=== PATIENT | female | born 1940 | race Caucasian/White ===

== ENCOUNTER 2016-07-20 11:00 | Outpatient (CLI) | payer OTHER | END 2016-07-20 11:01 | disposition home or self-care (01) | DX: N39.0 Urinary tract infection, site not specified (principal) ==

== ENCOUNTER 2016-08-01 14:53 | Outpatient (CLI) | payer OTHER | END 2016-08-01 14:54 | disposition home or self-care (01) | DX: R22.42 Localized swelling, mass and lump, left lower limb (principal) ==

== ENCOUNTER 2016-12-03 09:35 | Outpatient (CLI) | payer OTHER ==
[2016-12-03 10:07] LABS: BASOPHILS % (AUTO) 0.4 %; EOSINOPHILS # (AUTO) 0.2 10^3/uL (0.0-0.7); EOSINOPHILS % (AUTO) 1.8 %; HCT - HEMATOCRIT 40.8 % (37.0-47.0); HGB - HEMOGLOBIN 14.1 g/dL (12.0-16.0); LYMPHOCYTES % (AUTO) 12.6 %; MEAN CORPUSCULAR HEMOGLOBIN 32.2 pg (27.0-31.0); MEAN CORPUSCULAR HGB CONC 34.6 g/dL (32.0-36.0); MEAN CORPUSCULAR VOLUME 92.9 fL (81.0-99.0); MEAN PLATELET VOLUME 8.1 fL (7.9-10.8); MONOCYTES # (AUTO) 0.6 10^3/uL (0.0-1.0); MONOCYTES % (AUTO) 7.6 %; NEUTROPHILS # (AUTO) 6.4 10^3/uL (1.5-6.6); NEUTROPHILS % (AUTO) 77.6 %; RED BLOOD COUNT 4.39 10^6/uL (4.20-5.40); RED CELL DISTRIBUTION WIDTH 13.1 % (12.0-15.0); UNCORRECTED WHITE BLOOD COUNT 8.3 x10^3/uL; WHITE BLOOD COUNT 8.3 x10^3/uL (4.8-10.8)
[2016-12-03 10:29] LABS: BILIRUBIN,TOTAL 0.8 mg/dL (0.2-1.0); BUN - BLOOD UREA NITROGEN 22 mg/dL (6-20); CALCIUM 9.2 mg/dL (8.5-10.3); CARBON DIOXIDE - CO2 30 mmol/L (21-32); CHLORIDE 101 mmol/L (101-111); CHOL/HDL RATIO 4.4 (<4.4); CHOLESTEROL 185 mg/dL; CREATININE 0.6 mg/dL (0.4-1.0); GFR - MDRD 98 (>89); GLUCOSE 105 mg/dL (70-100); HDL CHOLESTEROL 42 mg/dL; POTASSIUM 3.9 mmol/L (3.5-5.0); SODIUM 138 mmol/L (135-145); TOTAL PROTEIN 7.5 g/dL (6.7-8.2); TRIGLYCERIDES 92 mg/dL; URIC ACID 6.3 mg/dL (2.6-7.2); VLDL CHOLESTEROL 18 mg/dL
--- NOTE | 2016-12-04 01:07 | XRAY Report ---
EXAM: RIGHT FOOT RADIOGRAPHY EXAM DATE: 12/03/2016 10:08 AM. CLINICAL HISTORY: Right middle toe is painful. COMPARISON: None. TECHNIQUE: 3 views. FINDINGS: No evidence for acute fracture. No lytic lesions or periosteal reaction. 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 No subluxation. Dorsal interta rsal and tarsometatarsal osteoarthritis. Calcaneal bone spurs. Soft tissue: Unremarkable. IMPRESSION: 1. No acute bone findings are seen. Osteoarthritis as above. [facility] Referring Provider Line: [phone] SITE ID: [id number]
== END 2016-12-03 09:36 | disposition home or self-care (01) ==
LOC: LAB 09:35
PROVIDERS: ATTEND Family Medicine
DX: M19.071 Primary osteoarthritis, right ankle and foot (principal)
CPT/HCPCS: 36415; 80053; 80061; 84443; 84550; 85025; 85651; 86140

== ENCOUNTER 2017-01-12 08:52 | Outpatient (CLI) | payer OTHER ==
--- NOTE | 2017-01-13 15:54 | Mammography Report ---
DIGITAL BILATERAL SCREENING MAMMOGRAM: 01/12/2017 COMPARISON: Mammogram of 01/05/2016. INDICATION: Screening mammography. TECHNIQUE: Routine CC and MLO projections were obtained of the breasts. FINDINGS: Parenchymal tissue within the breasts is predominantly fatty replaced. There are no domina nt masses, suspicious microcalcifications, or secondary signs of malignancy. In comparison to the pre vious studies, there are no significant changes. IMPRESSION: NO MAMMOGRAPHIC EVIDENCE OF MALIGNANCY. NO SIGNIFICANT INTERVAL CHANGES. RECOMMENDATION: Screening mammography is recommended annually. BIRADS category 1 - negative. STANDARD QUALIFYING STATEMENTS 1. This examination was reviewed with the aid of Computed-Aided Detection (CAD). 2. A negative or benign imaging report should not delay biopsy if clinically suspicious findings are present. Consider surgical consultation if warranted. More than 5% of cancers are not identified by i maging. 3. Dense breasts may obscure an underlying neoplasm. JOB #: [id number] EXT JOB #:[id number]
== END 2017-01-12 08:53 | disposition home or self-care (01) ==
LOC: DI.N 08:52
PROVIDERS: ATTEND Family Medicine
DX: Z12.31 Encounter for screening mammogram for malignant neoplasm of breast (principal)
CPT/HCPCS: 77067

== ENCOUNTER 2017-07-13 08:00 | Outpatient (CLI) | payer OTHER ==
[2017-07-13 12:55] LABS: BASOPHILS % (AUTO) 0.5 %; EOSINOPHILS # (AUTO) 0.1 10^3/uL (0.0-0.7); EOSINOPHILS % (AUTO) 1.8 %; HGB - HEMOGLOBIN 13.4 g/dL (12.0-16.0); LYMPHOCYTES # (AUTO) 1.5 10^3/uL (1.5-3.5); LYMPHOCYTES % (AUTO) 20.9 %; MEAN CORPUSCULAR HEMOGLOBIN 31.6 pg (27.0-31.0); MEAN CORPUSCULAR HGB CONC 33.7 g/dL (32.0-36.0); MEAN CORPUSCULAR VOLUME 93.8 fL (81.0-99.0); MEAN PLATELET VOLUME 8.2 fL (7.9-10.8); MONOCYTES # (AUTO) 0.5 10^3/uL (0.0-1.0); MONOCYTES % (AUTO) 7.4 %; NEUTROPHILS # (AUTO) 5.1 10^3/uL (1.5-6.6); NEUTROPHILS % (AUTO) 69.4 %; PLT - PLATELET COUNT 284 10^3/uL (130-450); RED BLOOD COUNT 4.23 10^6/uL (4.20-5.40); RED CELL DISTRIBUTION WIDTH 12.8 % (12.0-15.0); WHITE BLOOD COUNT 7.3 x10^3/uL (4.8-10.8)
[2017-07-13 13:14] LABS: ALBUMIN 3.6 g/dL (3.2-5.5); ALBUMIN/GLOBULIN RATIO 0.9 (1.0-2.2); BILIRUBIN,TOTAL 0.4 mg/dL (0.2-1.0); CALCIUM 9.2 mg/dL (8.5-10.3); CREATININE 0.6 mg/dL (0.4-1.0); TOTAL PROTEIN 7.7 g/dL (6.7-8.2)
== END 2017-07-13 08:01 | disposition home or self-care (01) ==
LOC: LAB.WCP 08:00
PROVIDERS: ATTEND Family Medicine
DX: R05 Cough (principal)
CPT/HCPCS: 36415; 80053; 81599; 85025; 86635

== ENCOUNTER 2020-05-06 12:41 | Outpatient (CLI) | payer OTHER ==
[2020-05-06] MEDS ORDERED: BUFFERED LIDOCAINE 10 ML SYRINGE ONE (12:52)
[2020-05-06] MEDS ORDERED: BUPIVACAINE 0.5% PF 10 ML VIAL ONE ×2 (12:53→13:12)
[2020-05-06] MEDS ORDERED: BUPIVACAINE 0.5% PF 10 ML VIAL IM ONE (15:59)
[2020-05-06] MEDS ORDERED: BUFFERED LIDOCAINE 10 ML SYRINGE IU ONE (15:59)
--- NOTE | 2020-05-11 09:53 | Ultrasound Report ---
ULTRASOUND GUIDED BIOPSY LEFT BREAST USING VACUUM DEVICE WITH MARKING DEVICE INSERTED AND POST MAMMOG RAPHIC IMAGIN05/06/2020 CLINICAL: Left breast mass. PATIENT CONSENT: Risks (minor bleeding, infection, vasovagal reaction and repeat procedure), benefits and alternatives were explained to the patient and written informed consent was obtained. Correlation is made to exams dated: 04/28/2020 ultrasound, 04/28/2020 mammogram - [facility] , 01/12/2017 mammogram, 01/05/2016 mammogram, and 12/08/2014 mammogram - [facility]. An ultrasound guided biopsy using real-time ultrasound was performed for the concerning palpable 3.5 cm x 2.1 cm x 2.5 cm microlobulated irregular shaped solid mass located in the left breast at 11 o'cl ock middle depth. This was described on the previous mammography and ultrasound reports. The skin w as prepped in the usual manner. Local anesthetic was administered to the access site. A skin sanchez w as made in the breast. The abnormality was approached from the lateral aspect. A 13 gauge biopsy ne edle was placed adjacent to the abnormality under ultrasound guidance. Once the needle was documente d to be in the correct location, four specimens were obtained using the Mammotome biopsy system. The patient received additional local anesthetic during the procedure. A mammo clip was inserted into t he biopsy cavity. A skin closure strip and a sterile dressing were applied to the access site. Post procedure mammographic imaging demonstrates the location device at the targeted area and partial rem oval of the abnormality. The specimens were sent to the laboratory for pathological analysis. A possible left axillary node biopsy was potentially also to be performed today, but the lymph nodes seen deep in the axilla appeared normal morphologically and in size, and were relatively poorly seen due to their depth and posterior positioning. It was chosen to not proceed with node biopsy also be cause node position was near deep vasculature and image detail was limited. IMPRESSION: ULTRASOUND GUIDED BIOPSY MALIGNANT Ultrasound guided biopsy of the 3.5 cm x 2.1 cm x 2.5 cm solid mass in the left breast at 11 o'clock middle depth was successful. Pathology indicates malignant invasive ductal carcinoma (ID). Patholog y results are concordant with imaging findings. A surgical/oncologic consultation is recommended. A possible node biopsy at the left axilla was not performed due to the factors discussed above. This exam was interpreted at Station ID: [id number]. Edi Álvarez M.D. [facility],aty/:05/08/2020 19:21:07 copy to: TJ Allan LEAH, ph: [phone] BI-RADS CATEGORY: () - Unspecified - other recall n/a LATERALITY: (B)
--- NOTE | 2020-05-11 09:53 | Mammography Report ---
UNILATERAL LEFT DIGITAL DIAGNOSTIC MAMMOGRAM POST-PROCEDURE IMAGING FOR MARKER PLACEMENT: 05/06/2020 CLINICAL: Post left breast ultrasound biopsy, clip placement imaging. No prior exams were available for comparison. The tissue of left breast is predominantly fatty. The mass in the left breast that was biopsied earlier today under US guidance now contains the post biop sy marker as expected. IMPRESSION: POST PROCEDURE MAMMOGRAM FOR MARKER PLACEMENT Biopsy marker from US procedure earlier today is within the left breast mass. This exam was interpreted at Station ID: [id number]. NOTE: For mammograms, a report in lay terms will be sent to the patient. Approximately 15% of breast malignancies will not be visualized mammographically. In the management of a palpable breast mass, a negative mammogram must not discourage biopsy of a clinically suspicious lesion. Electronically Signed By: Edi Herzog M.D. sdh/:05/10/2020 17:06:53 copy to: TJ Allan LEAH, ph: [phone] ACR BI-RADS Category Post-procedure mammogram for marker placement PARENCHYMAL PATTERN: (F) - The breast(s) demonstrate(s) diffuse fatty replacement. BI-RADS CATEGORY: () - Unspecified - other recall n/a LATERALITY: (B)
== END 2020-05-06 12:42 | disposition home or self-care (01) ==
LOC: DI 12:41
PROVIDERS: ATTEND Family Medicine
DX: C50.212 Malignant neoplasm of upper-inner quadrant of left female breast (principal); Z17.1 Estrogen receptor negative status [ER-]
CPT/HCPCS: 19083

== ENCOUNTER 2020-05-29 07:25 | Outpatient (CLI) | payer OTHER ==
[2020-05-29] MEDS ORDERED: IOPAMIDOL-300 50 ML VIAL ONE (07:46)
[2020-05-29] MEDS ORDERED: IOVERSOL 320 100 ML VIAL IVP ONE ×2 (07:46→09:14)
[2020-05-29] MEDS ORDERED: IOPAMIDOL-300 50 ML VIAL PO ONE (09:15)
--- NOTE | 2020-05-29 13:26 | CT Report ---
PROCEDURE: CHEST W INDICATIONS: BREAST CA CONTRAST: IV CONTRAST: Optiray 320 ml: 100 PO CONTRAST: Isovue 300 ml50 TECHNIQUE: After the administration of intravenous contrast, 5 mm thick sections acquired from the pulmonary api shailesh to the posterior costophrenic angles. 7 mm thick coronal MIP reformats were acquired. For radia tion dose reduction, the following was used: automated exposure control, adjustment of mA and/or kV according to patient size. COMPARISON: None. FINDINGS: Image quality: Excellent. Lungs and pleura: No acute air space opacities. No pleural effusions or pneumothorax. Central and peripheral airways are patent and normal in caliber. Mediastinum: Heart size is normal. No pericardial effusion. No mediastinal or hilar adenopathy by size criteria. Thoracic aorta and central pulmonary arteries are normal in size. Esophagus is colin l in caliber. No hiatal hernia. Bones and chest wall: No suspicious bony lesions. No vertebral body compression fractures. No axil lesly or supraclavicular adenopathy by size criteria. Thyroid gland appears normal where well visuali zed. Note is made of a 3.6 cm diameter malignant appearing upper inner quadrant breast mass on the l eft, with a high density focus within consistent with ultrasound-guided biopsy localization clip. Abdomen: Visualized upper abdominal solid organs appear normal. Upper abdominal bowel loops are nor mal in caliber. IMPRESSION: No evidence of metastatic disease related to the 3.6 cm diameter rounded mass at the left breast, upp er inner quadrant. This mass contains a small metallic focus, consistent with the reported prior dank st biopsy performed under ultrasound guidance 05/06/2020. Several small lymph nodes are noted at the left axilla, none of which appear hyperenhancing or enlarg ed in overall size. Reviewed by: Edi Herzog MD on 05/29/2020 12:25 PM [place] Approved by: Edi Herzog MD on 05/29/2020 12:25 PM [place] Station ID: [id number]
--- NOTE | 2020-05-29 18:33 | CT Report ---
PROCEDURE: Abdomen/Pelvis W INDICATIONS: BREAST CA CONTRAST: IV CONTRAST: Optiray 320 ml: 100 PO CONTRAST: Isovue 300 ml50 TECHNIQUE: After the administration of Intravenous and oral contrast, 5 mm thick sections acquired from the diap hragms to the symphysis. 5 mm thick coronal and sagittal reformats were acquired. For radiation dos e reduction, the following was used: automated exposure control, adjustment of mA and/or kV accordin g to patient size. COMPARISON: CT chest with contrast, 05/29/2020. FINDINGS: Image quality: Excellent. ABDOMEN: Lung bases: Lung bases are clear. Heart size is normal. Moderate coronary artery calcification. Sm all hiatal hernia. Solid organs: Liver and spleen are normal in size and enhancement. Gallbladder is normal. Biliary system is non dilated. Pancreas enhances normally. No adrenal nodules. Kidneys demonstrate normal size and enhancement, without hydronephrosis. Peritoneum and bowel: Bowel loops demonstrate normal wall thickness and caliber. No free fluid or a ir. Nodes and vessels: No retroperitoneal or mesenteric adenopathy by size criteria. Aorta and inferior vena cava are normal in size. Moderate to severe aortic calcification. Miscellaneous: There is a small fat-containing umbilical hernia. PELVIS: Genitourinary: Bladder wall thickness is normal. Uterus and ovaries are normal. No pathological marylou e fluid. Miscellaneous: There is enlarged left inguinal nodes are noted measuring up to 1 cm. Bones: No suspicious bony lesions. No vertebral body compression fractures. Degenerative disc and facet disease in lumbar spine. Right hip arthroplasty. IMPRESSION: 1. No findings to suggest metastatic disease in abdomen or pelvis. 2. Mildly enlarged left inguinal lymph nodes are present, nonspecific. Rectum and clinical follow-up. Reviewed by: Torin Mays MD on 05/29/2020 6:32 PM PST Approved by: Torin Mays MD on 05/29/2020 6:32 PM PST Station ID: [id number]
== END 2020-05-29 07:26 | disposition home or self-care (01) ==
LOC: DI 07:25
PROVIDERS: ATTEND Internal Medicine Hematology & Oncology
DX: Z01.812 Encounter for preprocedural laboratory examination (principal); N63.22 Unspecified lump in the left breast, upper inner quadrant; R59.0 Localized enlarged lymph nodes; C50.912 Malignant neoplasm of unspecified site of left female breast; Z20.822 Contact with and (suspected) exposure to COVID-19
CPT/HCPCS: 71260; 74177; 87635; Q9967

== ENCOUNTER 2020-05-29 09:06 | Outpatient (CLI) | payer OTHER | END 2020-05-29 09:07 | disposition home or self-care (01) | LOC: LAB 09:06 | PROVIDERS: ATTEND Surgery | DX: Z01.812 Encounter for preprocedural laboratory examination (principal); C50.912 Malignant neoplasm of unspecified site of left female breast; Z20.822 Contact with and (suspected) exposure to COVID-19 ==

== ENCOUNTER 2020-06-01 08:19 | Day surgery (SDC) | payer OTHER ==
[~2020-06-01 08:19] MED LIST: BUPIVACAINE 0.5% PF 30 ML VIAL INFIL ONE; BUPIVACAINE 0.5% PF 30 ML VIAL ONE; LIDOCAINE 2%-EPI 1:100000 20 ML MDV ONE; LIDOCAINE 2%-EPI 1:100000 20 ML MDV SUBQ ONE; ceFAZolin 2 GM/50 ML 2 GM/50 ML BAG IV ONE
[2020-06-01] MEDS ORDERED: LACTATED RINGERS 1,000 ML IV ONE ×2 (08:29→09:00)
[2020-06-01] MEDS ORDERED: PROPOFOL 500 MG/50 ML 500 MG/50 ML VIAL ONE (08:37)
[2020-06-01] MEDS ORDERED: MIDAZOLAM 2 MG/2 ML VIAL ONE (08:41)
[2020-06-01] MEDS ORDERED: fentaNYL 100 MCG/2 ML VIAL ONE (08:41)
--- NOTE | 2020-06-01 09:06 | ANESTHESIA ---
Pre-Anesthesia VS, & Labs - Diagnosis cancer - Procedure port placement Vital Signs: Temp Pulse Resp BP Pulse Ox 36.6 C 72 16 147/59 H 97 06/01/20 08:29 06/01/20 08:29 06/01/20 08:29 06/01/20 08:29 06/01/20 08:29 Height: 5 ft 5 in Weight (kg): 103.1 kg Body Mass Index: 37.8 BMI Classification: Obese - NPO >8 hours - Is Patient ?: No Home Medications and Allergies Home Medications: Ambulatory Orders B-Complex with Vitamin C [Super B Complex-Vitamin C] 1 each PO DAILY 05/27/20 Calcium Phos/Vit D3/Mag Oxide [Posture-D Caplet] 1 each PO DAILY 05/27/20 Cholecalciferol [Vitamin D3] 50 mcg PO DAILY 05/27/20 Cyanocobalamin (Vitamin B-12) [Vitamin B-12] 1,000 mcg PO DAILY 05/27/20 Furosemide [Lasix] 40 mg PO DAILY PRN 05/27/20 Glucosamine HCl 1,500 mg PO DAILY 05/27/[address] [place]-3S/Dha/Epa/Fish Oil [Fish Oil 1,200 mg Softgel] 1 each PO BID 05/27/20 Aspirin [Aspir 81] 81 mg ORAL DAILY 02/09/15 Losartan [Cozaar] 25 mg ORAL QPM 02/09/15 Propranolol [Inderal] 20 mg ORAL BID 02/09/15 Triamterene/Hydrochlorothiazid [Triamterene-Hctz 75-50 mg Tab] 35.5 mg ORAL DAILY 02/09/15 clonazePAM [Clonazepam] 0.5 mg ORAL BID 02/09/15 B-Complex with Vitamin C [Super B Complex-Vitamin C] 1 each PO DAILY 05/27/20 Calcium Phos/Vit D3/Mag Oxide [Posture-D Caplet] 1 each PO DAILY 05/27/20 Cholecalciferol [Vitamin D3] 50 mcg PO DAILY 05/27/20 Cyanocobalamin (Vitamin B-12) [Vitamin B-12] 1,000 mcg PO DAILY 05/27/20 Furosemide [Lasix] 40 mg PO DAILY PRN 05/27/20 Glucosamine HCl 1,500 mg PO DAILY 05/27/[address] [place] [address]-3S/Dha/Epa/Fish Oil [Fish Oil 1,200 mg Softgel] 1 each PO BID 05/27/20 Allergies/Adverse Reactions: Allergies Allergy/AdvReac Type Severity Reaction Status Date / Time No Known Drug Allergies Allergy Verified 05/29/20 13:40 Anes History & Medical History - Anesthetic History Anesthesia Complications: reports: No previous complications Family history of Anesthesia Complications: Denies Family history of Malignant Hyperthermia: Denies - Medical History Cardiovascular: reports: Hypertension, High cholesterol Pulmonary: reports: None Gastrointestinal: reports: Colon polyps Urinary: reports: None Musculoskeletal: reports: None Endocrine/Autoimmune: reports: None Skin: reports: Other Smoking Status: Never smoker - Surgical History General: reports: Colonoscopy, Other Orthopedic: reports: Hip replacement Dermatologic: reports: Skin cancer surgery Exam General: Alert Dental: WNL Mouth Openin Fingerbreadth Neck Mobility: Normal Mallampati classification: III Thyromental Distance: 4-6 cm Respiratory: Lungs clear Cardiovascular: Regular rate Abdomen: Normal bowel sounds Extremities: No clubbing Neurological: Normal gait Mental/Cognitive Status: Alert/Oriented X3 Cognitive Status: Within normal limits Plan Anesthesia Type: General, MAC (Discussed and consented pt for MAC with GA as back up plan.) Consent for Procedure(s) Verified and Reviewed: Yes Code Status: Attempt Resuscitation ASA classification: 2-Mild systemic disease Is this case an emergency?: No
[2020-06-01] MEDS ORDERED: LIDOCAINE 2%-EPI 1:100000 20 ML MDV SUBQ ONE (09:38)
[2020-06-01] MEDS ORDERED: BUPIVACAINE 0.5% PF 30 ML VIAL INFIL ONE (09:38)
--- NOTE | 2020-06-01 09:48 | OPERATIVE REPORT ---
Operative Report - General Procedure Date: 06/01/20 Planned Procedure: Right subclavian PowerPort placement Pre-Op Diagnosis: Left breast cancer Procedure Performed: Right subclavian PowerPort placement Post Op Diagnosis: Left breast cancer - Procedure Note Primary Surgeon: Gris Anesthesia Provider: ZAIDA Gonzalez Anesthesia Technique: MAC Estimated Blood Loss (mL): 5 Indications: Locally advanced left breast cancer Findings: Right PowerPort in good position in the superior vena cava Complications: None apparent - Other Other Information/Narrative: After obtaining informed consent, the patient is brought to the operating room and placed in supine position on the operating table. Following successful induction of sedation with monitored anesthesia care and appropriate padding of all bony prominences, the left chest and neck were prepped and draped in the standard surgical fashion. A timeout was held per scope protocol. All elements of the surgical safety checklist were followed before, during, and after the procedure. Following infiltration with local anesthetic to create a field block, the right subclavian vein was accessed in the deltopectoral groove. The J-wire was gently placed into the vein. Fluoroscopy was used to confirm the position of the wire and in the subclavian vein. We anesthetized the existing healed scar in the area around it for placement of the port itself. An incision was created here and carried down through the skin and subcutaneous tissue. A pocket was created with blunt dissection. The port tubing was attached to the tunneling device and passed from the access site of the vein into the pocket. It was trimmed to an appropriate length and the port attached. The port was sewn into place in the pocket. The dilator and introducer were then passed over the J-wire that was in the subclavian vein. The J-wire and dilator were removed leaving only the introducer. The tubing was then passed through the introducer and the intro ducer cracked and removed per commercial loan officer's directions. The port was then checked for function and flushed and sadaf easily. Additional local anesthetic was applied to the chest wall. The port pocket was closed with interrupted Vicryl sutures and Monocryl stitches were placed in both skin incision sites. All sponge, needle, and instrument counts were correct at the conclusion of the case. Chest x-ray in the postanesthesia care unit revealed the port in good position in the superior vena cava without evidence of pneumothorax.
--- NOTE | 2020-06-01 10:17 | XRAY Report ---
PROCEDURE: OR Port-A-Cath INDICATIONS: PORT PLACEMENT TECHNIQUE: Intraoperative fluoroscopy provided for line placement. COMPARISON: Chest CT 05/29/2020, chest x-ray 06/01/2020. FINDINGS: Single internal fluoroscopic image demonstrates a catheter projecting over the right subclavian exten ding into the region of the superior vena cava. The tip is demonstrated in the expected region of the right atrium. IMPRESSION: 1. Intraoperative fluoroscopy provided for line placement. 2. Single fluoroscopic image demonstrates the catheter extending into the expected region of the righ t atrium. Reviewed by: Nasim Sun MD on 06/01/2020 10:16 AM PDT Approved by: Nasim Sun MD on 06/01/2020 10:16 AM PDT Station ID: [id number]
--- NOTE | 2020-06-01 10:22 | XRAY Report ---
PROCEDURE: Chest for Line Placement INDICATIONS: Right power port TECHNIQUE: One view of the chest was acquired. COMPARISON: CT of chest dated 05/29/2020 FINDINGS: Surgical changes and devices: Right chest wall Port-A-Cath tip is projecting in the expected location of SVC. Lungs and pleura: No pleural effusions or pneumothorax. Lungs are clear. Mediastinum: Mediastinal contours appear normal. Heart size is normal. Bones and chest wall: No suspicious bony lesions. Overlying soft tissues appear unremarkable. IMPRESSION: Right chest wall Port-A-Cath tip is projecting in the expected location of SVC. No acute cardiopulmon lucie pathology. No acute cardiopulmonary pathology. Reviewed by: Josias Boothe MD on 06/01/2020 10:21 AM PDT Approved by: Josias Boothe MD on 06/01/2020 10:21 AM PDT Station ID: [id number]
[2020-06-01 10:49] VITALS: BP 140/62
--- NOTE | 2020-06-01 11:41 | ANESTHESIA POST OP EVALUATION ---
Anesthesia Post Eval - Post Anesthesia Eval Vitals: Last Vital Signs Temp 36.0 C L 06/01/20 10:30 Pulse 61 06/01/20 10:48 Resp 16 06/01/20 10:48 BP 140/62 H 06/01/20 10:48 Pulse Ox 98 06/01/20 10:48 CV Function Including HR & BP: positive: Stable Pain Control: positive: Satisfactory Nausea & Vomiting: positive: Negative Mental Status: positive: Baseline Respiratory Status: Airway Patent Hydration Status: Satisfactory Anesthesia Complications: positive: None
== END 2020-06-01 08:20 | disposition home or self-care (01) ==
LOC: SDS 08:19
PROVIDERS: ATTEND Surgery
DX: C50.212 Malignant neoplasm of upper-inner quadrant of left female breast (principal); I10 Essential (primary) hypertension; E66.9 Obesity, unspecified; Z68.37 Body mass index [BMI] 37.0-37.9, adult; Z87.891 Personal history of nicotine dependence
CPT/HCPCS: 36561; 71045; C1788; J0690; J7120

== ENCOUNTER 2020-06-05 08:36 | Outpatient (CLI) | payer OTHER ==
--- NOTE | 2020-06-05 18:57 | Nuclear Medicine Report ---
PROCEDURE: Bone Whole Body INDICATIONS: BREAST CA RADIOPHARMACEUTICAL: 26.9 mCi Tc-99m MDP IV. TECHNIQUE: Delayed whole-body scintigrams were obtained approximately 3-4 hours after intravenous injection of r adiotracer. Anterior and posterior views were acquired from vertex to feet. Additional left and rig ht oblique views of the skull and cervical spine were obtained. COMPARISON: None available. FINDINGS: Foci of mildly uptake in the thoracic spine and lumbar spine are noted, most likely degene rative in nature. There are foci of increased periarticular uptake in right shoulder, right wrist, le ft hip, knees bilaterally and right foot, consistent with degenerative/arthritic changes. There is ot herwise normal distribution of activity. IMPRESSION: 1. No findings to suggest osseous metastasis. Reviewed by: Torin Mays MD on 06/05/2020 6:55 PM PDT Approved by: Torin Mays MD on 06/05/2020 6:55 PM PDT Station ID: [id number]
== END 2020-06-05 08:37 | disposition home or self-care (01) ==
LOC: DI 08:36
PROVIDERS: ATTEND Internal Medicine Hematology & Oncology
DX: C50.919 Malignant neoplasm of unspecified site of unspecified female breast (principal)
CPT/HCPCS: 78306

== ENCOUNTER 2020-06-08 13:52 | Outpatient (CLI) | payer OTHER | END 2020-06-08 13:53 | disposition home or self-care (01) | LOC: DI 13:52 | PROVIDERS: ATTEND Internal Medicine Hematology & Oncology | DX: C50.919 Malignant neoplasm of unspecified site of unspecified female breast (principal); I08.2 Rheumatic disorders of both aortic and tricuspid valves | CPT/HCPCS: 93306 ==

== ENCOUNTER 2020-08-01 15:16 | Outpatient (CLI) | payer MEDICARE, OTHER | END 2020-08-01 15:17 | disposition EMS.NT | LOC: EMS 15:16 | DX: Z03.89 Encounter for observation for other suspected diseases and conditions ruled out (principal) ==

== ENCOUNTER 2020-08-01 16:29 | Outpatient (CLI) | payer MEDICARE, OTHER | END 2020-08-01 16:30 | disposition critical access hospital (66) | LOC: EMS 16:29 | DX: R42 Dizziness and giddiness (principal); R53.1 Weakness | CPT/HCPCS: A0425; A0429 ==

== ENCOUNTER 2020-08-01 17:19 | Inpatient (IN) | payer MEDICARE, OTHER ==
[2020-08-01] MEDS ORDERED: SODIUM CHLORIDE 0.9% 1,000 ML IV STA (17:28)
--- NOTE | 2020-08-01 17:40 | ED Physician Documentation ---
History of Present Illness - Stated complaint Stated Complaint: DIZZY - Chief complaint Chief Complaint: General - History obtained from History obtained from: Patient, EMS - History of Present Illness Timing: Today Pain level max: 0 Pain level now: 0 Improved by: rest Worsened by: standing - Additonal information Additional information: 80-year-old female presents to the emergency department complaining of lightheadedness and dizziness for the past several days. Worse with standing up, better when lying down. Decreased oral intake. Currently undergoing chemotherapy for breast cancer. She fell today, but no injuries. Was picked back up by EMS. The patient continues to feel lightheaded so 911 was called again and brought her in for evaluation. No numbness or tingling. No focal neurological deficits. No head injury. No neck or back pain. Has had some nausea but no vomiting. No diarrhea. No constipation. She states she was recently seen by her oncologist in the [facility] clinic, and told that she was dehydrated with a low sodium. Review of Systems Constitutional: denies: Fever, Chills GI: denies: Vomiting Skin: denies: Rash Musculoskeletal: denies: Neck pain, Back pain Neurologic: denies: Headache PD PAST MEDICAL HISTORY - Past Medical History Past Medical History: Yes Cardiovascular: Hypertension, High cholesterol Respiratory: None Endocrine/Autoimmune: None GI: Colon polyps : None HEENT: Chronic vision loss, Other Psych: Claustrophobia Musculoskeletal: None Derm: Other - Past Surgical History General: Colonoscopy, Other Ortho: Hip replacement Derm: Skin cancer surgery - Present Medications Home Medications: Ambulatory Orders Medication Instructions Recorded Confirmed Aspirin [Aspir 81] 81 mg ORAL DAILY 02/09/15 07/27/20 Losartan [Cozaar] 25 mg ORAL QPM 02/09/15 07/27/20 Propranolol [Inderal] 20 mg ORAL BID 02/09/15 07/27/20 Triamterene/Hydrochlorothiazid 35.5 mg ORAL DAILY 02/09/15 07/27/20 [Triamterene-Hctz 75-50 mg Tab] clonazePAM [Clonazepam] 0.5 mg ORAL BID 02/09/15 07/27/20 Lidocaine/Prilocain 2.5% Cream 5 applic TOP UD #1 gm 05/26/20 05/29/20 [Emla 2.5% Cream] Olanzapine [Zyprexa] 5 mg PO UD #12 tablet 05/26/20 05/29/20 Ondansetron HCl 8 mg PO BID PRN #30 tablet 05/26/20 05/29/20 Prochlorperazine Maleate 10 mg PO Q6HR PRN #30 tab 05/26/20 05/29/20 [Compazine] dexAMETHasone [Decadron] 8 mg PO UD #24 tablet 05/26/20 05/29/20 B-Complex with Vitamin C [Super B 1 each PO DAILY 05/27/20 07/27/20 Complex-Vitamin C] Calcium Phos/Vit D3/Mag Oxide 1 each PO DAILY 05/27/20 07/27/20 [Posture-D Caplet] Cholecalciferol [Vitamin D3] 50 mcg PO DAILY 05/27/20 07/27/20 Cyanocobalamin (Vitamin B-12) 1,000 mcg PO DAILY 05/27/20 07/27/20 [Vitamin B-12] Furosemide [Lasix] 40 mg PO DAILY PRN 05/27/20 07/27/20 Glucosamine HCl 1,500 mg PO DAILY 05/27/20 07/27/20 Emily-3S/Dha/Epa/Fish Oil [Fish 1 each PO BID 05/27/20 07/27/20 Oil 1,200 mg Softgel] Ondansetron Odt [Zofran Odt] 4 mg TL Q6H PRN #10 tablet 06/01/20 07/27/20 oxyCODONE [Roxicodone] 5 mg PO Q6H PRN #20 tablet 06/01/20 07/27/20 - Allergies Allergies/Adverse Reactions: Allergies Allergy/AdvReac Type Severity Reaction Status Date / Time No Known Drug Allergies Allergy Verified 08/01/20 17:29 - Social History Smoking Status: Never smoker PD ED PE NORMAL - Vitals Vital signs reviewed: Yes - General General: Alert and oriented X 3, No acute distress - HEENT HEENT: PERRL, Other (dry lips and tongue) - Neck Neck: Supple, no meningeal sign - Cardiac Cardiac: RRR, Strong equal pulses - Respiratory Respiratory: No respiratory distress, Clear bilaterally - Abdomen Abdomen: Soft, Non tender, Non distended - Rectal Rectal: Other (+ melena on rectal) - Derm Derm: Warm and dry, No rash - Extremities Extremities: No tenderness to palpate, Normal ROM s pain, No edema, No calf tenderness / cord - Neuro Neuro: Alert and oriented X 3, leadership intern 2-12 intact, No motor deficit, No sensory deficit, Normal speech Eye Opening: Spontaneous Motor: Obeys Commands Verbal: Oriented GCS Score: 15 - Psych Psych: Normal mood, Normal affect Results - Vitals Vitals: Vital Signs - 24 hr 08/01/20 08/01/20 08/01/20 17:24 17:29 18:30 Temperature 36.9 C Heart Rate 76 110 H 106 H Respiratory 18 20 20 Rate Blood Pressure 168/102 H 116/68 116/59 L O2 Saturation 98 97 96 08/01/20 08/01/20 08/01/20 20:00 20:05 20:15 Temperature 36.8 C 36.8 C 37.1 C Heart Rate 80 81 83 Respiratory 18 17 18 Rate Blood Pressure 155/92 H 120/40 L 155/92 H O2 Saturation 97 08/01/20 20:20 Temperature 36.8 C Heart Rate 84 Respiratory 20 Rate Blood Pressure 125/90 H O2 Saturation Oxygen O2 Source Room air - Labs Labs: Microbiology 08/01/20 18:20 Occult Blood - Final Stool Laboratory Tests 08/01/20 08/01/20 08/01/20 17:55 17:55 18:38 WBC 15.8 H RBC 1.62 L Hgb 5.4 L* Hct 16.4 L* MCV 101.2 H MCH 33.3 H MCHC 32.9 RDW 15.6 H Plt Count 132 MPV 9.9 Neut # (Auto) Not Reportable Lymph # (Auto) Not Reportable Harris # (Auto) Not Reportable Eos # (Auto) Not Reportable Baso # (Auto) Not Reportable Absolute Nucleated RBC Not Reportable Total Counted 100 Band Neuts % (Manual) 18 H Abnorm Lymph % (Manual) 0 Nucleated RBC % Not Reportable Neutrophils # (Manual) 14.9 H Lymphocytes # (Manual) 0.6 L Monocytes # (Manual) 0.3 Eosinophils # (Manual) 0.0 Basophils # (Manual) 0.0 Differential Comment MANUAL DIFFERENTIAL Manual Slide Review Indicated Platelet Estimate NORMAL (130-450,000) Platelet Morphology NORMAL APPEARANCE RBC Morph Micro Appear 2+ HYPOCHROMASIA PT 13.3 H INR 1.2 APTT 21.9 L Sodium 134 L Potassium 3.6 Chloride 100 L Carbon Dioxide 25 Anion Gap 9.0 BUN 44 H Creatinine 1.0 Estimated GFR (MDRD) 54 L Glucose 145 H Calcium 8.2 L Total Bilirubin 0.8 AST 42 ALT 40 Alkaline Phosphatase 76 Total Protein 5.1 L Albumin 2.5 L Globulin 2.6 Albumin/Globulin Ratio 1.0 Lipase 41 Urine Color Urine Clarity Urine pH Ur Specific [place] Urine Protein Urine Glucose (UA) Urine Ketones Urine Occult Blood Urine Nitrite Urine Bilirubin Urine Urobilinogen Ur Leukocyte Esterase Urine RBC Urine WBC Urine WBC Clumps Ur Squamous Epith Cells Urine Bacteria Ur Microscopic Review Urine Culture Comments Nasal Adenovirus (PCR) Nasal B. parapertussis DNA (PCR) Nasal Coronavir 229E PCR Nasal Coronavir HKU1 PCR Nasal Coronavir NL63 PCR Nasal Coronavir OC43 PCR Nasal Enterovir/Rhinovir PCR Nasal Influenza B PCR Nasal Influenza A PCR Nasal Parainfluen 1 PCR Nasal Parainfluen 2 PCR Nasal Parainfluen 3 PCR Nasal Parainfluen 4 PCR Nasal RSV (PCR) Nasal B.pertussis DNA PCR Nasal C.pneumoniae (PCR) Joseluis Human Metapneumo PCR Nasal M.pneumoniae (PCR) Nasal SARS-CoV-2 (PCR) Blood Type Antibody Screen Crossmatch IS Only 08/01/20 08/01/20 08/01/20 18:38 18:45 20:56 WBC RBC Hgb Hct MCV MCH MCHC RDW Plt Count MPV Neut # (Auto) Lymph # (Auto) Harris # (Auto) Eos # (Auto) Baso # (Auto) Absolute Nucleated RBC Total Counted Band Neuts % (Manual) Abnorm Lymph % (Manual) Nucleated RBC % Neutrophils # (Manual) Lymphocytes # (Manual) Monocytes # (Manual) Eosinophils # (Manual) Basophils # (Manual) Differential Comment Manual Slide Review Platelet Estimate Platelet Morphology RBC Morph Micro Appear PT INR APTT Sodium Potassium Chloride Carbon Dioxide Anion Gap BUN Creatinine Estimated GFR (MDRD) Glucose Calcium Total Bilirubin AST ALT Alkaline Phosphatase Total Protein Albumin Globulin Albumin/Globulin Ratio Lipase Urine Color YELLOW Urine Clarity HAZY Urine pH 6.0 Ur Specific [place] 1.015 Urine Protein NEGATIVE Urine Glucose (UA) NEGATIVE Urine Ketones NEGATIVE Urine Occult Blood TRACE-INTA Urine Nitrite POSITIVE H Urine Bilirubin NEGATIVE Urine Urobilinogen 0.2 (NORMAL) Ur Leukocyte Esterase MODERATE H Urine RBC 6-10 H Urine WBC >25 H Urine WBC Clumps PRESENT Ur Squamous Epith Cells RARE Squamous Urine Bacteria Many H Ur Microscopic Review INDICATED Urine Culture Comments INDICATED Nasal Adenovirus (PCR) NOT DETECTED Nasal B. parapertussis DNA (PCR) NOT DETECTED Nasal Coronavir 229E PCR NOT DETECTED Nasal Coronavir HKU1 PCR NOT DETECTED Nasal Coronavir NL63 PCR NOT DETECTED Nasal Coronavir OC43 PCR NOT DETECTED Nasal Enterovir/Rhinovir PCR NOT DETECTED Nasal Influenza B PCR NOT DETECTED Nasal Influenza A PCR NOT DETECTED Nasal Parainfluen 1 PCR NOT DETECTED Nasal Parainfluen 2 PCR NOT DETECTED Nasal Parainfluen 3 PCR NOT DETECTED Nasal Parainfluen 4 PCR NOT DETECTED Nasal RSV (PCR) NOT DETECTED Nasal B.pertussis DNA PCR NOT DETECTED Nasal C.pneumoniae (PCR) NOT DETECTED Joseluis Human Metapneumo PCR NOT DETECTED Nasal M.pneumoniae (PCR) NOT DETECTED Nasal SARS-CoV-2 (PCR) NOT DETECTED Blood Type O NEGATIVE Antibody Screen NEGATIVE Crossmatch IS Only See Detail - Rads (name of study) cxr Radiology: EMP read contemporaneously, See rad report (Contrast extravasation) CT abd/pelvis Radiology: Prelim report reviewed, EMP read contemporaneously, See rad report PD MEDICAL DECISION MAKING - ED course Complexity details: reviewed old records, reviewed results, re-evaluated patient, considered differential, d/w patient, d/w family, d/w client relationship consultant ED course: 80-year-old female with a GI bleed. Significantly anemic. Blood transfusion started. Discussed the case with Dr. Solis, general surgery on-call who will plan on doing an endoscopy and colonoscopy tomorrow. Discussed the case with Dr. Guerin, hospitalist who requested a angiogram of the abdomen and pelvis be performed. This was ordered, however the contrast extravasated from her port site. A new IV was started, but as blood was being transfused, the angiogram could not be performed. Therefore this will be performed after admission. Discussed the case with Dr. Calabrese, hospitalist who accepts This document was made in part using voice recognition software. While efforts are made to proofread this document, sound alike and grammatical errors may occur. Urinalysis returned after admission. The hospitalist will treat. Departure - Departure Disposition: 66 [facility] DC/Xfer Clinical Impression: Melena Anemia Qualifiers: Anemia type: unspecified type Qualified Code(s): D64.9 - Anemia, unspecified UTI (urinary tract infection) Qualifiers: Urinary tract infection type: acute cystitis Hematuria presence: without hem aturia Qualified Code(s): N30.00 - Acute cystitis without hematuria Condition: Stable
[2020-08-01 18:02] LABS: BASOPHILS % (AUTO) 0.1 %; EOSINOPHILS % (AUTO) 0.1 %; LYMPHOCYTES % (AUTO) 3.1 %; MEAN CORPUSCULAR HEMOGLOBIN 33.3 pg (27.0-31.0); MEAN CORPUSCULAR HGB CONC 32.9 g/dL (32.0-36.0); MEAN CORPUSCULAR VOLUME 101.2 fL (81.0-99.0); MEAN PLATELET VOLUME 9.9 fL (7.9-10.8); NEUTROPHILS % (AUTO) 67.2 %; PLT - PLATELET COUNT 132 10^3/uL (130-450); RED BLOOD COUNT 1.62 10^6/uL (4.20-5.40); RED CELL DISTRIBUTION WIDTH 15.6 % (12.0-15.0); WHITE BLOOD COUNT 15.8 x10^3/uL (4.8-10.8)
[2020-08-01 18:08] LABS: HCT - HEMATOCRIT 16.4 % (37.0-47.0); HGB - HEMOGLOBIN 5.4 g/dL (12.0-16.0); SLIDE REVIEW? Indicated
[2020-08-01 18:09] LABS: ABNORMAL LYMPHS % (MANUAL) 0 %
[2020-08-01 18:14] LABS: ALBUMIN 2.5 g/dL (3.2-5.5); BILIRUBIN,TOTAL 0.8 mg/dL (0.2-1.0); CALCIUM 8.2 mg/dL (8.5-10.3); POTASSIUM 3.6 mmol/L (3.5-5.0); TOTAL PROTEIN 5.1 g/dL (6.7-8.2)
[2020-08-01 18:29] LABS: BAND NEUTROPHILS % (MANUAL) 18 %; LYMPHOCYTES # (MANUAL) 0.6 10^3/uL (1.5-3.5); LYMPHOCYTES % (MANUAL) 4 %; MONOCYTES # (MANUAL) 0.3 10^3/uL (0.0-1.0); NEUTROPHILS # (MANUAL) 14.9 10^3/uL (1.5-6.6)
[2020-08-01 18:31] LABS: DIFFERENTIAL COMMENT MANUAL DIFFERENTIAL; PLATELET ESTIMATE, MANUAL NORMAL (130-450,000) (NORMAL); PLATELET MORPHOLOGY NORMAL APPEARANCE (NORMAL)
[2020-08-01] MEDS ORDERED: PANTOPRAZOLE 40 MG VIAL IVP STA (18:35)
[2020-08-01] MEDS ORDERED: IOPAMIDOL-300 100 ML VIAL ONE ×2 (18:46)
[2020-08-01 19:00] LABS: INR 1.2 (0.8-1.2); PT - PROTHROMBIN TIME 13.3 secs (9.9-12.6)
[2020-08-01 19:07] LABS: PARTIAL THROMBOPLASTIN TIME 21.9 secs (24.9-33.3)
[2020-08-01] MEDS ORDERED: IOPAMIDOL-300 100 ML VIAL IVP ONE (19:09)
--- NOTE | 2020-08-01 19:37 | XRAY Report ---
PROCEDURE: Chest 1 View X-Ray INDICATIONS: contrast extravasation TECHNIQUE: One view of the chest was acquired. COMPARISON: None FINDINGS: Surgical changes and devices: There is a right chest wall port.. Lungs and pleura: No pleural effusions or pneumothorax. The left lung is clear. The right lung appea rs clear, however there is superimposed contrast extravasation in the right chest wall. Mediastinum: Mediastinal contours appear normal. Heart size is normal. Bones and chest wall: No suspicious bony lesions. Overlying soft tissues appear unremarkable. IMPRESSION: 1. Contrast extravasation is noted in the right chest wall. 2. The lungs are clear. No pneumothorax or pleural effusion. Reviewed by: Brendon Barth on 08/01/2020 7:36 PM PDT Approved by: Brendon Barth on 08/01/2020 7:36 PM PDT Station ID: [id number]
[2020-08-01 19:49] LABS: B. PARAPERTUSSIS- RESP PCR PAN NOT DETECTED; B. PERTUSSIS- RESP PCR PANEL NOT DETECTED; C. PNEUMONIAE- RESP PCR PANEL NOT DETECTED; CORONAVIRUS 229E-RESP PCR NOT DETECTED; CORONAVIRUS HKU1-RESP PCR NOT DETECTED; CORONAVIRUS NL63-RESP PCR NOT DETECTED; CORONAVIRUS OC43-RESP PCR NOT DETECTED; HUMAN METAPNEUMOVIRUS NOT DETECTED; INFLUENZA A- RESP PCR PANEL NOT DETECTED; INFLUENZA B - RESP PCR PANEL NOT DETECTED; M. PNEUMONIAE- RESP PCR PANEL NOT DETECTED; PARAINFLUENZA VIRUS 1 NOT DETECTED; PARAINFLUENZA VIRUS 2 NOT DETECTED; PARAINFLUENZA VIRUS 3 NOT DETECTED; PARAINFLUENZA VIRUS 4 NOT DETECTED; RHINOVIRUS/ENTEROVIRUS NOT DETECTED; RSV- RESP PCR PANEL NOT DETECTED; SARS-CoV-2 -RESP PCR PANEL NOT DETECTED
[2020-08-01] MEDS ORDERED: ONDANSETRON 4 MG/2 ML VIAL IVP PRN (20:59)
[2020-08-01] MEDS ORDERED: oxyCODONE 5 MG TABLET PO PRN (20:59)
[2020-08-01] MEDS ORDERED: ONDANSETRON ODT 4 MG TABLET TL PRN (20:59)
[2020-08-01 21:08] LABS: BILIRUBIN,URINE NEGATIVE (NEGATIVE); GLUCOSE, URINE (UA) NEGATIVE (NEGATIVE); KETONES,URINE (UA) NEGATIVE (NEGATIVE); LEUKOCYTE ESTERASE, URINE MODERATE (NEGATIVE); NITRITE,URINE POSITIVE (NEGATIVE); OCCULT BLOOD,URINE TRACE-INTA (NEGATIVE); PROTEIN,URINE NEGATIVE (NEGATIVE); UROBILINOGEN,URINE 0.2 (NORMAL) E.U./dL (NORMAL)
--- NOTE | 2020-08-01 21:14 | HISTORY & PHYSICAL EXAMINATION ---
Chief Complaint - Chief Complaint Chief Complaint: dizziness w fall today History of Present Illness - Admitted From Admitted From:: Home via EMS - History Obtained From Records Reviewed: [facility] History obtained from: Dr. Guerin, Dr. Camilo, patient Exam Limitations: none - History of Present Illness HPI Comment/Other: This is a 80-year-old who has a history of dysphagia, esophagitis with esophageal erosions, Schatzki ring, gastritis and duodenitis with hiatal hernia and a duodenal polyp in January 2015, October 2017, currently being treated for breast cancer, and now presents with weakness, lightheadedness, fatigue. Its been going on for a little less than a week, and gets much worse when she tries to stand up or walk across the room. She feels better when she sitting down or laying down. She is currently undergoing chemotherapy for breast cancer. The lightheadedness resulted in a fall today. EMS was called and picked her up. Put her back in her chair. She continued to feel lightheaded so they called EMS again. She was evaluated by Dr. Jackson and her vital signs showed a temperature is 36.9, heart rate 76, respiration 18, blood pressure 168/102, and 98% on room air. Lab work showed her hemoglobin to be 5.4, hematocrit 16.4. She then shared she was having melanotic stool. She is on a daily aspirin and as needed Decadron for her chemotherapy. She is not on a proton pump inhibitor at home. With her diagnosis of breast cancer her hemoglobin was 13.9. After this last cycle of chemotherapy she began her cycle with a hemoglobin of 12.9. July 27 her hemoglobin was 9.7. INR was mildly elevated May 2020 at 1.1. Today it is 1.2. Discussion was had with daytime hospitalist and on-call general surgery, Dr. Solis. The patient is to have a CT angiogram in the emergency room and from t here to be admitted. She will be admitted by the hospitalist service, consulted on by general surgery. Unfortunately she extravasated her dye due to inadequate vascular access. She is currently getting her blood transfusion and we will need to delay her CT angiogram until after her first unit. History - Past Medical History Cardiovascular: reports: Hypertension, High cholesterol, Murmur (Echocardiogram August 2013 normal, EF 65%), Arrhythmia (sinus pause EKG w lightheaded 2012. Echo nml EF 65%, holter neg. ) Respiratory: reports: Asthma Neuro: reports: Peripheral neuropathy (left elbow and wrist nerve entrapment hx), Tremors (Familial, on propranolol) Endocrine/Autoimmune: reports: Other (Hyponatremia and hypokalemia due to chemotherapy) GI: reports: GERD, Ulcers (esophaeal erosions, esophagitis, gastritis 01/2015. Stomach mass removed. ), Hiatal hernia, Colon polyps, Chronic diarrhea (Skin rash from chemotherapy), Other (Left inguinal lymphadenopathy with ongoing surveillance since May 2020) BUTCHER SCULLION: reports: Breast cancer (Self found 04/21 1. Biopsy positive. High-grade invasive ductal CA. ER negative, IN negative, HER-2/maxien 3+. Stage II. Taxotere, carboplatinum, Herceptin, and Perjeta every 3 weeks, total 6 cycles, plan for mastectomy. Just completed cycle #3.), Other (, menarche 16, Menopause 52. ) : reports: None HEENT: reports: Chronic vision loss, Other Psych: reports: Anxiety (uses prn clonazepam), Claustrophobia Musculoskeletal: reports: Osteoarthritis (Hip, and ankle) Derm: reports: Other (SCCA lower extremity w removal) MRSA Hx?: No - Past Surgical History General: reports: Colonoscopy, EGD (w duodenal polyp removal 11/2015 and 10/2017) Ortho: reports: Hip replacement Cardiovascular: reports: Other (port placement 05/2020) Neuro: reports: Other (left carpal T release, and rvised ulanr nerve at elbow 11/2017) Derm: reports: Skin cancer surgery - Family & Social History Family History Comment/Other: Mother of stroke s/p endarterectomy age 83, had melanoma. Father of heart failure age 90, had prostate cancer. Sister of lung cancer age in her 70s, Two other sisters healthy, one brother healthy. Three children are healthy Living arrangement: At home (She has her own home but moved in with her daughter when she got chemotherapy started) Living Situation: With family Social History Notes: She is . Her of lung cancer in 2019 Right before her diagnosis of breast cancer.. 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 Lives close to her daughter in [place]. She does not smoke. But she did in the past. She did mainly in high school. It was only a few puffs here and there and never smoked beyond high school. Drinks occasionally but no history of alcohol abuse.Recreational substance abuse. - Substance History Use: Uses substance without health or social issues: Alcohol (1 glass of wine daily at most) Abuse: Recurrent use of substance despite neg consequences: NONE Dependence: Experiences withdrawal or developed tolerances: NONE - POLST Patient has POLST: No POLST Status: DNR (Daughter is in the room when the patient stage she wishes to be DO NOT RESUSCITATE in the event of a cardiopulmonary arrest. No intubation, no CPR.) Meds/Allgy - Home Medications Home Medications: Ambulatory Orders Medication Instructions Recorded Confirmed Aspirin [Aspir 81] 81 mg ORAL DAILY 02/09/15 07/27/20 Losartan [Cozaar] 25 mg ORAL QPM 02/09/15 07/27/20 Propranolol [Inderal] 20 mg ORAL BID 02/09/15 07/27/20 Triamterene/Hydrochlorothiazid 35.5 mg ORAL DAILY 02/09/15 07/27/20 [Triamterene-Hctz 75-50 mg Tab] clonazePAM [Clonazepam] 0.5 mg ORAL BID 02/09/15 07/27/20 Lidocaine/Prilocain 2.5% Cream 5 applic TOP UD #1 gm 05/26/20 05/29/20 [Emla 2.5% Cream] Olanzapine [Zyprexa] 5 mg PO UD #12 tablet 05/26/20 05/29/20 Ondansetron HCl 8 mg PO BID PRN #30 tablet 05/26/20 05/29/20 Prochlorperazine Maleate 10 mg PO Q6HR PRN #30 tab 05/26/20 05/29/20 [Compazine] dexAMETHasone [Decadron] 8 mg PO UD #24 tablet 05/26/20 05/29/20 B-Complex with Vitamin C [Super B 1 each PO DAILY 05/27/20 07/27/20 Complex-Vitamin C] Calcium Phos/Vit D3/Mag Oxide 1 each PO DAILY 05/27/20 07/27/20 [Posture-D Caplet] Cholecalciferol [Vitamin D3] 50 mcg PO DAILY 05/27/20 07/27/20 Cyanocobalamin (Vitamin B-12) 1,000 mcg PO DAILY 05/27/20 07/27/20 [Vitamin B-12] Furosemide [Lasix] 40 mg PO DAILY PRN 05/27/20 07/27/20 Glucosamine HCl 1,500 mg PO DAILY 05/27/20 07/27/20 [place]-3S/Dha/Epa/Fish Oil [Fish 1 each PO BID 05/27/20 07/27/20 Oil 1,200 mg Softgel] Ondansetron Odt [Zofran Odt] 4 mg TL Q6H PRN #10 tablet 06/01/20 07/27/20 oxyCODONE [Roxicodone] 5 mg PO Q6H PRN #20 tablet 06/01/20 07/27/20 - Allergies Allergies/Adverse Reactions: Allergies Allergy/AdvReac Type Severity Reaction Status Date / Time No Known Drug Allergies Allergy Verified 08/01/20 17:29 Review of Systems - Constitutional Constitutional: reports: Fatigue, Malaise, Weakness, Poor appetite, Diaphoresis, Other (All of this started with her chemotherapy in May. It really "knocked her down".) - Eyes Eyes: reports: Vision loss (Chronic). denies: Pain, Amaurosis - Ears, Nose & Throat Ears, Nose & Throat: reports: Hearing loss (Associated with aging and chronic), Mouth lesions (With chemotherapy), Other (Alopecia with chemotherapy). denies: Hearing aids, Nasal pain, Nasal discharge, Sore throat, Hoarseness - Cardiovascular Cariovascular: reports: Irregular heart rate (In the past. Associated with lightheadedness. Work-up was negative with Holter and echo.), Lightheadedness (Off and on all her life and gotten worse with the chemotherapy. Definitely worse over the last week.), Exertional dyspnea, Decr. exercise tolerance (Uses a walker now. Has done so since the onset of chemotherapy.) - Respiratory Respiratory: reports: Cough (Mild, intermittent. Nonproductive. No real change in has been present for years), Wheezing (Early with her history of asthma. Does not use an inhaler on a regular basis. Cannot remember the last time she used 1.), SOB with exertion. denies: Hemoptysis, SOB at rest - Gastrointestinal Gastrointestinal: reports: Constipation (She has a cystocele and a rectocele. The rectocele causes stool to become impacted in the lower rectum. Difficulty voiding.), Diarrhea (In the days after chemo.), Black stools (She does not remember when they started but she thinks it was this week), Nausea (With chemo), Vomiting (With chemo), Reflux/heartburn (With chemo), Poor appetite (With chemo). denies: Bloody stools - Genitourinary Genitourinary: reports: Frequency, Urgency, Incontinence. denies: Dysuria, Hematuria, Flank pain - Integumentary Integumentary: reports: Rash, Other (With chemo.Sore buttock/diaper rash.) - Neurological Neurological: reports: General weakness, Dizziness, Pre-existing deficit (Familial tremor that worsens with fatigue, anxiety), Incoordination (She does not test her balance anymore so she has been walking with a walker since May of this year) - Psychiatric Psychiatric: reports: Anxiety (Claustrophobia. Clonazepam is about once a day.). denies: Suicidal, Delusions, Hallucinations - Endocrine Endocrine: reports: Intolerance to cold. denies: Polyuria, Polydypsia, Polyphagia - Hematologic/Lymphatic Hematologic/Lymphatic: reports: Anemia, Bruising, Lymphadenopathy Prior Level of Functionality: of her it was a psychological blow. He in 2019 right before all of her breast cancer/chemotherapy adventure began. She is moved in with one of her daughters because she has become so weak, fragile, with poor appetite. Needs a lot of help to get from one place to another. She is still able to dress herself, feed herself but can no longer cook, clean house. She uses a walker for balance to keep her self steady. Exam - Vital Signs Reviewed Vital Signs: Yes Vital Signs: Vital Signs x48h Temp Pulse Resp BP Pulse Ox 08/01/20 20:20 36.8 C 84 20 125/90 H 08/01/20 20:15 37.1 C 83 18 155/92 H 08/01/20 20:05 36.8 C 81 17 120/40 L 08/01/20 20:00 36.8 C 80 18 155/92 H 97 08/01/20 18:30 106 H 20 116/59 L 96 08/01/20 17:29 110 H 20 116/68 97 08/01/20 17:24 36.9 C 76 18 168/102 H 98 - Physical Exam General Appearance: positive: Alert, Mild distress, Other (Daughter at the bedside. States that mom is already starting to improve with IV fluids and 1 unit of blood down. She is pale, shivering and tremulous with alopecia and wearing a hat. Looks very fatigued.) Eyes Bilateral: positive: PERRL, EOMI ENT: positive: Dry mucous membranes Neck: positive: No JVD, Trachea midline, Lymphadenopathy (R), Lymphadenopathy (L). negative: Stiff neck Respiratory: positive: No respiratory distress. negative: Wheezes, Rales, Rhonchi Cardiovascular: positive: Regular rate & rhythm, Systolic murmur. negative: Gallop/S4, Friction rub Peripheral Pulses: positive: 1+ Abdomen: positive: Non-tender, No organomegaly, Nml bowel sounds, No distention Skin: positive: Dry, Pallor, Other (Stage I pressure area at base of coccyx between buttock folds.Extravasation at the site of port is boggy, subcutaneous edema. No skin breakdown yet.) Extremities: positive: Full ROM, No pedal edema, Other (Scars from her previous skin cancer surgery that are healed are present on the right lower leg). negative: Joint swelling, Deon's sign/cords Neurologic/Psychiatric: positive: Oriented x3, CN's nml (2-12). negative: Motor nml (Tremulous and with a baseline diffuse body tremor at rest, head shaan, vocal cord tremor) Conclusion/Plan - Problem List (1) Acute blood loss anemia Conclusion/Plan: In this teressa woman she probably has a combination of chemo therapy induced bone marrow suppression and on top of that has recurrence of probable upper GI pathology in the face of someone who takes a daily aspirin. Plan: Inpatient status Type and cross 2 units Transfused 2 units GI surgery consult for EGD in the morning Clear liquid diet until midnight (2) Melena Conclusion/Plan: Which is what leads me to suspect an upper GI pathology as opposed to a lower GI pathology. Plan: As above (3) History of esophagitis Conclusion/Plan: Documented on previous EGD with Dr. Charly Garza. He also seems to taken out a duodenal polyp twice. Both of those were benign pathologies. Plan: I have explained to the patient and her daughter that the patient cannot take any nonsteroidal therapy. Do not take her daily aspirin. No ibuprofen, Motrin, Aleve, Naprosyn, etc. Make sure she does not get an anti-inflammatory from a PCP. The most she can take [id number] would be Tylenol. Start proton pump inhibitor IV tonight (4) S/P chemotherapy, time since less than 4 weeks Conclusion/Plan: Treatment is for breast cancer. She is just completed cycle 3. She is due 3 more cycles before she can have a mastectomy. Disease remission has been good. Unfortunately chemotherapy has resulted in alopecia, mouth sores, occasional diarrhea, anorexia, generalized weakness. She is currently living with her daughter as she gets through this. Plan: To follow-up with oncology. Copy of history and physical will be sent to Dr. Gross. (5) Hypertension Conclusion/Plan: I have explained to the patient that her blood pressure is on the low side. She usually takes losartan at home. At this time I will hold off on the losartan as well as the Dyazide. She can get her propranolol to help her with her tremor. Will resume once her blood pressure is elevated. Qualifiers: Hypertension type: essential hypertension Qualified Code(s): I10 - Mitzy connors (primary) hypertension (6) Anxiety Conclusion/Plan: She says that is not too bad right now. She usually takes clonazepam once a day as needed. She would like that resumed during her stay and I will do so. (7) Familial tremor Conclusion/Plan: Made worse by anxiety, fatigue. Resume propranolol and clonazepam. (8) Chronic hyponatremia Conclusion/Plan: Due to chemotherapy. On today's labs she is 134. She has been as low as 130 a week ago. It has not been a severe problem. Plan: Most likely due to fluid losses. She will get blood transfusion and normal saline limited amount while here. - Lab Results Lab results reviewed: Yes Fish Bones: 08/01/20 17:55 08/01/20 17:55 Core Measures - Anticipated LOS I expect patient to be DC'd or transferred within 96 hours.: Yes - DVT/VTE - Prophylaxis VTE/DVT Device ordered at admit?: Yes
[2020-08-01 21:18] LABS: CLARITY,URINE HAZY (CLEAR); WBC,URINE >25 /HPF (0-5)
[2020-08-01 21:19] LABS: BACTERIA,URINE Many /HPF (None Seen); SQUAMOUS EPITHELIAL CELL,UR RARE Squamous (<= Few); WBC CLUMPS,URINE PRESENT
[2020-08-01] MEDS ORDERED: OLANZapine ODT 5 MG TABLET TL SCH (22:00)
[2020-08-01] MEDS ORDERED: clonazePAM 0.5 MG TABLET PO PRN (22:29)
[2020-08-02] MEDS: SODIUM CHLORIDE FLUSH 0.9% 10 ML SYRINGE IVP SCH ×3 (00:30→20:42)
[2020-08-02] MEDS: ZINC OXIDE 20% OINT 30 GM TUBE TOP PRN ×7 (03:03→22:14)
[2020-08-02 05:40] LABS: HCT - HEMATOCRIT 22.5 % (37.0-47.0); HGB - HEMOGLOBIN 7.6 g/dL (12.0-16.0); MEAN CORPUSCULAR HEMOGLOBIN 30.5 pg (27.0-31.0); MEAN CORPUSCULAR HGB CONC 33.8 g/dL (32.0-36.0); MEAN CORPUSCULAR VOLUME 90.4 fL (81.0-99.0); MEAN PLATELET VOLUME 10.7 fL (7.9-10.8); RED BLOOD COUNT 2.49 10^6/uL (4.20-5.40); RED CELL DISTRIBUTION WIDTH 17.9 % (12.0-15.0); WHITE BLOOD COUNT 7.8 x10^3/uL (4.8-10.8)
--- NOTE | 2020-08-02 07:34 | PROVIDER PROGRESS NOTE ---
Subjective - Prog Note Date Prog Note Date: 08/02/20 - Subjective Subjective: She reports feeling improved compared to yesterday. She has been having diarrhea today with about 4-5 bowel movements. She believes her stool is quite dark. Denies any abdominal pain. Feels little nauseous at times but no vomiting. She denies any dysuria but does report urgency. She states she has had urinary tract infections in the past but never had symptoms. Current Medications - Current Medications Current Medications: Active Medications Acetaminophen (Acetaminophen 325 Mg Tablet) 650 mg PO Q4HR PRN PRN Reason: Pain 1 to 4 Clonazepam (Clonazepam 0.5 Mg Tablet) 0.5 mg PO BID PRN PRN Reason: Anxiety Multi-Ingredient Ointment (Zinc Oxide 20% Oint 30 Gm Tube) 1 applic TOP PRN PRN PRN Reason: Skin Care Last Admin: 08/02/20 04:00 Dose: 1 applic Documented by: Ondansetron HCl (Ondansetron Odt 4 Mg Tablet) 4 mg TL Q6HR PRN PRN Reason: Nausea / Vomiting Ondansetron HCl (Ondansetron 4 Mg/2 Ml Vial) 4 mg IVP Q6HR PRN PRN Reason: Nausea / Vomiting Oxycodone HCl (Oxycodone 5 Mg Tablet) 5 mg PO Q4HR PRN PRN Reason: Pain 5 to 7 Pantoprazole Sodium (Pantoprazole 40 Mg Vial) 40 mg IVP BID GARETH Propranolol HCl (Propranolol 10 Mg Tablet) 10 mg PO BID GARETH Sodium Chloride (Sodium Chloride Flush 0.9% 10 Ml Syringe) 10 ml IVP PRN PRN PRN Reason: NEEDED PER PROVIDER ORDERS Sodium Chloride (Sodium Chloride Flush 0.9% 10 Ml Syringe) 10 ml IVP 0100,0900,1700 [facility] Last Admin: 08/02/20 00:30 Dose: 10 ml Documented by: Aspirin [Aspir 81] 81 mg ORAL DAILY 02/09/15 Losartan [Cozaar] 25 mg ORAL QPM 02/09/15 Propranolol [Inderal] 20 mg ORAL BID 02/09/15 Triamterene/Hydrochlorothiazid [Triamterene-Hctz 75-50 mg Tab] 35.5 mg ORAL DAILY 02/09/15 clonazePAM [Clonazepam] 0.5 mg ORAL BID 02/09/15 B-Complex with Vitamin C [Super B Complex-Vitamin C] 1 each PO DAILY 05/27/20 Calcium Phos/Vit D3/Mag Oxide [Posture-D Caplet] 1 each PO DAILY 05/27/20 Cholecalciferol [Vitamin D3] 50 mcg PO DAILY 05/27/20 Cyanocobalamin (Vitamin B-12) [Vitamin B-12] 1,000 mcg PO DAILY 05/27/20 Furosemide [Lasix] 40 mg PO DAILY PRN 05/27/20 Glucosamine HCl 1,500 mg PO DAILY 05/27/20 [place]-3S/Dha/Epa/Fish Oil [Fish Oil 1,200 mg Softgel] 1 each PO BID 05/27/20 Objective - Vital Signs/Intake & Output Reviewed Vital Signs: Yes Vital Signs: Vital Signs x48h Temp Pulse Pulse Resp BP BP Pulse Ox 08/02/20 03:58 37.0 C 84 16 119/48 L 08/02/20 03:17 37.1 C 84 16 112/62 99 08/02/20 00:51 36.8 C 81 16 104/41 L 08/02/20 00:37 37.9 C 83 16 129/67 08/01/20 23:43 36.9 C 88 20 125/108 H 99 Intake & Output: Intake & Output 07/30/20 07/31/20 08/01/20 08/02/20 23:59 23:59 23:59 23:59 Intake Total 1850 300 Output Total 800 Balance 1850 -500 - Objective General Appearance: positive: No acute distress, Alert Eyes Bilateral: positive: Normal inspection ENT: positive: ENT inspection nml Neck: positive: Nml inspection Respiratory: positive: No respiratory distress, Wheezes (Faint expiratory wheezes.). negative: Rales Cardiovascular: positive: Regular rate & rhythm, Systolic murmur. negative: No murmur, Tachycardia, Bradycardia Abdomen: positive: Non-tender, Nml bowel sounds, No distention. negative: Tenderness, Guarding, Rebound Skin: positive: Warm, Dry Extremities: positive: No pedal edema Neurologic/Psychiatric: negative: Disoriented to person, Disoriented to place - Lab Results Fish Bones: 08/02/20 05:25 08/02/20 05:25 Other Labs: Lab Results x24hrs 08/02/20 08/01/20 08/01/20 Range/Units 05:25 20:56 18:45 WBC 7.8 (4.8-10.8) x10^3/uL RBC 2.49 L (4.20-5.40) 10^6/uL Hgb 7.6 L (12.0-16.0) g/dL Hct 22.5 L (37.0-47.0) % MCV 90.4 (81.0-99.0) fL MCH 30.5 (27.0-31.0) pg MCHC 33.8 (32.0-36.0) g/dL RDW 17.9 H (12.0-15.0) % Plt Count 120 L (130-450) 10^3/uL MPV 10.7 (7.9-10.8) fL Neut # (Auto) Lymph # (Auto) [place] # (Auto) Eos # (Auto) Baso # (Auto) Absolute Nucleated RBC Total Counted Band Neuts % (Manual) (0 - 10) % Abnorm Lymph % (Manual) % Nucleated RBC % Neutrophils # (Manual) (1.5-6.6) 10^3/uL Lymphocytes # (Manual) (1.5-3.5) 10^3/uL Monocytes # (Manual) (0.0-1.0) 10^3/uL Eosinophils # (Manual) (0-0.7) 10^3/uL Basophils # (Manual) (0-0.1) 10^3/uL Differential Comment Manual Slide Review Platelet Estimate (NORMAL) Platelet Morphology (NORMAL) RBC Morph Micro Appear (NORMAL) PT (9.9-12.6) secs INR (0.8-1.2) APTT (24.9-33.3) secs Sodium (135-145) mmol/L Potassium (3.5-5.0) mmol/L Chloride (101-111) mmol/L Carbon Dioxide (21-32) mmol/L Anion Gap (6-13) BUN (6-20) mg/dL Creatinine (0.4-1.0) mg/dL Estimated GFR (MDRD) (>89) Glucose (70-100) mg/dL Calcium (8.5-10.3) mg/dL Total Bilirubin (0.2-1.0) mg/dL AST (10-42) IU/L ALT (10-60) IU/L Alkaline Phosphatase (42-121) IU/L Total Protein (6.7-8.2) g/dL Albumin (3.2-5.5) g/dL Globulin (2.1-4.2) g/dL Albumin/Globulin Ratio (1.0-2.2) Lipase (22-51) U/L Urine Color YELLOW Urine Clarity HAZY (CLEAR) Urine pH 6.0 (5.0-7.5) PH Ur Specific [place] 1.015 (1.002-1.030) Urine Protein NEGATIVE (NEGATIVE) mg/dL Urine Glucose (UA) NEGATIVE (NEGATIVE) mg/dL Urine Ketones NEGATIVE (NEGATIVE) mg/dL Urine Occult Blood TRACE-INTA (NEGATIVE) Urine Nitrite POSITIVE H (NEGATIVE) Urine Bilirubin NEGATIVE (NEGATIVE) Urine Urobilinogen 0.2 (NORMAL) (NORMAL) E.U./dL Ur Leukocyte Esterase MODERATE H (NEGATIVE) Urine RBC 6-10 H (0-5) /HPF Urine WBC >25 H (0-5) /HPF Urine WBC Clumps PRESENT Ur Squamous Epith Cells RARE Squamous (<= Few) Urine Bacteria Many H (None Seen) /HPF Ur Microscopic Review INDICATED Urine Culture Comments INDICATED Nasal Adenovirus (PCR) NOT DETECTED Nasal B. parapertussis DNA (PCR) NOT DETECTED Nasal Coronavir 229E PCR NOT DETECTED Nasal Coronavir HKU1 PCR NOT DETECTED Nasal Coronavir NL63 PCR NOT DETECTED Nasal Coronavir OC43 PCR NOT DETECTED Nasal Enterovir/Rhinovir PCR NOT DETECTED Nasal Influenza B PCR NOT DETECTED Nasal Influenza A PCR NOT DETECTED Nasal Parainfluen 1 PCR NOT DETECTED Nasal Parainfluen 2 PCR NOT DETECTED Nasal Parainfluen 3 PCR NOT DETECTED Nasal Parainfluen 4 PCR NOT DETECTED Nasal RSV (PCR) NOT DETECTED Nasal B.pertussis DNA PCR NOT DETECTED Nasal C.pneumoniae (PCR) NOT DETECTED Joseluis Human Metapneumo PCR NOT DETECTED Nasal M.pneumoniae (PCR) NOT DETECTED Nasal SARS-CoV-2 (PCR) NOT DETECTED Blood Type Antibody Screen Crossmatch IS Only 08/01/20 08/01/20 08/01/20 Range/Units 18:38 18:38 17:55 WBC (4.8-10.8) x10^3/uL RBC (4.20-5.40) 10^6/uL Hgb (12.0-16.0) g/dL Hct (37.0-47.0) % MCV (81.0-99.0) fL MCH (27.0-31.0) pg MCHC (32.0-36.0) g/dL RDW (12.0-15.0) % Plt Count (130-450) 10^3/uL MPV (7.9-10.8) fL Neut # (Auto) Lymph # (Auto) [place] # (Auto) Eos # (Auto) Baso # (Auto) Absolute Nucleated RBC Total Counted Band Neuts % (Manual) (0 - 10) % Abnorm Lymph % (Manual) % Nucleated RBC % Neutrophils # (Manual) (1.5-6.6) 10^3/uL Lymphocytes # (Manual) (1.5-3.5) 10^3/uL Monocytes # (Manual) (0.0-1.0) 10^3/uL Eosinophils # (Manual) (0-0.7) 10^3/uL Basophils # (Manual) (0-0.1) 10^3/uL Differential Comment Manual Slide Review Platelet Estimate (NORMAL) Platelet Morphology (NORMAL) RBC Morph Micro Appear (NORMAL) PT 13.3 H (9.9-12.6) secs INR 1.2 (0.8-1.2) APTT 21.9 L (24.9-33.3) secs Sodium 134 L (135-145) mmol/L Potassium 3.6 (3.5-5.0) mmol/L Chloride 100 L (101-111) mmol/L Carbon Dioxide 25 (21-32) mmol/L Anion Gap 9.0 (6-13) BUN 44 H (6-20) mg/dL Creatinine 1.0 (0.4-1.0) mg/dL Estimated GFR (MDRD) 54 L (>89) Glucose 145 H (70-100) mg/dL Calcium 8.2 L (8.5-10.3) mg/dL Total Bilirubin 0.8 (0.2-1.0) mg/dL AST 42 (10-42) IU/L ALT 40 (10-60) IU/L Alkaline Phosphatase 76 (42-121) IU/L Total Protein 5.1 L (6.7-8.2) g/dL Albumin 2.5 L (3.2-5.5) g/dL Globulin 2.6 (2.1-4.2) g/dL Albumin/Globulin Ratio 1.0 (1.0-2.2) Lipase 41 (22-51) U/L Urine Color Urine Clarity (CLEAR) Urine pH (5.0-7.5) PH Ur Specific [place] (1.002-1.030) Urine Protein (NEGATIVE) mg/dL Urine Glucose (UA) (NEGATIVE) mg/dL Urine Ketones (NEGATIVE) mg/dL Urine Occult Blood (NEGATIVE) Urine Nitrite (NEGATIVE) Urine Bilirubin (NEGATIVE) Urine Urobilinogen (NORMAL) E.U./dL Ur Leukocyte Esterase (NEGATIVE) Urine RBC (0-5) /HPF Urine WBC (0-5) /HPF Urine WBC Clumps Ur Squamous Epith Cells (<= Few) Urine Bacteria (None Seen) /HPF Ur Microscopic Review Urine Culture Comments Nasal Adenovirus (PCR) Nasal B. parapertussis DNA (PCR) Nasal Coronavir 229E PCR Nasal Coronavir HKU1 PCR Nasal Coronavir NL63 PCR Nasal Coronavir OC43 PCR Nasal Enterovir/Rhinovir PCR Nasal Influenza B PCR Nasal Influenza A PCR Nasal Parainfluen 1 PCR Nasal Parainfluen 2 PCR Nasal Parainfluen 3 PCR Nasal Parainfluen 4 PCR Nasal RSV (PCR) Nasal B.pertussis DNA PCR Nasal C.pneumoniae (PCR) Joseluis Human Metapneumo PCR Nasal M.pneumoniae (PCR) Nasal SARS-CoV-2 (PCR) Blood Type O NEGATIVE Antibody Screen NEGATIVE Crossmatch IS Only See Detail 08/01/20 Range/Units 17:55 WBC 15.8 H (4.8-10.8) x10^3/uL RBC 1.62 L (4.20-5.40) 10^6/uL Hgb 5.4 L* (12.0-16.0) g/dL Hct 16.4 L* (37.0-47.0) % MCV 101.2 H (81.0-99.0) fL MCH 33.3 H (27.0-31.0) pg MCHC 32.9 (32.0-36.0) g/dL RDW 15.6 H (12.0-15.0) % Plt Count 132 (130-450) 10^3/uL MPV 9.9 (7.9-10.8) fL Neut # (Auto) Not Reportable Lymph # (Auto) Not Reportable [place] # (Auto) Not Reportable Eos # (Auto) Not Reportable Baso # (Auto) Not Reportable Absolute Nucleated RBC Not Reportable Total Counted 100 Band Neuts % (Manual) 18 H (0 - 10) % Abnorm Lymph % (Manual) 0 % Nucleated RBC % Not Reportable Neutrophils # (Manual) 14.9 H (1.5-6.6) 10^3/uL Lymphocytes # (Manual) 0.6 L (1.5-3.5) 10^3/uL Monocytes # (Manual) 0.3 (0.0-1.0) 10^3/uL Eosinophils # (Manual) 0.0 (0-0.7) 10^3/uL Basophils # (Manual) 0.0 (0-0.1) 10^3/uL Differential Comment MANUAL DIFFERENTIAL Manual Slide Review Indicated Platelet Estimate NORMAL (130-450,000) (NORMAL) Platelet Morphology NORMAL APPEARANCE (NORMAL) RBC Morph Micro Appear 2+ HYPOCHROMASIA (NORMAL) PT (9.9-12.6) secs INR (0.8-1.2) APTT (24.9-33.3) secs Sodium (135-145) mmol/L Potassium (3.5-5.0) mmol/L Chloride (101-111) mmol/L Carbon Dioxide (21-32) mmol/L Anion Gap (6-13) BUN (6-20) mg/dL Creatinine (0.4-1.0) mg/dL Estimated GFR (MDRD) (>89) Glucose (70-100) mg/dL Calcium (8.5-10.3) mg/dL Total Bilirubin (0.2-1.0) mg/dL AST (10-42) IU/L ALT (10-60) IU/L Alkaline Phosphatase (42-121) IU/L Total Protein (6.7-8.2) g/dL Albumin (3.2-5.5) g/dL Globulin (2.1-4.2) g/dL Albumin/Globulin Ratio (1.0-2.2) Lipase (22-51) U/L Urine Color Urine Clarity (CLEAR) Urine pH (5.0-7.5) PH Ur Specific [place] (1.002-1.030) Urine Protein (NEGATIVE) mg/dL Urine Glucose (UA) (NEGATIVE) mg/dL Urine Ketones (NEGATIVE) mg/dL Urine Occult Blood (NEGATIVE) Urine Nitrite (NEGATIVE) Urine Bilirubin (NEGATIVE) Urine Urobilinogen (NORMAL) E.U./dL Ur Leukocyte Esterase (NEGATIVE) Urine RBC (0-5) /HPF Urine WBC (0-5) /HPF Urine WBC Clumps Ur Squamous Epith Cells (<= Few) Urine Bacteria (None Seen) /HPF Ur Microscopic Review Urine Culture Comments Nasal Adenovirus (PCR) Nasal B. parapertussis DNA (PCR) Nasal Coronavir 229E PCR Nasal Coronavir HKU1 PCR Nasal Coronavir NL63 PCR Nasal Coronavir OC43 PCR Nasal Enterovir/Rhinovir PCR Nasal Influenza B PCR Nasal Influenza A PCR Nasal Parainfluen 1 PCR Nasal Parainfluen 2 PCR Nasal Parainfluen 3 PCR Nasal Parainfluen 4 PCR Nasal RSV (PCR) Nasal B.pertussis DNA PCR Nasal C.pneumoniae (PCR) Joseluis Human Metapneumo PCR Nasal M.pneumoniae (PCR) Nasal SARS-CoV-2 (PCR) Blood Type Antibody Screen Crossmatch IS Only ABX Reporting Has patient been on IV antibiotics over the past 48 hours?: No Assessment/Plan - Problem List (1) Acute blood loss anemia Impression: This is secondary to suspected upper GI bleed. Her hemoglobin was 5.4 on admission and last month it was 12.9. She has responded well to 2 units of packed red blood cell with improvement of her hemoglobin to 7.6. The plan at this time is to trend her hemoglobin every 8 hours and transfuse for goal hemoglobin greater than 7. Endoscopy today to evaluate for bleeding source. (2) Melena Impression: Given that she has melena, the concern is for an upper GI bleed. She is on aspirin at home but denies any other use of NSAIDs and alcohol use. She continues to have melena and plan is for endoscopy today. She is n.p.o. for this. (3) History of esophagitis Impression: She has a history of esophagitis and CT of the abdomen pelvis is suggestive of mild esophagitis. Although she reports no vomiting at home, she does feel nauseous. She also presents with melena and acute blood loss anemia as mentioned above. We have placed her on twice daily IV PPI. She is n.p.o. for endoscopy today. (4) UTI (urinary tract infection) Impression: Urinalysis obtained on admission revealed pyuria, bacteriuria, nitrites, and leukocyte esterase. Although she has no dysuria, she does have urgency and she did have a significantly elevated white count on admission with 18% bands. This is improved despite not receiving IV antibiotics but I am concerned for potentially an underlying infection especially in a patient who is immunocompromised as she is receiving chemotherapy. Given she is immunocompromised and she had elevated white count, we will treat empirically with antibiotics. We will give her a one-time dose of IV ceftriaxone and place her on oral ciprofloxacin. Will follow-up urine culture. 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 She is being treated with TCHP since June 16 and is due for the third cycle next month. She will need outpatient follow-up once discharged. (6) Anxiety Impression: Stable. We are continuing her home clonazepam. (7) Familial tremor Impression: Stable. We are continuing her home propranolol and clonazepam. (8) Hypertension Impression: We are continuing her home propanolol but holding the losartan and Lasix for time being given she is normotensive with acute blood loss anemia. We will resume when clinically appropriate. Qualifiers: Hypertension type: essential hypertension Qualified Code(s): I10 - Essential (primary) hypertension
--- NOTE | 2020-08-02 07:39 | CT Report ---
PROCEDURE: ANGIO ABDOMEN/PELVIS W INDICATIONS: melena CONTRAST: IV CONTRAST: Isovue 300 ml: 100 PO CONTRAST: *NO PO CONTRAST TECHNIQUE: After the administration of intravenous contrast, 2 and 5 mm sections acquired from the diaphragm to the iliac crests. 3-dimensional maximum intensity projection (MIP) coronal and sagittal reformats, a nd/or 3-dimensional volume rendering reformatting was then performed. For radiation dose reduction, the following was used: automated exposure control, adjustment of mA and/or kV according to patient size. COMPARISON: Chest CT and CT abdomen and pelvis dated 05/29/2020 FINDINGS: Image quality: Excellent. Extravascular tissues: There is a 7 x 5 mm right lower lobe subpleural pulmonary nodule (series 5 renetta ge 1) an additional subpleural nodule in the right lower lobe measuring 5 x 2 mm (series 5 image 5). Heart size is normal. At least moderate multivessel coronary vascular calcifications. There is a sma ll to moderate hiatal hernia. There is a diffuse wall thickening of the distal esophagus which is flu id-filled. Liver and spleen are normal in size and enhancement. Gallbladder is unremarkable. Biliar y system is non dilated. Pancreas enhances normally. No adrenal nodules. Kidneys are normal in siz e and enhancement, without hydronephrosis. Likely small simple cysts noted within the left kidney. Co ntrast is noted within the renal collecting system and bladder. Small to moderate hiatal hernia. The stomach is otherwise unremarkable. The small bowel is unremarkable. No appendicitis. Colon is moderat hayde distended with stool with distention of the rectum. There is mild mucosal thickening of the dista l rectum and anus. No free fluid or air. Uterus is unremarkable. No suspicious adnexal mass. No ret roperitoneal or mesenteric adenopathy. Small fat-containing periumbilical and inguinal hernias. There is increased density of the image right breast likely representing hematoma. Left breast mass incomp letely evaluated. Marked degenerative changes of the spine, unchanged. Status post right total hip ar throplasty. At least moderate to marked degenerative changes of the left hip. Abdominal aorta: There is diffuse calcified atherosclerosis throughout the aorta extending into the iliac vessels which is otherwise normal in size without evidence of aneurysm or dissection. Mesenteric arteries: Patent. Renal arteries: Atherosclerotic narrowing of the origins. The arteries are otherwise patent with joe w throughout the distal renal arteries. IMPRESSION: Mild mucosal thickening of the distal rectum and anus. Recommend correlation with physical exam and c olonoscopy. There is moderate dilation of the distal rectum with stool along with a moderate stool bu rden. Hematoma involving the right breast. Left breast mass incompletely evaluated. Right lung base nodules the largest measuring 7 x 5 mm. Mild to moderate hiatal hernia with circumferential wall thickening of the distal esophagus which may be seen in the setting of reflux. Recommend clinical correlation for reflux as well as esophagitis. Other chronic findings as above. Reviewed by: Sukhdev Faye DO on 08/02/2020 6:38 AM TIFF Approved by: Sukhdev Faye DO on 08/02/2020 6:38 AM TIFF Station ID: [id number]
[2020-08-02 07:56] LABS: CALCIUM 8.1 mg/dL (8.5-10.3); CREATININE 0.8 mg/dL (0.4-1.0); POTASSIUM 3.2 mmol/L (3.5-5.0)
[2020-08-02] MEDS ORDERED: ALBUTEROL NEB 2.5 MG/3 ML INH PRN (08:24)
[2020-08-02] MEDS: PANTOPRAZOLE 40 MG VIAL IVP SCH ×2 (08:55→20:42)
[2020-08-02] MEDS: PROPRANOLOL 10 MG TABLET PO SCH ×2 (08:56→20:42)
[2020-08-02] MEDS: POTASSIUM CHLOR 10 MEQ/100 ML 10 MEQ/100 ML BAG IV SCH ×4 (09:01→14:22)
[2020-08-02] MEDS: SODIUM CHLORIDE FLUSH 0.9% 10 ML SYRINGE IVP PRN (09:01)
[2020-08-02] MEDS ORDERED: SODIUM CHLORIDE 0.9% 500 ML IV ONE (09:52)
[2020-08-02] MEDS: SODIUM CHLORIDE 0.9% 500 ML IV PRN ×2 (10:04→17:00)
--- NOTE | 2020-08-02 10:45 | PHARMACY PROGRESS NOTE ---
- Best Possible Medication History Admit Date and Time: 08/01/202058 Processed by: Pharmacy Medication History completed: Yes Patient Interview: Completed Secondary Source(s): Physician records, Pharmacy records, Insurance records As the person ultimately responsible for medication therapy, providers are able to order a medication from an existing home medication list in [facility] via the "Reconcile Routine" prior to Confirmation of that medication by forestry support specialist. Such practice is discouraged except when the physician, in their clinical judgment, deems that a medical need exists for a medication without regard to previous use.
[2020-08-02] MEDS ORDERED: cefTRIAXone 1 GM in SODIUM CHLORIDE 0.9% MINIBAG 100 ML IV STA (11:54)
[2020-08-02 12:12] LABS: HCT - HEMATOCRIT 21.2 % (37.0-47.0); HGB - HEMOGLOBIN 7.1 g/dL (12.0-16.0); MEAN CORPUSCULAR HEMOGLOBIN 30.3 pg (27.0-31.0); MEAN CORPUSCULAR HGB CONC 33.5 g/dL (32.0-36.0); MEAN CORPUSCULAR VOLUME 90.6 fL (81.0-99.0); MEAN PLATELET VOLUME 10.7 fL (7.9-10.8); RED BLOOD COUNT 2.34 10^6/uL (4.20-5.40); RED CELL DISTRIBUTION WIDTH 18.5 % (12.0-15.0); WHITE BLOOD COUNT 4.7 x10^3/uL (4.8-10.8)
[2020-08-02] MEDS: SODIUM/POTASSIUM/MAG SULFATES 354 ML PREP KIT PO SCH (18:00)
--- NOTE | 2020-08-02 18:49 | CONSULTATION NOTE ---
Referring Provider Name of Referring Provider:: Dr. Owens Consult Date: 08/02/20 Chief Complaint - Chief Complaint Chief Complaint: Melena History of Present Illness - Admitted From Admitted From:: Home - History Obtained From Records Reviewed: Patient/EMR History obtained from: Patient/EMR Exam Limitations: None - History of Present Illness HPI Comment/Other: 80-year-old female presenting for melena and acute on chronic blood loss anemia. Patient with no pain, no other acute complaints besides profound lethargy and weakness. Notable past surgical history to include: See attached. Patient reports change in bowel function, positive bleeding per rectum, and also some reflux associated symptoms. Patient does not use tobacco. Patient has infrequent alcohol use. No history of heart attack or stroke. Patient takes no systemic anticoagulation. History - Past Medical History Cardiovascular: reports: Hypertension, High cholesterol, Murmur (Echocardiogram August 2013 normal, EF 65%), Arrhythmia (sinus pause EKG w lightheaded 2012. Echo nml EF 65%, holter neg. ) Respiratory: reports: Asthma Neuro: reports: Peripheral neuropathy (left elbow and wrist nerve entrapment hx), Tremors (Familial, on propranolol) Endocrine/Autoimmune: reports: Other (Hyponatremia and hypokalemia due to chemotherapy) GI: reports: GERD, Ulcers (esophaeal erosions, esophagitis, gastritis 01/2015. Stomach mass removed. 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 Biopsy positive. High-grade invasive ductal CA. ER negative, SD negative, HER-2/maxine 3+. Stage II. Taxotere, carboplatinum, Herceptin, and Perjeta every 3 weeks, total 6 cycles, plan for mastectomy. Just completed cycle #3.), Other (, menarche 16, Menopause 52. ) : reports: None HEENT: reports: Chronic vision loss, Other Psych: reports: Anxiety (uses prn clonazepam), Claustrophobia Musculoskeletal: reports: Osteoarthritis (Hip, and ankle) Derm: reports: Other (SCCA lower extremity w removal) MRSA Hx?: No - Past Surgical History General: reports: Colonoscopy, EGD (w duodenal polyp removal 11/2015 and 10/2017) Ortho: reports: Hip replacement Cardiovascular: reports: Other (port placement 05/2020) Neuro: reports: Other (left carpal T release, and rvised ulanr nerve at elbow 11/2017) Derm: reports: Skin cancer surgery - Family & Social History Family History Comment/Other: Mother of stroke s/p endarterectomy age 83, had melanoma. Father of heart failure age 90, had prostate cancer. Sister of lung cancer age in her 70s, Two other sisters healthy, one brother healthy. Three children are healthy Living arrangement: At home (She has her own home but moved in with her daughter when she got chemotherapy started) Living Situation: With family Social History Notes: She is . Her of lung cancer in 2019 Right before her diagnosis of breast cancer.. 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 Lives close to her daughter in [place]. She does not smoke. But she did in the past. She did mainly in high school. It was only a few puffs here and there and never smoked beyond high school. Drinks occasionally but no history of alcohol abuse.Recreational substance abuse. - Substance History Use: Uses substance without health or social issues: Alcohol (1 glass of wine daily at most) Abuse: Recurrent use of substance despite neg consequences: NONE Dependence: Experiences withdrawal or developed tolerances: NONE - POLST Patient has POLST: No POLST Status: DNR (Daughter is in the room when the patient stage she wishes to be DO NOT RESUSCITATE in the event of a cardiopulmonary arrest. No intubation, no CPR.) Meds/Allgy - Home Medications Home Medications: Ambulatory Orders Medication Instructions Recorded Confirmed Aspirin [Aspir 81] 81 mg ORAL DAILY 02/09/15 08/02/20 Losartan [Cozaar] 25 mg ORAL QPM 02/09/15 08/02/20 Propranolol [Inderal] 40 mg PO BID 02/09/15 08/02/20 Triamterene/Hydrochlorothiazid 0.5 tab ORAL DAILY 02/09/15 08/02/20 [Triamterene-Hctz 75-50 mg Tab] clonazePAM [Clonazepam] 0.25 mg ORAL BID 02/09/15 08/02/20 Lidocaine/Prilocain 2.5% Cream 5 applic TOP UD #1 gm 05/26/20 08/02/20 [Emla 2.5% Cream] Olanzapine [Zyprexa] 5 mg PO UD #12 tablet 05/26/20 08/02/20 Prochlorperazine Maleate 10 mg PO Q6HR PRN #30 tab 05/26/20 08/02/20 [Compazine] dexAMETHasone [Decadron] 8 mg PO UD #24 tablet 05/26/20 08/02/20 B-Complex with Vitamin C [Super B 1 each PO DAILY 05/27/20 08/02/20 Complex-Vitamin C] Calcium Phos/Vit D3/Mag Oxide 1 each PO DAILY 05/27/20 08/02/20 [Posture-D Caplet] Cholecalciferol [Vitamin D3] 50 mcg PO DAILY 05/27/20 08/02/20 Cyanocobalamin (Vitamin B-12) 1,000 mcg PO DAILY 05/27/20 08/02/20 [Vitamin B-12] Glucosamine HCl 1,500 mg PO DAILY 05/27/20 08/02/20 [place]-3S/Dha/Epa/Fish Oil [Fish 1 each PO BID 05/27/20 08/02/20 Oil 1,200 mg Softgel] oxyCODONE [Roxicodone] 5 mg PO Q6H PRN #20 tablet 06/01/20 08/02/20 - Allergies Allergies/Adverse Reactions: Allergies Allergy/AdvReac Type Severity Reaction Status Date / Time No Known Drug Allergies Allergy Verified 08/01/20 17:29 Review of Systems - Constitutional Constitutional: reports: Malaise, Weakness - Gastrointestinal Gastrointestinal: reports: Black stools, Bloody stools Exam - Vital Signs Vital Signs: Vital Signs x48h Temp Pulse Resp BP Pulse Ox 08/02/20 15:24 36.8 C 88 18 125/37 L 96 08/02/20 12:16 37.4 C 95 18 107/44 L 98 08/02/20 12:00 37.4 C 78 18 87/45 L 95 - Physical Exam Comments/Other: General Appearance: positive: No acute distress Eyes Bilateral: positive: Normal inspection ENT: positive: ENT inspection nml Neck: positive: Nml inspection Respiratory: positive: Chest non-tender, No respiratory distress, Breath sounds nml. negative: Wheezes, Rales, Rhonchi Cardiovascular: positive: Regular rate & rhythm Abdomen: positive: No distention, Other. negative: Guarding, Rebound Extremities: positive: Non-tender, Full ROM, Nml appearance Neurologic/Psychiatric: positive: Oriented x3, CN's nml (2-12) Conclusion and Plan - Lab Results Microbiology Results 08/01/20 18:20 Stool Occult Blood - Final Laboratory Results 08/02/20 11:46: WBC 4.7 L, RBC 2.34 L, Hgb 7.1 L, Hct 21.2 L, MCV 90.6, MCH 30.3, MCHC 33.5, RDW 18.5 H, Plt Count 108 L, MPV 10.7 08/02/20 05:25: Sodium 134 L, Potassium 3.2 L, Chloride 101, Carbon Dioxide 24, Anion Gap 9.0, BUN 45 H, Creatinine 0.8, Estimated GFR (MDRD) 69 L, Glucose 120 H, Calcium 8.1 L 08/02/20 05:25: WBC 7.8, RBC 2.49 L, Hgb 7.6 L, Hct 22.5 L, MCV 90.4, MCH 30.5, MCHC 33.8, RDW 17.9 H, Plt Count 120 L, MPV 10.7 08/01/20 20:56: Urine Color YELLOW, Urine Clarity HAZY, Urine pH 6.0, Ur Specific [place] 1.015, Urine Protein NEGATIVE, Urine Glucose (UA) NEGATIVE, Urine Ketones NEGATIVE, Urine Occult Blood TRACE-INTA, Urine Nitrite POSITIVE H, Urine Bilirubin NEGATIVE, Urine Urobilinogen 0.2 (NORMAL), Ur Leukocyte Esterase MODERATE H, Urine RBC 6-10 H, Urine WBC >25 H, Urine WBC Clumps PRESENT, Ur Squamous Epith Cells RARE Squamous, Urine Bacteria Many H, Ur Microscopic Review INDICATED, Urine Culture Comments INDICATED 08/01/20 18:45: Nasal Adenovirus (PCR) NOT DETECTED, Nasal B. parapertussis DNA (PCR) NOT DETECTED, Nasal Coronavir 229E PCR NOT DETECTED, Nasal Coronavir HKU1 PCR NOT DETECTED, Nasal Coronavir NL63 PCR NOT DETECTED, Nasal Coronavir OC43 PCR NOT DETECTED, Nasal Enterovir/Rhinovir PCR NOT DETECTED, Nasal Influenza B PCR NOT DETECTED, Nasal Influenza A PCR NOT DETECTED, Nasal Parainfluen 1 PCR NOT DETECTED, Nasal Parainfluen 2 PCR NOT DETECTED, Nasal Parainfluen 3 PCR NOT DETECTED, Nasal Parainfluen 4 PCR NOT DETECTED, Nasal RSV (PCR) NOT DETECTED, Nasal B.pertussis DNA PCR NOT DETECTED, Nasal C.pneumoniae (PCR) NOT DETECTED, Jos[place]uis Human Metapneumo PCR NOT DETECTED, Nasal M.pneumoniae (PCR) NOT DETECTED, Nasal SARS-CoV-2 (PCR) NOT DETECTED 08/01/20 18:38: Blood Type O NEGATIVE, Antibody Screen NEGATIVE, Crossmatch IS Only See Detail 08/01/20 18:38: PT 13.3 H, INR 1.2, APTT 21.9 L 08/01/20 17:55: Sodium 134 L, Potassium 3.6, Chloride 100 L, Carbon Dioxide 25, Anion Gap 9.0, BUN 44 H, Creatinine 1.0, Estimated GFR (MDRD) 54 L, Glucose 145 H, Calcium 8.2 L, Total Bilirubin 0.8, AST 42, ALT 40, Alkaline Phosphatase 76, Total Protein 5.1 L, Albumin 2.5 L, Globulin 2.6, Albumin/Globulin Ratio 1.0, Lipase 41 08/01/20 17:55: WBC 15.8 H, RBC 1.62 L, Hgb 5.4 L*, Hct 16.4 L*, MCV 101.2 H, MCH 33.3 H, MCHC 32.9, RDW 15.6 H, Plt Count 132, MPV 9.9, Neut # (Auto) Not Reportable, Lymph # (Auto) Not Reportable, [place] # (Auto) Not Reportable, Eos # (Auto) Not Reportable, Baso # (Auto) Not Reportable, Absolute Nucleated RBC Not Reportable, Total Counted 100, Band Neuts % (Manual) 18 H, Abnorm Lymph % (Manual) 0, Nucleated RBC % Not Reportable, Neutrophils # (Manual) 14.9 H, Lymphocytes # (Manual) 0.6 L, Monocytes # (Manual) 0.3, Eosinophils # (Manual) 0.0, Basophils # (Manual) 0.0, Differential Comment MANUAL DIFFERENTIAL, Manual Slide Review Indicated, Platelet Estimate NORMAL (130-450,000), Platelet Morphology NORMAL APPEARANCE, RBC Morph Micro Appear 2+ HYPOCHROMASIA - Diagnostic Imaging Results Diagnostic Imaging Results: positive: Final report reviewed Diagnostic Imaging Results Comments: CT abdomen pelvis angiography impression: 1. Mild mucosal thickening of the distal rectum and anus. Recommend correlation with physical exam and colonoscopy. There is moderate dilation of the distal rectum with stool along moderate stool burden. 2. Hematoma involving the right breast. Left breast mass incompletely evaluated. 3. Right lung base nodule of the large was made during 7 x 5 mm 4. Mild to moderate hiatal hernia with circumferential wall thickening of the distal esophagus which may be seen in the setting of reflux. Recommend clinical correlation for reflux as well as esophagitis. 5. Other findings per body of report. - Diagnosis Diagnosis: 1. Acute on chronic blood loss anemia. 2. Melena/gastrointestinal bleed. 3. Breast cancer. 4. Concurrent chemotherapy. 5. Imaging concerning for mural rectal thickening and possible esophagitis - Plan Plan: 1. Care per hospitalist service 2. Trend H&H and transfuse appropriately given the patient's history of cardiac disease 3. Telemetry and close hemodynamic monitoring 4. Plan upper endoscopy and will proceed with colonoscopy as well. 5. Aggressive resuscitation 6. As is always the case, diagnostic endoscopy with potential for therapeutic interventions. Given limitations, surgical interventions and/or transfer for advanced gastrointestinal interventions and/or interventional radiographic interventions remain part of this complex algorithm. 7. Bowel rest and bowel prep in anticipation of colonoscopy 8. PPI infusion and consider Carafate pending results
[2020-08-02 20:10] LABS: HCT - HEMATOCRIT 21.6 % (37.0-47.0); HGB - HEMOGLOBIN 7.2 g/dL (12.0-16.0)
[2020-08-03] MEDS: SODIUM CHLORIDE FLUSH 0.9% 10 ML SYRINGE IVP SCH ×3 (01:58→16:17)
[2020-08-03] MEDS: SODIUM/POTASSIUM/MAG SULFATES 354 ML PREP KIT PO SCH (05:18)
[2020-08-03 05:28] LABS: HCT - HEMATOCRIT 20.2 % (37.0-47.0); MEAN CORPUSCULAR HEMOGLOBIN 30.6 pg (27.0-31.0); MEAN CORPUSCULAR HGB CONC 33.7 g/dL (32.0-36.0); MEAN PLATELET VOLUME 10.7 fL (7.9-10.8); RED BLOOD COUNT 2.22 10^6/uL (4.20-5.40); RED CELL DISTRIBUTION WIDTH 17.8 % (12.0-15.0)
[2020-08-03 05:36] LABS: HGB - HEMOGLOBIN 6.8 g/dL (12.0-16.0); WHITE BLOOD COUNT 1.9 x10^3/uL (4.8-10.8)
[2020-08-03 05:37] LABS: CALCIUM 8.1 mg/dL (8.5-10.3); CREATININE 0.7 mg/dL (0.4-1.0); POTASSIUM 2.7 mmol/L (3.5-5.0)
--- NOTE | 2020-08-03 07:24 | PROVIDER PROGRESS NOTE ---
Subjective - Prog Note Date Prog Note Date: 08/03/20 - Subjective Subjective: Reports feeling well. Denies abdominal pain, nausea, vomiting. She has been having numerous bowel movements due to the bowel prep. Her last bowel movement was quite clear per nursing. No evidence of bleeding. Current Medications - Current Medications Current Medications: Active Medications Acetaminophen (Acetaminophen 325 Mg Tablet) 650 mg PO Q4HR PRN PRN Reason: Pain 1 to 4 Albuterol (Albuterol Neb 2.5 Mg/3 Ml) 2.5 mg INH RTQ4H PRN PRN Reason: Wheezing Ciprofloxacin (Ciprofloxacin 250 Mg Tablet) 250 mg PO BID GARETH Clonazepam (Clonazepam 0.5 Mg Tablet) 0.5 mg PO BID PRN PRN Reason: Anxiety Heparin Sodium (Beef Lung) (Heparin Flush 50 Units/5 Ml Syringe) 30 - 50 unit IVP PRN PRN PRN Reason: Port Protocol (<24 hours) Last Admin: 08/02/20 09:04 Dose: 50 unit Documented by: Sodium Chloride (Normal Saline 0.9%) 500 mls @ 20 mls/hr IV Q24H PRN PRN Reason: TKO RATE Last Infusion: 08/02/20 22:15 Dose: 20 mls/hr Documented by: Multi-Ingredient Ointment (Zinc Oxide 20% Oint 30 Gm Tube) 1 applic TOP PRN PRN PRN Reason: Skin Care Last Admin: 08/02/20 22:14 Dose: 2 applic Documented by: Ondansetron HCl (Ondansetron Odt 4 Mg Tablet) 4 mg TL Q6HR PRN PRN Reason: Nausea / Vomiting Ondansetron HCl (Ondansetron 4 Mg/2 Ml Vial) 4 mg IVP Q6HR PRN PRN Reason: Nausea / Vomiting Oxycodone HCl (Oxycodone 5 Mg Tablet) 5 mg PO Q4HR PRN PRN Reason: Pain 5 to 7 Pantoprazole Sodium (Pantoprazole 40 Mg Vial) 40 mg IVP BID [facility] Last Admin: 08/02/20 20:42 Dose: 40 mg Documented by: Propranolol HCl (Propranolol 10 Mg Tablet) 10 mg PO BID [facility] Last Admin: 08/02/20 20:42 Dose: 10 mg Documented by: Sodium Chloride (Sodium Chloride Flush 0.9% 10 Ml Syringe) 10 ml IVP PRN PRN PRN Reason: NEEDED PER PROVIDER ORDERS Last Admin: 08/02/20 09:01 Dose: 10 ml Documented by: Sodium Chloride (Sodium Chloride Flush 0.9% 10 Ml Syringe) 10 ml IVP 0100,0900,1700 GARETH Last Admin: 08/03/20 01:58 Dose: Not Given Documented by: Aspirin [Aspir 81] 81 mg ORAL DAILY 02/09/15 Losartan [Cozaar] 25 mg ORAL QPM 02/09/15 Propranolol [Inderal] 40 mg PO BID 02/09/15 Triamterene/Hydrochlorothiazid [Triamterene-Hctz 75-50 mg Tab] 0.5 tab ORAL DAILY 02/09/15 clonazePAM [Clonazepam] 0.25 mg ORAL BID 02/09/15 B-Complex with Vitamin C [Super B Complex-Vitamin C] 1 each PO DAILY 05/27/20 Calcium Phos/Vit D3/Mag Oxide [Posture-D Caplet] 1 each PO DAILY 05/27/20 Cholecalciferol [Vitamin D3] 50 mcg PO DAILY 05/27/20 Cyanocobalamin (Vitamin B-12) [Vitamin B-12] 1,000 mcg PO DAILY 05/27/20 Glucosamine HCl 1,500 mg PO DAILY 05/27/20 [place]-3S/Dha/Epa/Fish Oil [Fish Oil 1,200 mg Softgel] 1 each PO BID 05/27/20 Objective - Vital Signs/Intake & Output Reviewed Vital Signs: Yes Vital Signs: Vital Signs x48h Temp Pulse Resp BP Pulse Ox 08/03/20 05:00 36.6 C 78 18 143/46 H 97 08/03/20 00:55 36.9 C 75 18 142/48 H 95 Intake & Output: Intake & Output 07/31/20 08/01/20 08/02/20 08/03/20 23:59 23:59 23:59 23:59 Intake Total 1850 2897.600 Output Total 800 Balance 1850 2097.600 - Objective General Appearance: positive: No acute distress, Alert Eyes Bilateral: positive: Normal inspection, Conjunctivae nml ENT: positive: ENT inspection nml Neck: positive: Nml inspection Respiratory: positive: No respiratory distress. negative: Wheezes, Rales Cardiovascular: positive: Regular rate & rhythm, Systolic murmur. negative: Tachycardia Abdomen: positive: Non-tender, No distention. negative: Tenderness, Guarding, Rebound Skin: positive: Warm, Dry, Pallor Extremities: positive: No pedal edema Neurologic/Psychiatric: negative: Disoriented to person, Disoriented to place - Lab Results Fish Bones: 08/03/20 05:07 08/03/20 05:07 Other Labs: Lab Results x24hrs 08/03/20 08/03/20 08/02/20 Range/Units 05:07 05:07 20:05 WBC 1.9 L* (4.8-10.8) x10^3/uL RBC 2.22 L (4.20-5.40) 10^6/uL Hgb 6.8 L* 7.2 L (12.0-16.0) g/dL Hct 20.2 L 21.6 L (37.0-47.0) % MCV 91.0 (81.0-99.0) fL MCH 30.6 (27.0-31.0) pg MCHC 33.7 (32.0-36.0) g/dL RDW 17.8 H (12.0-15.0) % Plt Count 106 L (130-450) 10^3/uL MPV 10.7 (7.9-10.8) fL Sodium 140 (135-145) mmol/L Potassium 2.7 L (3.5-5.0) mmol/L Chloride 107 (101-111) mmol/L Carbon Dioxide 25 (21-32) mmol/L Anion Gap 8.0 (6-13) BUN 27 H (6-20) mg/dL Creatinine 0.7 (0.4-1.0) mg/dL Estimated GFR (MDRD) 81 L (>89) Glucose 97 (70-100) mg/dL Calcium 8.1 L (8.5-10.3) mg/dL 08/02/20 08/02/20 Range/Units 11:46 05:25 WBC 4.7 L (4.8-10.8) x10^3/uL RBC 2.34 L (4.20-5.40) 10^6/uL Hgb 7.1 L (12.0-16.0) g/dL Hct 21.2 L (37.0-47.0) % MCV 90.6 (81.0-99.0) fL MCH 30.3 (27.0-31.0) pg MCHC 33.5 (32.0-36.0) g/dL RDW 18.5 H (12.0-15.0) % Plt Count 108 L (130-450) 10^3/uL MPV 10.7 (7.9-10.8) fL Sodium 134 L (135-145) mmol/L Potassium 3.2 L (3.5-5.0) mmol/L Chloride 101 (101-111) mmol/L Carbon Dioxide 24 (21-32) mmol/L Anion Gap 9.0 (6-13) BUN 45 H (6-20) mg/dL Creatinine 0.8 (0.4-1.0) mg/dL Estimated GFR (MDRD) 69 L (>89) Glucose 120 H (70-100) mg/dL Calcium 8.1 L (8.5-10.3) mg/dL ABX Reporting Has patient been on IV antibiotics over the past 48 hours?: No Assessment/Plan - Problem List (1) Acute blood loss anemia Impression: Her anemia is actually likely multifactorial and I suspect she was going to have a drop due to pancytopenia from her chemotherapy but there is also most definitely an acute blood loss component as despite transfusion, her hemoglobin continues to decrease. Today it is 6.8. We will give her 1 more unit of packed red blood cell today. Endoscopy was held yesterday given she was relatively stable and with a plan to do an endoscopy and colonoscopy at the same time which will be done today. We will continue to monitor hemoglobin every 8 hours and transfuse for goal greater than 7. She is n.p.o. for EGD and colonoscopy. (2) Melena Impression: The concern is for an upper GI bleed and CT did suggest esophagitis. She is on aspirin but no other NSAIDs and denies alcohol use. The plan is for endoscopy today. We are continuing IV PPI twice daily. (3) Pancytopenia due to chemotherapy Impression: She is noted to be pancytopenic this morning with a significant drop in her white count. She is also thrombocytopenic. Her anemia is likely multifactorial related to chemotherapy as well as acute blood loss anemia given her hemoglobin continues to climb despite transfusion. We suspect this is secondary to her chemotherapy. We will continue to check a CBC daily. She will need outpatient follow-up with her oncologist for consideration of G-CSF. (4) History of esophagitis Impression: She has a history of esophagitis and CT and admission was concerning for esophagitis she denied a history of emesis prior to admission. Her melena and acute blood loss anemia, plan is for endoscopy today. Continue twice daily IV PPI. We will likely start her on a clear liquid diet based off of endoscopy and colonoscopy findings. (5) UTI (urinary tract infection) Impression: Her urine culture is growing E. coli. Despite her having no dysuria, we have decided to treat this given she had urgency, is immunocompromised, and had an elevated white count with bands on admission. She is now on oral ciprofloxacin. 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 She is being treated with TCHP since June 16 and is due for the third cycle next month. She will need outpatient follow-up once discharged. (7) Anxiety Impression: We are continuing her home clonazepam. (8) Familial tremor Impression: Stable. We are continuing her home propranolol and clonazepam. (9) Hypertension Impression: She is hypertensive this morning with systolic in the 140s. We will consider resuming her home losartan as well as hydrochlorothiazide/triamterene this evening or tomorrow morning after her endoscopy and colonoscopy. Qualifiers: Hypertension type: essential hypertension Qualified Code(s): I10 - Essential (primary) hypertension
[2020-08-03] MEDS: PANTOPRAZOLE 40 MG VIAL IVP SCH (08:47)
[2020-08-03] MEDS: SODIUM CHLORIDE FLUSH 0.9% 10 ML SYRINGE IVP PRN ×4 (08:49→13:52)
[2020-08-03] MEDS: PROPRANOLOL 40 MG TABLET PO SCH ×2 (08:50→20:10)
[2020-08-03] MEDS: ZINC OXIDE 20% OINT 30 GM TUBE TOP PRN ×4 (08:50→19:42)
[2020-08-03] MEDS ORDERED: CIPROFLOXACIN 250 MG TABLET PO SCH (09:00)
[2020-08-03] MEDS ORDERED: PROPOFOL 1000 MG/100 ML 1,000 MG/100 ML BOTTLE IV ONE (11:33)
[2020-08-03] MEDS ORDERED: LIDOCAINE-MPF 2% 5 ML VIAL ONE (11:33)
--- NOTE | 2020-08-03 11:44 | ANESTHESIA ---
Pre-Anesthesia VS, & Labs - Diagnosis GI Bleeding - Procedure EGD and Colonoscopy Vital Signs: Temp Pulse Resp BP Pulse Ox 37.0 C 67 18 120/51 L 97 08/03/20 11:33 08/03/20 11:33 08/03/20 11:33 08/03/20 11:33 08/03/20 11:33 Height: 5 ft 5 in Weight (kg): 93 kg Body Mass Index: 34.1 BMI Classification: Obese - NPO >8 hours - Is Patient ?: No - Lab Results Current Lab Results: Laboratory Tests 08/03/20 05:07: Sodium 140, Potassium 2.7 L, Chloride 107, Carbon Dioxide 25, Anion Gap 8.0, BUN 27 H, Creatinine 0.7, Estimated GFR (MDRD) 81 L, Glucose 97, Calcium 8.1 L 08/03/20 05:07: WBC 1.9 L*, RBC 2.22 L, Hgb 6.8 L*, Hct 20.2 L, MCV 91.0, MCH 30.6, MCHC 33.7, RDW 17.8 H, Plt Count 106 L, MPV 10.7 08/02/20 20:05: Hgb 7.2 L, Hct 21.6 L 08/02/20 11:46: WBC 4.7 L, RBC 2.34 L, Hgb 7.1 L, Hct 21.2 L, MCV 90.6, MCH 30.3, MCHC 33.5, RDW 18.5 H, Plt Count 108 L, MPV 10.7 08/02/20 05:25: Sodium 134 L, Potassium 3.2 L, Chloride 101, Carbon Dioxide 24, Anion Gap 9.0, BUN 45 H, Creatinine 0.8, Estimated GFR (MDRD) 69 L, Glucose 120 H, Calcium 8.1 L 08/02/20 05:25: WBC 7.8, RBC 2.49 L, Hgb 7.6 L, Hct 22.5 L, MCV 90.4, MCH 30.5, MCHC 33.8, RDW 17.9 H, Plt Count 120 L, MPV 10.7 08/01/20 18:38: Blood Type O NEGATIVE, Antibody Screen NEGATIVE, Crossmatch IS Only See Detail 08/01/20 18:38: PT 13.3 H, INR 1.2, APTT 21.9 L 08/01/20 17:55: Sodium 134 L, Potassium 3.6, Chloride 100 L, Carbon Dioxide 25, Anion Gap 9.0, BUN 44 H, Creatinine 1.0, Estimated GFR (MDRD) 54 L, Glucose 145 H, Calcium 8.2 L, Total Bilirubin 0.8, AST 42, ALT 40, Alkaline Phosphatase 76, Total Protein 5.1 L, Albumin 2.5 L, Globulin 2.6, Albumin/Globulin Ratio 1.0, Lipase 41 08/01/20 17:55: WBC 15.8 H, RBC 1.62 L, Hgb 5.4 L*, Hct 16.4 L*, MCV 101.2 H, MCH 33.3 H, MCHC 32.9, RDW 15.6 H, Plt Count 132, MPV 9.9, Neut # (Auto) Not Reportable, Lymph # (Auto) Not Reportable, [place] # (Auto) Not Reportable, Eos # (Auto) Not Reportable, Baso # (Auto) Not Reportable, Absolute Nucleated RBC Not Reportable, Total Counted 100, Band Neuts % (Manual) 18 H, Abnorm Lymph % (Manual) 0, Nucleated RBC % Not Reportable, Neutrophils # (Manual) 14.9 H, Lymphocytes # (Manual) 0.6 L, Monocytes # (Manual) 0.3, Eosinophils # (Manual) 0.0, Basophils # (Manual) 0.0, Differential Comment MANUAL DIFFERENTIAL, Manual Slide Review Indicated, Platelet Estimate NORMAL (130-450,000), Platelet Morphology NORMAL APPEARANCE, RBC Morph Micro Appear 2+ HYPOCHROMASIA Fish Bones: 08/03/20 05:07 08/03/20 05:07 Home Medications and Allergies Active Medications Acetaminophen (Acetaminophen 325 Mg Tablet) 650 mg PO Q4HR PRN PRN Reason: Pain 1 to 4 Albuterol (Albuterol Neb 2.5 Mg/3 Ml) 2.5 mg INH RTQ4H PRN PRN Reason: Wheezing Ciprofloxacin (Ciprofloxacin 250 Mg Tablet) 250 mg PO BID GARETH Last Admin: 08/03/20 08:51 Dose: 250 mg Documented by: Clonazepam (Clonazepam 0.5 Mg Tablet) 0.5 mg PO BID PRN PRN Reason: Anxiety Heparin Sodium (Beef Lung) (Heparin Flush 50 Units/5 Ml Syringe) 30 - 50 unit IVP PRN PRN PRN Reason: Port Protocol (<24 hours) Last Admin: 08/02/20 09:04 Dose: 50 unit Documented by: Sodium Chloride (Normal Saline 0.9%) 500 mls @ 20 mls/hr IV Q24H PRN PRN Reason: TKO RATE Last Infusion: 08/03/20 09:42 Dose: Infused Documented by: Multi-Ingredient Ointment (Zinc Oxide 20% Oint 30 Gm Tube) 1 applic TOP PRN PRN PRN Reason: Skin Care Last Admin: 08/03/20 09:23 Dose: 1 applic Documented by: Ondansetron HCl (Ondansetron Odt 4 Mg Tablet) 4 mg TL Q6HR PRN PRN Reason: Nausea / Vomiting Ondansetron HCl (Ondansetron 4 Mg/2 Ml Vial) 4 mg IVP Q6HR PRN PRN Reason: Nausea / Vomiting Oxycodone HCl (Oxycodone 5 Mg Tablet) 5 mg PO Q4HR PRN PRN Reason: Pain 5 to 7 Pantoprazole Sodium (Pantoprazole 40 Mg Vial) 40 mg IVP BID [facility] Last Admin: 08/03/20 08:47 Dose: 40 mg Documented by: Propranolol HCl (Propranolol 40 Mg Tablet) 40 mg PO BID [facility] Last Admin: 08/03/20 08:50 Dose: 40 mg Documented by: Sodium Chloride (Sodium Chloride Flush 0.9% 10 Ml Syringe) 10 ml IVP PRN PRN PRN Reason: NEEDED PER PROVIDER ORDERS Last Admin: 08/03/20 09:33 Dose: 10 ml Documented by: Sodium Chloride (Sodium Chloride Flush 0.9% 10 Ml Syringe) 10 ml IVP 0100,0900,1700 [facility] Last Admin: 08/03/20 08:47 Dose: 10 ml Documented by: Aspirin [Aspir 81] 81 mg ORAL DAILY 02/09/15 Losartan [Cozaar] 25 mg ORAL QPM 02/09/15 Propranolol [Inderal] 40 mg PO BID 02/09/15 Triamterene/Hydrochlorothiazid [Triamterene-Hctz 75-50 mg Tab] 0.5 tab ORAL DAILY 02/09/15 clonazePAM [Clonazepam] 0.25 mg ORAL BID 02/09/15 B-Complex with Vitamin C [Super B Complex-Vitamin C] 1 each PO DAILY 05/27/20 Calcium Phos/Vit D3/Mag Oxide [Posture-D Caplet] 1 each PO DAILY 05/27/20 Cholecalciferol [Vitamin D3] 50 mcg PO DAILY 05/27/20 Cyanocobalamin (Vitamin B-12) [Vitamin B-12] 1,000 mcg PO DAILY 05/27/20 Glucosamine HCl 1,500 mg PO DAILY 05/27/20 Hale-3S/Dha/Epa/Fish Oil [Fish Oil 1,200 mg Softgel] 1 each PO BID 05/27/20 Allergies/Adverse Reactions: Allergies Allergy/AdvReac Type Severity Reaction Status Date / Time No Known Drug Allergies Allergy Verified 08/01/20 17:29 Anes History & Medical History - Anesthetic History Anesthesia Complications: reports: No previous complications - Medical History Cardiovascular: reports: Hypertension, High cholesterol, Murmur (Echocardiogram August 2013 normal, EF 65%), Arrhythmia (sinus pause EKG w lightheaded 2012. Echo nml EF 65%, holter neg. ) Pulmonary: reports: Asthma Gastrointestinal: reports: GERD, Ulcers (esophaeal erosions, esophagitis, gastritis 01/2015. Stomach mass removed. ), Hiatal hernia, Colon polyps, Chronic diarrhea (Skin rash from chemotherapy), Other (Left inguinal lymphadenopathy with ongoing surveillance since May 2020) Urinary: reports: None Neuro: reports: Peripheral neuropathy (left elbow and wrist nerve entrapment hx), Tremors (Familial, on propranolol) Musculoskeletal: reports: Osteoarthritis (Hip, and ankle) Endocrine/Autoimmune: reports: Other (Hyponatremia and hypokalemia due to chemotherapy) Blood Disorders: reports: None Skin: reports: Other (SCCA lower extremity w removal) Smoking Status: Never smoker Psychosocial: reports: No issues indicated History of Cancer?: Yes (breast cancer) - Surgical History General: reports: Colonoscopy, EGD (w duodenal polyp removal 11/2015 and 10/2017) Cardiothoracic: reports: Other (port placement 05/2020) Neurologic: reports: Other (left carpal T release, and rvised ulanr nerve at elbow 11/2017) Orthopedic: reports: Hip replacement Dermatologic: reports: Skin cancer surgery Exam General: Alert, Oriented x3, Cooperative, No acute distress Dental: WNL Mouth Openin Fingerbreadth Neck Mobility: Normal Mallampati classification: II Thyromental Distance: 4-6 cm Mental/Cognitive Status: Alert/Oriented X3, Normal for patient Plan Anesthesia Type: Total IV Consent for Procedure(s) Verified and Reviewed: Yes Code Status: Attempt Resuscitation ASA classification: 3-Severe systemic disease Is this case an emergency?: No
--- NOTE | 2020-08-03 13:16 | PROVIDER PROGRESS NOTE ---
Progress Note Patient with acute on chronic blood loss anemia. Indicated for upper and lower endoscopy. Findings are as follows for the colonoscopy: 1. Appropriate prep 2. Ileocecal valve achieved as evidenced by the appendiceal orifice both photographed. 3. Significant tortuous colon prohibitive for intubation of the terminal ileum. 4. Cecum without cecitis. The entirety of the colon was out colitis. No diverticulosis or diverticulitis. 5. Careful slow withdrawal without any notable pathology. 6. No masses or polyps appreciated. Mildly tortuous colon 7. Rectum with significant pressure necrosis likely secondary to stercoral ulceration. Multiple biopsies obtained cold forceps. On evaluation of the upper endoscopy: 1. Duodenum with cold forcep biopsy obtained, no duodenitis. Hemostatic. There was a single area concerning for duodenal mass which was biopsied in the second portion; cold forcep. 2. Antrum without any antritis. Biopsies obtained cold forceps. Hemostatic. Patent pylorus. 3. Retroflexion with no significant hiatal herniation. 4. No diffuse gastritis or gastropathy. No polyps. No ulcerations. 5. GE junction with significant changes consistent with esophagitis/Carissa esophagitis. Multiple biopsies taken. 6. Distal esophagus similar with inflammatory changes biopsies taken. Plan going forward is as follows: 1. Bowel rest GI prophylaxis/therapeutic PPI twice daily omeprazole 40 mg. 2. Carafate enemas. 3. GI cocktail to help with nystatin. 4. Continue to trend H&H and transfuse as necessary.
[2020-08-03] MEDS: FLUCONAZOLE 200 MG/100 ML 100 ML IV SCH ×2 (13:52→15:07)
--- NOTE | 2020-08-03 14:16 | ANESTHESIA POST OP EVALUATION ---
Anesthesia Post Eval - Post Anesthesia Eval Vitals: Last Vital Signs Temp 36.4 C L 08/03/20 13:10 Pulse 76 08/03/20 13:10 Resp 18 08/03/20 13:10 BP 120/49 L 08/03/20 13:10 Pulse Ox 93 08/03/20 13:10 CV Function Including HR & BP: Stable Pain Control: Satisfactory Nausea & Vomiting: Negative Mental Status: Baseline Respiratory Status: Airway Patent Hydration Status: Satisfactory Anesthesia Complications: None
[2020-08-03] MEDS ORDERED: POTASSIUM CHLORIDE 20 MEQ TABLET PO ONE (14:42)
[2020-08-03] MEDS: POTASSIUM CHLOR 10 MEQ/100 ML 10 MEQ/100 ML BAG IV SCH ×4 (15:10→18:27)
[2020-08-03 15:23] LABS: HCT - HEMATOCRIT 24.5 % (37.0-47.0); HGB - HEMOGLOBIN 8.3 g/dL (12.0-16.0)
[2020-08-03] MEDS: PANTOPRAZOLE 40 MG TABLET PO SCH (20:09)
[2020-08-03] MEDS ORDERED: BENZOCAINE/MENTHOL LOZENGE MM PRN (20:13)
[2020-08-04] MEDS: SODIUM CHLORIDE FLUSH 0.9% 10 ML SYRINGE IVP SCH ×3 (01:04→16:02)
[2020-08-04] MEDS: ACETAMINOPHEN 325 MG TABLET PO PRN ×2 (01:11→21:53)
[2020-08-04 05:58] LABS: BASOPHILS % (AUTO) 1.2 %; EOSINOPHILS % (AUTO) 0.6 %; HCT - HEMATOCRIT 21.7 % (37.0-47.0); HGB - HEMOGLOBIN 7.2 g/dL (12.0-16.0); LYMPHOCYTES # (AUTO) 0.9 10^3/uL (1.5-3.5); LYMPHOCYTES % (AUTO) 26.4 %; MEAN CORPUSCULAR HEMOGLOBIN 30.5 pg (27.0-31.0); MEAN CORPUSCULAR HGB CONC 33.2 g/dL (32.0-36.0); MEAN CORPUSCULAR VOLUME 91.9 fL (81.0-99.0); MEAN PLATELET VOLUME 11.1 fL (7.9-10.8); MONOCYTES # (AUTO) 0.5 10^3/uL (0.0-1.0); NEUTROPHILS # (AUTO) 1.9 10^3/uL (1.5-6.6); NEUTROPHILS % (AUTO) 56.9 %; PLT - PLATELET COUNT 99 10^3/uL (130-450); RED BLOOD COUNT 2.36 10^6/uL (4.20-5.40); RED CELL DISTRIBUTION WIDTH 16.8 % (12.0-15.0); WHITE BLOOD COUNT 3.3 x10^3/uL (4.8-10.8)
[2020-08-04 06:01] LABS: SLIDE REVIEW? Indicated
[2020-08-04 06:11] LABS: CALCIUM 7.9 mg/dL (8.5-10.3); CREATININE 0.8 mg/dL (0.4-1.0); PHOSPHORUS 1.9 mg/dL (2.5-4.6); POTASSIUM 3.3 mmol/L (3.5-5.0)
[2020-08-04 06:19] LABS: PLATELET ESTIMATE, MANUAL DECREASED (<130,000) (NORMAL); PLATELET MORPHOLOGY NORMAL APPEARANCE (NORMAL); RBC MORPHOLOGY (MULTIPLE) NORMAL APPEARANCE (NORMAL); WBC MORPHOLOGY (MULTIPLE) NORMAL APPEARANCE (NORMAL)
[2020-08-04] MEDS: PROPRANOLOL 40 MG TABLET PO SCH ×2 (08:34→21:53)
[2020-08-04] MEDS: PANTOPRAZOLE 40 MG TABLET PO SCH ×2 (08:34→21:53)
[2020-08-04] MEDS: FLUCONAZOLE 100 MG TABLET PO SCH (08:35)
[2020-08-04 11:27] LABS: HCT - HEMATOCRIT 21.9 % (37.0-47.0); HGB - HEMOGLOBIN 7.3 g/dL (12.0-16.0)
--- NOTE | 2020-08-04 11:56 | PROVIDER PROGRESS NOTE ---
Assessment/Plan - Problem List (1) Acute blood loss anemia Assessment/Plan: Her anemia is actually likely multifactorial: due to pancytopenia from her chemotherapy but there is also most definitely an acute blood loss component as Hgb continues to decrease intermittently. She got 1 more unit of packed red blood cells. Endoscopy showed esophagitis and a mass which was biopsied. We will continue to monitor hemoglobin every 12 hours and transfuse for goal greater than 7. (2) Melena Impression: The concern was for an upper GI bleed. She was on aspirin but no other NSAIDs and denied alcohol use. Endoscopy showed esophagitis and a mass which was biopsied. ASA on hold. Continue PPI twice daily and Diflucan for candidiasis. (3) Pancytopenia due to chemotherapy Impression: She is noted to be pancytopenic. We suspect this is secondary to her chemotherapy. We will continue to check a CBC daily. She will need outpatient follow-up with her oncologist for consideration of G- CSF. (4) History of esophagitis Impression: She has a history of esophagitis and CT and admission was concerning for esophagitis she denied a history of emesis prior to admission. Her melena and acute blood loss anemia. Continue twice daily PPI changed to po dosing. Continue diflucan parekh candidiasis, for which she was at risk, being on chemotherapy. We will likely start advancing her diet based off of endoscopy findings. (5) UTI (urinary tract infection) Impression: Her urine culture is growing E. coli. Despite her having no dysuria, we have decided to treat this given she had urgency, is immunocompromised, and had an elevated white count with bands on admission. She is now on oral ciprofloxacin. 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 She is being treated with TCHP since June 16 and is due for the third cycle next month. She will need outpatient follow-up once discharged. (7) Anxiety Impression: We are continuing her home clonazepam. (8) Familial tremor Impression: Stable. We are continuing her home propranolol and clonazepam. (9) Hypertension Impression: She was hypertensive yesterday, today she is dizzy and has "soft" BP. Orthostatic checks daily ordered. Hold parameters and not restarting her home BP meds is being considered. - Current Meds Current Meds: Current Medications Generic Name Dose Route Start Last Admin Trade Name Freq PRN Reason Stop Dose Admin Acetaminophen 650 mg 08/01/20 20:59 08/04/20 01:11 Acetaminophen 325 Mg Tablet PO 650 mg Q4HR PRN Administration Pain 1 to 4 Cefuroxime Axetil 250 mg 08/03/20 21:00 08/04/20 08:35 Cefuroxime Axetil 250 Mg Tablet PO 250 mg BID GARETH Administration Fluconazole 200 mg 08/04/20 09:00 08/04/20 08:35 Fluconazole 100 Mg Tablet PO 200 mg DAILY GARETH Administration Heparin Sodium (Beef Lung) 30 - 50 unit 08/02/20 08:36 08/04/20 08:35 Heparin Flush 50 Units/5 Ml Syringe IVP 50 unit PRN PRN Administration Port Protocol (<24 hours) Sodium Chloride 500 mls @ 20 mls/hr 08/02/20 10:02 08/03/20 09:42 Normal Saline 0.9% IV Infused Q24H PRN Infusion TKO RATE Multi-Ingredient Ointment 1 applic 08/02/20 02:42 08/03/20 19:42 Zinc Oxide 20% Oint 30 Gm Tube TOP 1 applic PRN PRN Administration Skin Care Pantoprazole Sodium 40 mg 08/03/20 21:00 08/04/20 08:34 Pantoprazole 40 Mg Tablet PO 40 mg BID GARETH Administration Propranolol HCl 40 mg 08/03/20 09:00 08/04/20 08:34 Propranolol 40 Mg Tablet PO 40 mg BID GARETH Administration Sodium Chloride 10 ml 08/01/20 20:59 08/03/20 13:52 Sodium Chloride Flush 0.9% 10 Ml Syringe IVP 10 ml PRN PRN Administration NEEDED PER PROVIDER ORDERS Sodium Chloride 10 ml 08/02/20 01:00 08/04/20 08:35 Sodium Chloride Flush 0.9% 10 Ml Syringe IVP Not Given 0100,0900,1700 GARETH Throat Lozenges 1 lozenge 08/03/20 20:13 08/04/20 05:15 Benzocaine/Menthol Lozenge MM 1 lozenge Q2HR PRN Administration Throat pain - Lab Result Fish Bone Diagrams: 08/04/20 11:22 08/04/20 05:18 - Additional Planning My Orders: My Active Orders 08/04/20 Lunch Dysphagia Puree Diet [DIET] 08/04/20 12:00 Potassium Phosphate 15 mmol Sodium Chloride 0.9% [Normal Saline 0.9%] 250 ml IV Q4H Subjective - Subjective Patient Reports: Resting Comfortably, Other (Feels tired, wants to sleep, also feels dizzy when upright) Objective Vital Signs: Vital Signs - 24 hr 08/03/20 08/03/20 08/03/20 13:10 13:40 16:09 Temperature 36.4 C L 36.8 C 37.5 C Heart Rate [ 76 67 70 Brachial] Respiratory 18 18 18 Rate Blood Pressure 120/49 L 131/90 H [Left Brachial artery] Blood Pressure 112/45 L [Right Brachial artery] O2 Saturation 93 95 93 08/03/20 08/03/20 08/04/20 18:09 20:16 01:15 Temperature 37.2 C 38.2 C H Heart Rate [ 100 82 72 Brachial] Respiratory 18 18 18 Rate Blood Pressure 130/56 L 135/50 H [Left Brachial artery] Blood Pressure 129/51 L [Right Brachial artery] O2 Saturation 94 94 94 08/04/20 08/04/20 05:18 08:05 Temperature 36.5 C 36.9 C Heart Rate [ 62 64 Brachial] Respiratory 16 16 Rate Blood Pressure [Left Brachial artery] Blood Pressure 105/75 125/47 L [Right Brachial artery] O2 Saturation 98 99 Oxygen O2 Source Room air I&O (Last 24 Hrs): Intake and Output Totals x24h 08/02/20 08/03/20 08/04/20 23:59 23:59 23:59 Intake Total 2897.600 2146.333 720 Output Total 800 200 250 Balance 2097.600 1946.333 470 General: Alert, Oriented x3 HEENT: Mucous membr. moist/pink Neck: Supple Neuro: Alert, Non Focal Cardiovascular: Regular rate Respiratory: No respiratory distress Abdomen: Normal bowel sounds, Soft, No tenderness Extremities: No edema - Results Results: Laboratory Results WBC 3.3 x10^3/uL (4.8-10.8) L 08/04/20 05:18 RBC 2.36 10^6/uL (4.20-5.40) L 08/04/20 05:18 Hgb 7.3 g/dL (12.0-16.0) L 08/04/20 11:22 Hct 21.9 % (37.0-47.0) L 08/04/20 11:22 MCV 91.9 fL (81.0-99.0) 08/04/20 05:18 MCH 30.5 pg (27.0-31.0) 08/04/20 05:18 MCHC 33.2 g/dL (32.0-36.0) 08/04/20 05:18 RDW 16.8 % (12.0-15.0) H 08/04/20 05:18 Plt Count 99 10^3/uL (130-450) L 08/04/20 05:18 MPV 11.1 fL (7.9-10.8) H 08/04/20 05:18 Neut # (Auto) 1.9 10^3/uL (1.5-6.6) 08/04/20 05:18 Lymph # (Auto) 0.9 10^3/uL (1.5-3.5) L 08/04/20 05:18 [place] # (Auto) 0.5 10^3/uL (0.0-1.0) 08/04/20 05:18 Eos # (Auto) 0.0 10^3/uL (0.0-0.7) 08/04/20 05:18 Baso # (Auto) 0.0 10^3/uL (0.0-0.1) 08/04/20 05:18 Absolute Nucleated RBC 0.00 x10^3/uL 08/04/20 05:18 Total Counted 100 08/01/20 17:55 Band Neuts % (Manual) 18 % (0-10) H 08/01/20 17:55 Abnorm Lymph % (Manual) 0 % 08/01/20 17:55 Nucleated RBC % 0.0 /100WBC 08/04/20 05:18 Neutrophils # (Manual) 14.9 10^3/uL (1.5-6.6) H 08/01/20 17:55 Lymphocytes # (Manual) 0.6 10^3/uL (1.5-3.5) L 08/01/20 17:55 Monocytes # (Manual) 0.3 10^3/uL (0.0-1.0) 08/01/20 17:55 Eosinophils # (Manual) 0.0 10^3/uL (0-0.7) 08/01/20 17:55 Basophils # (Manual) 0.0 10^3/uL (0-0.1) 08/01/20 17:55 Differential Comment MANUAL DIFFERENTIAL 08/01/20 17:55 Manual Slide Review Indicated 08/04/20 05:18 WBC Morphology NORMAL APPEARANCE (NORMAL) 08/04/20 05:18 Platelet Estimate DECREASED (<130,000) (NORMAL) 08/04/20 05:18 Platelet Morphology NORMAL APPEARANCE (NORMAL) 08/04/20 05:18 RBC Morph Micro Appear NORMAL APPEARANCE (NORMAL) 08/04/20 05:18 PT 13.3 secs (9.9-12.6) H 08/01/20 18:38 INR 1.2 (0.8-1.2) 08/01/20 18:38 APTT 21.9 secs (24.9-33.3) L 08/01/20 18:38 Sodium 139 mmol/L (135-145) 08/04/20 05:18 Potassium 3.3 mmol/L (3.5-5.0) L 08/04/20 05:18 Chloride 106 mmol/L (101-111) 08/04/20 05:18 Carbon Dioxide 25 mmol/L (21-32) 08/04/20 05:18 Anion Gap 8.0 (6-13) 08/04/20 05:18 BUN 21 mg/dL (6-20) H 08/04/20 05:18 Creatinine 0.8 mg/dL (0.4-1.0) 08/04/20 05:18 Estimated GFR (MDRD) 69 (>89) L 08/04/20 05:18 Glucose 102 mg/dL (70-100) H 08/04/20 05:18 Calcium 7.9 mg/dL (8.5-10.3) L 08/04/20 05:18 Phosphorus 1.9 mg/dL (2.5-4.6) L 08/04/20 05:18 Magnesium 2.0 mg/dL (1.7-2.8) 08/04/20 05:18 Total Bilirubin 0.8 mg/dL (0.2-1.0) 08/01/20 17:55 AST 42 IU/L (10-42) 08/01/20 17:55 ALT 40 IU/L (10-60) 08/01/20 17:55 Alkaline Phosphatase 76 IU/L (42-121) 08/01/20 17:55 Total Protein 5.1 g/dL (6.7-8.2) L 08/01/20 17:55 Albumin 2.5 g/dL (3.2-5.5) L 08/01/20 17:55 Globulin 2.6 g/dL (2.1-4.2) 08/01/20 17:55 Albumin/Globulin Ratio 1.0 (1.0-2.2) 08/01/20 17:55 Lipase 41 U/L (22-51) 08/01/20 17:55 Urine Color YELLOW 08/01/20 20:56 Urine Clarity HAZY (CLEAR) 08/01/20 20:56 Urine pH 6.0 PH (5.0-7.5) 08/01/20 20:56 Ur Specific [place] 1.015 (1.002-1.030) 08/01/20 20:56 Urine Protein NEGATIVE mg/dL (NEGATIVE) 08/01/20 20:56 Urine Glucose (UA) NEGATIVE mg/dL (NEGATIVE) 08/01/20 20:56 Urine Ketones NEGATIVE mg/dL (NEGATIVE) 08/01/20 20:56 Urine Occult Blood TRACE-INTA (NEGATIVE) 08/01/20 20:56 Urine Nitrite POSITIVE (NEGATIVE) H 08/01/20 20:56 Urine Bilirubin NEGATIVE (NEGATIVE) 08/01/20 20:56 Urine Urobilinogen 0.2 (NORMAL) E.U./dL (NORMAL) 08/01/20 20:56 Ur Leukocyte Esterase MODERATE (NEGATIVE) H 08/01/20 20:56 Urine RBC 6-10 /HPF (0-5) H 08/01/20 20:56 Urine WBC >25 /HPF (0-5) H 08/01/20 20:56 Urine WBC Clumps PRESENT 08/01/20 20:56 Ur Squamous Epith Cells RARE Squamous (<= Few) 08/01/20 20:56 Urine Bacteria Many /HPF (None Seen) H 08/01/20 20:56 Ur Microscopic Review INDICATED 08/01/20 20:56 Urine Culture Comments INDICATED 08/01/20 20:56 Nasal Adenovirus (PCR) NOT DETECTED 08/01/20 18:45 Nasal B. parapertussis DNA (PCR) NOT DETECTED 08/01/20 18:45 Nasal Coronavir 229E PCR NOT DETECTED 08/01/20 18:45 Nasal Coronavir HKU1 PCR NOT DETECTED 08/01/20 18:45 Nasal Coronavir NL63 PCR NOT DETECTED 08/01/20 18:45 Nasal Coronavir OC43 PCR NOT DETECTED 08/01/20 18:45 Nasal Enterovir/Rhinovir PCR NOT DETECTED 08/01/20 18:45 Nasal Influenza B PCR NOT DETECTED 08/01/20 18:45 Nasal Influenza A PCR NOT DETECTED 08/01/20 18:45 Nasal Parainfluen 1 PCR NOT DETECTED 08/01/20 18:45 Nasal Parainfluen 2 PCR NOT DETECTED 08/01/20 18:45 Nasal Parainfluen 3 PCR NOT DETECTED 08/01/20 18:45 Nasal Parainfluen 4 PCR NOT DETECTED 08/01/20 18:45 Nasal RSV (PCR) NOT DETECTED 08/01/20 18:45 Nasal B.pertussis DNA PCR NOT DETECTED 08/01/20 18:45 Nasal C.pneumoniae (PCR) NOT DETECTED 08/01/20 18:45 Joseluis Human Metapneumo PCR NOT DETECTED 08/01/20 18:45 Nasal M.pneumoniae (PCR) NOT DETECTED 08/01/20 18:45 Nasal SARS-CoV-2 (PCR) NOT DETECTED 08/01/20 18:45 Blood Type O NEGATIVE 08/01/20 18:38 Antibody Screen NEGATIVE 08/01/20 18:38 Crossmatch IS Only See Detail 08/01/20 18:38 - Procedures Procedures: Procedures EXCISION OF DUODENUM, ENDO, DIAGN (02/10/15) EXCISION OF LOWER ESOPHAGUS, ENDO, DIAGN (02/10/15) EXCISION OF STOMACH, PYLORUS, ENDO, DIAGN (02/10/15)
[2020-08-04] MEDS: POTASSIUM PHOSPHATE 15 MMOL in SODIUM CHLORIDE 0.9% 250 ML IV SCH ×2 (12:07→16:03)
[2020-08-05] MEDS: SODIUM CHLORIDE FLUSH 0.9% 10 ML SYRINGE IVP PRN (01:54)
[2020-08-05] MEDS: SODIUM CHLORIDE FLUSH 0.9% 10 ML SYRINGE IVP SCH ×3 (01:54→20:19)
[2020-08-05 05:05] LABS: EOSINOPHILS % (AUTO) 0.4 %; HCT - HEMATOCRIT 21.3 % (37.0-47.0); LYMPHOCYTES % (AUTO) 12.9 %; MEAN CORPUSCULAR HEMOGLOBIN 30.4 pg (27.0-31.0); MEAN CORPUSCULAR HGB CONC 31.9 g/dL (32.0-36.0); MEAN CORPUSCULAR VOLUME 95.1 fL (81.0-99.0); MEAN PLATELET VOLUME 10.9 fL (7.9-10.8); MONOCYTES % (AUTO) 8.3 %; NEUTROPHILS % (AUTO) 76.6 %; PLT - PLATELET COUNT 93 10^3/uL (130-450); RED BLOOD COUNT 2.24 10^6/uL (4.20-5.40); RED CELL DISTRIBUTION WIDTH 16.7 % (12.0-15.0); WHITE BLOOD COUNT 8.3 x10^3/uL (4.8-10.8)
[2020-08-05 05:16] LABS: CREATININE 0.7 mg/dL (0.4-1.0); MAGNESIUM 1.9 mg/dL (1.7-2.8); POTASSIUM 3.6 mmol/L (3.5-5.0)
[2020-08-05 05:19] LABS: HGB - HEMOGLOBIN 6.8 g/dL (12.0-16.0)
[2020-08-05 05:20] LABS: ABNORMAL LYMPHS % (MANUAL) 0 %
[2020-08-05 05:52] LABS: BAND NEUTROPHILS % (MANUAL) 11 %; DIFFERENTIAL COMMENT MANUAL DIFFERENTIAL; EOSINOPHILS # (MANUAL) 0.1 10^3/uL (0-0.7); LYMPHOCYTES # (MANUAL) 0.7 10^3/uL (1.5-3.5); LYMPHOCYTES % (MANUAL) 8 %; MONOCYTES # (MANUAL) 0.2 10^3/uL (0.0-1.0); NEUTROPHILS # (MANUAL) 7.4 10^3/uL (1.5-6.6); NUCLEATED RBC (MANUAL) 1 %; PLATELET ESTIMATE, MANUAL DECREASED (<130,000) (NORMAL); RBC MORPHOLOGY (MULTIPLE) 1+ HYPOCHROMASIA (NORMAL)
--- NOTE | 2020-08-05 08:34 | PROVIDER PROGRESS NOTE ---
Assessment/Plan - Problem List (1) Acute blood loss anemia Assessment/Plan: Hgb dropped to 6.8 this morning. Her anemia is actually likely multifactorial: due to pancytopenia from her chemotherapy but there is also most definitely an acute blood loss component as Hgb continues to decrease intermittently. She will get 1 more unit of packed red blood cells today Endoscopy showed esophagitis and a mass which was biopsied. The Bx results are still pending. We will continue to monitor hemoglobin every 12 hours and transfuse for goal greater than 7. I updated the daughter at patient's bedside, about the pt today. (2) Melena Assessment/Plan: She still has melena, 1-2 BMs per day. The concern was for an upper GI bleed, because she was on aspirin, but no other NSAIDs and denied alcohol use. Endoscopy showed esophagitis and a mass which was biopsied. ASA is on hold. Continue PPI twice daily and Diflucan for candidiasis. (3) Pancytopenia due to chemotherapy Assessment/Plan: She was noted to be pancytopenic at admission. We suspect this was secondary to her chemotherapy. Today the WBC has risen into a normal range today (1.9>>3.3>>8.3 today) We will continue to check a CBC daily. She will need outpatient follow-up with her oncologist for consideration of G- CSF. (4) History of esophagitis Assessment/Plan: She has a history of esophagitis and CT this admission was concerning for esophagitis. Continue twice daily PPI, it has been changed to po dosing. Continue diflucan for candidiasis, for which she was at risk, being on chemotherapy. We have started advancing her diet based off of endoscopy findings. (5) E. coli UTI (urinary tract infection) Assessment/Plan: Despite her having no dysuria, we decided to treat this given she had urgency, is immunocompromised, and had an elevated white count with bands on admission. Her urine culture is growing E. coli, which is whitfield-sensitive. She is now on oral ciprofloxacin, Day #4 of antibx. (6) Breast cancer, left breast Impression: She has high-grade HER-2 positive left breast cancer. She is being treated with TCHP since June 16 and is due for the third cycle next month. She will need outpatient follow-up once discharged. (7) Anxiety Impression: We are continuing her home clonazepam. (8) Familial tremor Impression: Stable. We are continuing her home propranolol (with hold parameters placed) and clonazepam. (9) Hypertension Impression: She was previously, since yesterday she is dizzy and has "soft" BP yesterday and today. Orthostatic checks daily ordered. Hold parameters placed on her propranolol dosing. - Current Meds Current Meds: Current Medications Generic Name Dose Route Start Last Admin Trade Name Freq PRN Reason Stop Dose Admin Acetaminophen 650 mg 08/01/20 20:59 08/04/20 21:53 Acetaminophen 325 Mg Tablet PO 650 mg Q4HR PRN Administration Pain 1 to 4 Cefuroxime Axetil 250 mg 08/03/20 21:00 08/04/20 21:53 Cefuroxime Axetil 250 Mg Tablet PO 250 mg BID GARETH Administration Fluconazole 200 mg 08/04/20 09:00 08/04/20 08:35 Fluconazole 100 Mg Tablet PO 200 mg DAILY GARETH Administration Heparin Sodium (Beef Lung) 30 - 50 unit 08/02/20 08:36 08/04/20 08:35 Heparin Flush 50 Units/5 Ml Syringe IVP 50 unit PRN PRN Administration Port Protocol (<24 hours) Sodium Chloride 500 mls @ 20 mls/hr 08/02/20 10:02 08/03/20 09:42 Normal Saline 0.9% IV Infused Q24H PRN Infusion TKO RATE Multi-Ingredient Ointment 1 applic 08/02/20 02:42 08/03/20 19:42 Zinc Oxide 20% Oint 30 Gm Tube TOP 1 applic PRN PRN Administration Skin Care Pantoprazole Sodium 40 mg 08/03/20 21:00 08/04/20 21:53 Pantoprazole 40 Mg Tablet PO 40 mg BID GARETH Administration Propranolol HCl 40 mg 08/03/20 09:00 08/04/20 21:53 Propranolol 40 Mg Tablet PO 40 mg BID GARETH Administration Sodium Chloride 10 ml 08/01/20 20:59 08/05/20 01:54 Sodium Chloride Flush 0.9% 10 Ml Syringe IVP 10 ml PRN PRN Administration NEEDED PER PROVIDER ORDERS Sodium Chloride 10 ml 08/02/20 01:00 08/05/20 01:54 Sodium Chloride Flush 0.9% 10 Ml Syringe IVP 10 ml 0100,0900,1700 GARETH Administration Throat Lozenges 1 lozenge 08/03/20 20:13 08/04/20 05:15 Benzocaine/Menthol Lozenge MM 1 lozenge Q2HR PRN Administration Throat pain - Lab Result Fish Bone Diagrams: 08/05/20 04:30 08/05/20 04:30 - Additional Planning My Orders: My Active Orders 08/05/20 Breakfast Soft Mechanical Diet [DIET] 08/05/20 15:00 HEMOGLOBIN AND HEMATOCRIT [HEME] Timed Subjective - Subjective Patient Reports: Feeling Better, Fatigue Objective Vital Signs: Vital Signs - 24 hr 08/04/20 08/04/20 08/05/20 16:36 21:52 01:00 Temperature 37.3 C 36.4 C L Heart Rate [ 62 73 63 Brachial] Respiratory 18 18 Rate Blood Pressure 112/44 L [Left Brachial artery] Blood Pressure 99/64 129/48 L [Right Brachial artery] O2 Saturation 97 95 Oxygen O2 Source Room air I&O (Last 24 Hrs): Intake and Output Totals x24h 08/03/20 08/04/20 08/05/20 23:59 23:59 23:59 Intake Total 2146.333 2355.75 Output Total 200 250 Balance 6885.340 3096.75 General: Alert, Oriented x3 HEENT: EOMI, Mucous membr. moist/pink Neck: Supple, No JVD Neuro: Alert, Non Focal Cardiovascular: Regular rate, No murmurs Respiratory: No respiratory distress, Breath sounds nml Abdomen: Soft Extremities: Other (1+ pedal edema, diffuse exzema skin leasions) - Results Results: Laboratory Results WBC 8.3 x10^3/uL (4.8-10.8) 08/05/20 04:30 RBC 2.24 10^6/uL (4.20-5.40) L 08/05/20 04:30 Hgb 6.8 g/dL (12.0-16.0) L* 08/05/20 04:30 Hct 21.3 % (37.0-47.0) L 08/05/20 04:30 MCV 95.1 fL (81.0-99.0) 08/05/20 04:30 MCH 30.4 pg (27.0-31.0) 08/05/20 04:30 MCHC 31.9 g/dL (32.0-36.0) L 08/05/20 04:30 RDW 16.7 % (12.0-15.0) H 08/05/20 04:30 Plt Count 93 10^3/uL (130-450) L 08/05/20 04:30 MPV 10.9 fL (7.9-10.8) H 08/05/20 04:30 Neut # (Auto) Not Reportable 08/05/20 04:30 Lymph # (Auto) Not Reportable 08/05/20 04:30 Riley # (Auto) Not Reportable 08/05/20 04:30 Eos # (Auto) Not Reportable 08/05/20 04:30 Baso # (Auto) Not Reportable 08/05/20 04:30 Absolute Nucleated RBC Not Reportable 08/05/20 04:30 Total Counted 100 08/05/20 04:30 Band Neuts % (Manual) 11 % (0-10) H 08/05/20 04:30 Abnorm Lymph % (Manual) 0 % 08/05/20 04:30 Nucleated RBC % Not Reportable 08/05/20 04:30 Neutrophils # (Manual) 7.4 10^3/uL (1.5-6.6) H 08/05/20 04:30 Lymphocytes # (Manual) 0.7 10^3/uL (1.5-3.5) L 08/05/20 04:30 Monocytes # (Manual) 0.2 10^3/uL (0.0-1.0) 08/05/20 04:30 Eosinophils # (Manual) 0.1 10^3/uL (0-0.7) 08/05/20 04:30 Basophils # (Manual) 0.0 10^3/uL (0-0.1) 08/05/20 04:30 Nucleated RBCs 1 % 08/05/20 04:30 Differential Comment MANUAL DIFFERENTIAL 08/05/20 04:30 Manual Slide Review Indicated 08/04/20 05:18 WBC Morphology NORMAL APPEARANCE (NORMAL) 08/04/20 05:18 Platelet Estimate DECREASED (<130,000) (NORMAL) 08/05/20 04:30 Platelet Morphology NORMAL APPEARANCE (NORMAL) 08/04/20 05:18 RBC Morph Micro Appear 1+ HYPOCHROMASIA (NORMAL) 08/05/20 04:30 PT 13.3 secs (9.9-12.6) H 08/01/20 18:38 INR 1.2 (0.8-1.2) 08/01/20 18:38 APTT 21.9 secs (24.9-33.3) L 08/01/20 18:38 Sodium 137 mmol/L (135-145) 08/05/20 04:30 Potassium 3.6 mmol/L (3.5-5.0) 08/05/20 04:30 Chloride 106 mmol/L (101-111) 08/05/20 04:30 Carbon Dioxide 24 mmol/L (21-32) 08/05/20 04:30 Anion Gap 7.0 (6-13) 08/05/20 04:30 BUN 16 mg/dL (6-20) 08/05/20 04:30 Creatinine 0.7 mg/dL (0.4-1.0) 08/05/20 04:30 Estimated GFR (MDRD) 81 (>89) L 08/05/20 04:30 Glucose 107 mg/dL (70-100) H 08/05/20 04:30 Calcium 8.0 mg/dL (8.5-10.3) L 08/05/20 04:30 Phosphorus 2.0 mg/dL (2.5-4.6) L 08/05/20 04:30 Magnesium 1.9 mg/dL (1.7-2.8) 08/05/20 04:30 Total Bilirubin 0.8 mg/dL (0.2-1.0) 08/01/20 17:55 AST 42 IU/L (10-42) 08/01/20 17:55 ALT 40 IU/L (10-60) 08/01/20 17:55 Alkaline Phosphatase 76 IU/L (42-121) 08/01/20 17:55 Total Protein 5.1 g/dL (6.7-8.2) L 08/01/20 17:55 Albumin 2.5 g/dL (3.2-5.5) L 08/01/20 17:55 Globulin 2.6 g/dL (2.1-4.2) 08/01/20 17:55 Albumin/Globulin Ratio 1.0 (1.0-2.2) 08/01/20 17:55 Lipase 41 U/L (22-51) 08/01/20 17:55 Urine Color YELLOW 08/01/20 20:56 Urine Clarity HAZY (CLEAR) 08/01/20 20:56 Urine pH 6.0 PH (5.0-7.5) 08/01/20 20:56 Ur Specific Chancellor 1.015 (1.002-1.030) 08/01/20 20:56 Urine Protein NEGATIVE mg/dL (NEGATIVE) 08/01/20 20:56 Urine Glucose (UA) NEGATIVE mg/dL (NEGATIVE) 08/01/20 20:56 Urine Ketones NEGATIVE mg/dL (NEGATIVE) 08/01/20 20:56 Urine Occult Blood TRACE-INTA (NEGATIVE) 08/01/20 20:56 Urine Nitrite POSITIVE (NEGATIVE) H 08/01/20 20:56 Urine Bilirubin NEGATIVE (NEGATIVE) 08/01/20 20:56 Urine Urobilinogen 0.2 (NORMAL) E.U./dL (NORMAL) 08/01/20 20:56 Ur Leukocyte Esterase MODERATE (NEGATIVE) H 08/01/20 20:56 Urine RBC 6-10 /HPF (0-5) H 08/01/20 20:56 Urine WBC >25 /HPF (0-5) H 08/01/20 20:56 Urine WBC Clumps PRESENT 08/01/20 20:56 Ur Squamous Epith Cells RARE Squamous (<= Few) 08/01/20 20:56 Urine Bacteria Many /HPF (None Seen) H 08/01/20 20:56 Ur Microscopic Review INDICATED 08/01/20 20:56 Urine Culture Comments INDICATED 08/01/20 20:56 Nasal Adenovirus (PCR) NOT DETECTED 08/01/20 18:45 Nasal B. parapertussis DNA (PCR) NOT DETECTED 08/01/20 18:45 Nasal Coronavir 229E PCR NOT DETECTED 08/01/20 18:45 Nasal Coronavir HKU1 PCR NOT DETECTED 08/01/20 18:45 Nasal Coronavir NL63 PCR NOT DETECTED 08/01/20 18:45 Nasal Coronavir OC43 PCR NOT DETECTED 08/01/20 18:45 Nasal Enterovir/Rhinovir PCR NOT DETECTED 08/01/20 18:45 Nasal Influenza B PCR NOT DETECTED 08/01/20 18:45 Nasal Influenza A PCR NOT DETECTED 08/01/20 18:45 Nasal Parainfluen 1 PCR NOT DETECTED 08/01/20 18:45 Nasal Parainfluen 2 PCR NOT DETECTED 08/01/20 18:45 Nasal Parainfluen 3 PCR NOT DETECTED 08/01/20 18:45 Nasal Parainfluen 4 PCR NOT DETECTED 08/01/20 18:45 Nasal RSV (PCR) NOT DETECTED 08/01/20 18:45 Nasal B.pertussis DNA PCR NOT DETECTED 08/01/20 18:45 Nasal C.pneumoniae (PCR) NOT DETECTED 08/01/20 18:45 Joseluis Human Metapneumo PCR NOT DETECTED 08/01/20 18:45 Nasal M.pneumoniae (PCR) NOT DETECTED 08/01/20 18:45 Nasal SARS-CoV-2 (PCR) NOT DETECTED 08/01/20 18:45 Blood Type O NEGATIVE 08/01/20 18:38 Antibody Screen NEGATIVE 08/01/20 18:38 Crossmatch IS Only See Detail 08/01/20 18:38 - Procedures Procedures: Procedures EXCISION OF DUODENUM, ENDO, DIAGN (02/10/15) EXCISION OF LOWER ESOPHAGUS, ENDO, DIAGN (02/10/15) EXCISION OF STOMACH, PYLORUS, ENDO, DIAGN (02/10/15)
[2020-08-05] MEDS: FLUCONAZOLE 100 MG TABLET PO SCH (09:25)
[2020-08-05] MEDS: PROPRANOLOL 40 MG TABLET PO SCH ×2 (09:25→20:19)
[2020-08-05] MEDS: PANTOPRAZOLE 40 MG TABLET PO SCH ×2 (09:26→20:19)
[2020-08-05 15:19] LABS: HCT - HEMATOCRIT 24.9 % (37.0-47.0); HGB - HEMOGLOBIN 8.2 g/dL (12.0-16.0)
[2020-08-06] MEDS: SODIUM CHLORIDE FLUSH 0.9% 10 ML SYRINGE IVP SCH ×2 (00:02→08:26)
[2020-08-06 05:31] LABS: BASOPHILS % (AUTO) 0.2 %; CALCIUM 8.1 mg/dL (8.5-10.3); CREATININE 0.6 mg/dL (0.4-1.0); EOSINOPHILS % (AUTO) 0.1 %; HCT - HEMATOCRIT 24.1 % (37.0-47.0); MAGNESIUM 1.8 mg/dL (1.7-2.8); MEAN CORPUSCULAR HEMOGLOBIN 31.6 pg (27.0-31.0); MEAN CORPUSCULAR HGB CONC 33.2 g/dL (32.0-36.0); MEAN CORPUSCULAR VOLUME 95.3 fL (81.0-99.0); MEAN PLATELET VOLUME 10.9 fL (7.9-10.8); MONOCYTES % (AUTO) 5.8 %; NEUTROPHILS % (AUTO) 80.8 %; PHOSPHORUS 1.8 mg/dL (2.5-4.6); PLT - PLATELET COUNT 109 10^3/uL (130-450); POTASSIUM 3.6 mmol/L (3.5-5.0); RED BLOOD COUNT 2.53 10^6/uL (4.20-5.40); RED CELL DISTRIBUTION WIDTH 15.9 % (12.0-15.0); WHITE BLOOD COUNT 10.4 x10^3/uL (4.8-10.8)
[2020-08-06 05:36] LABS: ABNORMAL LYMPHS % (MANUAL) 0 %; BAND NEUTROPHILS % (MANUAL) 0 %
[2020-08-06 06:03] LABS: DIFFERENTIAL COMMENT MANUAL DIFFERENTIAL; LYMPHOCYTES # (MANUAL) 2.1 10^3/uL (1.5-3.5); LYMPHOCYTES % (MANUAL) 20 %; MONOCYTES # (MANUAL) 0.5 10^3/uL (0.0-1.0); NEUTROPHILS # (MANUAL) 7.8 10^3/uL (1.5-6.6); PLATELET ESTIMATE, MANUAL DECREASED (<130,000) (NORMAL); RBC MORPHOLOGY (MULTIPLE) NORMAL APPEARANCE (NORMAL)
[2020-08-06] MEDS: PANTOPRAZOLE 40 MG TABLET PO SCH (08:25)
[2020-08-06] MEDS: PROPRANOLOL 40 MG TABLET PO SCH (08:26)
[2020-08-06] MEDS: FLUCONAZOLE 100 MG TABLET PO SCH (08:26)
[2020-08-06] MEDS ORDERED: polyethylene glycoL 3350 17 GM PACKET PO SCH (09:00)
--- NOTE | 2020-08-06 10:48 | Discharge Plan ---
Discharge Plan Problem Reviewed?: Yes Disposition: Home, Self Care Condition: Stable Prescriptions: Ferric Citrate [Auryxia] 210 mg PO DAILY #30 tablet cefUROXime axetiL [Ceftin] 250 mg PO BID #3 tablet Fluconazole [Diflucan] 200 mg PO DAILY #7 tablet Pantoprazole [Protonix] 40 mg PO DAILY #30 tablet Diet: Soft Activity Restrictions: Activity as Tolerated Shower Restrictions: No Assistance Devices: [facility] Concerns: You were hospitalized for weakness and dizziness which was from a Urinary tract infection and significant anemia related to being on chemotherapy and we found that you had bleeding from having gastritis and candidiasis of the GI tract. You are being discharged to take several more days of medicine for the candidia sis, 1.5 more days of the antibiotics for the urinary tract infection, new Iron daily replacement and new stomach ant-acid medication. All the new prescriptions were electronically sent to your [facility] pharmacy in [place]. Please eat a soft and bland diet. You may advance your diet as tolerated. You may resume all your other usual, prehospital medications, EXCEPT DO NOT TAKE DAILY ASPIRIN for about a month, AND ASK YOUR PCP IF YOU SHOULD TAKE YOUR DECADRON (steroid). You became weak and deconditioned while here, and physical therapist and occupational therapist thought you would benefit from attending outpatient rehab (for PT and OT). This needs to be ordered by your primary care provider. Plan of Treatment: As above. Care Goals: Improvement in symptoms and stabilization are the goals. Assessment: Patient and daughter understand and are agreeable with the plan. Additional Instructions or Follow Up instructions: You should see your Primary Care Provider in the next 1 to 2 weeks for a hospital follow-up appointment, and see your Oncologist as per your schedule. If you have new or worsening symptoms, call your PCP or Oncologist for advice, or come to the ER. No Smoking: If you smoke, Please STOP! Call for help. Follow-up with: Gabriela Hdez DO [Primary Care Provider] -
[2020-08-06] MEDS ORDERED: FERROUS GLUCONATE 324 MG TABLET PO SCH (11:00)
[2020-08-06 11:13] VITALS: BP 134/49
--- NOTE | 2020-08-06 11:24 | DISCHARGE SUMMARY ---
Discharge Summary Admit Date: 08/01/20 Discharge Date: 08/06/20 Discharging Provider: Dr Delia Mackenzie Primary Care Provider: Dr Gabriela Hdez Condition at Discharge: Stable Discharge Disposition: 01 Home, Self Care - HPI History of Present Illness: From the admission H&P of Dr Hazel Calabrese: This is a 80-year-old who has a history of dysphagia, esophagitis with esophageal erosions, Schatzki ring, gastritis and duodenitis with hiatal hernia and a duodenal polyp in January 2015, October 2017, currently being treated for breast cancer, and now presents with weakness, lightheadedness, fatigue. Its been going on for a little less than a week, and gets much worse when she tries to stand up or walk across the room. She feels better when she sitting down or laying down. She is currently undergoing chemotherapy for breast cancer. The lightheadedness resulted in a fall today. EMS was called and picked her up. Put her back in her chair. She continued to feel lightheaded so they called EMS again. She was evaluated by Dr. Jackson in the ER and her vital signs showed a temperature is 36.9, heart rate 76, respiration 18, blood pressure 168/102, and 98% on room air. Lab work showed her hemoglobin to be 5.4, hematocrit 16.4. She then shared she was having melanotic stool. She is on a daily aspirin and as needed Decadron for her chemotherapy. She is not on a proton pump inhibitor at home. With her diagnosis of breast cancer her hemoglobin was previously 13.9. After this last cycle of chemotherapy she began her cycle with a hemoglobin of 12.9. July 27 her hemoglobin was 9.7. INR was mildly elevated May 2020 at 1.1. Today it is 1.2. She was admitted for melena and marked anemia. - HOSPITAL COURSE Hospital Course: (1) Acute blood loss anemia Her anemia was likely multifactorial: due to pancytopenia from her chemotherapy and acute blood loss as the Hgb continued to drop intermittently. Upper endoscopy was done and showed esophagitis and a mass which was biopsied. The Bx results are still pending. She was started on oral iron replacement. At discharge, oral Iron was ordered, however her [employer] insurance apparently covers no oral iron prescriptions unless there is a prior authorization; this should be done by her PCP for getting oral iron replacement. (2) Melena She had melena, 1-2 BMs per day. We stopped her aspirin. Endoscopy showed esophagitis and she was treated with PPI twice daily and Diflucan for candidiasis. (3) Pancytopenia due to chemotherapy She was noted to be pancytopenic at admission. We suspect this was secondary to her chemotherapy. Over her stay, the WBC viet into a normal range (1.9>>3.3>>8.3). She will need outpatient follow-up with her oncologist for consideration of G-CSF. (4) History of esophagitis She has a history of esophagitis and CT this admission was concerning for esophagitis. EGD showed gastritis and candidiasis, related to being on chemotherapy. Her aspirin was stopped, no Decadron was used while here. She was discharged on a PPI and diflucan for candidiasis. Her diet was slowly advanced. (5) E. coli UTI (urinary tract infection) Her U/A was abnormal. Despite her having no dysuria, we decided to treat this, given she had urgency, was immunocompromised, and had an elevated white count with bands on admission. Her urine culture grew E. coli, which was whitfield- sensitive. She was discharged to finish a course of oral Ciprofloxacin. (6) Breast cancer, left breast She has high-grade HER-2 positive left breast cancer. She is being treated with TCHP since June 16 and is due for the third cycle next month. She will need outpatient follow-up once discharged. (7) Anxiety We continued her home clonazepam. (8) Familial tremor We continued her home propranolol and clonazepam. (9) Hypertension She complained of being dizzy and had "soft" BPs but was not orthostatic. Her BP meds were on hold, and advised to restart that after discharge and to see her PCP within a week. - ALLERGIES Allergies/Adverse Reactions: Allergies Allergy/AdvReac Type Severity Reaction Status Date / Time No Known Drug Allergies Allergy Verified 08/01/20 17:29 - MEDICATIONS Home Medications: Ambulatory Orders Medication Instructions Recorded Confirmed Losartan [Cozaar] 25 mg ORAL QPM 02/09/15 08/02/20 Propranolol [Inderal] 40 mg PO BID 02/09/15 08/02/20 Triamterene/Hydrochlorothiazid 0.5 tab ORAL DAILY 02/09/15 08/02/20 [Triamterene-Hctz 75-50 mg Tab] clonazePAM [Clonazepam] 0.25 mg ORAL BID 02/09/15 08/02/20 Lidocaine/Prilocain 2.5% Cream 5 applic TOP UD #1 gm 05/26/20 08/02/20 [Emla 2.5% Cream] Olanzapine [Zyprexa] 5 mg PO UD #12 tablet 05/26/20 08/02/20 Prochlorperazine Maleate 10 mg PO Q6HR PRN #30 tab 05/26/20 08/02/20 [Compazine] dexAMETHasone [Decadron] 8 mg PO UD #24 tablet 05/26/20 08/02/20 B-Complex with Vitamin C [Super B 1 each PO DAILY 05/27/20 08/02/20 Complex-Vitamin C] Calcium Phos/Vit D3/Mag Oxide 1 each PO DAILY 05/27/20 08/02/20 [Posture-D Caplet] Cholecalciferol [Vitamin D3] 50 mcg PO DAILY 05/27/20 08/02/20 Cyanocobalamin (Vitamin B-12) 1,000 mcg PO DAILY 05/27/20 08/02/20 [Vitamin B-12] Glucosamine HCl 1,500 mg PO DAILY 05/27/20 08/02/20 Homer-3S/Dha/Epa/Fish Oil [Fish 1 each PO BID 05/27/20 08/02/20 Oil 1,200 mg Softgel] oxyCODONE [Roxicodone] 5 mg PO Q6H PRN #20 tablet 06/01/20 08/02/20 Ferric Citrate [Auryxia] 210 mg PO DAILY #30 tablet 08/06/20 Fluconazole [Diflucan] 200 mg PO DAILY #7 tablet 08/06/20 Pantoprazole [Protonix] 40 mg PO DAILY #30 tablet 08/06/20 cefUROXime axetiL [Ceftin] 250 mg PO BID #3 tablet 08/06/20 - PHYSICAL EXAM AT DISCHARGE General Appearance: positive: No acute distress, Alert Eyes Bilateral: positive: Normal inspection, EOMI ENT: positive: ENT inspection nml, No signs of dehydration Neck: positive: Nml inspection, No JVD Respiratory: positive: No respiratory distress, Breath sounds nml Cardiovascular: positive: Regular rate & rhythm, No murmur Abdomen: positive: Non-tender, Nml bowel sounds, No distention Skin: positive: No rash, Warm, Dry, Pallor Extremities: positive: Other (Pedal edema but no leg edema) Neurologic/Psychiatric: positive: Oriented x3 (Non-focal) - LABS Result Diagrams: 08/06/20 04:46 08/06/20 04:46 - DIAGNOSTIC IMAGING Diagnostic Imaging Results: Final report reviewed - FOLLOW UP Follow Up: See PCP and Oncologist soon, for hospital follow-up. - TIME SPENT Time Spent in Discharge (Minutes): 45
== END 2020-08-06 13:20 | disposition home or self-care (01) | DRG 380 ==
LOC: EDUNIT# → ED 17:19 → SUPCPDRO 17:19 → MS2 20:59
PROVIDERS: ADMIT Specialist; ATTEND Internal Medicine
PROC: 30233N1 Transfusion of Nonautologous Red Blood Cells into Peripheral Vein, Percutaneous Approach (ICD-10-PCS; 2020-08-02)
PROC: 0DB98ZX Excision of Duodenum, Via Natural or Artificial Opening Endoscopic, Diagnostic (ICD-10-PCS; 2020-08-03)
PROC: 0DB78ZX Excision of Stomach, Pylorus, Via Natural or Artificial Opening Endoscopic, Diagnostic (ICD-10-PCS; 2020-08-03)
PROC: 0DB38ZX Excision of Lower Esophagus, Via Natural or Artificial Opening Endoscopic, Diagnostic (ICD-10-PCS; 2020-08-03)
PROC: 0DB48ZX Excision of Esophagogastric Junction, Via Natural or Artificial Opening Endoscopic, Diagnostic (ICD-10-PCS; 2020-08-03)
PROC: 30233N1 Transfusion of Nonautologous Red Blood Cells into Peripheral Vein, Percutaneous Approach (ICD-10-PCS; 2020-08-03)
PROC: 0DBP8ZX Excision of Rectum, Via Natural or Artificial Opening Endoscopic, Diagnostic (ICD-10-PCS; 2020-08-03 11:00)
PROC: 30233N1 Transfusion of Nonautologous Red Blood Cells into Peripheral Vein, Percutaneous Approach (ICD-10-PCS; principal; 2020-08-05)
DX: K92.2 Gastrointestinal hemorrhage, unspecified (principal); D64.9 Anemia, unspecified; K22.11 Ulcer of esophagus with bleeding; D61.810 Antineoplastic chemotherapy induced pancytopenia; C50.919 Malignant neoplasm of unspecified site of unspecified female breast; D62 Acute posthemorrhagic anemia; B37.81 Candidal esophagitis; N30.00 Acute cystitis without hematuria; K29.51 Unspecified chronic gastritis with bleeding; D64.81 Anemia due to antineoplastic chemotherapy; C50.912 Malignant neoplasm of unspecified site of left female breast; B96.20 Unspecified Escherichia coli [E. coli] as the cause of diseases classified elsewhere; F41.9 Anxiety disorder, unspecified; G25.0 Essential tremor; L89.159 Pressure ulcer of sacral region, unspecified stage; R19.7 Diarrhea, unspecified; Z91.81 History of falling; I10 Essential (primary) hypertension; Z79.82 Long term (current) use of aspirin; G62.9 Polyneuropathy, unspecified; Z87.891 Personal history of nicotine dependence; Z66 Do not resuscitate
CPT/HCPCS: 36415; 36430; 71045; 74174; 80048; 80053; 81001; 82272; 83690; 83735; 84100; 85014; 85018; 85025; 85027; 85610; 85730; 86850; 86900; 86901; 86920; 87086; 87181; 87631; 96374; 97116; 97161; 97165; 97530; 99284; 99285; A9270; P9016; Q9967; 0202U; 81003

== ENCOUNTER 2020-08-11 18:36 | Emergency (ER) | payer MEDICARE, OTHER ==
--- OUTSIDE RECORDS SUMMARY | 2020-08-11 18:39 | EXTERNAL MEDICAL SUMMARY RPT | Continuity of Care Document ---
:1940 Demographics Phone Unavailable Preferred Language Unknown Marital Status Unknown Jain Affiliation Unknown Race Unknown Ethnic Group Unknown Author Organization [facility] Address [address] [place] [address] Phone Allergies Encounters Medications Problems Results
--- NOTE | 2020-08-11 18:41 | ED Physician Documentation ---
PD HPI CHEST PAIN - Stated complaint Stated Complaint: HIGH HR - History obtained from History obtained from: Patient - History of Present Illness Timing - onset: Today Timing - onset during: Light activity (She went to the [facility] walk-in [facility] today for follow-up of anemia and UTI with recent hospitalization. Her vital signs on check-in showed heart rate of 160. The provider there directed the patient to come to the ER for further evaluation. No exam was done according to the patient and no EKG.) Timing - duration: Other (the patient is not feeling any palpitations. No history of atrial fib. Denies chest pain.) Quality: No: Pressure, Tightness, Pain Associated symptoms: General Weakness. No: Shortness of air, Nausea, Vomiting, Feeling faint / dizzy, Palpitations Similar symptoms before: Has not had sx before (no history of tachyarrhythmias.) Recently seen: Emergency Dept, Admitted (recent for anemia/GI bleeding and had scope done Dx ulcer. Transfused. Discharged 4 days ago. Was to have planned follow up for repeat CBC/labs today at Walk In and then PMD next week.) Review of Systems Constitutional: denies: Fever, Chills Nose: denies: Rhinorrhea / runny nose, Congestion Throat: denies: Sore throat Cardiac: denies: Palpitations Respiratory: denies: Cough Neurologic: reports: Generalized weakness (prior to and with recent hospitalization. She states has been feeling better since discharge.). denies: Focal weakness, Numbness PD PAST MEDICAL HISTORY - Past Medical History Cardiovascular: Hypertension, High cholesterol, Murmur, Arrhythmia Respiratory: Asthma Neuro: Peripheral neuropathy, Tremors Endocrine/Autoimmune: Other GI: GERD, Ulcers (esophaeal erosions, esophagitis, gastritis 01/2015. Stomach mass removed. ), Hiatal hernia, Colon polyps, Chronic diarrhea (Skin rash from chemotherapy), Other (Left inguinal lymphadenopathy with ongoing surveillance since May 2020) [employer]: Breast cancer (Self found 2/2 1. Biopsy positive. High-grade invasive ductal CA. ER negative, MD negative, HER-2/maxine 3+. Stage II. Taxotere, carboplatinum, Herceptin, and Perjeta every 3 weeks, total 6 cycles, plan for mastectomy. Just completed cycle #3.), Other (, menarche 16, Menopause 52. ) : None HEENT: Chronic vision loss, Other Psych: Anxiety, Claustrophobia Musculoskeletal: Osteoarthritis Derm: Other (SCCA lower extremity w removal) - Past Surgical History Past Surgical History: Yes General: Colonoscopy, EGD Ortho: Hip replacement Cardiovascular: Other Neuro: Other Derm: Skin cancer surgery - Present Medications Home Medications: Ambulatory Orders Medication Instructions Recorded Confirmed Losartan [Cozaar] 25 mg ORAL QPM 02/09/15 08/02/20 Propranolol [Inderal] 40 mg PO BID 02/09/15 08/02/20 Triamterene/Hydrochlorothiazid 0.5 tab ORAL DAILY 02/09/15 08/02/20 [Triamterene-Hctz 75-50 mg Tab] clonazePAM [Clonazepam] 0.25 mg ORAL BID 02/09/15 08/02/20 Lidocaine/Prilocain 2.5% Cream 5 applic TOP UD #1 gm 05/26/20 08/02/20 [Emla 2.5% Cream] Olanzapine [Zyprexa] 5 mg PO UD #12 tablet 05/26/20 08/02/20 Prochlorperazine Maleate 10 mg PO Q6HR PRN #30 tab 05/26/20 08/02/20 [Compazine] dexAMETHasone [Decadron] 8 mg PO UD #24 tablet 05/26/20 08/02/20 B-Complex with Vitamin C [Super B 1 each PO DAILY 05/27/20 08/02/20 Complex-Vitamin C] Calcium Phos/Vit D3/Mag Oxide 1 each PO DAILY 05/27/20 08/02/20 [Posture-D Caplet] Cholecalciferol [Vitamin D3] 50 mcg PO DAILY 05/27/20 08/02/20 Cyanocobalamin (Vitamin B-12) 1,000 mcg PO DAILY 05/27/20 08/02/20 [Vitamin B-12] Glucosamine HCl 1,500 mg PO DAILY 05/27/20 08/02/20 [place]-3S/Dha/Epa/Fish Oil [Fish 1 each PO BID 05/27/20 08/02/20 Oil 1,200 mg Softgel] oxyCODONE [Roxicodone] 5 mg PO Q6H PRN #20 tablet 06/01/20 08/02/20 Ferric Citrate [Auryxia] 210 mg PO DAILY #30 tablet 08/06/20 Fluconazole [Diflucan] 200 mg PO DAILY #7 tablet 08/06/20 Pantoprazole [Protonix] 40 mg PO DAILY #30 tablet 08/06/20 cefUROXime axetiL [Ceftin] 250 mg PO BID #3 tablet 08/06/20 - Allergies Allergies/Adverse Reactions: Allergies Allergy/AdvReac Type Severity Reaction Status Date / Time No Known Drug Allergies Allergy Verified 08/11/20 18:38 - Social History Does the pt smoke?: No Smoking Status: Never smoker Does the pt drink ETOH?: No Does the pt have substance abuse?: No - Immunizations Immunizations are current?: Yes - POLST Patient has POLST: No POLST Status: DNR (Daughter is in the room when the patient stage she wishes to be DO NOT RESUSCITATE in the event of a cardiopulmonary arrest. No intubation, no CPR.) PD ED PE NORMAL - Vitals Vital signs reviewed: Yes - General General: Alert and oriented X 3, No acute distress, Well developed/nourished - HEENT HEENT: Pharynx benign - Neck Neck: Supple, no meningeal sign, No adenopathy - Cardiac Cardiac: RRR, No murmur - Respiratory Respiratory: Clear bilaterally - Abdomen Abdomen: Soft, Non tender - Derm Derm: Normal color, Warm and dry - Neuro Neuro: Alert and oriented X 3, No motor deficit, Normal speech Motor: None (general tremor of extremities.) Results - Vitals Vitals: Vital Signs - 24 hr 08/11/20 08/11/20 18:39 19:58 Temperature 36.3 C L Heart Rate 65 66 Respiratory 18 14 Rate Blood Pressure 110/70 169/80 H O2 Saturation 99 100 Oxygen O2 Source Room air - EKG (time done) 18:43 Rate: Rate (enter#) (64) Rhythm: NSR, Other (baseline artifact due to tremor, creating flutter appearance in some leads. ). No: Atrial flutter [place]: Normal Intervals: Normal MD Ischemia: Normal ST segments. No: ST elevation c/w ischemia, ST depression - Labs Labs: Laboratory Tests 08/11/20 08/11/20 08/11/20 19:06 19:06 19:06 WBC 9.3 RBC 2.93 L Hgb 9.3 L Hct 28.9 L MCV 98.6 MCH 31.7 H MCHC 32.2 RDW 17.5 H Plt Count 107 L MPV 9.4 Neut # (Auto) 7.4 H Lymph # (Auto) 1.0 L [place] # (Auto) 0.7 Eos # (Auto) 0.0 Baso # (Auto) 0.1 Absolute Nucleated RBC 0.00 Nucleated RBC % 0.0 Sodium 132 L Potassium 3.2 L Chloride 95 L Carbon Dioxide 27 Anion Gap 10.0 BUN 10 Creatinine 0.9 Estimated GFR (MDRD) 61 L Glucose 102 H Calcium 8.7 Magnesium 1.8 Total Bilirubin 0.7 AST 25 ALT 30 Alkaline Phosphatase 92 B-Natriuretic Peptide 67 Total Protein 6.6 L Albumin 3.0 L Globulin 3.6 Albumin/Globulin Ratio 0.8 L Lipase 47 PD MEDICAL DECISION MAKING - ED course Complexity details: reviewed results (ECG and heart monitor showing NSR with normal rate. There is baseline tremoring which will appear like faster heart rate on monitor at times. ), considered differential, d/w patient Departure - Departure Disposition: 01 Home, Self Care Clinical Impression: Anemia Qualifiers: Anemia type: unspecified type Qualified Code(s): D64.9 - Anemia, unspecified Condition: Stable Record reviewed to determine appropriate education?: Yes Follow-Up: Gabriela Hdez DO [Primary Care Provider] - Comments: Your EKG and heart rhythm appeared normal here with a baseline tremorcreate some artifact. I cannot vouch for the heart rate reading at the walk-in clinic, it may have been missed reading the tremor or may have been abnormal there but seems okay here. Your blood count is improved from when you were discharged. Your potassium level is improved or stable as well. Both are still low but improving. Continue with your current medications and treatments. Follow-up with your oncologist on the first as planned in your primary care as scheduled as well. Discharge Date/Time: 08/11/20 20:18
--- OUTSIDE RECORDS SUMMARY | 2020-08-11 18:59 | EXTERNAL MEDICAL SUMMARY RPT | Continuity of Care Document ---
:1940 Demographics Phone Unavailable Preferred Language Unknown Marital Status Unknown Zoroastrian Affiliation Unknown Race Unknown Ethnic Group Unknown Author Organization [facility] Address [address] [place] [address] Phone Allergies Encounters Medications Problems Results
[2020-08-11 19:13] LABS: BASOPHILS # (AUTO) 0.1 10^3/uL (0.0-0.1); BASOPHILS % (AUTO) 0.8 %; HCT - HEMATOCRIT 28.9 % (37.0-47.0); HGB - HEMOGLOBIN 9.3 g/dL (12.0-16.0); MEAN CORPUSCULAR HEMOGLOBIN 31.7 pg (27.0-31.0); MEAN CORPUSCULAR HGB CONC 32.2 g/dL (32.0-36.0); MEAN CORPUSCULAR VOLUME 98.6 fL (81.0-99.0); MEAN PLATELET VOLUME 9.4 fL (7.9-10.8); MONOCYTES # (AUTO) 0.7 10^3/uL (0.0-1.0); MONOCYTES % (AUTO) 7.5 %; NEUTROPHILS # (AUTO) 7.4 10^3/uL (1.5-6.6); NEUTROPHILS % (AUTO) 79.9 %; PLT - PLATELET COUNT 107 10^3/uL (130-450); RED BLOOD COUNT 2.93 10^6/uL (4.20-5.40); RED CELL DISTRIBUTION WIDTH 17.5 % (12.0-15.0); WHITE BLOOD COUNT 9.3 x10^3/uL (4.8-10.8)
[2020-08-11 19:25] LABS: ALBUMIN/GLOBULIN RATIO 0.8 (1.0-2.2); BILIRUBIN,TOTAL 0.7 mg/dL (0.2-1.0); CALCIUM 8.7 mg/dL (8.5-10.3); CREATININE 0.9 mg/dL (0.4-1.0); MAGNESIUM 1.8 mg/dL (1.7-2.8); POTASSIUM 3.2 mmol/L (3.5-5.0); TOTAL PROTEIN 6.6 g/dL (6.7-8.2)
[2020-08-11 19:58] VITALS: BP 169/80
== END 2020-08-11 20:18 | disposition home or self-care (01) ==
LOC: ED 18:36
DX: D64.9 Anemia, unspecified (principal); R53.1 Weakness; R25.1 Tremor, unspecified; I10 Essential (primary) hypertension; C50.919 Malignant neoplasm of unspecified site of unspecified female breast; Z17.1 Estrogen receptor negative status [ER-]; Z66 Do not resuscitate
CPT/HCPCS: 36415; 80053; 83690; 83735; 83880; 85025; 93005; 99284

== ENCOUNTER 2020-09-01 17:30 | Inpatient (IN) | payer MEDICARE, OTHER ==
[2020-09-01] MEDS ORDERED: SODIUM CHLORIDE 0.9% 1,000 ML IV STA ×2 (18:33→21:03)
--- NOTE | 2020-09-01 18:37 | ED Physician Documentation ---
PD HPI NVD - Stated complaint Stated Complaint: DIARRHEA/WEAKNESS - Chief complaint Chief Complaint: General - History obtained from History obtained from: Patient, Family - History of Present Illness Timing - onset: How many days ago (3) Timing - duration: Days (3) Timing - details: Gradual onset, Still present Associated symptoms: Weight loss, Other (weakness diarrhea) Contributing factors: Recent antibiotics, Other (recent chemo) Improved by: BM Worsened by: Eating Similar symptoms before: Has not had sx before Recently seen: Other - Additonal information Additional information: 80-year-old female on adjuvant chemotherapy for hormone negative HER-2 positive breast cancer with a high Ki-67 5 is on her fourth cycle out of 6 and she has developed diarrhea over the past 3 days and with that she has become weak and fatigued. She has had watery stool 5-6 times per day. She has not had any blood in the diarrhea. She has not had luck with use of Imodium. She is been hospitalized for GI bleed and she has been on antibiotic for urinary tract infection. Review of Systems Constitutional: reports: Fatigue. denies: Fever Eyes: denies: Decreased vision Ears: denies: Ear pain Nose: denies: Rhinorrhea / runny nose, Congestion Throat: denies: Sore throat Cardiac: reports: Pedal edema. denies: Chest pain / pressure, Palpitations, Calf pain Respiratory: reports: Cough. denies: Dyspnea GI: reports: Nausea, Vomiting (once), Diarrhea (5-6 times per day no blood). denies: Abdominal Pain : denies: Dysuria, Frequency Skin: denies: Rash Musculoskeletal: denies: Neck pain, Back pain, Extremity pain Neurologic: reports: Generalized weakness. 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 CARE: Breast cancer, Other : None HEENT: Chronic vision loss, Other Psych: Anxiety, Claustrophobia Musculoskeletal: Osteoarthritis Derm: Other - Past Surgical History Past Surgical History: Yes General: Colonoscopy, EGD Ortho: Hip replacement Cardiovascular: Other Neuro: Other Derm: Skin cancer surgery - Present Medications Home Medications: Ambulatory Orders Medication Instructions Recorded Confirmed Losartan [Cozaar] 25 mg ORAL QPM 02/09/15 09/01/20 Propranolol [Inderal] 40 mg PO BID 02/09/15 09/01/20 Triamterene/Hydrochlorothiazid 0.5 tab ORAL DAILY 02/09/15 09/01/20 [Triamterene-Hctz 75-50 mg Tab] clonazePAM [Clonazepam] 0.25 mg ORAL BID 02/09/15 09/01/20 Lidocaine/Prilocain 2.5% Cream 5 applic TOP UD #1 gm 05/26/20 09/01/20 [Emla 2.5% Cream] OLANZapine [Zyprexa] 5 mg PO UD #12 tablet 05/26/20 09/01/20 Prochlorperazine Maleate 10 mg PO Q6HR PRN #30 tab 05/26/20 09/01/20 [Compazine] B-Complex with Vitamin C [Super B 1 each PO DAILY 05/27/20 09/01/20 Complex-Vitamin C] Calcium Phos/Vit D3/Mag Oxide 1 each PO DAILY 05/27/20 09/01/20 [Posture-D Caplet] Cholecalciferol [Vitamin D3] 50 mcg PO DAILY 05/27/20 09/01/20 Cyanocobalamin (Vitamin B-12) 1,000 mcg PO DAILY 05/27/20 09/01/20 [Vitamin B-12] Glucosamine HCl 1,500 mg PO DAILY 05/27/20 09/01/20 [place]-3S/Dha/Epa/Fish Oil [Fish 1 each PO BID 05/27/20 09/01/20 Oil 1,200 mg Softgel] Ferric Citrate [Auryxia] 210 mg PO DAILY #30 tablet 08/06/20 09/01/20 Pantoprazole [Protonix] 40 mg PO DAILY #30 tablet 08/06/20 09/01/20 - Allergies Allergies/Adverse Reactions: Allergies Allergy/AdvReac Type Severity Reaction Status Date / Time No Known Drug Allergies Allergy Verified 09/01/20 17:55 - Social History Does the pt smoke?: No Smoking Status: Never smoker Does the pt drink ETOH?: No Does the pt have substance abuse?: No - Immunizations Immunizations are current?: Yes - POLST Patient has POLST: No POLST Status: DNR (Daughter is in the room when the patient stage she wishes to be DO NOT RESUSCITATE in the event of a cardiopulmonary arrest. No intubation, no CPR.) PD ED PE NORMAL - Vitals Vital signs reviewed: Yes (wide pulse pressure) - General General: Alert and oriented X 3, No acute distress, Well developed/nourished - HEENT HEENT: Atraumatic, PERRL, EOMI - Neck Neck: Supple, no meningeal sign, No bony TTP - Cardiac Cardiac: No murmur, Other (tachy to 100) - Respiratory Respiratory: No respiratory distress, Clear bilaterally - Abdomen Abdomen: Normal bowel sounds, Soft, Non tender, Non distended, No organomegaly - Back Back: No CVA TTP, No spinal TTP - Derm Derm: Normal color, Warm and dry, No rash - Extremities Extremities: No deformity, Other (trace only ) - Neuro Neuro: Alert and oriented 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, 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, No motor deficit, No sensory deficit, Normal speech Eye Opening: Spontaneous Motor: Obeys Commands Verbal: Oriented GCS Score: 15 - Psych Psych: Normal mood, Normal affect Results - Vitals Vitals: Vital Signs - 24 hr 09/01/20 09/01/20 09/01/20 17:50 18:13 18:27 Temperature 36.6 C Heart Rate 100 89 90 Respiratory 22 25 H 20 Rate Blood Pressure 106/39 L 118/64 106/94 H O2 Saturation 95 95 98 09/01/20 09/01/20 09/01/20 19:00 19:30 20:17 Temperature Heart Rate 85 61 79 Respiratory 28 H 17 24 Rate Blood Pressure 106/94 H 104/56 L 137/48 H O2 Saturation 96 98 96 09/01/20 09/01/20 09/01/20 20:30 21:00 21:30 Temperature Heart Rate 65 86 81 Respiratory 25 H 24 25 H Rate Blood Pressure 121/58 L 122/78 105/52 L O2 Saturation 95 96 97 09/01/20 09/01/20 09/01/20 22:00 22:30 22:39 Temperature Heart Rate 79 76 76 Respiratory 28 H 25 H 26 H Rate Blood Pressure 111/58 L 111/47 L 111/47 L O2 Saturation 96 97 97 09/01/20 09/01/20 23:10 23:30 Temperature Heart Rate 71 70 Respiratory 24 27 H Rate Blood Pressure 113/72 114/55 L O2 Saturation 100 99 Oxygen O2 Source Room air - Labs Labs: Laboratory Tests 09/01/20 09/01/20 09/01/20 18:15 18:15 18:50 WBC 9.0 RBC 3.27 L Hgb 10.3 L Hct 32.1 L MCV 98.2 MCH 31.5 H MCHC 32.1 RDW 17.8 H Plt Count 135 MPV 10.3 Neut # (Auto) Not Reportable Lymph # (Auto) Not Reportable [place] # (Auto) Not Reportable Eos # (Auto) Not Reportable Baso # (Auto) Not Reportable Absolute Nucleated RBC Not Reportable Total Counted 100 Band Neuts % (Manual) 3 Abnorm Lymph % (Manual) 0 Nucleated RBC % Not Reportable Neutrophils # (Manual) 8.0 H Lymphocytes # (Manual) 0.8 L Monocytes # (Manual) 0.2 Eosinophils # (Manual) 0.0 Basophils # (Manual) 0.0 Differential Comment MANUAL DIFFERENTIAL Platelet Estimate NORMAL (130-450,000) Platelet Morphology NORMAL APPEARANCE RBC Morph Micro Appear 1+ ANISOCYTOSIS Sodium 128 L Potassium 5.0 Chloride 96 L Carbon Dioxide 21 Anion Gap 11.0 BUN 39 H Creatinine 1.9 H Estimated GFR (MDRD) 26 L Glucose 135 H Lactic Acid 1.3 Calcium 8.5 Total Bilirubin 0.7 AST 28 ALT 20 Alkaline Phosphatase 96 Total Protein 5.9 L Albumin 2.4 L Globulin 3.5 Albumin/Globulin Ratio 0.7 L Lipase 22 Urine Color Urine Clarity Urine pH Ur Specific [place] Urine Protein Urine Glucose (UA) Urine Ketones Urine Occult Blood Urine Nitrite Urine Bilirubin Urine Urobilinogen Ur Leukocyte Esterase Urine RBC Urine WBC Ur Squamous Epith Cells Amorphous Sediment Urine Bacteria Ur Microscopic Review Urine Culture Comments Stl C. diff Tox B Gene 09/01/20 09/01/20 21:15 21:15 WBC RBC Hgb Hct MCV MCH MCHC RDW Plt Count MPV Neut # (Auto) Lymph # (Auto) [place] # (Auto) Eos # (Auto) Baso # (Auto) Absolute Nucleated RBC Total Counted Band Neuts % (Manual) Abnorm Lymph % (Manual) Nucleated RBC % Neutrophils # (Manual) Lymphocytes # (Manual) Monocytes # (Manual) Eosinophils # (Manual) Basophils # (Manual) Differential Comment Platelet Estimate Platelet Morphology RBC Morph Micro Appear Sodium Potassium Chloride Carbon Dioxide Anion Gap BUN Creatinine Estimated GFR (MDRD) Glucose Lactic Acid Calcium Total Bilirubin AST ALT Alkaline Phosphatase Total Protein Albumin Globulin Albumin/Globulin Ratio Lipase Urine Color YELLOW Urine Clarity CLOUDY Urine pH 5.0 Ur Specific [place] 1.025 Urine Protein TRACE Urine Glucose (UA) NEGATIVE Urine Ketones NEGATIVE Urine Occult Blood NEGATIVE Urine Nitrite NEGATIVE Urine Bilirubin NEGATIVE Urine Urobilinogen 0.2 (NORMAL) Ur Leukocyte Esterase TRACE H Urine RBC 6-10 H Urine WBC 11-25 H Ur Squamous Epith Cells FEW Squamous Amorphous Sediment Marked Urine Bacteria Few Ur Microscopic Review INDICATED Urine Culture Comments INDICATED Stl C. diff Tox B Gene POSITIVE A* Procedures - IVC sono (time) 1830 Bedside IVC sono: IVC measures (cm) (0.78), Dehydration (est 2-3 liter deficit) PD MEDICAL DECISION MAKING - ED course Complexity details: reviewed old records, reviewed results, re-evaluated patient, considered differential, d/w patient, d/w family ED course: 80-year-old female undergoing adjuvant chemotherapy for breast cancer is has developed diarrhea and she is significantly dehydrated, on the order of 2 to 3 L and IV saline is begun. She arrives to the emergency department with a wide pulse pressure and the chief complaint of weakness and fatigue. She has been on antibiotic for recent urinary tract infection and we will attempt to obtain a stool specimen for C. difficile. The patient is hydrated with 2 L of normal saline feels slightly improved and her strength and her C. difficile comes back positive as well as the urine specimen demonstrating the possibility of infection. She has urinary urgency as a symptom. She has persistent flow-through diarrhea is significantly dehydrated with acute kidney injury and she is on chemotherapy. Hospitalization for treatment of dehydration with acute kidney injury, C. difficile colitis, and urinary tract infection appears appropriate. Departure - Departure Disposition: [facility] DC/Xfer Clinical Impression: C. difficile colitis, Dehydration, Acute kidney injury UTI (urinary tract infection) Qualifiers: Urinary tract infection type: acute cystitis Hematuria presence: without hematuria Qualified Code(s): N30.00 - Acute cystitis without hematuria
[2020-09-01 18:43] LABS: BASOPHILS % (AUTO) 0.1 %; HCT - HEMATOCRIT 32.1 % (37.0-47.0); HGB - HEMOGLOBIN 10.3 g/dL (12.0-16.0); LYMPHOCYTES % (AUTO) 5.2 %; MEAN CORPUSCULAR HEMOGLOBIN 31.5 pg (27.0-31.0); MEAN CORPUSCULAR HGB CONC 32.1 g/dL (32.0-36.0); MEAN CORPUSCULAR VOLUME 98.2 fL (81.0-99.0); MEAN PLATELET VOLUME 10.3 fL (7.9-10.8); MONOCYTES % (AUTO) 4.3 %; NEUTROPHILS % (AUTO) 52.5 %; PLT - PLATELET COUNT 135 10^3/uL (130-450); RED BLOOD COUNT 3.27 10^6/uL (4.20-5.40); RED CELL DISTRIBUTION WIDTH 17.8 % (12.0-15.0)
[2020-09-01 18:51] LABS: ABNORMAL LYMPHS % (MANUAL) 0 %
[2020-09-01 18:52] LABS: ALBUMIN 2.4 g/dL (3.2-5.5); ALBUMIN/GLOBULIN RATIO 0.7 (1.0-2.2); BILIRUBIN,TOTAL 0.7 mg/dL (0.2-1.0); CALCIUM 8.5 mg/dL (8.5-10.3); CREATININE 1.9 mg/dL (0.4-1.0); TOTAL PROTEIN 5.9 g/dL (6.7-8.2)
[2020-09-01 19:26] LABS: BAND NEUTROPHILS % (MANUAL) 3 %; DIFFERENTIAL COMMENT MANUAL DIFFERENTIAL; LYMPHOCYTES # (MANUAL) 0.8 10^3/uL (1.5-3.5); LYMPHOCYTES % (MANUAL) 9 %; MONOCYTES # (MANUAL) 0.2 10^3/uL (0.0-1.0); PLATELET ESTIMATE, MANUAL NORMAL (130-450,000) (NORMAL); PLATELET MORPHOLOGY NORMAL APPEARANCE (NORMAL); RBC MORPHOLOGY (MULTIPLE) 1+ ANISOCYTOSIS (NORMAL)
--- NOTE | 2020-09-01 19:42 | XRAY Report ---
PROCEDURE: Chest 1 View X-Ray INDICATIONS: Cough TECHNIQUE: One view of the chest was acquired. COMPARISON: 08/01/2020 FINDINGS: Surgical changes and devices: Right chest wall central venous port catheter terminates in the expecte d region of the SVC. Lungs and pleura: No pleural effusions or pneumothorax. Lungs are clear. Mediastinum: Mediastinal contours appear normal. Heart size is normal. Bones and chest wall: No suspicious bony lesions. Overlying soft tissues appear unremarkable. IMPRESSION: No acute cardiopulmonary finding. Reviewed by: Colten Decker MD on 09/01/2020 7:40 PM PDT Approved by: Colten Decker MD on 09/01/2020 7:40 PM PDT Station ID: [id number]
[2020-09-01 22:39] LABS: BILIRUBIN,URINE NEGATIVE (NEGATIVE); GLUCOSE, URINE (UA) NEGATIVE (NEGATIVE); KETONES,URINE (UA) NEGATIVE (NEGATIVE); LEUKOCYTE ESTERASE, URINE TRACE (NEGATIVE); NITRITE,URINE NEGATIVE (NEGATIVE); OCCULT BLOOD,URINE NEGATIVE (NEGATIVE); PROTEIN,URINE TRACE mg/dL (NEGATIVE); UROBILINOGEN,URINE 0.2 (NORMAL) E.U./dL (NORMAL)
[2020-09-01 22:49] LABS: BACTERIA,URINE Few /HPF (None Seen); CLARITY,URINE CLOUDY (CLEAR); SQUAMOUS EPITHELIAL CELL,UR FEW Squamous (<= Few)
[2020-09-01 22:50] LABS: AMORPHOUS SEDIMENT,UR Marked /LPF
[2020-09-02] MEDS ORDERED: SODIUM CHLORIDE FLUSH 0.9% 10 ML SYRINGE IVP PRN (00:59)
[2020-09-02] MEDS ORDERED: ONDANSETRON 4 MG/2 ML VIAL IVP PRN (00:59)
[2020-09-02] MEDS ORDERED: SODIUM CHLORIDE 0.9% 1,000 ML IV SCH ×2 (01:00→01:22)
--- NOTE | 2020-09-02 01:13 | HISTORY & PHYSICAL EXAMINATION ---
Chief Complaint - Chief Complaint Chief Complaint: frequent diarrhea History of Present Illness - Admitted From Admitted From:: [facility] ED - History Obtained From Records Reviewed: yes History obtained from: patient - History of Present Illness HPI Comment/Other: Is a 80-year-old female with history of dysphagia, esophagitis with esophageal erosions, Schatzki ring, gastritis and duodenitis who is currently undergoing treatment for breast cancer. She presented to the ED with complaint of multiple episodes of watery foul-smelling diarrhea daily. She is incontinent of stool every time she coughs or sneezes. This has been going on for the past 2 to 3 days. She has felt very weak as a result. In the ED work-up included BMP which showed a creatinine of 1.9. She also had a stool test which was positive for C. difficile. As a result she was presented for admission for further treatment. At bedside she is resting comfortably. She denies chest pain, dyspnea, abdominal pain, nausea, vomiting, fever or chills. Her white blood cell count was 9. She was recently admitted in the hospital last month July 2020 for acute blood loss anemia for which she received blood transfusion. During that stay she was treated for a urinary tract infection with antibiotics. 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 Father of heart failure age 90, had prostate cancer. Sister of lung cancer age in her 70s, Two other sisters healthy, one brother he althy. Three children are healthy Living Situation: With family Social History Notes: She is . Her of lung cancer in 2019 Right before her diagnosis of breast cancer.. 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 Lives close to her daughter in [place]. She does not smoke. But she did in the past. She did mainly in high school. It was only a few puffs here and there and never smoked beyond high school. Drinks occas ionally but no history of alcohol abuse.Recreational substance abuse. - Substance History Use: Uses substance without health or social issues: Alcohol (1 glass of wine daily at most) - POLST Patient has POLST: No POLST Status: Full Code (Daughter is in the room when the patient stage she wishes to be DO NOT RESUSCITATE in the event of a cardiopulmonary arrest. No intubation, no CPR.) Meds/Allgy - Home Medications Home Medications: Ambulatory Orders Medication Instructions Recorded Confirmed Losartan [Cozaar] 25 mg ORAL QPM 02/09/15 09/01/20 Propranolol [Inderal] 40 mg PO BID 02/09/15 09/01/20 Triamterene/Hydrochlorothiazid 0.5 tab ORAL DAILY 02/09/15 09/01/20 [Triamterene-Hctz 75-50 mg Tab] clonazePAM [Clonazepam] 0.25 mg ORAL BID 02/09/15 09/01/20 Lidocaine/Prilocain 2.5% Cream 5 applic TOP UD #1 gm 05/26/20 09/01/20 [Emla 2.5% Cream] OLANZapine [Zyprexa] 5 mg PO UD #12 tablet 05/26/20 09/01/20 Prochlorperazine Maleate 10 mg PO Q6HR PRN #30 tab 05/26/20 09/01/20 [Compazine] B-Complex with Vitamin C [Super B 1 each PO DAILY 05/27/20 09/01/20 Complex-Vitamin C] Calcium Phos/Vit D3/Mag Oxide 1 each PO DAILY 05/27/20 09/01/20 [Posture-D Caplet] Cholecalciferol [Vitamin D3] 50 mcg PO DAILY 05/27/20 09/01/20 Cyanocobalamin (Vitamin B-12) 1,000 mcg PO DAILY 05/27/20 09/01/20 [Vitamin B-12] Glucosamine HCl 1,500 mg PO DAILY 05/27/20 09/01/20 [place]-3S/Dha/Epa/Fish Oil [Fish 1 each PO BID 05/27/20 09/01/20 Oil 1,200 mg Softgel] Ferric Citrate [Auryxia] 210 mg PO DAILY #30 tablet 08/06/20 09/01/20 Pantoprazole [Protonix] 40 mg PO DAILY #30 tablet 08/06/20 09/01/20 - Allergies Allergies/Adverse Reactions: Allergies Allergy/AdvReac Type Severity Reaction Status Date / Time No Known Drug Allergies Allergy Verified 09/01/20 17:55 Review of Systems - Constitutional Constitutional: reports: Chills, Weakness, Poor appetite. denies: Fatigue, Fever - Eyes Eyes: denies: Pain, Vision loss - Ears, Nose & Throat Ears, Nose & Throat: denies: Ear pain, Sore throat - Cardiovascular Cariovascular: denies: Irregular heart rate, Palpitations, Chest pain, Edema, Lightheadedness, Syncope - Respiratory Respiratory: reports: Cough. denies: Sputum production, Wheezing, SOB at rest, SOB with exertion - Gastrointestinal Gastrointestinal: reports: Diarrhea. denies: Abdominal pain, Abdominal distention, Constipation, Black stools, Bloody stools, Nausea, Vomiting, Coffee grounds emesis, Reflux/heartburn - Genitourinary Genitourinary: denies: Dysuria, Frequency, Urgency, Hematuria - Musculoskeletal Musculoskeletal: denies: Muscle pain, Back pain, Stiffness - Integumentary Integumentary: denies: Rash, Pruritis, Dryness - Neurological Neurological: reports: General weakness. denies: Headache Prior Level of Functionality: She is independent of activities of daily living. She lives with her daughter. She gets around using a walker Exam - Vital Signs Vital Signs: Vital Signs x48h Temp Pulse Resp BP Pulse Ox 09/01/20 23:30 70 27 H 114/55 L 99 09/01/20 23:10 71 24 113/72 100 09/01/20 22:39 76 26 H 111/47 L 97 09/01/20 22:30 76 25 H 111/47 L 97 09/01/20 22:00 79 28 H 111/58 L 96 09/01/20 21:30 81 25 H 105/52 L 97 09/01/20 21:00 86 24 122/78 96 09/01/20 20:30 65 25 H 121/58 L 95 09/01/20 20:17 79 24 137/48 H 96 09/01/20 19:30 61 17 104/56 L 98 09/01/20 19:00 85 28 H 106/94 H 96 09/01/20 18:27 90 20 106/94 H 98 09/01/20 18:13 89 25 H 118/64 95 09/01/20 17:50 36.6 C 100 22 106/39 L 95 - Physical Exam General Appearance: positive: No acute distress, Alert Eyes Bilateral: positive: PERRL, EOMI ENT: positive: Dry mucous membranes Neck: positive: No JVD, Trachea midline Respiratory: positive: Chest non-tender, No respiratory distress, Breath sounds nml. negative: Wheezes, Rales, Rhonchi Cardiovascular: positive: Regular rate & rhythm, No murmur Abdomen: positive: Non-tender, No organomegaly, Nml bowel sounds, No distention. negative: Guarding, Rebound Back: positive: Nml inspection Skin: positive: Color nml, No rash, Warm, Dry Extremities: positive: Non-tender, Nml appearance, No pedal edema Neurologic/Psychiatric: positive: Oriented x3, Mood/affect nml Conclusion/Plan - Problem List (1) C. difficile colitis Conclusion/Plan: Patient has multiple episodes of watery foul-smelling diarrhea daily. She tested positive for C. difficile. She was started on vancomycin 125 mg p.o. 4 times daily. Plan will be to maintain this for 10 days. IV hydration with normal saline at 125 mils per hour. (2) Acute kidney injury Conclusion/Plan: Likely prerenal. To dehydration from diarrhea. IV hydration with normal saline at 125 mils per hour. Anticipating improvement in renal function. We will recheck BMP daily (3) Dehydration Conclusion/Plan: 2/2 diarrhea due to C. difficile colitis. IV hydration with normal saline at 125 mils per hour. Anticipating improvement. Will check BMP daily. (4) Anxiety Conclusion/Plan: On clonazepam 0.25 mg p.o. twice daily (5) Breast cancer, left breast Conclusion/Plan: Currently on chemotherapy. Her oncologist is Dr. Gross (6) Hypertension Conclusion/Plan: Currently normotensive. Normally the patient is on losartan 50 mg p.o. daily. She is also on propanolol for essential tremor. However she is being actively hydrated with normal saline at 125 mils per hour due to dehydration from diarrhea. Qualifiers: Hypertension type: essential hypertension Qualified Code(s): I10 - Essential (primary) hypertension (7) Familial tremor Conclusion/Plan: Propanolol 40 mg p.o. twice daily - Lab Results Fish Bones: 09/02/20 04:30 09/02/20 04:30 Core Measures - Anticipated LOS I expect patient to be DC'd or transferred within 96 hours.: Yes - DVT/VTE - Prophylaxis VTE/DVT Device ordered at admit?: Yes VTE/DVT Prophylaxis med ordered at admit?: Yes
[2020-09-02] MEDS: VANCOMYCIN 125 MG CAPSULE PO SCH ×5 (01:50→21:22)
[2020-09-02] MEDS: SODIUM CHLORIDE FLUSH 0.9% 10 ML SYRINGE IVP SCH ×4 (01:50→23:38)
[2020-09-02 02:16] LABS: B. PARAPERTUSSIS- RESP PCR PAN NOT DETECTED; B. PERTUSSIS- RESP PCR PANEL NOT DETECTED; C. PNEUMONIAE- RESP PCR PANEL NOT DETECTED; CORONAVIRUS 229E-RESP PCR NOT DETECTED; CORONAVIRUS HKU1-RESP PCR NOT DETECTED; CORONAVIRUS NL63-RESP PCR NOT DETECTED; CORONAVIRUS OC43-RESP PCR NOT DETECTED; HUMAN METAPNEUMOVIRUS NOT DETECTED; INFLUENZA A- RESP PCR PANEL NOT DETECTED; INFLUENZA B - RESP PCR PANEL NOT DETECTED; M. PNEUMONIAE- RESP PCR PANEL NOT DETECTED; PARAINFLUENZA VIRUS 1 NOT DETECTED; PARAINFLUENZA VIRUS 2 NOT DETECTED; PARAINFLUENZA VIRUS 3 NOT DETECTED; PARAINFLUENZA VIRUS 4 NOT DETECTED; RHINOVIRUS/ENTEROVIRUS NOT DETECTED; RSV- RESP PCR PANEL NOT DETECTED; SARS-CoV-2 -RESP PCR PANEL NOT DETECTED
[2020-09-02] MEDS ORDERED: MIN OIL/DIMETHICON/COCONUT OIL 92 GM TUBE TOP PRN (02:43)
[2020-09-02 05:06] LABS: BASOPHILS % (AUTO) 0.3 %; EOSINOPHILS % (AUTO) 11.8 %; HCT - HEMATOCRIT 31.4 % (37.0-47.0); HGB - HEMOGLOBIN 10.2 g/dL (12.0-16.0); LYMPHOCYTES % (AUTO) 13.2 %; MEAN CORPUSCULAR HGB CONC 32.5 g/dL (32.0-36.0); MEAN CORPUSCULAR VOLUME 98.4 fL (81.0-99.0); MEAN PLATELET VOLUME 10.6 fL (7.9-10.8); MONOCYTES % (AUTO) 12.5 %; NEUTROPHILS % (AUTO) 60.8 %; PLT - PLATELET COUNT 119 10^3/uL (130-450); RED BLOOD COUNT 3.19 10^6/uL (4.20-5.40); RED CELL DISTRIBUTION WIDTH 17.6 % (12.0-15.0); WHITE BLOOD COUNT 2.9 x10^3/uL (4.8-10.8)
[2020-09-02 05:13] LABS: CALCIUM 7.9 mg/dL (8.5-10.3); CREATININE 1.6 mg/dL (0.4-1.0); POTASSIUM 4.6 mmol/L (3.5-5.0)
[2020-09-02 05:15] LABS: ABNORMAL LYMPHS % (MANUAL) 0 %; BAND NEUTROPHILS % (MANUAL) 0 %
[2020-09-02 05:30] LABS: EOSINOPHILS # (MANUAL) 0.2 10^3/uL (0-0.7); LYMPHOCYTES # (MANUAL) 0.5 10^3/uL (1.5-3.5); LYMPHOCYTES % (MANUAL) 18 %; MONOCYTES # (MANUAL) 0.3 10^3/uL (0.0-1.0); NEUTROPHILS # (MANUAL) 1.9 10^3/uL (1.5-6.6); PLATELET ESTIMATE, MANUAL DECREASED (<130,000) (NORMAL); PLATELET MORPHOLOGY NORMAL APPEARANCE (NORMAL); RBC MORPHOLOGY (MULTIPLE) 1+ ANISOCYTOSIS (NORMAL)
[2020-09-02 05:31] LABS: DIFFERENTIAL COMMENT MANUAL DIFFERENTIAL; WBC MORPHOLOGY (MULTIPLE) NORMAL APPEARANCE (NORMAL)
[2020-09-02] MEDS: SODIUM CHLORIDE 0.9% 1,000 ML IV SCH ×2 (08:41→19:38)
[2020-09-02] MEDS ORDERED: OLANZAPINE 5 MG PO SCH (09:00)
--- NOTE | 2020-09-02 09:22 | PHARMACY PROGRESS NOTE ---
- Best Possible Medication History Admit Date and Time: 09/02/20 0059 Processed by: Nursing Medication History completed: Yes Patient Interview: Completed (MED REC COMPLETED BY NURSING) As the person ultimately responsible for medication therapy, providers are able to order a medication from an existing home medication list in [facility] via the "Reconcile Routine" prior to Confirmation of that medication by director sales support. Such practice is discouraged except when the physician, in their clinical judgment, deems that a medical need exists for a medication without regard to previous use.
[2020-09-02] MEDS: ENOXAPARIN 30 MG/0.3 ML SYRINGE SUBQ SCH (09:24)
[2020-09-02] MEDS: PANTOPRAZOLE 40 MG TABLET PO SCH (09:24)
[2020-09-02] MEDS: PROPRANOLOL 40 MG TABLET PO SCH ×2 (09:25→21:22)
[2020-09-02] MEDS: clonazePAM 0.5 MG TABLET PO SCH ×2 (09:25→21:22)
[2020-09-02] MEDS: SACCHAROMYCES BOULARDII 250 MG CAPSULE PO SCH (17:02)
[2020-09-02] MEDS: ZINC OXIDE 20% OINT 30 GM TUBE TOP PRN (21:22)
[2020-09-03 05:36] LABS: BASOPHILS % (AUTO) 0.7 %; HCT - HEMATOCRIT 27.6 % (37.0-47.0); HGB - HEMOGLOBIN 9.2 g/dL (12.0-16.0); LYMPHOCYTES % (AUTO) 20.6 %; MEAN CORPUSCULAR HEMOGLOBIN 32.3 pg (27.0-31.0); MEAN CORPUSCULAR HGB CONC 33.3 g/dL (32.0-36.0); MEAN CORPUSCULAR VOLUME 96.8 fL (81.0-99.0); MEAN PLATELET VOLUME 11.2 fL (7.9-10.8); MONOCYTES % (AUTO) 33.1 %; NEUTROPHILS % (AUTO) 38.2 %; PLT - PLATELET COUNT 91 10^3/uL (130-450); RED BLOOD COUNT 2.85 10^6/uL (4.20-5.40); RED CELL DISTRIBUTION WIDTH 17.3 % (12.0-15.0)
[2020-09-03 05:39] LABS: CALCIUM 7.9 mg/dL (8.5-10.3); CREATININE 1.8 mg/dL (0.4-1.0)
[2020-09-03 05:46] LABS: WHITE BLOOD COUNT 1.4 x10^3/uL (4.8-10.8)
[2020-09-03 05:47] LABS: ABNORMAL LYMPHS % (MANUAL) 0 %
[2020-09-03] MEDS: SODIUM CHLORIDE 0.9% 1,000 ML IV SCH (06:04)
[2020-09-03 06:11] LABS: BAND NEUTROPHILS % (MANUAL) 4 %; DIFFERENTIAL COMMENT MANUAL DIFFERENTIAL; LYMPHOCYTES # (MANUAL) 0.6 10^3/uL (1.5-3.5); LYMPHOCYTES % (MANUAL) 46 %; MONOCYTES # (MANUAL) 0.1 10^3/uL (0.0-1.0); NEUTROPHILS # (MANUAL) 0.6 10^3/uL (1.5-6.6); PLATELET ESTIMATE, MANUAL DECREASED (<130,000) (NORMAL); RBC MORPHOLOGY (MULTIPLE) NORMAL APPEARANCE (NORMAL)
[2020-09-03] MEDS ORDERED: SODIUM CHLORIDE 0.9% 1,000 ML IV SCH ×3 (06:21→12:17)
[2020-09-03] MEDS: FERROUS GLUCONATE 324 MG TABLET PO SCH (07:47)
--- NOTE | 2020-09-03 08:27 | XRAY Report ---
PROCEDURE: Chest 1 View X-Ray INDICATIONS: Shortness of breath TECHNIQUE: One view of the chest was acquired. COMPARISON: 09/01/2020 FINDINGS: Surgical changes and devices: Right chest wall port Lungs and pleura: No pleural effusions or pneumothorax. Low lung volumes with increased interstitial markings and prominence of the central/hilar vessels. Mediastinum: Mediastinal contours appear normal. Heart size is normal. Bones and chest wall: No suspicious bony lesions. Overlying soft tissues appear unremarkable. IMPRESSION: Prominence of the central/hilar vessels and increased interstitial markings could be a function of lo w lung volumes, although pulmonary edema would appear similar. Reviewed by: Colten Decker MD on 09/03/2020 8:26 AM PDT Approved by: Colten Decker MD on 09/03/2020 8:26 AM PDT Station ID: [id number]
[2020-09-03] MEDS: PANTOPRAZOLE 40 MG TABLET PO SCH (08:38)
[2020-09-03] MEDS: VANCOMYCIN 125 MG CAPSULE PO SCH ×4 (08:38→20:16)
[2020-09-03] MEDS: SODIUM CHLORIDE FLUSH 0.9% 10 ML SYRINGE IVP SCH ×2 (08:38→16:17)
[2020-09-03] MEDS: ENOXAPARIN 30 MG/0.3 ML SYRINGE SUBQ SCH (08:39)
[2020-09-03] MEDS: clonazePAM 0.5 MG TABLET PO SCH ×2 (08:39→20:29)
[2020-09-03] MEDS: PROPRANOLOL 40 MG TABLET PO SCH ×2 (08:41→20:16)
[2020-09-03] MEDS: SACCHAROMYCES BOULARDII 250 MG CAPSULE PO SCH ×2 (10:44→16:23)
--- NOTE | 2020-09-03 11:22 | PROVIDER PROGRESS NOTE ---
Subjective - Prog Note Date Prog Note Date: 09/03/20 - Subjective Pt reports feeling: Improved Subjective: pt report she feel slightly better than yesterday. she is comfortable laying at the bed. she report she had two bowel movements on last night, nurse report pt had another two bowels on today morning. she still feel weakness, she report she still has poor appetite. she denies fever, chill. she report nurse gave her Oxygen on last night. pt's WBC is down to 1.4 today. pt had chemotherapy on 08/27/20, and pt had Neupogen on 08/28/20. I tried twice to call pt's oncologist Dr. Carlos Alberto Gross, he is on vocation, nobody pick phone in his office. I will consult the care with them on tomorrow since [facility] has oncologist on tomorrow. Current Medications - Current Medications Current Medications: Active Medications Acetaminophen (Acetaminophen 325 Mg Tablet) 650 mg PO Q4HR PRN PRN Reason: Pain 1 to 4 Clonazepam (Clonazepam 0.5 Mg Tablet) 0.25 mg PO BID [facility] Last Admin: 09/03/20 08:39 Dose: 0.25 mg Documented by: Enoxaparin Sodium (Enoxaparin 30 Mg/0.3 Ml Syringe) 30 mg SUBQ DAILY [facility] Last Admin: 09/03/20 08:39 Dose: 30 mg Documented by: Ferrous Gluconate (Ferrous Gluconate 324 Mg Tablet) 324 mg PO DAILYWM [facility] Last Admin: 09/03/20 07:47 Dose: 324 mg Documented by: Sodium Chloride (Normal Saline 0.9%) 1,000 mls @ 100 mls/hr IV .Q10H [facility] Stop: 09/04/20 06:29 Last Admin: 09/03/20 10:44 Dose: 100 mls/hr Documented by: Mineral Oil (Min Oil/Dimethicon/Coconut Oil 92 Gm Tube) 1 applic TOP PRN PRN PRN Reason: Skin Care Last Admin: 09/02/20 21:22 Dose: 1 applic Documented by: Multi-Ingredient Ointment (Zinc Oxide 20% Oint 30 Gm Tube) 1 applic TOP PRN PRN PRN Reason: Skin Care Last Admin: 09/02/20 21:22 Dose: 1 applic Documented by: Ondansetron HCl (Ondansetron 4 Mg/2 Ml Vial) 4 mg IVP Q6HR PRN PRN Reason: Nausea / Vomiting Last Admin: 09/02/20 21:34 Dose: 4 mg Documented by: Pantoprazole Sodium (Pantoprazole 40 Mg Tablet) 40 mg PO DAILY [facility] Last Admin: 09/03/20 08:38 Dose: 40 mg Documented by: Propranolol HCl (Propranolol 40 Mg Tablet) 40 mg PO BID [facility] Last Admin: 09/03/20 08:41 Dose: 40 mg Documented by: Saccharomyces Boulardii (Saccharomyces Boulardii 250 Mg Capsule) 500 mg PO BIDWM [facility] Last Admin: 09/03/20 10:44 Dose: Not Given Documented by: Sodium Chloride (Sodium Chloride Flush 0.9% 10 Ml Syringe) 10 ml IVP PRN PRN PRN Reason: NEEDED PER PROVIDER ORDERS Sodium Chloride (Sodium Chloride Flush 0.9% 10 Ml Syringe) 10 ml IVP 0100,0900,1700 [facility] Last Admin: 09/03/20 08:38 Dose: 10 ml Documented by: Vancomycin HCl (Vancomycin 125 Mg Capsule) 125 mg PO QID [facility] Last Admin: 09/03/20 08:38 Dose: 125 mg Documented by: Losartan [Cozaar] 25 mg ORAL QPM 02/09/15 Propranolol [Inderal] 40 mg PO BID 02/09/15 Triamterene/Hydrochlorothiazid [Triamterene-Hctz 75-50 mg Tab] 0.5 tab ORAL DAILY 02/09/15 clonazePAM [Clonazepam] 0.25 mg ORAL BID 02/09/15 B-Complex with Vitamin C [Super B Complex-Vitamin C] 1 each PO DAILY 05/27/20 Calcium Phos/Vit D3/Mag Oxide [Posture-D Caplet] 1 each PO DAILY 05/27/20 Cholecalciferol [Vitamin D3] 50 mcg PO DAILY 05/27/20 Cyanocobalamin (Vitamin B-12) [Vitamin B-12] 1,000 mcg PO DAILY 05/27/20 Glucosamine HCl 1,500 mg PO DAILY 05/27/20 [place]-3S/Dha/Epa/Fish Oil [Fish Oil 1,200 mg Softgel] 1 each PO BID 05/27/20 Objective - Vital Signs/Intake & Output Vital Signs: Vital Signs x48h Temp Pulse Resp BP Pulse Ox 09/03/20 07:52 36.5 C 85 18 103/64 96 09/03/20 05:10 97 09/03/20 04:54 36.3 C L 76 16 103/59 L 94 Intake & Output: Intake & Output 08/31/20 09/01/20 09/02/20 09/03/20 23:59 23:59 23:59 23:59 Intake Total 1999 3670 1480 Output Total 50 Balance 1999 3620 1480 - Objective General Appearance: positive: No acute distress, Alert. negative: Lethargic Eyes Bilateral: positive: Normal inspection, PERRL, No lid inflammation ENT: positive: ENT inspection nml, No signs of dehydration. negative: Purulent nasal drainage Neck: positive: Nml inspection, Trachea midline. negative: Thyromegaly, Tracheal deviation Respiratory: positive: Chest non-tender, No respiratory distress. negative: Wheezes, Rales Cardiovascular: positive: Regular rate & rhythm, No murmur. negative: Tachycardia, Bradycardia, Systolic murmur, Diastolic murmur Peripheral Pulses: 2+ Radial (R), 2+ Radial (L) Abdomen: positive: Non-tender, Nml bowel sounds, No distention. negative: Tenderness Back: positive: Nml inspection Skin: positive: Color nml, Warm, Dry. negative: Cyanosis, Diaphoresis Extremities: positive: Non-tender, Full ROM, Nml appearance. negative: Calf tenderness Neurologic/Psychiatric: positive: Oriented x3, Motor nml, Sensation nml. negative: Weakness, Sensory loss, Facial droop, Slurred/abnml speech, Depressed mood/affect - Lab Results Fish Bones: 09/03/20 05:06 09/03/20 05:06 Other Labs: Lab Results x24hrs 09/03/20 09/03/20 Range/Units 05:06 05:06 WBC 1.4 L* (4.8-10.8) x10^3/uL RBC 2.85 L (4.20-5.40) 10^6/uL Hgb 9.2 L (12.0-16.0) g/dL Hct 27.6 L (37.0-47.0) % MCV 96.8 (81.0-99.0) fL MCH 32.3 H (27.0-31.0) pg MCHC 33.3 (32.0-36.0) g/dL RDW 17.3 H (12.0-15.0) % Plt Count 91 L (130-450) 10^3/uL MPV 11.2 H (7.9-10.8) fL Neut # (Auto) Not Reportable Lymph # (Auto) Not Reportable [place] # (Auto) Not Reportable Eos # (Auto) Not Reportable Baso # (Auto) Not Reportable Absolute Nucleated RBC Not Reportable Total Counted 100 Band Neuts % (Manual) 4 (0 - 10) % Abnorm Lymph % (Manual) 0 % Nucleated RBC % Not Reportable Neutrophils # (Manual) 0.6 L (1.5-6.6) 10^3/uL Lymphocytes # (Manual) 0.6 L (1.5-3.5) 10^3/uL Monocytes # (Manual) 0.1 (0.0-1.0) 10^3/uL Eosinophils # (Manual) 0.0 (0-0.7) 10^3/uL Basophils # (Manual) 0.0 (0-0.1) 10^3/uL Differential Comment MANUAL DIFFERENTIAL Platelet Estimate DECREASED (<130,000) (NORMAL) RBC Morph Micro Appear NORMAL APPEARANCE (NORMAL) Sodium 128 L (135-145) mmol/L Potassium 5.0 (3.5-5.0) mmol/L Chloride 101 (101-111) mmol/L Carbon Dioxide 18 L (21-32) mmol/L Anion Gap 9.0 (6-13) BUN 50 H (6-20) mg/dL Creatinine 1.8 H (0.4-1.0) mg/dL Estimated GFR (MDRD) 27 L (>89) Glucose 109 H (70-100) mg/dL Calcium 7.9 L (8.5-10.3) mg/dL ABX Reporting Has patient been on IV antibiotics over the past 48 hours?: Yes Assessment/Plan - Problem List (1) C. difficile diarrhea Impression: 09/03 slight improved. continue PO vancomycin, continue IVF, lab and vital sign monitor. pt need IVF for her fluid loss from her diarrhea but at the same time, we will be very precaution on her fluid overloaded. pt has has poor appetite, so we will keep her on 85cc/h IVF (2)cough pt show mild cough and need O2 supplement on last night. WBC is 1.4. pt did not show shortness of breath, no fever. CXR reveals increased interstitial markings. we will be very precaution of fluid overloaded. order: Mucinex, out of bed for activity, incentive spirometer, down IVF to 85cc/h, vital sign closely monitor, and prevention of aspiration, and pneumonia as possible. (3) pancytopenia likely caused by last week chemotherapy. WBC is 1.4. HGB is 9.2, PLT is 91. will continue consult with pt's oncologist. pt had Neupogen on 08/28/20. will consult with oncologist to see if give pt another dosage of Neupogen. order isolation and diet for neutropenia. (4) Dehydration creatinine is 1.8 today, we will continue IVF but precaution of fluid overloaded (5)hyponatremia NA is 128. it is likely hypovalvmia and hyponatremia. gently IVF of NS, and lab monitor (6) Breast cancer, left breast Currently on chemotherapy. pt may continue followup with Her oncologist is Dr. Gross (7) Anxiety stable, On clonazepam 0.25 mg p.o. twice daily (8) Hypertension stable (9) Familial tremor resume: Propanolol 40 mg p.o. twice daily
[2020-09-03] MEDS: guaiFENesin 600 MG TABLET PO SCH ×2 (12:36→20:16)
[2020-09-03] MEDS: ZINC OXIDE 20% OINT 30 GM TUBE TOP PRN (16:22)
[2020-09-04] MEDS: SODIUM CHLORIDE FLUSH 0.9% 10 ML SYRINGE IVP SCH ×3 (00:18→22:46)
[2020-09-04] MEDS: ZINC OXIDE 20% OINT 30 GM TUBE TOP PRN (03:46)
[2020-09-04 05:14] LABS: BASOPHILS % (AUTO) 1.6 %; HCT - HEMATOCRIT 28.3 % (37.0-47.0); HGB - HEMOGLOBIN 9.4 g/dL (12.0-16.0); LYMPHOCYTES % (AUTO) 13.9 %; MEAN CORPUSCULAR HEMOGLOBIN 32.8 pg (27.0-31.0); MEAN CORPUSCULAR HGB CONC 33.2 g/dL (32.0-36.0); MEAN CORPUSCULAR VOLUME 98.6 fL (81.0-99.0); MEAN PLATELET VOLUME 11.9 fL (7.9-10.8); NEUTROPHILS % (AUTO) 72.5 %; PLT - PLATELET COUNT 72 10^3/uL (130-450); RED BLOOD COUNT 2.87 10^6/uL (4.20-5.40); RED CELL DISTRIBUTION WIDTH 17.4 % (12.0-15.0); WHITE BLOOD COUNT 3.1 x10^3/uL (4.8-10.8)
[2020-09-04 05:15] LABS: ABNORMAL LYMPHS % (MANUAL) 0 %; BAND NEUTROPHILS % (MANUAL) 0 %
[2020-09-04 05:27] LABS: CALCIUM 8.1 mg/dL (8.5-10.3); CREATININE 1.9 mg/dL (0.4-1.0)
[2020-09-04 05:40] LABS: BASOPHILS % (MANUAL) 1 %; DIFFERENTIAL COMMENT MANUAL DIFFERENTIAL; LYMPHOCYTES # (MANUAL) 0.4 10^3/uL (1.5-3.5); LYMPHOCYTES % (MANUAL) 12 %; MONOCYTES # (MANUAL) 0.4 10^3/uL (0.0-1.0); NEUTROPHILS # (MANUAL) 2.3 10^3/uL (1.5-6.6); PLATELET ESTIMATE, MANUAL DECREASED (<130,000) (NORMAL); PLATELET MORPHOLOGY NORMAL APPEARANCE (NORMAL); RBC MORPHOLOGY (MULTIPLE) NORMAL APPEARANCE (NORMAL); WBC MORPHOLOGY (MULTIPLE) NORMAL APPEARANCE (NORMAL)
[2020-09-04] MEDS: ENOXAPARIN 30 MG/0.3 ML SYRINGE SUBQ SCH (07:17)
[2020-09-04] MEDS ORDERED: ONDANSETRON ODT 4 MG TABLET TL PRN (07:33)
[2020-09-04] MEDS ORDERED: SODIUM CHLORIDE 0.9% 1,000 ML IV SCH (08:00)
[2020-09-04] MEDS: guaiFENesin 600 MG TABLET PO SCH ×2 (08:55→22:47)
[2020-09-04] MEDS: PANTOPRAZOLE 40 MG TABLET PO SCH (08:55)
[2020-09-04] MEDS: FERROUS GLUCONATE 324 MG TABLET PO SCH (08:55)
[2020-09-04] MEDS: VANCOMYCIN 125 MG CAPSULE PO SCH ×4 (08:55→22:47)
[2020-09-04] MEDS: SACCHAROMYCES BOULARDII 250 MG CAPSULE PO SCH ×2 (08:55→17:18)
[2020-09-04] MEDS: clonazePAM 0.5 MG TABLET PO SCH ×2 (08:55→22:48)
[2020-09-04] MEDS: PROPRANOLOL 40 MG TABLET PO SCH ×2 (08:56→22:47)
[2020-09-04] MEDS: BUDESONIDE 0.5 MG/2 ML NEB INH SCH ×2 (09:36→16:41)
[2020-09-04] MEDS: ALBUTEROL NEB 2.5 MG/3 ML INH PRN ×2 (09:36→16:41)
--- NOTE | 2020-09-04 10:02 | CT Report ---
PROCEDURE: CHEST WO INDICATIONS: cough, SOB TECHNIQUE: Noncontrast 5 mm thick sections acquired from the pulmonary apices to the posterior costophrenic angl es. 7 mm thick coronal and sagittal MIP reformats were then acquired. For radiation dose reduction, the following was used: automated exposure control, adjustment of mA and/or kV according to patient size. COMPARISON: Chest CT with contrast, 05/29/2020. FINDINGS: Image quality: Excellent. Lungs and pleura: Mild groundglass infiltrate in the left upper lobe. Small pleural effusions are pr esent bilaterally. No pneumothorax. Central and peripheral airways are patent and normal in caliber. Mediastinum: Heart size is normal. There is moderate coronary artery calcification. No pericardial effusion. No mediastinal adenopathy by size criteria. Thoracic aorta and central pulmonary arteries are normal in size. Esophagus is moderately distended and filled with fluid. Moderate-sized hiatal hernia. Bones and chest wall: The left breast mass has decreased in size. A 1.2 cm soft tissue nodule is see n in the area of previously seen mass. A density in the area likely but biopsy marker. No suspicious bony lesions. No vertebral body compression fractures. No axillary or supraclavicular adenopathy by size criteria. The thyroid is normal in size and there are no incidental findings. There is a Port- A-Cath in the right anterior chest wall. Abdomen: There is adequate amount of free fluid in peritoneal cavity, new since 05/29/2020. Visualize d upper abdominal solid organs and bowel loops appear normal in the absence of contrast. IMPRESSION: 1. Mild left upper lobe groundglass infiltrate suspicious for developing pneumonia. 2. Moderate pleural effusions bilaterally. 3. Moderate sized hiatal hernia. Fluid-filled mildly distended distal esophagus is likely secondary t o gastroesophageal reflux. 4. Moderate amount of ascites which is new. 5. Decrease in size of left breast mass. CLINICAL RECOMMENDATION STATEMENTS: In patients <35 years with an ITN detected on CT, MRI, or extrathyroidal ultrasound, the Committee re commends further evaluation with dedicated thyroid ultrasound if the nodule is ?1 cm and has no suspi cious imaging features, and if the patient has normal life expectancy. In patients ?35 years with an ITN detected on CT, MRI, or extrathyroidal ultrasound, the Committee re commends further evaluation with dedicated thyroid ultrasound if the nodule is ?1.5 cm and has no jerica picious imaging features, and if the patient has normal life expectancy. (ACR, 2014) Reviewed by: Torin Mays MD on 09/04/2020 10:00 AM PDT Approved by: Torin Mays MD on 09/04/2020 10:00 AM PDT Station ID: [id number]
--- NOTE | 2020-09-04 10:44 | PROVIDER PROGRESS NOTE ---
Subjective - Prog Note Date Prog Note Date: 09/04/20 - Subjective Pt reports feeling: Worse Subjective: Patient report she feels shortness of breathing. she denies fever or chill. she report her diarrhea is better, she had twice loose brown color stool on last night. she report she has no appetite today, feel weakness. Update pt's CT of chest result to pt and pt's daughter at the bedside. Decrease in size of left breast mass, left lung pneumonia, bilateral moderate pleural effusion, new moderate amount of ascites, does reveal right lower lung nodules which were shown on last CT on 08/01/20 Current Medications - Current Medications Current Medications: Active Medications Acetaminophen (Acetaminophen 325 Mg Tablet) 650 mg PO Q4HR PRN PRN Reason: Pain 1 to 4 Albuterol (Albuterol Neb 2.5 Mg/3 Ml) 2.5 mg INH RTQ4H PRN PRN Reason: Wheezing Last Admin: 09/04/20 09:36 Dose: 2.5 mg Documented by: Albuterol/Ipratropium (Ipratropium/Albuterol 3 Ml Neb) 3 ml INH RTQID PRN PRN Reason: Shortness of Air/Wheezing Budesonide (Budesonide 0.5 Mg/2 Ml Neb) 0.5 mg INH RTBID GARETH Last Admin: 09/04/20 09:36 Dose: 0.5 mg Documented by: Clonazepam (Clonazepam 0.5 Mg Tablet) 0.25 mg PO BID [facility] Last Admin: 09/04/20 08:55 Dose: 0.25 mg Documented by: Enoxaparin Sodium (Enoxaparin 30 Mg/0.3 Ml Syringe) 30 mg SUBQ DAILY [facility] Last Admin: 09/04/20 07:17 Dose: Not Given Documented by: Ferrous Gluconate (Ferrous Gluconate 324 Mg Tablet) 324 mg PO DAILYWM [facility] Last Admin: 09/04/20 08:55 Dose: 324 mg Documented by: Furosemide (Furosemide 20 Mg/2 Ml Vial) 20 mg IVP ONCE ONE Stop: 09/04/20 11:01 Guaifenesin (Guaifenesin 600 Mg Tablet) 600 mg PO BID [facility] Last Admin: 09/04/20 08:55 Dose: 600 mg Documented by: Cefepime HCl 1 gm/ Sodium (Chloride) 100 mls @ 200 mls/hr IV BID [facility] Mineral Oil (Min Oil/Dimethicon/Coconut Oil 92 Gm Tube) 1 applic TOP PRN PRN PRN Reason: Skin Care Last Admin: 09/02/20 21:22 Dose: 1 applic Documented by: Multi-Ingredient Ointment (Zinc Oxide 20% Oint 30 Gm Tube) 1 applic TOP PRN PRN PRN Reason: Skin Care Last Admin: 09/04/20 03:46 Dose: 1 applic Documented by: Ondansetron HCl (Ondansetron Odt 4 Mg Tablet) 4 mg TL Q6HR PRN PRN Reason: Nausea / Vomiting Pantoprazole Sodium (Pantoprazole 40 Mg Tablet) 40 mg PO DAILY [facility] Last Admin: 09/04/20 08:55 Dose: 40 mg Documented by: Propranolol HCl (Propranolol 40 Mg Tablet) 40 mg PO BID [facility] Last Admin: 09/04/20 08:56 Dose: Not Given Documented by: Saccharomyces Boulardii (Saccharomyces Boulardii 250 Mg Capsule) 500 mg PO BIDWM [facility] Last Admin: 09/04/20 08:55 Dose: 500 mg Documented by: Sodium Chloride (Sodium Chloride Flush 0.9% 10 Ml Syringe) 10 ml IVP PRN PRN PRN Reason: NEEDED PER PROVIDER ORDERS Sodium Chloride (Sodium Chloride Flush 0.9% 10 Ml Syringe) 10 ml IVP 0100,0900,1700 [facility] Last Admin: 09/04/20 08:56 Dose: 10 ml Documented by: Vancomycin HCl (Vancomycin 125 Mg Capsule) 125 mg PO QID [facility] Last Admin: 09/04/20 08:55 Dose: 125 mg Documented by: Losartan [Cozaar] 25 mg ORAL QPM 02/09/15 Propranolol [Inderal] 40 mg PO BID 02/09/15 Triamterene/Hydrochlorothiazid [Triamterene-Hctz 75-50 mg Tab] 0.5 tab ORAL DAILY 02/09/15 clonazePAM [Clonazepam] 0.25 mg ORAL BID 02/09/15 B-Complex with Vitamin C [Super B Complex-Vitamin C] 1 each PO DAILY 05/27/20 Calcium Phos/Vit D3/Mag Oxide [Posture-D Caplet] 1 each PO DAILY 05/27/20 Cholecalciferol [Vitamin D3] 50 mcg PO DAILY 05/27/20 Cyanocobalamin (Vitamin B-12) [Vitamin B-12] 1,000 mcg PO DAILY 05/27/20 Glucosamine HCl 1,500 mg PO DAILY 05/27/20 [place]ley-3S/Dha/Epa/Fish Oil [Fish Oil 1,200 mg Softgel] 1 each PO BID 05/27/20 Objective - Vital Signs/Intake & Output Vital Signs: Vital Signs x48h Temp Pulse Pulse Resp BP Pulse Ox 09/04/20 09:36 74 22 09/04/20 08:16 36.9 C 72 20 102/54 L 96 09/04/20 03:39 36.3 C L 66 20 116/71 97 Intake & Output: Intake & Output 09/01/20 09/02/20 09/03/20 09/04/20 23:59 23:59 23:59 23:59 Intake Total 1999 3670 4141.667 Output Total 50 Balance 1999 4390 4141.667 - Objective General Appearance: positive: Alert, Mild distress. negative: Lethargic Eyes Bilateral: positive: Normal inspection, PERRL, No lid inflammation ENT: positive: ENT inspection nml, No signs of dehydration. negative: Purulent nasal drainage Neck: positive: Nml inspection, Trachea midline. negative: Thyromegaly, Tracheal deviation Respiratory: positive: Chest non-tender, Rhonchi. negative: Breath sounds nml, Wheezes, Rales Cardiovascular: positive: Regular rate & rhythm, No murmur. negative: Tachycardia, Bradycardia, Systolic murmur, Diastolic murmur Peripheral Pulses: 2+ Radial (R), 2+ Radial (L) Abdomen: positive: Non-tender, Nml bowel sounds. negative: Tenderness Back: positive: Nml inspection Skin: positive: Color nml, Warm, Dry. negative: Cyanosis Extremities: positive: Non-tender, Full ROM, Nml appearance. negative: Calf tenderness Neurologic/Psychiatric: positive: Motor nml, Sensation nml, Mood/affect nml. negative: Weakness, Sensory loss, Facial droop, Slurred/abnml speech, Depressed mood/affect - Lab Results Fish Bones: 09/04/20 04:29 09/04/20 04:29 Other Labs: Lab Results x24hrs 09/04/20 09/04/20 09/03/20 Range/Units 04:29 04:29 14:38 WBC 3.1 L (4.8-10.8) x10^3/uL RBC 2.87 L (4.20-5.40) 10^6/uL Hgb 9.4 L (12.0-16.0) g/dL Hct 28.3 L (37.0-47.0) % MCV 98.6 (81.0-99.0) fL MCH 32.8 H (27.0-31.0) pg MCHC 33.2 (32.0-36.0) g/dL RDW 17.4 H (12.0-15.0) % Plt Count 72 L (130-450) 10^3/uL MPV 11.9 H (7.9-10.8) fL Neut # (Auto) Not Reportable Lymph # (Auto) Not Reportable Collin # (Auto) Not Reportable Eos # (Auto) Not Reportable Baso # (Auto) Not Reportable Absolute Nucleated RBC Not Reportable Total Counted 100 Band Neuts % (Manual) 0 (0 - 10) % Abnorm Lymph % (Manual) 0 % Nucleated RBC % Not Reportable Neutrophils # (Manual) 2.3 (1.5-6.6) 10^3/uL Lymphocytes # (Manual) 0.4 L (1.5-3.5) 10^3/uL Monocytes # (Manual) 0.4 (0.0-1.0) 10^3/uL Eosinophils # (Manual) 0.0 (0-0.7) 10^3/uL Basophils # (Manual) 0.0 (0-0.1) 10^3/uL Differential Comment MANUAL DIFFERENTIAL WBC Morphology NORMAL APPEARANCE (NORMAL) Platelet Estimate DECREASED (<130,000) (NORMAL) Platelet Morphology NORMAL APPEARANCE (NORMAL) RBC Morph Micro Appear NORMAL APPEARANCE (NORMAL) Sodium 129 L (135-145) mmol/L Potassium 5.0 (3.5-5.0) mmol/L Chloride 100 L (101-111) mmol/L Carbon Dioxide 19 L (21-32) mmol/L Anion Gap 10.0 (6-13) BUN 55 H (6-20) mg/dL Creatinine 1.9 H (0.4-1.0) mg/dL Estimated GFR (MDRD) 26 L (>89) Glucose 87 (70-100) mg/dL Calcium 8.1 L (8.5-10.3) mg/dL Magnesium 2.0 (1.7-2.8) mg/dL ABX Reporting Has patient been on IV antibiotics over the past 48 hours?: Yes Assessment/Plan - Problem List (1) C. difficile diarrhea Impression: 09/04 improved slightly. pt had twice bowel movement with loose stool and brown color on last night. continue PO vancomycin 09/03 slight improved. continue PO vancomycin, continue IVF, lab and vital sign monitor. pt need IVF for her fluid loss from her diarrhea but at the same time, we will be very precaution on her fluid overloaded. pt has has poor appetite, so we will keep her on 85cc/h IVF (2)pneumonia 09/04 CXR reveals left lung pneumonia, pt report she feel shortness of breath, co ugh, and pt need O2 supplement. Add antibiotics Cefepime, continue PO vancomycine. add Probiotics. supplement of O2 as need, continue incentive Spirometer. pt show mild cough and need O2 supplement on last night. WBC is 1.4. pt did not show shortness of breath, no fever. CXR reveals increased interstitial markings. we will be very precaution of fluid overloaded. order: Mucinex, out of bed for a ctivity, incentive spirometer, down IVF to 85cc/h, vital sign closely monitor, and prevention of aspiration, and pneumonia as possible. (3)moderate bilateral pleural effusion pt's CXR reveals bilateral moderate size pleural effusion. Hold IVF, supplement O2 as needed, give once Lasix since pt report shortness of breath. continue closely monitor respiratory status. Pt's recently ECHO study show normal arrange of EF and normal right ventricle size and function. (4)moderate size of ascites this is new. unclear where ascites derive from. pt might need another image with contrast study if pt's creatinine improves. (5) pancytopenia 09/04 slight improved. WBC is 3.1 now. pt had once Neupogen after she had chemotherapy on last week . likely caused by last week chemotherapy. WBC is 1.4. HGB is 9.2, PLT is 91. will continue consult with pt's oncologist. pt had Neupogen on 08/28/20. will consult with oncologist to see if give pt another dosage of Neupogen. order isolation and diet for neutropenia. (6) CHARLES 09/04. pt's creatinine is 1.9 on today. because pleural effusion and respiratory distress, hold IVF, continue lab monitor, hold nephrotoxin agents creatinine is 1.8 today, we will continue IVF but precaution of fluid overloaded (7)hyponatremia NA is 128. it is likely hypovalvmia and hyponatremia. gently IVF of NS, and lab monitor (8) Breast cancer, left breast 09/04 CT of chest show pt's left breast mass size is reduced, continue followup with pt's oncologist Currently on chemotherapy. pt may continue followup with Her oncologist is Dr. Gross (9) Anxiety stable, On clonazepam 0.25 mg p.o. twice daily (10) Hypertension stable (11) Familial tremor resume: Propanolol 40 mg p.o. twice daily
[2020-09-04] MEDS: CEFEPIME 1 GM in SODIUM CHLORIDE 0.9% MINIBAG 100 ML IV SCH ×2 (10:59→22:43)
[2020-09-04] MEDS ORDERED: FUROSEMIDE 20 MG/2 ML VIAL IVP ONE (11:00)
[2020-09-04] MEDS: ACETAMINOPHEN 325 MG TABLET PO PRN (22:46)
[2020-09-05] MEDS: SODIUM CHLORIDE FLUSH 0.9% 10 ML SYRINGE IVP SCH ×3 (03:55→16:44)
[2020-09-05] MEDS: BUDESONIDE 0.5 MG/2 ML NEB INH SCH ×2 (04:18→21:31)
[2020-09-05] MEDS: IPRATROPIUM/ALBUTEROL 3 ML NEB INH PRN ×2 (04:18→21:31)
[2020-09-05 05:35] LABS: BASOPHILS % (AUTO) 1.3 %; EOSINOPHILS % (AUTO) 0.2 %; HCT - HEMATOCRIT 26.3 % (37.0-47.0); HGB - HEMOGLOBIN 8.6 g/dL (12.0-16.0); LYMPHOCYTES % (AUTO) 9.3 %; MEAN CORPUSCULAR HEMOGLOBIN 31.9 pg (27.0-31.0); MEAN CORPUSCULAR HGB CONC 32.7 g/dL (32.0-36.0); MEAN CORPUSCULAR VOLUME 97.4 fL (81.0-99.0); MEAN PLATELET VOLUME 11.7 fL (7.9-10.8); NEUTROPHILS % (AUTO) 80.2 %; PLT - PLATELET COUNT 57 10^3/uL (130-450); RED CELL DISTRIBUTION WIDTH 17.3 % (12.0-15.0)
[2020-09-05 05:43] LABS: CALCIUM 8.3 mg/dL (8.5-10.3); CREATININE 1.5 mg/dL (0.4-1.0); POTASSIUM 4.2 mmol/L (3.5-5.0)
[2020-09-05 05:51] LABS: ABNORMAL LYMPHS % (MANUAL) 0 %
[2020-09-05 06:00] LABS: BAND NEUTROPHILS % (MANUAL) 2 %; LYMPHOCYTES # (MANUAL) 0.9 10^3/uL (1.5-3.5); LYMPHOCYTES % (MANUAL) 15 %; MONOCYTES # (MANUAL) 0.2 10^3/uL (0.0-1.0); NEUTROPHILS # (MANUAL) 4.9 10^3/uL (1.5-6.6); PLATELET ESTIMATE, MANUAL DECREASED (<130,000) (NORMAL); PLATELET MORPHOLOGY NORMAL APPEARANCE (NORMAL); RBC MORPHOLOGY (MULTIPLE) NORMAL APPEARANCE (NORMAL); WBC MORPHOLOGY (MULTIPLE) NORMAL APPEARANCE (NORMAL)
[2020-09-05 06:44] LABS: DIFFERENTIAL COMMENT MANUAL DIFFERENTIAL
[2020-09-05] MEDS: ENOXAPARIN 30 MG/0.3 ML SYRINGE SUBQ SCH (07:15)
[2020-09-05] MEDS: PROPRANOLOL 40 MG TABLET PO SCH ×2 (09:57→21:21)
[2020-09-05] MEDS: guaiFENesin 600 MG TABLET PO SCH ×2 (09:57→21:21)
[2020-09-05] MEDS: PANTOPRAZOLE 40 MG TABLET PO SCH (09:57)
[2020-09-05] MEDS: VANCOMYCIN 125 MG CAPSULE PO SCH ×4 (09:57→21:21)
[2020-09-05] MEDS: SACCHAROMYCES BOULARDII 250 MG CAPSULE PO SCH ×2 (09:57→16:44)
[2020-09-05] MEDS: CEFEPIME 1 GM in SODIUM CHLORIDE 0.9% MINIBAG 100 ML IV SCH ×2 (09:58→21:20)
[2020-09-05] MEDS: FERROUS GLUCONATE 324 MG TABLET PO SCH (09:58)
[2020-09-05] MEDS: clonazePAM 0.5 MG TABLET PO SCH ×2 (09:58→21:21)
[2020-09-05] MEDS: ACETAMINOPHEN 325 MG TABLET PO PRN (10:26)
--- NOTE | 2020-09-05 19:55 | PROVIDER PROGRESS NOTE ---
Assessment/Plan - Problem List (1) C. difficile colitis Assessment/Plan: There is slight improvement. WBC today was 3.1 with neutrophils of 2.3 The frequency of patient's diarrhea has decreased. She is tolerating a diet well. Continue vancomycin 125 mg p.o. 4 times daily. (2) Pneumonia Assessment/Plan: CT scan showed Mild left upper lobe ground glass infiltrate suspicious for developing pneumonia. It also showed moderate pleural effusions bilaterally and moderate amount of ascites. Patient was started on cefepime 1g bid yesterday 09/04/20. (3) Ascites Assessment/Plan: Etiology undetermined. Patient was given a dose of Lasix 20 mg IV x1 yesterday. Will consider paracentesis for analysis on Monday09/07/20 (4) Bilateral pleural effusion Assessment/Plan: Etiology undetermined. Patient was given a dose of Lasix 20 mg IV x1 yesterday. Mild crackles heard on lung exam today. However patient is breathing comfortably on room air. (5) Acute kidney injury Assessment/Plan: Improved. This was initially thought to be prerenal due to diarrhea from C. difficile. However fluids were discontinued due to ascites and bilateral pleural effusions Creatinine today is 1.5 with an estimated GFR of 34. We will continue to monitor. (6) Dehydration Assessment/Plan: Fluids discontinued due to bilateral pleural effusions and ascites. (7) Anxiety Assessment/Plan: On clonazepam 0.25 mg p.o. twice daily (8) Breast cancer, left breast Assessment/Plan: CT chest done 09/04 showed reduction in size of breast mass. Patient to follow-up with her oncologist. (9) Hypertension Qualifiers: Hypertension type: essential hypertension Qualified Code(s): I10 - [place] (primary) hypertension Assessment/Plan: Currently normotensive. On propanolol 40 mg p.o. twice daily (10) Familial tremor Assessment/Plan: On propanolol 40 mg p.o. twice daily. - Current Meds Current Meds: Current Medications Generic Name Dose Route Start Last Admin Trade Name Freq PRN Reason Stop Dose Admin Acetaminophen 650 mg 09/02/20 00:59 09/05/20 10:26 Acetaminophen 325 Mg Tablet PO 650 mg Q4HR PRN Administration Pain 1 to 4 Albuterol 2.5 mg 09/04/20 08:37 09/04/20 16:41 Albuterol Neb 2.5 Mg/3 Ml INH 2.5 mg RTQ4H PRN Administration Wheezing Albuterol/Ipratropium 3 ml 09/04/20 09:20 09/05/20 04:18 Ipratropium/Albuterol 3 Ml Neb INH 3 ml RTQID PRN Administration Shortness of Air/Wheezing Budesonide 0.5 mg 09/04/20 09:19 09/05/20 04:18 Budesonide 0.5 Mg/2 Ml Neb INH 0.5 mg RTBID GARETH Administration Clonazepam 0.25 mg 09/02/20 09:00 09/05/20 09:58 Clonazepam 0.5 Mg Tablet PO 0.25 mg BID GARETH Administration Enoxaparin Sodium 30 mg 09/02/20 09:00 09/05/20 07:15 Enoxaparin 30 Mg/0.3 Ml Syringe SUBQ Not Given [facility]ILY [facility] Ferrous Gluconate 324 mg 09/03/20 08:00 09/05/20 09:58 Ferrous Gluconate 324 Mg Tablet PO 324 mg DAILYWM GARETH Administration Guaifenesin 600 mg 09/03/20 12:18 09/05/20 09:57 Guaifenesin 600 Mg Tablet PO 600 mg BID GARETH Administration Cefepime HCl 1 gm/ Sodium 100 mls @ 200 mls/hr 09/04/20 11:00 09/05/20 10:40 Chloride IV Infused BID GARETH Infusion Mineral Oil 1 applic 09/02/20 02:43 09/02/20 21:22 Min Oil/Dimethicon/Coconut Oil 92 Gm Tube TOP 1 applic PRN PRN Administration Skin Care Multi-Ingredient Ointment 1 applic 09/02/20 02:43 09/04/20 03:46 Zinc Oxide 20% Oint 30 Gm Tube TOP 1 applic PRN PRN Administration Skin Care Pantoprazole Sodium 40 mg 09/02/20 09:00 09/05/20 09:57 Pantoprazole 40 Mg Tablet PO 40 mg DAILY GARETH Administration Propranolol HCl 40 mg 09/02/20 09:00 09/05/20 09:57 Propranolol 40 Mg Tablet PO 40 mg BID GARETH Administration Saccharomyces Boulardii 500 mg 09/02/20 17:00 09/05/20 16:44 Saccharomyces Boulardii 250 Mg Capsule PO 500 mg BIDWM GARETH Administration Sodium Chloride 10 ml 09/02/20 01:00 09/05/20 16:44 Sodium Chloride Flush 0.9% 10 Ml Syringe IVP 10 ml 0100,0900,1700 GARETH Administration Vancomycin HCl 125 mg 09/02/20 02:00 09/05/20 16:51 Vancomycin 125 Mg Capsule PO 125 mg QID GARETH Administration - Lab Result Fish Bone Diagrams: 09/05/20 05:19 09/05/20 05:19 - Additional Planning My Orders: My Active Orders 09/06/20 05:00 BMP - BASIC METABOLIC PANEL [CHEM] DAILYLAB CBC - COMP BLD CT W/AUTO DIFF [HEME] DAILYLAB Subjective - Subjective Patient Reports: Other (Resting comfortably in bed. Appears weak. Diarrhea pe rsists but frequency is decreased from admission. Has been tolerating diet well. Denies any other complaints.) Objective Vital Signs: Vital Signs - 24 hr 09/04/20 09/05/20 09/05/20 20:00 03:53 04:18 Temperature 36.4 C L 36.3 C L Heart Rate 67 Heart Rate [ 85 74 Brachial] Respiratory 20 20 20 Rate Blood Pressure [Left Brachial artery] Blood Pressure 105/58 L 136/65 H [Right Brachial artery] O2 Saturation 96 92 09/05/20 09/05/20 09/05/20 09:15 13:15 15:52 Temperature 36.4 C L 36.4 C L 36.4 C L Heart Rate Heart Rate [ 94 98 70 Brachial] Respiratory 20 18 20 Rate Blood Pressure 114/49 L [Left Brachial artery] Blood Pressure 121/79 103/61 [Right Brachial artery] O2 Saturation 95 96 96 09/05/20 18:24 Temperature 36.5 C Heart Rate Heart Rate [ 74 Brachial] Respiratory 20 Rate Blood Pressure [Left Brachial artery] Blood Pressure 118/54 L [Right Brachial artery] O2 Saturation 99 Oxygen O2 Source Room air I&O (Last 24 Hrs): Intake and Output Totals x24h 09/03/20 09/04/20 09/05/20 23:59 23:59 23:59 Intake Total 4141.667 1506.667 850 Balance 4141.667 1506.667 850 General: Alert, Oriented x3, Other (weak, pale) HEENT: PERRLA, EOMI, Other (alopecia) Neck: Supple, No JVD Neuro: Alert, Non Focal, Oriented Times 3 Cardiovascular: Regular rate, No murmurs Respiratory: Chest non-tender, Other (mild crackles in lung bases) Abdomen: Normal bowel sounds, Soft, No tenderness Extremities: No clubbing, No edema, No tenderness/swelling Skin: No rashes - Results Results: Laboratory Results WBC 6.0 x10^3/uL (4.8-10.8) 09/05/20 05:19 RBC 2.70 10^6/uL (4.20-5.40) L 09/05/20 05:19 Hgb 8.6 g/dL (12.0-16.0) L 09/05/20 05:19 Hct 26.3 % (37.0-47.0) L 09/05/20 05:19 MCV 97.4 fL (81.0-99.0) 09/05/20 05:19 MCH 31.9 pg (27.0-31.0) H 09/05/20 05:19 MCHC 32.7 g/dL (32.0-36.0) 09/05/20 05:19 RDW 17.3 % (12.0-15.0) H 09/05/20 05:19 Plt Count 57 10^3/uL (130-450) L 09/05/20 05:19 MPV 11.7 fL (7.9-10.8) H 09/05/20 05:19 Neut # (Auto) BARK SKINNER 09/05/20 05:19 Lymph # (Auto) [place] SKINNER 09/05/20 05:19 [place] # (Auto) BARK SKINNER 09/05/20 05:19 Eos # (Auto) B[place] SKINNER 09/05/20 05:19 Baso # (Auto) [place] SKINNER 09/05/20 05:19 Absolute Nucleated RBC [place] SKINNER 09/05/20 05:19 Total Counted 100 09/05/20 05:19 Band Neuts % (Manual) 2 % (0-10) 09/05/20 05:19 Abnorm Lymph % (Manual) 0 % 09/05/20 05:19 Nucleated RBC % [place]INNER 09/05/20 05:19 Neutrophils # (Manual) 4.9 10^3/uL (1.5-6.6) 09/05/20 05:19 Lymphocytes # (Manual) 0.9 10^3/uL (1.5-3.5) L 09/05/20 05:19 Monocytes # (Manual) 0.2 10^3/uL (0.0-1.0) 09/05/20 05:19 Eosinophils # (Manual) 0.0 10^3/uL (0-0.7) 09/05/20 05:19 Basophils # (Manual) 0.0 10^3/uL (0-0.1) 09/05/20 05:19 Differential Comment MANUAL DIFFERENTIAL 09/05/20 05:19 WBC Morphology NORMAL APPEARANCE (NORMAL) 09/05/20 05:19 Platelet Estimate DECREASED (<130,000) (NORMAL) 09/05/20 05:19 Platelet Morphology NORMAL APPEARANCE (NORMAL) 09/05/20 05:19 RBC Morph Micro Appear NORMAL APPEARANCE (NORMAL) 09/05/20 05:19 Sodium 130 mmol/L (135-145) L 09/05/20 05:19 Potassium 4.2 mmol/L (3.5-5.0) 09/05/20 05:19 Chloride 105 mmol/L (101-111) 09/05/20 05:19 Carbon Dioxide 18 mmol/L (21-32) L 09/05/20 05:19 Anion Gap 7.0 (6-13) 09/05/20 05:19 BUN 52 mg/dL (6-20) H 09/05/20 05:19 Creatinine 1.5 mg/dL (0.4-1.0) H 09/05/20 05:19 Estimated GFR (MDRD) 34 (>89) L 09/05/20 05:19 Glucose 92 mg/dL (70-100) 09/05/20 05:19 Lactic Acid 1.3 mmol/L (0.5-2.2) 09/01/20 18:50 Calcium 8.3 mg/dL (8.5-10.3) L 09/05/20 05:19 Magnesium 2.0 mg/dL (1.7-2.8) 09/03/20 14:38 Total Bilirubin 0.7 mg/dL (0.2-1.0) 09/01/20 18:15 AST 28 IU/L (10-42) 09/01/20 18:15 ALT 20 IU/L (10-60) 09/01/20 18:15 Alkaline Phosphatase 96 IU/L (42-121) 09/01/20 18:15 Total Protein 5.9 g/dL (6.7-8.2) L 09/01/20 18:15 Albumin 2.4 g/dL (3.2-5.5) L 09/01/20 18:15 Globulin 3.5 g/dL (2.1-4.2) 09/01/20 18:15 Albumin/Globulin Ratio 0.7 (1.0-2.2) L 09/01/20 18:15 Lipase 22 U/L (22-51) 09/01/20 18:15 Urine Color YELLOW 09/01/20 21:15 Urine Clarity CLOUDY (CLEAR) 09/01/20 21:15 Urine pH 5.0 PH (5.0-7.5) 09/01/20 21:15 Ur Specific [place] 1.025 (1.002-1.030) 09/01/20 21:15 Urine Protein TRACE mg/dL (NEGATIVE) 09/01/20 21:15 Urine Glucose (UA) NEGATIVE mg/dL (NEGATIVE) 09/01/20 21:15 Urine Ketones NEGATIVE mg/dL (NEGATIVE) 09/01/20 21:15 Urine Occult Blood NEGATIVE (NEGATIVE) 09/01/20 21:15 Urine Nitrite NEGATIVE (NEGATIVE) 09/01/20 21:15 Urine Bilirubin NEGATIVE (NEGATIVE) 09/01/20 21:15 Urine Urobilinogen 0.2 (NORMAL) E.U./dL (NORMAL) 09/01/20 21:15 Ur Leukocyte Esterase TRACE (NEGATIVE) H 09/01/20 21:15 Urine RBC 6-10 /HPF (0-5) H 09/01/20 21:15 Urine WBC 11-25 /HPF (0-5) H 09/01/20 21:15 Ur Squamous Epith Cells FEW Squamous (<= Few) 09/01/20 21:15 Amorphous Sediment Marked /LPF 09/01/20 21:15 Urine Bacteria Few /HPF (None Seen) 09/01/20 21:15 Ur Microscopic Review INDICATED 09/01/20 21:15 Urine Culture Comments INDICATED 09/01/20 21:15 Nasal Adenovirus (PCR) NOT DETECTED 09/02/20 00:34 Nasal B. parapertussis DNA (PCR) NOT DETECTED 09/02/20 00:34 Nasal Coronavir 229E PCR NOT DETECTED 09/02/20 00:34 Nasal Coronavir HKU1 PCR NOT DETECTED 09/02/20 00:34 Nasal Coronavir NL63 PCR NOT DETECTED 09/02/20 00:34 Nasal Coronavir OC43 PCR NOT DETECTED 09/02/20 00:34 Nasal Enterovir/Rhinovir PCR NOT DETECTED 09/02/20 00:34 Nasal Influenza B PCR NOT DETECTED 09/02/20 00:34 Nasal Influenza A PCR NOT DETECTED 09/02/20 00:34 Nasal Parainfluen 1 PCR NOT DETECTED 09/02/20 00:34 Nasal Parainfluen 2 PCR NOT DETECTED 09/02/20 00:34 Nasal Parainfluen 3 PCR NOT DETECTED 09/02/20 00:34 Nasal Parainfluen 4 PCR NOT DETECTED 09/02/20 00:34 Nasal RSV (PCR) NOT DETECTED 09/02/20 00:34 Nasal B.pertussis DNA PCR NOT DETECTED 09/02/20 00:34 Nasal C.pneumoniae (PCR) NOT DETECTED 09/02/20 00:34 Joseluis Human Metapneumo PCR NOT DETECTED 09/02/20 00:34 Nasal M.pneumoniae (PCR) NOT DETECTED 09/02/20 00:34 Nasal SARS-CoV-2 (PCR) NOT DETECTED 09/02/20 00:34 Stl C. diff Tox B Gene POSITIVE (NEGATIVE) A* 09/01/20 21:15 - Procedures Procedures: Procedures EXCISION OF DUODENUM, ENDO, DIAGN (08/01/20) EXCISION OF ESOPHAGOGASTRIC JUNCTION, ENDO, DIAGN (08/01/20) EXCISION OF LOWER ESOPHAGUS, ENDO, DIAGN (08/01/20) EXCISION OF RECTUM, ENDO, DIAGN (08/01/20) EXCISION OF STOMACH, PYLORUS, ENDO, DIAGN (08/01/20) TRANSFUSE NONAUT RED BLOOD CELLS IN PERIPH VEIN, PERC (08/01/20) ABX Reporting Has patient been on IV antibiotics over the past 48 hours?: No
[2020-09-05] MEDS: ZINC OXIDE 20% OINT 30 GM TUBE TOP PRN (22:23)
[2020-09-06] MEDS: SODIUM CHLORIDE FLUSH 0.9% 10 ML SYRINGE IVP SCH ×3 (05:43→16:59)
[2020-09-06 05:58] LABS: BASOPHILS % (AUTO) 0.7 %; EOSINOPHILS % (AUTO) 0.1 %; HCT - HEMATOCRIT 25.5 % (37.0-47.0); HGB - HEMOGLOBIN 8.3 g/dL (12.0-16.0); LYMPHOCYTES % (AUTO) 7.2 %; MEAN CORPUSCULAR HEMOGLOBIN 31.4 pg (27.0-31.0); MEAN CORPUSCULAR HGB CONC 32.5 g/dL (32.0-36.0); MEAN CORPUSCULAR VOLUME 96.6 fL (81.0-99.0); MEAN PLATELET VOLUME 11.2 fL (7.9-10.8); MONOCYTES % (AUTO) 5.1 %; NEUTROPHILS % (AUTO) 85.8 %; PLT - PLATELET COUNT 58 10^3/uL (130-450); RED BLOOD COUNT 2.64 10^6/uL (4.20-5.40); RED CELL DISTRIBUTION WIDTH 17.4 % (12.0-15.0)
[2020-09-06 06:06] LABS: ABNORMAL LYMPHS % (MANUAL) 0 %
[2020-09-06 06:13] LABS: CALCIUM 8.4 mg/dL (8.5-10.3); CREATININE 1.3 mg/dL (0.4-1.0); POTASSIUM 3.8 mmol/L (3.5-5.0)
[2020-09-06 06:20] LABS: BAND NEUTROPHILS % (MANUAL) 1 %; LYMPHOCYTES # (MANUAL) 0.8 10^3/uL (1.5-3.5); LYMPHOCYTES % (MANUAL) 10 %; MONOCYTES # (MANUAL) 0.2 10^3/uL (0.0-1.0); MYELOCYTES % (MANUAL) 1 %; NEUTROPHILS # (MANUAL) 6.9 10^3/uL (1.5-6.6)
[2020-09-06 06:21] LABS: DIFFERENTIAL COMMENT MANUAL DIFFERENTIAL; PLATELET ESTIMATE, MANUAL DECREASED (<130,000) (NORMAL); PLATELET MORPHOLOGY NORMAL APPEARANCE (NORMAL); RBC MORPHOLOGY (MULTIPLE) NORMAL APPEARANCE (NORMAL); WBC MORPHOLOGY (MULTIPLE) NORMAL APPEARANCE (NORMAL)
[2020-09-06] MEDS: BUDESONIDE 0.5 MG/2 ML NEB INH SCH ×2 (07:45→21:10)
[2020-09-06] MEDS: IPRATROPIUM/ALBUTEROL 3 ML NEB INH PRN (07:45)
[2020-09-06] MEDS: SACCHAROMYCES BOULARDII 250 MG CAPSULE PO SCH ×2 (07:46→16:58)
[2020-09-06] MEDS: FERROUS GLUCONATE 324 MG TABLET PO SCH (07:47)
[2020-09-06] MEDS: clonazePAM 0.5 MG TABLET PO SCH ×2 (08:40→20:46)
[2020-09-06] MEDS: CEFEPIME 2 GM in SODIUM CHLORIDE 0.9% MINIBAG 100 ML IV SCH ×2 (08:41→20:46)
[2020-09-06] MEDS: guaiFENesin 600 MG TABLET PO SCH ×2 (08:41→20:46)
[2020-09-06] MEDS: VANCOMYCIN 125 MG CAPSULE PO SCH ×4 (08:41→20:46)
[2020-09-06] MEDS: PROPRANOLOL 40 MG TABLET PO SCH ×2 (08:41→20:46)
[2020-09-06] MEDS: ENOXAPARIN 30 MG/0.3 ML SYRINGE SUBQ SCH (08:41)
[2020-09-06] MEDS: PANTOPRAZOLE 40 MG TABLET PO SCH (08:41)
--- NOTE | 2020-09-06 20:20 | PROVIDER PROGRESS NOTE ---
Assessment/Plan - Problem List (1) C. difficile colitis Assessment/Plan: Patient continues to improve Frequency of diarrhea continues to decrease. WBC is 8.0. Continue vancomycin 125mg po qid (2) Pneumonia Assessment/Plan: CT scan showed Mild left upper lobe ground glass infiltrate suspicious for developing pneumonia. It also showed moderate pleural effusions bilaterally and moderate amount of ascites. Patient was started on cefepime 1g bid yesterday 09/04/20. (3) Ascites Assessment/Plan: Etiology undetermined. Patient was given a dose of Lasix 20 mg IV x1 2 days ago. Paracentesis for analysis ordered for Monday09/07/20 (4) Bilateral pleural effusion Assessment/Plan: Etiology undetermined. Patient was given a dose of Lasix 20 mg IV x1 2 days ago. Mild crackles heard on lung exam today. However patient is breathing comfortably on room air. CXR pending. Will consider repeating lasix (5) Acute kidney injury Assessment/Plan: Improved. This was initially thought to be prerenal due to diarrhea from C. difficile. However fluids were discontinued due to ascites and bilateral pleural effusions Creatinine today is 1.3 with an estimated GFR of 40. We will continue to monitor. (6) Dehydration Assessment/Plan: Fluids discontinued due to bilateral pleural effusions and ascites. Renal function is improved at 1.3 (7) Anxiety Assessment/Plan: On clonazepam 0.25 mg p.o. twice daily (8) Breast cancer, left breast Assessment/Plan: CT chest done 09/04 showed reduction in size of breast mass. Patient to follow-up with her oncologist. (9) Hypertension Qualifiers: Hypertension type: essential hypertension Qualified Code(s): I10 - Essential (primary) hypertension Assessment/Plan: Currently normotensive. On propanolol 40 mg p.o. twice daily (10) Familial tremor Assessment/Plan: On propanolol 40 mg p.o. twice daily. - Current Meds Current Meds: Current Medications Generic Name Dose Route Start Last Admin Trade Name Freq PRN Reason Stop Dose Admin Acetaminophen 650 mg 09/02/20 00:59 09/05/20 10:26 Acetaminophen 325 Mg Tablet PO 650 mg Q4HR PRN Administration Pain 1 to 4 Albuterol 2.5 mg 09/04/20 08:37 09/04/20 16:41 Albuterol Neb 2.5 Mg/3 Ml INH 2.5 mg RTQ4H PRN Administration Wheezing Albuterol/Ipratropium 3 ml 09/04/20 09:20 09/06/20 07:45 Ipratropium/Albuterol 3 Ml Neb INH 3 ml RTQID PRN Administration Shortness of Air/Wheezing Budesonide 0.5 mg 09/04/20 09:19 09/06/20 07:45 Budesonide 0.5 Mg/2 Ml Neb INH 0.5 mg RTBID GARETH Administration Clonazepam 0.25 mg 09/02/20 09:00 09/06/20 08:40 Clonazepam 0.5 Mg Tablet PO 0.25 mg BID GARETH Administration Enoxaparin Sodium 30 mg 09/02/20 09:00 09/06/20 08:41 Enoxaparin 30 Mg/0.3 Ml Syringe SUBQ 30 mg DAILY GARETH Administration Ferrous Gluconate 324 mg 09/03/20 08:00 09/06/20 07:47 Ferrous Gluconate 324 Mg Tablet PO 324 mg DAILYWM GARETH Administration Guaifenesin 600 mg 09/03/20 12:18 09/06/20 08:41 Guaifenesin 600 Mg Tablet PO 600 mg BID GARETH Administration Cefepime HCl 2 gm/ Sodium 100 mls @ 200 mls/hr 09/06/20 09:00 09/06/20 09:15 Chloride IV Infused BID GARETH Infusion Mineral Oil 1 applic 09/02/20 02:43 09/02/20 21:22 Min Oil/Dimethicon/Coconut Oil 92 Gm Tube TOP 1 applic PRN PRN Administration Skin Care Multi-Ingredient Ointment 1 applic 09/02/20 02:43 09/05/20 22:23 Zinc Oxide 20% Oint 30 Gm Tube TOP 1 applic PRN PRN Administration Skin Care Pantoprazole Sodium 40 mg 09/02/20 09:00 09/06/20 08:41 Pantoprazole 40 Mg Tablet PO 40 mg DAILY GARETH Administration Propranolol HCl 40 mg 09/02/20 09:00 09/06/20 08:41 Propranolol 40 Mg Tablet PO 40 mg BID GARETH Administration Saccharomyces Boulardii 500 mg 09/02/20 17:00 09/06/20 16:58 Saccharomyces Boulardii 250 Mg Capsule PO 500 mg BIDWM GARETH Administration Sodium Chloride 10 ml 09/02/20 01:00 09/06/20 16:59 Sodium Chloride Flush 0.9% 10 Ml Syringe IVP 10 ml 0100,0900,1700 GARETH Administration Vancomycin HCl 125 mg 09/02/20 02:00 09/06/20 16:59 Vancomycin 125 Mg Capsule PO 125 mg QID GARETH Administration - Lab Result Fish Bone Diagrams: 09/06/20 05:38 09/06/20 05:38 Subjective - Subjective Patient Reports: Other (Resting comfortably in bed. Appears weak. Diarrhea persists but frequency continues to decrease. Wheezing. Receiving breathing treatment.) Objective Vital Signs: Vital Signs - 24 hr 09/05/20 09/06/20 09/06/20 21:34 00:45 04:56 Temperature 36.5 C 36.4 C L Heart Rate 79 Heart Rate [ 72 73 Brachial] Respiratory 20 18 16 Rate Blood Pressure 118/50 L [Left Brachial artery] Blood Pressure 111/62 [Right Brachial artery] O2 Saturation 95 92 09/06/20 09/06/20 09/06/20 07:46 08:15 12:15 Temperature 36.6 C 36.6 C Heart Rate 76 Heart Rate [ 73 57 L Brachial] Respiratory 16 18 20 Rate Blood Pressure [Left Brachial artery] Blood Pressure 127/62 131/59 H [Right Brachial artery] O2 Saturation 94 92 09/06/20 09/06/20 17:00 19:04 Temperature 37 C 36.8 C Heart Rate Heart Rate [ 73 74 Brachial] Respiratory 22 20 Rate Blood Pressure [Left Brachial artery] Blood Pressure 138/65 H 113/52 L [Right Brachial artery] O2 Saturation 96 96 Oxygen O2 Source Room air I&O (Last 24 Hrs): Intake and Output Totals x24h 09/04/20 09/05/20 09/06/20 23:59 23:59 23:59 Intake Total 1506.667 950 820 Balance 1506.667 950 820 General: Alert, Oriented x3, Other (weak, pale) HEENT: PERRLA, EOMI Neck: Supple, No JVD Neuro: Alert, Non Focal, Oriented Times 3 Cardiovascular: Regular rate, No murmurs Respiratory: Chest non-tender, Wheezes (mild) Abdomen: Normal bowel sounds, Soft, No tenderness Extremities: No clubbing, No cyanosis, Other (+1 pitting edema) Skin: No rashes, No breakdown, No significant lesion - Results Results: Laboratory Results WBC 8.0 x10^3/uL (4.8-10.8) 09/06/20 05:38 RBC 2.64 10^6/uL (4.20-5.40) L 09/06/20 05:38 Hgb 8.3 g/dL (12.0-16.0) L 09/06/20 05:38 Hct 25.5 % (37.0-47.0) L 09/06/20 05:38 MCV 96.6 fL (81.0-99.0) 09/06/20 05:38 MCH 31.4 pg (27.0-31.0) H 09/06/20 05:38 MCHC 32.5 g/dL (32.0-36.0) 09/06/20 05:38 RDW 17.4 % (12.0-15.0) H 09/06/20 05:38 Plt Count 58 10^3/uL (130-450) L 09/06/20 05:38 MPV 11.2 fL (7.9-10.8) H 09/06/20 05:38 Neut # (Auto) Not Reportable 09/06/20 05:38 Lymph # (Auto) Not Reportable 09/06/20 05:38 Power # (Auto) Not Reportable 09/06/20 05:38 Eos # (Auto) Not Reportable 09/06/20 05:38 Baso # (Auto) Not Reportable 09/06/20 05:38 Absolute Nucleated RBC Not Reportable 09/06/20 05:38 Total Counted 100 09/06/20 05:38 Band Neuts % (Manual) 1 % (0-10) 09/06/20 05:38 Abnorm Lymph % (Manual) 0 % 09/06/20 05:38 Myelocytes % 1 % (-0) H 09/06/20 05:38 Nucleated RBC % Not Reportable 09/06/20 05:38 Neutrophils # (Manual) 6.9 10^3/uL (1.5-6.6) H 09/06/20 05:38 Lymphocytes # (Manual) 0.8 10^3/uL (1.5-3.5) L 09/06/20 05:38 Monocytes # (Manual) 0.2 10^3/uL (0.0-1.0) 09/06/20 05:38 Eosinophils # (Manual) 0.0 10^3/uL (0-0.7) 09/06/20 05:38 Basophils # (Manual) 0.0 10^3/uL (0-0.1) 09/06/20 05:38 Differential Comment MANUAL DIFFERENTIAL 09/06/20 05:38 WBC Morphology NORMAL APPEARANCE (NORMAL) 09/06/20 05:38 Platelet Estimate DECREASED (<130,000) (NORMAL) 09/06/20 05:38 Platelet Morphology NORMAL APPEARANCE (NORMAL) 09/06/20 05:38 RBC Morph Micro Appear NORMAL APPEARANCE (NORMAL) 09/06/20 05:38 Sodium 132 mmol/L (135-145) L 09/06/20 05:38 Potassium 3.8 mmol/L (3.5-5.0) 09/06/20 05:38 Chloride 106 mmol/L (101-111) 09/06/20 05:38 Carbon Dioxide 19 mmol/L (21-32) L 09/06/20 05:38 Anion Gap 7.0 (6-13) 09/06/20 05:38 BUN 41 mg/dL (6-20) H 09/06/20 05:38 Creatinine 1.3 mg/dL (0.4-1.0) H 09/06/20 05:38 Estimated GFR (MDRD) 40 (>89) L 09/06/20 05:38 Glucose 92 mg/dL (70-100) 09/06/20 05:38 Lactic Acid 1.3 mmol/L (0.5-2.2) 09/01/20 18:50 Calcium 8.4 mg/dL (8.5-10.3) L 09/06/20 05:38 Magnesium 2.0 mg/dL (1.7-2.8) 09/06/20 05:38 Total Bilirubin 0.7 mg/dL (0.2-1.0) 09/01/20 18:15 AST 28 IU/L (10-42) 09/01/20 18:15 ALT 20 IU/L (10-60) 09/01/20 18:15 Alkaline Phosphatase 96 IU/L (42-121) 09/01/20 18:15 Total Protein 5.9 g/dL (6.7-8.2) L 09/01/20 18:15 Albumin 2.4 g/dL (3.2-5.5) L 09/01/20 18:15 Globulin 3.5 g/dL (2.1-4.2) 09/01/20 18:15 Albumin/Globulin Ratio 0.7 (1.0-2.2) L 09/01/20 18:15 Lipase 22 U/L (22-51) 09/01/20 18:15 Urine Color YELLOW 09/01/20 21:15 Urine Clarity CLOUDY (CLEAR) 09/01/20 21:15 Urine pH 5.0 PH (5.0-7.5) 09/01/20 21:15 Ur Specific [place] 1.025 (1.002-1.030) 09/01/20 21:15 Urine Protein TRACE mg/dL (NEGATIVE) 09/01/20 21:15 Urine Glucose (UA) NEGATIVE mg/dL (NEGATIVE) 09/01/20 21:15 Urine Ketones NEGATIVE mg/dL (NEGATIVE) 09/01/20 21:15 Urine Occult Blood NEGATIVE (NEGATIVE) 09/01/20 21:15 Urine Nitrite NEGATIVE (NEGATIVE) 09/01/20 21:15 Urine Bilirubin NEGATIVE (NEGATIVE) 09/01/20 21:15 Urine Urobilinogen 0.2 (NORMAL) E.U./dL (NORMAL) 09/01/20 21:15 Ur Leukocyte Esterase TRACE (NEGATIVE) H 09/01/20 21:15 Urine RBC 6-10 /HPF (0-5) H 09/01/20 21:15 Urine WBC 11-25 /HPF (0-5) H 09/01/20 21:15 Ur Squamous Epith Cells FEW Squamous (<= Few) 09/01/20 21:15 Amorphous Sediment Marked /LPF 09/01/20 21:15 Urine Bacteria Few /HPF (None Seen) 09/01/20 21:15 Ur Microscopic Review INDICATED 09/01/20 21:15 Urine Culture Comments INDICATED 09/01/20 21:15 Nasal Adenovirus (PCR) NOT DETECTED 09/02/20 00:34 Nasal B. parapertussis DNA (PCR) NOT DETECTED 09/02/20 00:34 Nasal Coronavir 229E PCR NOT DETECTED 09/02/20 00:34 Nasal Coronavir HKU1 PCR NOT DETECTED 09/02/20 00:34 Nasal Coronavir NL63 PCR NOT DETECTED 09/02/20 00:34 Nasal Coronavir OC43 PCR NOT DETECTED 09/02/20 00:34 Nasal Enterovir/Rhinovir PCR NOT DETECTED 09/02/20 00:34 Nasal Influenza B PCR NOT DETECTED 09/02/20 00:34 Nasal Influenza A PCR NOT DETECTED 09/02/20 00:34 Nasal Parainfluen 1 PCR NOT DETECTED 09/02/20 00:34 Nasal Parainfluen 2 PCR NOT DETECTED 09/02/20 00:34 Nasal Parainfluen 3 PCR NOT DETECTED 09/02/20 00:34 Nasal Parainfluen 4 PCR NOT DETECTED 09/02/20 00:34 Nasal RSV (PCR) NOT DETECTED 09/02/20 00:34 Nasal B.pertussis DNA PCR NOT DETECTED 09/02/20 00:34 Nasal C.pneumoniae (PCR) NOT DETECTED 09/02/20 00:34 Joseluis Human Metapneumo PCR NOT DETECTED 09/02/20 00:34 Nasal M.pneumoniae (PCR) NOT DETECTED 09/02/20 00:34 Nasal SARS-CoV-2 (PCR) NOT DETECTED 09/02/20 00:34 Stl C. diff Tox B Gene POSITIVE (NEGATIVE) A* 09/01/20 21:15 Ref Lab Test Result REPORT 09/01/20 23:44 - Procedures Procedures: Procedures EXCISION OF DUODENUM, ENDO, DIAGN (08/01/20) EXCISION OF ESOPHAGOGASTRIC JUNCTION, ENDO, DIAGN (08/01/20) EXCISION OF LOWER ESOPHAGUS, ENDO, DIAGN (08/01/20) EXCISION OF RECTUM, ENDO, DIAGN (08/01/20) EXCISION OF STOMACH, PYLORUS, ENDO, DIAGN (08/01/20) TRANSFUSE NONAUT RED BLOOD CELLS IN PERIPH VEIN, PERC (08/01/20) ABX Reporting Has patient been on IV antibiotics over the past 48 hours?: No
[2020-09-06] MEDS: ALBUTEROL NEB 2.5 MG/3 ML INH PRN (21:10)
[2020-09-07] MEDS: SODIUM CHLORIDE FLUSH 0.9% 10 ML SYRINGE IVP SCH ×3 (00:34→16:40)
[2020-09-07 05:53] LABS: BASOPHILS % (AUTO) 0.6 %; HCT - HEMATOCRIT 25.4 % (37.0-47.0); HGB - HEMOGLOBIN 8.3 g/dL (12.0-16.0); LYMPHOCYTES % (AUTO) 12.8 %; MEAN CORPUSCULAR HEMOGLOBIN 31.8 pg (27.0-31.0); MEAN CORPUSCULAR HGB CONC 32.7 g/dL (32.0-36.0); MEAN CORPUSCULAR VOLUME 97.3 fL (81.0-99.0); MEAN PLATELET VOLUME 11.3 fL (7.9-10.8); NEUTROPHILS % (AUTO) 80.1 %; PLT - PLATELET COUNT 54 10^3/uL (130-450); RED BLOOD COUNT 2.61 10^6/uL (4.20-5.40); RED CELL DISTRIBUTION WIDTH 17.7 % (12.0-15.0); WHITE BLOOD COUNT 6.8 x10^3/uL (4.8-10.8)
[2020-09-07 05:54] LABS: INR 1.1 (0.8-1.2)
[2020-09-07 05:56] LABS: ABNORMAL LYMPHS % (MANUAL) 0 %; BAND NEUTROPHILS % (MANUAL) 0 %
[2020-09-07 05:59] LABS: CALCIUM 8.1 mg/dL (8.5-10.3); POTASSIUM 3.6 mmol/L (3.5-5.0)
[2020-09-07 06:15] LABS: LYMPHOCYTES # (MANUAL) 0.8 10^3/uL (1.5-3.5); LYMPHOCYTES % (MANUAL) 12 %; MONOCYTES # (MANUAL) 0.3 10^3/uL (0.0-1.0); NEUTROPHILS # (MANUAL) 5.7 10^3/uL (1.5-6.6); PLATELET ESTIMATE, MANUAL DECREASED (<130,000) (NORMAL); PLATELET MORPHOLOGY NORMAL APPEARANCE (NORMAL); RBC MORPHOLOGY (MULTIPLE) NORMAL APPEARANCE (NORMAL); WBC MORPHOLOGY (MULTIPLE) NORMAL APPEARANCE (NORMAL)
[2020-09-07 06:16] LABS: DIFFERENTIAL COMMENT MANUAL DIFFERENTIAL
[2020-09-07] MEDS: ENOXAPARIN 30 MG/0.3 ML SYRINGE SUBQ SCH (08:59)
[2020-09-07] MEDS: VANCOMYCIN 125 MG CAPSULE PO SCH ×4 (08:59→21:41)
[2020-09-07] MEDS: PROPRANOLOL 40 MG TABLET PO SCH ×2 (08:59→21:40)
[2020-09-07] MEDS: guaiFENesin 600 MG TABLET PO SCH ×2 (08:59→21:39)
[2020-09-07] MEDS: SACCHAROMYCES BOULARDII 250 MG CAPSULE PO SCH ×2 (08:59→16:40)
[2020-09-07] MEDS: clonazePAM 0.5 MG TABLET PO SCH ×2 (08:59→21:39)
[2020-09-07] MEDS: FERROUS GLUCONATE 324 MG TABLET PO SCH (08:59)
[2020-09-07] MEDS: CEFEPIME 2 GM in SODIUM CHLORIDE 0.9% MINIBAG 100 ML IV SCH ×2 (09:00→21:39)
[2020-09-07] MEDS: PANTOPRAZOLE 40 MG TABLET PO SCH (09:05)
[2020-09-07] MEDS: BUDESONIDE 0.5 MG/2 ML NEB INH SCH ×2 (09:28→18:20)
[2020-09-07] MEDS: IPRATROPIUM/ALBUTEROL 3 ML NEB INH PRN ×2 (09:28→17:10)
--- NOTE | 2020-09-07 10:52 | XRAY Report ---
PROCEDURE: Chest 1 View X-Ray INDICATIONS: wheezing, dyspnea TECHNIQUE: One view of the chest was acquired. COMPARISON: CT chest 09/04/2020, chest x-ray 09/03/2020 FINDINGS: Surgical changes and devices: Right-sided Port-A-Cath is present, unchanged. Lungs and pleura: Mild appearance of hazy right basilar opacity. Increased vascularity is present. Mediastinum: Mediastinal contours appear normal. Heart size is normal. Bones and chest wall: No suspicious bony lesions. Overlying soft tissues appear unremarkable. IMPRESSION: Increased hazy right basilar opacity suggests of mild effusion.Underlying developing pneumonia and/or atelectasis cannot be excluded. Increased vascularity is noted suggestive of edema. No visualized acute fracture or dislocation. However, occult injury cannot be excluded. Recommend misa rt interval imaging follow-up in 7-10 days as clinically indicated for additional evaluation. Reviewed by: Emily Diez MD on 09/07/2020 10:51 AM PDT Approved by: Emily Diez MD on 09/07/2020 10:51 AM PDT Station ID: [id number]
[2020-09-07] MEDS: ALBUTEROL NEB 2.5 MG/3 ML INH PRN (12:54)
--- NOTE | 2020-09-07 13:25 | Ultrasound Report ---
PROCEDURE: Abdomen Limited INDICATIONS: moderate ascites per CT 09/04/20 TECHNIQUE: Real-time focused scanning was performed of the abdomen, with image documentation. COMPARISON: None FINDINGS: Small amount of ascites noted in the right upper quadrant of the right lower quadrant. IMPRESSION: Small amount of ascites. Ascites is insufficient in quantity to safely perform paracentesis. Reviewed by: Leda Long MD, PhD on 09/07/2020 1:24 PM PDT Approved by: Leda Long MD, PhD on 09/07/2020 1:24 PM PDT Station ID: [id number]
--- NOTE | 2020-09-07 19:20 | PROVIDER PROGRESS NOTE ---
Assessment/Plan - Problem List (1) C. difficile colitis Assessment/Plan: Patient continues to improve Frequency of diarrhea continues to decrease. She reports an 8-hour interval with no diarrhea today. WBC is 6.8. Continue vancomycin 125mg po qid Anticipate discharge tomorrow (2) Pneumonia Assessment/Plan: On cefepime 1g IV bid. Day#3. Consider discontinuing cefepime tomorrow (3) Ascites Assessment/Plan: Paracentesis ordered for today was not done because there was not a significant volume on ultrasound. (4) Bilateral pleural effusion Assessment/Plan: Etiology undetermined. Lasix 20 mg IV x1 ordered today. Though patient's lung sounds are coarse there is no overt wheezing noted. Chest x-ray done yesterday and patient's clinical improvement today will suggest improvement in pleural effusion. (5) Acute kidney injury Assessment/Plan: Resolved. Patient's creatinine today is 1.0 with estimated GFR of 54.. (6) Dehydration Assessment/Plan: Fluids discontinued due to bilateral pleural effusions and ascites. Renal function is improved at 1.0 (7) Anxiety Assessment/Plan: On clonazepam 0.25 mg p.o. twice daily (8) Breast cancer, left breast Assessment/Plan: CT chest done 09/04 showed reduction in size of breast mass. Patient to follow-up with her oncologist. (9) Hypertension Qualifiers: Hypertension type: essential hypertension Qualified Code(s): I10 - Essential (primary) hypertension Assessment/Plan: Currently normotensive. On propanolol 40 mg p.o. twice daily (10) Familial tremor Assessment/Plan: On propanolol 40 mg p.o. twice daily. - Current Meds Current Meds: Current Medications Generic Name Dose Route Start Last Admin Trade Name Freq PRN Reason Stop Dose Admin Acetaminophen 650 mg 09/02/20 00:59 09/05/20 10:26 Acetaminophen 325 Mg Tablet PO 650 mg Q4HR PRN Administration Pain 1 to 4 Albuterol 2.5 mg 09/04/20 08:37 09/07/20 12:54 Albuterol Neb 2.5 Mg/3 Ml INH 2.5 mg RTQ4H PRN Administration Wheezing Albuterol/Ipratropium 3 ml 09/04/20 09:20 09/07/20 17:10 Ipratropium/Albuterol 3 Ml Neb INH 3 ml RTQID PRN Administration Shortness of Air/Wheezing Budesonide 0.5 mg 09/04/20 09:19 09/07/20 18:20 Budesonide 0.5 Mg/2 Ml Neb INH 0.5 mg RTBID GARETH Administration Clonazepam 0.25 mg 09/02/20 09:00 09/07/20 08:59 Clonazepam 0.5 Mg Tablet PO 0.25 mg BID GARETH Administration Enoxaparin Sodium 30 mg 09/02/20 09:00 09/07/20 08:59 Enoxaparin 30 Mg/0.3 Ml Syringe SUBQ Not Given DAILY [facility] Ferrous Gluconate 324 mg 09/03/20 08:00 09/07/20 08:59 Ferrous Gluconate 324 Mg Tablet PO 324 mg DAILYWM GARETH Administration Guaifenesin 600 mg 09/03/20 12:18 09/07/20 08:59 Guaifenesin 600 Mg Tablet PO 600 mg BID GARETH Administration Cefepime HCl 2 gm/ Sodium 100 mls @ 200 mls/hr 09/06/20 09:00 09/07/20 10:10 Chloride IV Infused BID GARETH Infusion Mineral Oil 1 applic 09/02/20 02:43 09/02/20 21:22 Min Oil/Dimethicon/Coconut Oil 92 Gm Tube TOP 1 applic PRN PRN Administration Skin Care Multi-Ingredient Ointment 1 applic 09/02/20 02:43 09/05/20 22:23 Zinc Oxide 20% Oint 30 Gm Tube TOP 1 applic PRN PRN Administration Skin Care Pantoprazole Sodium 40 mg 09/02/20 09:00 09/07/20 09:05 Pantoprazole 40 Mg Tablet PO 40 mg DAILY GARETH Administration Propranolol HCl 40 mg 09/02/20 09:00 09/07/20 08:59 Propranolol 40 Mg Tablet PO 40 mg BID GARETH Administration Saccharomyces Boulardii 500 mg 09/02/20 17:00 09/07/20 16:40 Saccharomyces Boulardii 250 Mg Capsule PO 500 mg BIDWM GARETH Administration Sodium Chloride 10 ml 09/02/20 01:00 09/07/20 16:40 Sodium Chloride Flush 0.9% 10 Ml Syringe IVP 10 ml 0100,0900,1700 GARETH Administration Vancomycin HCl 125 mg 09/02/20 02:00 09/07/20 16:40 Vancomycin 125 Mg Capsule PO 125 mg QID GARETH Administration - Lab Result Fish Bone Diagrams: 09/07/20 05:40 09/07/20 05:40 - Additional Planning My Orders: My Active Orders 09/07/20 00:01 NPO [DIET] 09/07/20 08:00 CELL COUNT, BF [BF] Routine CUL, ANAEROBIC (QUEST) [REFLAB] Routine 09/08/20 05:00 BMP - BASIC METABOLIC PANEL [CHEM] DAILYLAB CBC - COMP BLD CT W/AUTO DIFF [HEME] DAILYLAB 09/09/20 05:00 BMP - BASIC METABOLIC PANEL [CHEM] DAILYLAB CBC - COMP BLD CT W/AUTO DIFF [HEME] DAILYLAB 09/10/20 05:00 BMP - BASIC METABOLIC PANEL [CHEM] DAILYLAB CBC - COMP BLD CT W/AUTO DIFF [HEME] DAILYLAB 09/11/20 05:00 BMP - BASIC METABOLIC PANEL [CHEM] DAILYLAB CBC - COMP BLD CT W/AUTO DIFF [HEME] DAILYLAB Subjective - Subjective Patient Reports: Other (Patient resting comfortably in bed. She is currently off supplemental oxygen. She appears to be breathing comfortably. She reports significant decrease in the frequency of her bowel movements today compared to yesterday. Voice is hoarse.) Objective Vital Signs: Vital Signs - 24 hr 09/06/20 09/07/20 09/07/20 21:12 00:36 06:25 Temperature 36.5 C 36.5 C Heart Rate 76 Heart Rate [ 64 68 Brachial] Respiratory 16 18 19 Rate Blood Pressure 124/76 131/60 H [Left Brachial artery] O2 Saturation 93 94 09/07/20 09/07/20 09/07/20 08:41 09:29 12:54 Temperature 36.8 C Heart Rate 68 60 Heart Rate [ 66 Brachial] Respiratory 17 24 24 Rate Blood Pressure 138/71 H [Left Brachial artery] O2 Saturation 96 09/07/20 09/07/20 09/07/20 13:12 15:51 17:11 Temperature 36.6 C 36.8 C Heart Rate 72 Heart Rate [ 64 75 Brachial] Respiratory 18 18 26 H Rate Blood Pressure 128/76 125/95 H [Left Brachial artery] O2 Saturation 95 98 09/07/20 18:21 Temperature Heart Rate 72 Heart Rate [ Brachial] Respiratory 24 Rate Blood Pressure [Left Brachial artery] O2 Saturation Oxygen O2 Source Room air I&O (Last 24 Hrs): Intake and Output Totals x24h 09/05/20 09/06/20 09/07/20 23:59 23:59 23:59 Intake Total 950 920 100 Balance 950 920 100 General: Alert, Oriented x3, No acute distress HEENT: PERRLA, EOMI Neck: Supple, No JVD Neuro: Alert, Non Focal, Oriented Times 3 Cardiovascular: Regular rate, No murmurs Respiratory: Chest non-tender, No respiratory distress, Other (Coarse breath sounds. No overt wheeze) Abdomen: Normal bowel sounds, Soft, No tenderness Extremities: No clubbing, No cyanosis, Other (+1 edema) Skin: No rashes, No breakdown - Results Results: Laboratory Results WBC 6.8 x10^3/uL (4.8-10.8) 09/07/20 05:40 RBC 2.61 10^6/uL (4.20-5.40) L 09/07/20 05:40 Hgb 8.3 g/dL (12.0-16.0) L 09/07/20 05:40 Hct 25.4 % (37.0-47.0) L 09/07/20 05:40 MCV 97.3 fL (81.0-99.0) 09/07/20 05:40 MCH 31.8 pg (27.0-31.0) H 09/07/20 05:40 MCHC 32.7 g/dL (32.0-36.0) 09/07/20 05:40 RDW 17.7 % (12.0-15.0) H 09/07/20 05:40 Plt Count 54 10^3/uL (130-450) L 09/07/20 05:40 MPV 11.3 fL (7.9-10.8) H 09/07/20 05:40 Neut # (Auto) Not Reportable 09/07/20 05:40 Lymph # (Auto) Not Reportable 09/07/20 05:40 [place] # (Auto) Not Reportable 09/07/20 05:40 Eos # (Auto) Not Reportable 09/07/20 05:40 Baso # (Auto) Not Reportable 09/07/20 05:40 Absolute Nucleated RBC Not Reportable 09/07/20 05:40 Total Counted 100 09/07/20 05:40 Band Neuts % (Manual) 0 % (0-10) 09/07/20 05:40 Abnorm Lymph % (Manual) 0 % 09/07/20 05:40 Myelocytes % 1 % (-0) H 09/06/20 05:38 Nucleated RBC % Not Reportable 09/07/20 05:40 Neutrophils # (Manual) 5.7 10^3/uL (1.5-6.6) 09/07/20 05:40 Lymphocytes # (Manual) 0.8 10^3/uL (1.5-3.5) L 09/07/20 05:40 Monocytes # (Manual) 0.3 10^3/uL (0.0-1.0) 09/07/20 05:40 Eosinophils # (Manual) 0.0 10^3/uL (0-0.7) 09/07/20 05:40 Basophils # (Manual) 0.0 10^3/uL (0-0.1) 09/07/20 05:40 Differential Comment MANUAL DIFFERENTIAL 09/07/20 05:40 WBC Morphology NORMAL APPEARANCE (NORMAL) 09/07/20 05:40 Platelet Estimate DECREASED (<130,000) (NORMAL) 09/07/20 05:40 Platelet Morphology NORMAL APPEARANCE (NORMAL) 09/07/20 05:40 RBC Morph Micro Appear NORMAL APPEARANCE (NORMAL) 09/07/20 05:40 PT 12.0 secs (9.9-12.6) 09/07/20 05:40 INR 1.1 (0.8-1.2) 09/07/20 05:40 Sodium 129 mmol/L (135-145) L 09/07/20 05:40 Potassium 3.6 mmol/L (3.5-5.0) 09/07/20 05:40 Chloride 103 mmol/L (101-111) 09/07/20 05:40 Carbon Dioxide 19 mmol/L (21-32) L 09/07/20 05:40 Anion Gap 7.0 (6-13) 09/07/20 05:40 BUN 33 mg/dL (6-20) H 09/07/20 05:40 Creatinine 1.0 mg/dL (0.4-1.0) 09/07/20 05:40 Estimated GFR (MDRD) 54 (>89) L 09/07/20 05:40 Glucose 98 mg/dL (70-100) 09/07/20 05:40 Lactic Acid 1.3 mmol/L (0.5-2.2) 09/01/20 18:50 Calcium 8.1 mg/dL (8.5-10.3) L 09/07/20 05:40 Magnesium 2.0 mg/dL (1.7-2.8) 09/06/20 05:38 Total Bilirubin 0.7 mg/dL (0.2-1.0) 09/01/20 18:15 AST 28 IU/L (10-42) 09/01/20 18:15 ALT 20 IU/L (10-60) 09/01/20 18:15 Alkaline Phosphatase 96 IU/L (42-121) 09/01/20 18:15 Total Protein 5.9 g/dL (6.7-8.2) L 09/01/20 18:15 Albumin 2.4 g/dL (3.2-5.5) L 09/01/20 18:15 Globulin 3.5 g/dL (2.1-4.2) 09/01/20 18:15 Albumin/Globulin Ratio 0.7 (1.0-2.2) L 09/01/20 18:15 Lipase 22 U/L (22-51) 09/01/20 18:15 Urine Color YELLOW 09/01/20 21:15 Urine Clarity CLOUDY (CLEAR) 09/01/20 21:15 Urine pH 5.0 PH (5.0-7.5) 09/01/20 21:15 Ur Specific [place] 1.025 (1.002-1.030) 09/01/20 21:15 Urine Protein TRACE mg/dL (NEGATIVE) 09/01/20 21:15 Urine Glucose (UA) NEGATIVE mg/dL (NEGATIVE) 09/01/20 21:15 Urine Ketones NEGATIVE mg/dL (NEGATIVE) 09/01/20 21:15 Urine Occult Blood NEGATIVE (NEGATIVE) 09/01/20 21:15 Urine Nitrite NEGATIVE (NEGATIVE) 09/01/20 21:15 Urine Bilirubin NEGATIVE (NEGATIVE) 09/01/20 21:15 Urine Urobilinogen 0.2 (NORMAL) E.U./dL (NORMAL) 09/01/20 21:15 Ur Leukocyte Esterase TRACE (NEGATIVE) H 09/01/20 21:15 Urine RBC 6-10 /HPF (0-5) H 09/01/20 21:15 Urine WBC 11-25 /HPF (0-5) H 09/01/20 21:15 Ur Squamous Epith Cells FEW Squamous (<= Few) 09/01/20 21:15 Amorphous Sediment Marked /LPF 09/01/20 21:15 Urine Bacteria Few /HPF (None Seen) 09/01/20 21:15 Ur Microscopic Review INDICATED 09/01/20 21:15 Urine Culture Comments INDICATED 09/01/20 21:15 Nasal Adenovirus (PCR) NOT DETECTED 09/02/20 00:34 Nasal B. parapertussis DNA (PCR) NOT DETECTED 09/02/20 00:34 Nasal Coronavir 229E PCR NOT DETECTED 09/02/20 00:34 Nasal Coronavir HKU1 PCR NOT DETECTED 09/02/20 00:34 Nasal Coronavir NL63 PCR NOT DETECTED 09/02/20 00:34 Nasal Coronavir OC43 PCR NOT DETECTED 09/02/20 00:34 Nasal Enterovir/Rhinovir PCR NOT DETECTED 09/02/20 00:34 Nasal Influenza B PCR NOT DETECTED 09/02/20 00:34 Nasal Influenza A PCR NOT DETECTED 09/02/20 00:34 Nasal Parainfluen 1 PCR NOT DETECTED 09/02/20 00:34 Nasal Parainfluen 2 PCR NOT DETECTED 09/02/20 00:34 Nasal Parainfluen 3 PCR NOT DETECTED 09/02/20 00:34 Nasal Parainfluen 4 PCR NOT DETECTED 09/02/20 00:34 Nasal RSV (PCR) NOT DETECTED 09/02/20 00:34 Nasal B.pertussis DNA PCR NOT DETECTED 09/02/20 00:34 Nasal C.pneumoniae (PCR) NOT DETECTED 09/02/20 00:34 Joseluis Human Metapneumo PCR NOT DETECTED 09/02/20 00:34 Nasal M.pneumoniae (PCR) NOT DETECTED 09/02/20 00:34 Nasal SARS-CoV-2 (PCR) NOT DETECTED 09/02/20 00:34 Stl C. diff Tox B Gene POSITIVE (NEGATIVE) A* 09/01/20 21:15 Ref Lab Test Result REPORT 09/01/20 23:44 - Procedures Procedures: Procedures EXCISION OF DUODENUM, ENDO, DIAGN (08/01/20) EXCISION OF ESOPHAGOGASTRIC JUNCTION, ENDO, DIAGN (08/01/20) EXCISION OF LOWER ESOPHAGUS, ENDO, DIAGN (08/01/20) EXCISION OF RECTUM, ENDO, DIAGN (08/01/20) EXCISION OF STOMACH, PYLORUS, ENDO, DIAGN (08/01/20) TRANSFUSE NONAUT RED BLOOD CELLS IN PERIPH VEIN, PERC (08/01/20) ABX Reporting Has patient been on IV antibiotics over the past 48 hours?: No
[2020-09-07] MEDS ORDERED: FUROSEMIDE 20 MG/2 ML VIAL IVP STA (20:47)
[2020-09-07] MEDS: MAGIC MOUTHWASH (NYSTATIN) 120 ML BOTTLE PO SCH (21:41)
[2020-09-08] MEDS: SODIUM CHLORIDE FLUSH 0.9% 10 ML SYRINGE IVP SCH ×3 (01:52→17:27)
[2020-09-08] MEDS: MAGIC MOUTHWASH (NYSTATIN) 120 ML BOTTLE PO SCH ×4 (03:31→22:28)
[2020-09-08 05:38] LABS: BASOPHILS % (AUTO) 0.8 %; EOSINOPHILS % (AUTO) 0.1 %; HCT - HEMATOCRIT 25.5 % (37.0-47.0); HGB - HEMOGLOBIN 8.3 g/dL (12.0-16.0); MEAN CORPUSCULAR HEMOGLOBIN 31.9 pg (27.0-31.0); MEAN CORPUSCULAR HGB CONC 32.5 g/dL (32.0-36.0); MEAN CORPUSCULAR VOLUME 98.1 fL (81.0-99.0); MEAN PLATELET VOLUME 11.6 fL (7.9-10.8); MONOCYTES % (AUTO) 7.4 %; NEUTROPHILS % (AUTO) 79.5 %; PLT - PLATELET COUNT 48 10^3/uL (130-450); RED CELL DISTRIBUTION WIDTH 17.6 % (12.0-15.0); WHITE BLOOD COUNT 7.5 x10^3/uL (4.8-10.8)
[2020-09-08 05:45] LABS: ABNORMAL LYMPHS % (MANUAL) 0 %
[2020-09-08 05:48] LABS: CALCIUM 8.1 mg/dL (8.5-10.3); POTASSIUM 3.4 mmol/L (3.5-5.0)
[2020-09-08 06:02] LABS: BAND NEUTROPHILS % (MANUAL) 7 %; LYMPHOCYTES # (MANUAL) 0.8 10^3/uL (1.5-3.5); LYMPHOCYTES % (MANUAL) 11 %; MONOCYTES # (MANUAL) 0.5 10^3/uL (0.0-1.0); MYELOCYTES % (MANUAL) 1 %; NEUTROPHILS # (MANUAL) 6.2 10^3/uL (1.5-6.6); PLATELET ESTIMATE, MANUAL DECREASED (<130,000) (NORMAL); PLATELET MORPHOLOGY NORMAL APPEARANCE (NORMAL); RBC MORPHOLOGY (MULTIPLE) 1+ ANISOCYTOSIS (NORMAL); WBC MORPHOLOGY (MULTIPLE) NORMAL APPEARANCE (NORMAL)
[2020-09-08 06:03] LABS: DIFFERENTIAL COMMENT MANUAL DIFFERENTIAL
[2020-09-08] MEDS: BUDESONIDE 0.5 MG/2 ML NEB INH SCH ×2 (07:20→18:03)
[2020-09-08] MEDS: IPRATROPIUM/ALBUTEROL 3 ML NEB INH PRN (07:20)
[2020-09-08] MEDS ORDERED: POTASSIUM CHLORIDE 20 MEQ TABLET PO ONE (07:24)
[2020-09-08 07:52] LABS: ABSOLUTE RETICS # AUTO 0.029 10^6/uL (0.020-0.110); RED BLOOD COUNT 2.66 10^6/uL (4.20-5.40); RETICULOCYTE COUNT % (AUTO) 1.1 % (0.5-2.3)
[2020-09-08 08:06] LABS: % IRON SATURATION 36 % (20-50); IRON 63 ug/dL (28-170); TOTAL IRON BINDING CAPACITY 175 ug/dL (250-450); TRANSFERRIN 125 mg/dL (192-382)
[2020-09-08 08:22] LABS: FERRITIN 1469.6 ng/mL (11.0-306.8)
[2020-09-08] MEDS: FERROUS GLUCONATE 324 MG TABLET PO SCH (08:29)
[2020-09-08] MEDS: SACCHAROMYCES BOULARDII 250 MG CAPSULE PO SCH ×2 (08:29→17:26)
[2020-09-08] MEDS: clonazePAM 0.5 MG TABLET PO SCH ×2 (08:29→21:22)
[2020-09-08] MEDS: VANCOMYCIN 125 MG CAPSULE PO SCH ×4 (08:29→21:22)
[2020-09-08] MEDS: guaiFENesin 600 MG TABLET PO SCH ×2 (08:30→21:22)
[2020-09-08] MEDS: PANTOPRAZOLE 40 MG TABLET PO SCH (08:30)
[2020-09-08] MEDS: PROPRANOLOL 40 MG TABLET PO SCH ×2 (08:30→21:22)
[2020-09-08] MEDS: ENOXAPARIN 30 MG/0.3 ML SYRINGE SUBQ SCH (08:30)
[2020-09-08] MEDS ORDERED: PROCHLORPERAZINE 10 MG/2 ML VIAL IVP PRN (08:52)
[2020-09-08] MEDS: CEFEPIME 2 GM in SODIUM CHLORIDE 0.9% MINIBAG 100 ML IV SCH ×2 (08:53→21:22)
[2020-09-08] MEDS ORDERED: SODIUM CHLORIDE 0.9% 1,000 ML IV SCH (09:00)
[2020-09-08] MEDS: ONDANSETRON 4 MG/2 ML VIAL IVP PRN (09:01)
[2020-09-08] MEDS: ZINC OXIDE 20% OINT 30 GM TUBE TOP PRN ×3 (11:45→21:23)
--- NOTE | 2020-09-08 12:17 | PROVIDER PROGRESS NOTE ---
Subjective - Prog Note Date Prog Note Date: 09/08/20 - Subjective Subjective: Patient reported she feel nausea and vomiting. Nurse report patient was very weak when she tried come back from the chair to the bed. Patient also report she feels very fatigued. She has no appetite in the lunch. Patient reported her diarrhea has significantly improved, she has no diarrhea or bowel movement on today. Current Medications - Current Medications Current Medications: Active Medications Acetaminophen (Acetaminophen 325 Mg Tablet) 650 mg PO Q4HR PRN PRN Reason: Pain 1 to 4 Last Admin: 09/05/20 10:26 Dose: 650 mg Documented by: Albuterol (Albuterol Neb 2.5 Mg/3 Ml) 2.5 mg INH RTQ4H PRN PRN Reason: Wheezing Last Admin: 09/07/20 12:54 Dose: 2.5 mg Documented by: Albuterol/Ipratropium (Ipratropium/Albuterol 3 Ml Neb) 3 ml INH RTQID PRN PRN Reason: Shortness of Air/Wheezing Last Admin: 09/08/20 07:20 Dose: 3 ml Documented by: Budesonide (Budesonide 0.5 Mg/2 Ml Neb) 0.5 mg INH RTBID GARETH Last Admin: 09/08/20 07:20 Dose: 0.5 mg Documented by: Clonazepam (Clonazepam 0.5 Mg Tablet) 0.25 mg PO BID GARETH Last Admin: 09/08/20 08:29 Dose: 0.25 mg Documented by: Ferrous Gluconate (Ferrous Gluconate 324 Mg Tablet) 324 mg PO DAILYWM GARETH Last Admin: 09/08/20 08:29 Dose: 324 mg Documented by: Guaifenesin (Guaifenesin 600 Mg Tablet) 600 mg PO BID GARETH Last Admin: 09/08/20 08:30 Dose: 600 mg Documented by: Cefepime HCl 2 gm/ Sodium (Chloride) 100 mls @ 200 mls/hr IV BID GARETH Stop: 09/11/20 12:00 Last Infusion: 09/08/20 09:25 Dose: Infused Documented by: Sodium Chloride (Normal Saline 0.9%) 1,000 mls @ 83.333 mls/hr IV .Q12H GARETH Stop: 09/08/20 20:59 Last Infusion: 09/08/20 09:25 Dose: 83.333 mls/hr Documented by: Mineral Oil (Min Oil/Dimethicon/Coconut Oil 92 Gm Tube) 1 applic TOP PRN PRN PRN Reason: Skin Care Last Admin: 09/02/20 21:22 Dose: 1 applic Documented by: Multi-Ingredient Mouthwash/Gargle (Magic Mouthwash (Nystatin) 120 Ml Bottle) 30 ml PO Q6H [facility] Stop: 09/10/20 03:01 Last Admin: 09/08/20 08:30 Dose: Not Given Documented by: Multi-Ingredient Ointment (Zinc Oxide 20% Oint 30 Gm Tube) 1 applic TOP PRN PRN PRN Reason: Skin Care Last Admin: 09/05/20 22:23 Dose: 1 applic Documented by: Ondansetron HCl (Ondansetron Odt 4 Mg Tablet) 4 mg TL Q6HR PRN PRN Reason: Nausea / Vomiting Ondansetron HCl (Ondansetron 4 Mg/2 Ml Vial) 4 mg IVP Q4HR PRN PRN Reason: Nausea / Vomiting Last Admin: 09/08/20 09:01 Dose: 4 mg Documented by: Pantoprazole Sodium (Pantoprazole 40 Mg Tablet) 40 mg PO DAILY [facility] Last Admin: 09/08/20 08:30 Dose: 40 mg Documented by: Prochlorperazine Edisylate (Prochlorperazine 10 Mg/2 Ml Vial) 10 mg IVP Q6HR PRN PRN Reason: Nausea / Vomiting Propranolol HCl (Propranolol 40 Mg Tablet) 40 mg PO BID [facility] Last Admin: 09/08/20 08:30 Dose: 40 mg Documented by: Saccharomyces Boulardii (Saccharomyces Boulardii 250 Mg Capsule) 500 mg PO BIDWM [facility] Last Admin: 09/08/20 08:29 Dose: 500 mg Documented by: Sodium Chloride (Sodium Chloride Flush 0.9% 10 Ml Syringe) 10 ml IVP PRN PRN PRN Reason: NEEDED PER PROVIDER ORDERS Sodium Chloride (Sodium Chloride Flush 0.9% 10 Ml Syringe) 10 ml IVP 0100,0900,1700 [facility] Last Admin: 09/08/20 08:31 Dose: 10 ml Documented by: Vancomycin HCl (Vancomycin 125 Mg Capsule) 125 mg PO QID [facility] Last Admin: 09/08/20 08:29 Dose: 125 mg Documented by: Losartan [Cozaar] 25 mg ORAL QPM 02/09/15 Propranolol [Inderal] 40 mg PO BID 02/09/15 Triamterene/Hydrochlorothiazid [Triamterene-Hctz 75-50 mg Tab] 0.5 tab ORAL DAILY 02/09/15 clonazePAM [Clonazepam] 0.25 mg ORAL BID 02/09/15 B-Complex with Vitamin C [Super B Complex-Vitamin C] 1 each PO DAILY 05/27/20 Calcium Phos/Vit D3/Mag Oxide [Posture-D Caplet] 1 each PO DAILY 05/27/20 Cholecalciferol [Vitamin D3] 50 mcg PO DAILY 05/27/20 Cyanocobalamin (Vitamin B-12) [Vitamin B-12] 1,000 mcg PO DAILY 05/27/20 Glucosamine HCl 1,500 mg PO DAILY 05/27/20 [place]-3S/Dha/Epa/Fish Oil [Fish Oil 1,200 mg Softgel] 1 each PO BID 05/27/20 Objective - Vital Signs/Intake & Output Vital Signs: Vital Signs x48h Temp Pulse Pulse Resp BP BP Pulse Ox 09/08/20 11:27 36.3 C L 77 19 112/68 97 09/08/20 08:54 36.4 C L 67 18 128/67 96 09/08/20 07:20 64 20 09/08/20 05:00 36.5 C 65 18 126/48 L 95 Intake & Output: Intake & Output 09/05/20 09/06/20 09/07/20 09/08/20 23:59 23:59 23:59 23:59 Intake Total 950 920 740 220 Output Total 250 Balance 950 920 740 -30 - Objective General Appearance: positive: No acute distress, Alert Eyes Bilateral: positive: Normal inspection, PERRL, No lid inflammation ENT: positive: ENT inspection nml, No signs of dehydration. negative: Purulent nasal drainage Neck: positive: Nml inspection, Trachea midline. negative: Thyromegaly, Tracheal deviation Respiratory: positive: Chest non-tender, No respiratory distress. negative: Wheezes, Rales Cardiovascular: positive: Regular rate & rhythm, No murmur. negative: Tachycardia, Bradycardia, Systolic murmur, Diastolic murmur Peripheral Pulses: 2+ Radial (R), 2+ Radial (L) Abdomen: positive: Non-tender, Nml bowel sounds, No distention. negative: Tenderness Back: positive: Nml inspection Skin: positive: Color nml, Warm, Dry. negative: Cyanosis Extremities: positive: Non-tender, Full ROM, Nml appearance. negative: Calf tenderness Neurologic/Psychiatric: positive: Oriented x3, Motor nml, Sensation nml. negative: Weakness, Sensory loss, Facial droop, Slurred/abnml speech, Depressed mood/affect - Lab Results Fish Bones: 09/08/20 05:05 09/08/20 05:05 Other Labs: Lab Results x24hrs 09/08/20 09/08/20 09/08/20 Range/Units 05:05 05:05 05:05 WBC (4.8-10.8) x10^3/uL RBC (4.20-5.40) 10^6/uL Hgb (12.0-16.0) g/dL Hct (37.0-47.0) % MCV (81.0-99.0) fL MCH (27.0-31.0) pg MCHC (32.0-36.0) g/dL RDW (12.0-15.0) % Plt Count (130-450) 10^3/uL MPV (7.9-10.8) fL Reticulocyte % (Auto) (0.5-2.3) % Neut # (Auto) Lymph # (Auto) [place] # (Auto) Eos # (Auto) Baso # (Auto) Absolute Nucleated RBC Total Counted Band Neuts % (Manual) (0 - 10) % Abnorm Lymph % (Manual) % Myelocytes % ( - 0) % Nucleated RBC % Neutrophils # (Manual) (1.5-6.6) 10^3/uL Lymphocytes # (Manual) (1.5-3.5) 10^3/uL Monocytes # (Manual) (0.0-1.0) 10^3/uL Eosinophils # (Manual) (0-0.7) 10^3/uL Basophils # (Manual) (0-0.1) 10^3/uL Differential Comment WBC Morphology (NORMAL) Platelet Estimate (NORMAL) Platelet Morphology (NORMAL) RBC Morph Micro Appear (NORMAL) Absolute Retic (0.020-0.110) 10^6/uL Sodium (135-145) mmol/L Potassium (3.5-5.0) mmol/L Chloride (101-111) mmol/L Carbon Dioxide (21-32) mmol/L Anion Gap (6-13) BUN (6-20) mg/dL Creatinine (0.4-1.0) mg/dL Estimated GFR (MDRD) (>89) Glucose (70-100) mg/dL Calcium (8.5-10.3) mg/dL Iron 63 (28-170) ug/dL TIBC 175 L (250-450) ug/dL % Saturation 36 (20-50) % Transferrin 125 L (192-382) mg/dL Ferritin 1469.6 H (11.0-306.8) ng/mL Lactate Dehydrogenase 119 (91-225) IU/L Vitamin B12 > 7000 H (180-914) pg/mL 09/08/20 09/08/20 09/08/20 Range/Units 05:05 05:05 05:05 WBC 7.5 (4.8-10.8) x10^3/uL RBC 2.66 L 2.60 L (4.20-5.40) 10^6/uL Hgb 8.3 L (12.0-16.0) g/dL Hct 25.5 L (37.0-47.0) % MCV 98.1 (81.0-99.0) fL MCH 31.9 H (27.0-31.0) pg MCHC 32.5 (32.0-36.0) g/dL RDW 17.6 H (12.0-15.0) % Plt Count 48 L (130-450) 10^3/uL MPV 11.6 H (7.9-10.8) fL Reticulocyte % (Auto) 1.10 (0.5-2.3) % Neut # (Auto) Not Reportable Lymph # (Auto) Not Reportable [place] # (Auto) Not Reportable Eos # (Auto) Not Reportable Baso # (Auto) Not Reportable Absolute Nucleated RBC Not Reportable Total Counted 100 Band Neuts % (Manual) 7 (0 - 10) % Abnorm Lymph % (Manual) 0 % Myelocytes % 1 H ( - 0) % Nucleated RBC % Not Reportable Neutrophils # (Manual) 6.2 (1.5-6.6) 10^3/uL Lymphocytes # (Manual) 0.8 L (1.5-3.5) 10^3/uL Monocytes # (Manual) 0.5 (0.0-1.0) 10^3/uL Eosinophils # (Manual) 0.0 (0-0.7) 10^3/uL Basophils # (Manual) 0.0 (0-0.1) 10^3/uL Differential Comment MANUAL DIFFERENTIAL WBC Morphology NORMAL APPEARANCE (NORMAL) Platelet Estimate DECREASED (<130,000) (NORMAL) Platelet Morphology NORMAL APPEARANCE (NORMAL) RBC Morph Micro Appear 1+ ANISOCYTOSIS (NORMAL) Absolute Retic 0.029 (0.020-0.110) 10^6/uL Sodium 133 L (135-145) mmol/L Potassium 3.4 L (3.5-5.0) mmol/L Chloride 106 (101-111) mmol/L Carbon Dioxide 20 L (21-32) mmol/L Anion Gap 7.0 (6-13) BUN 30 H (6-20) mg/dL Creatinine 1.0 (0.4-1.0) mg/dL Estimated GFR (MDRD) 54 L (>89) Glucose 87 (70-100) mg/dL Calcium 8.1 L (8.5-10.3) mg/dL Iron (28-170) ug/dL TIBC (250-450) ug/dL % Saturation (20-50) % Transferrin (192-382) mg/dL Ferritin (11.0-306.8) ng/mL Lactate Dehydrogenase (91-225) IU/L Vitamin B12 (180-914) pg/mL ABX Reporting Has patient been on IV antibiotics over the past 48 hours?: Yes Assessment/Plan - Problem List (1) Nausea & vomiting Impression: Patient Had nausea and vomiting, exact etiology is unknown. Patient has a history of breast cancer, is under chemo treatment now. We will add intravenous antiemesis as needed, give very gently intravenous IV fluids, precaution fluids overloaded (2)profound weakness Patient Still clinically present profound weakness. Patient has a history of breast cancer, she is on the chemotherapy. Patient also has C. difficile infection with diarrhea, she has progress and improved. She also developed pneumonia in the hospital. We will continue consult with physical therapist and occupational therapist. We will continue treat underlying infection. Patient stated she will continue to follow-up her oncologist for her breast cancer (3) C. difficile colitis Improved, patient state she has no diarrhea on today, will finish 10 days PO vancomycin. Continue probiotics. (4) Pneumonia We will finish 7 days antibiotics treatment for pneumonia, since patient had on chemo treatment, patient is immune compromised. Will help patient discharge to home without antibiotics, since the patient has C. difficile with diarrhea (5) Ascites Paracentesis ordered for today was not done because there was not a significant volume on ultrasound. unknown etiology. (6) Bilateral pleural effusion Assessment/Plan: Clinically patient improved, patient has no acute respiratory distress. pt had moderate pleural effusion in CT of chest. we will hold procedure now. (7) Acute kidney injury Assessment/Plan: Resolved. Patient's creatinine today is 1.0 with estimated GFR of 54.. (8) Dehydration Assessment/Plan: Fluids discontinued due to bilateral pleural effusions and ascites. Renal function is improved at 1.0 (9) Anxiety Assessment/Plan: On clonazepam 0.25 mg p.o. twice daily (11) Breast cancer, left breast Assessment/Plan: CT chest done 09/04 showed reduction in size of breast mass. Patient to follow-up with her oncologist. (12) Hypertension stable, Currently normotensive. On propanolol 40 mg p.o. 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 twice daily.
[2020-09-08] MEDS: ALBUTEROL NEB 2.5 MG/3 ML INH PRN (18:03)
[2020-09-09] MEDS: MAGIC MOUTHWASH (NYSTATIN) 120 ML BOTTLE PO SCH ×5 (03:31→23:20)
[2020-09-09 04:54] LABS: BASOPHILS % (AUTO) 0.9 %; HCT - HEMATOCRIT 23.8 % (37.0-47.0); HGB - HEMOGLOBIN 7.7 g/dL (12.0-16.0); LYMPHOCYTES % (AUTO) 11.6 %; MEAN CORPUSCULAR HEMOGLOBIN 31.7 pg (27.0-31.0); MEAN CORPUSCULAR HGB CONC 32.4 g/dL (32.0-36.0); MEAN CORPUSCULAR VOLUME 97.9 fL (81.0-99.0); MONOCYTES % (AUTO) 7.4 %; NEUTROPHILS % (AUTO) 78.5 %; PLT - PLATELET COUNT 44 10^3/uL (130-450); RED BLOOD COUNT 2.43 10^6/uL (4.20-5.40); RED CELL DISTRIBUTION WIDTH 17.6 % (12.0-15.0); WHITE BLOOD COUNT 7.6 x10^3/uL (4.8-10.8)
[2020-09-09 04:55] LABS: ABNORMAL LYMPHS % (MANUAL) 0 %
[2020-09-09] MEDS: SODIUM CHLORIDE FLUSH 0.9% 10 ML SYRINGE IVP SCH ×3 (04:55→16:11)
[2020-09-09 05:01] LABS: CREATININE 0.9 mg/dL (0.4-1.0); POTASSIUM 3.5 mmol/L (3.5-5.0)
[2020-09-09 05:16] LABS: BAND NEUTROPHILS % (MANUAL) 3 %; LYMPHOCYTES # (MANUAL) 0.4 10^3/uL (1.5-3.5); LYMPHOCYTES % (MANUAL) 5 %; MONOCYTES # (MANUAL) 0.3 10^3/uL (0.0-1.0); MYELOCYTES % (MANUAL) 1 %; NEUTROPHILS # (MANUAL) 6.8 10^3/uL (1.5-6.6)
[2020-09-09 05:17] LABS: DIFFERENTIAL COMMENT MANUAL DIFFERENTIAL; PLATELET ESTIMATE, MANUAL DECREASED (<130,000) (NORMAL); PLATELET MORPHOLOGY NORMAL APPEARANCE (NORMAL); RBC MORPHOLOGY (MULTIPLE) 2+ ANISOC (NORMAL); WBC MORPHOLOGY (MULTIPLE) NORMAL APPEARANCE (NORMAL)
[2020-09-09] MEDS: ONDANSETRON 4 MG/2 ML VIAL IVP PRN (08:59)
[2020-09-09] MEDS: CEFEPIME 2 GM in SODIUM CHLORIDE 0.9% MINIBAG 100 ML IV SCH ×2 (08:59→20:51)
[2020-09-09] MEDS: SACCHAROMYCES BOULARDII 250 MG CAPSULE PO SCH ×2 (09:01→16:12)
[2020-09-09] MEDS: PANTOPRAZOLE 40 MG TABLET PO SCH (09:02)
[2020-09-09] MEDS: VANCOMYCIN 125 MG CAPSULE PO SCH ×4 (09:02→20:51)
[2020-09-09] MEDS: FERROUS GLUCONATE 324 MG TABLET PO SCH (09:02)
[2020-09-09] MEDS: PROPRANOLOL 40 MG TABLET PO SCH ×2 (09:02→20:51)
[2020-09-09] MEDS: clonazePAM 0.5 MG TABLET PO SCH ×2 (09:02→20:51)
[2020-09-09] MEDS: guaiFENesin 600 MG TABLET PO SCH ×2 (09:02→20:51)
--- NOTE | 2020-09-09 09:20 | XRAY Report ---
PROCEDURE: Chest 1 View X-Ray INDICATIONS: SOB TECHNIQUE: One view of the chest was acquired. COMPARISON: Single view chest 09/06/2020 FINDINGS: Surgical changes and devices: Port-A-Cath from a right-sided approach appears in normal position.. Lungs and pleura: No pleural effusions or pneumothorax. Lungs are abnormal with reduced inspiratory volume on the right and mild interval worsening of alveolar consolidation at the right mid and lower lung, and present to a slight degree on the left.. Mediastinum: Mediastinal contours appear normal. Heart size is normal. Bones and chest wall: No suspicious bony lesions. Overlying soft tissues appear unremarkable. IMPRESSION: Port-A-Cath positioning normal. Right mid and lower lung pneumonia appears mildly worsened. The sligh t alveolar infiltration on the left may reflect reduced inspiratory volume or slight pneumonia in [place] t area. Reviewed by: Edi Herzog MD on 09/09/2020 9:19 AM PDT Approved by: Edi Herzog MD on 09/09/2020 9:19 AM PDT Station ID: [id number]
[2020-09-09] MEDS: BUDESONIDE 0.5 MG/2 ML NEB INH SCH ×2 (09:33→18:12)
[2020-09-09] MEDS: ALBUTEROL NEB 2.5 MG/3 ML INH PRN ×2 (09:33→18:12)
[2020-09-09] MEDS: ZINC OXIDE 20% OINT 30 GM TUBE TOP PRN ×2 (12:25→16:30)
--- NOTE | 2020-09-09 13:30 | PROVIDER PROGRESS NOTE ---
Assessment/Plan - Problem List (1) Nausea & vomiting Assessment/Plan: 09/09 Patient feels better, patient's nausea/vomiting is better controlled. Continue antiemesis as needed. Patient Had nausea and vomiting, exact etiology is unknown. Patient has a history of breast cancer, is under chemo treatment now. We will add intravenous antiemesis as needed, give very gently intravenous IV fluids, precaution fluids overloaded (2)profound weakness 09/09 Patient did feel more energy, We will continue to have PT and OT evaluation and treatment for patient. We will continue treat underlying infection for patient. Per PT and OT recommendation, we will order home health PT and OT for p atient, hopefully we can plan to d/c pt on tomorrow Patient Still clinically present profound weakness. Patient has a history of breast cancer, she is on the chemotherapy. Patient also has C. difficile infection with diarrhea, she has progress and improved. She also developed pneumonia in the hospital. We will continue consult with physical therapist and occupational therapist. We will continue treat underlying infection. Patient stated she will continue to follow-up her oncologist for her breast cancer (3) C. difficile colitis Improved, patient state she has no diarrhea on today, will finish 10 days PO vancomycin. Continue probiotics. (4) Pneumonia 09/09 Chest x-ray indicating patient having worsening pneumonia, However clinically patient feel better, More energetic. Patient had 95% sats on room air, without respiratory acute distress. We will continue intravenous Antibiotics. We will finish 7 days antibiotics treatment for pneumonia, since patient had on chemo treatment, patient is immune compromised. Will help patient discharge to home without antibiotics, since the patient has C. difficile with diarrhea (5) Ascites Paracentesis ordered for today was not done because there was not a significant volume on ultrasound. unknown etiology. (6) Bilateral pleural effusion Assessment/Plan: Clinically patient improved, patient has no acute respiratory distress. pt had moderate pleural effusion in CT of chest. we will hold procedure now. (7) Acute kidney injury Assessment/Plan: Resolved. Patient's creatinine today is 1.0 with estimated GFR of 54.. (8) Dehydration Assessment/Plan: Fluids discontinued due to bilateral pleural effusions and ascites. Renal function is improved at 1.0 (9) Anxiety Assessment/Plan: On clonazepam 0.25 mg p.o. twice daily (11) Breast cancer, left breast Assessment/Plan: CT chest done 09/04 showed reduction in size of breast mass. Patient to follow-up with her oncologist. (12) Hypertension stable, Currently normotensive. On propanolol 40 mg p.o. 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 twice daily. - Current Meds Current Meds: Current Medications Generic Name Dose Route Start Last Admin Trade Name Freq PRN Reason Stop Dose Admin Acetaminophen 650 mg 09/02/20 00:59 09/05/20 10:26 Acetaminophen 325 Mg Tablet PO 650 mg Q4HR PRN Administration Pain 1 to 4 Albuterol 2.5 mg 09/04/20 08:37 09/09/20 09:33 Albuterol Neb 2.5 Mg/3 Ml INH 2.5 mg RTQ4H PRN Administration Wheezing Albuterol/Ipratropium 3 ml 09/04/20 09:20 09/08/20 07:20 Ipratropium/Albuterol 3 Ml Neb INH 3 ml RTQID PRN Administration Shortness of Air/Wheezing Budesonide 0.5 mg 09/04/20 09:19 09/09/20 09:33 Budesonide 0.5 Mg/2 Ml Neb INH 0.5 mg RTBID GARETH Administration Clonazepam 0.25 mg 09/02/20 09:00 09/09/20 09:02 Clonazepam 0.5 Mg Tablet PO 0.25 mg BID GARETH Administration Ferrous Gluconate 324 mg 09/03/20 08:00 09/09/20 09:02 Ferrous Gluconate 324 Mg Tablet PO 324 mg DAILYWM GARETH Administration Guaifenesin 600 mg 09/03/20 12:18 09/09/20 09:02 Guaifenesin 600 Mg Tablet PO 600 mg BID GARETH Administration Cefepime HCl 2 gm/ Sodium 100 mls @ 200 mls/hr 09/06/20 09:00 09/09/20 09:47 Chloride IV 09/11/20 12:00 Infused BID GARETH Infusion Mineral Oil 1 applic 09/02/20 02:43 09/02/20 21:22 Min Oil/Dimethicon/Coconut Oil 92 Gm Tube TOP 1 applic PRN PRN Administration Skin Care Multi-Ingredient Mouthwash/Gargle 30 ml 09/07/20 21:00 09/09/20 09:02 Magic Mouthwash (Nystatin) 120 Ml Bottle PO 09/10/20 03:01 30 ml Q6H GARETH Administration Multi-Ingredient Ointment 1 applic 09/02/20 02:43 09/09/20 12:25 Zinc Oxide 20% Oint 30 Gm Tube TOP 1 applic PRN PRN Administration Skin Care Ondansetron HCl 4 mg 09/08/20 08:51 09/09/20 08:59 Ondansetron 4 Mg/2 Ml Vial IVP 4 mg Q4HR PRN Administration Nausea / Vomiting Pantoprazole Sodium 40 mg 09/02/20 09:00 09/09/20 09:02 Pantoprazole 40 Mg Tablet PO 40 mg DAILY GARETH Administration Prochlorperazine Edisylate 10 mg 09/08/20 08:52 09/09/20 12:25 Prochlorperazine 10 Mg/2 Ml Vial IVP 10 mg Q6HR PRN Administration Nausea / Vomiting Propranolol HCl 40 mg 09/02/20 09:00 09/09/20 09:02 Propranolol 40 Mg Tablet PO 40 mg BID GARETH Administration Saccharomyces Boulardii 500 mg 09/02/20 17:00 09/09/20 09:01 Saccharomyces Boulardii 250 Mg Capsule PO 500 mg BIDWM GARETH Administration Sodium Chloride 10 ml 09/02/20 00:59 09/09/20 12:25 Sodium Chloride Flush 0.9% 10 Ml Syringe IVP 10 ml PRN PRN Administration NEEDED PER PROVIDER ORDERS Sodium Chloride 10 ml 09/02/20 01:00 09/09/20 09:03 Sodium Chloride Flush 0.9% 10 Ml Syringe IVP Not Given 0100,0900,1700 GARETH Vancomycin HCl 125 mg 09/02/20 02:00 09/09/20 09:02 Vancomycin 125 Mg Capsule PO 125 mg QID GARETH Administration - Lab Result Fish Bone Diagrams: 09/09/20 04:40 09/09/20 04:40 Subjective - Subjective Patient Reports: Feeling Better Objective Vital Signs: Vital Signs - 24 hr 09/08/20 09/08/20 09/08/20 17:00 18:04 21:20 Temperature 36.4 C L 36.8 C Heart Rate 71 Heart Rate [ 74 87 Brachial] Respiratory 20 24 18 Rate Blood Pressure [Left Brachial artery] Blood Pressure 131/56 H 126/69 [Right Brachial artery] O2 Saturation 95 95 09/09/20 09/09/20 09/09/20 00:36 05:11 08:08 Temperature 36.5 C 36.4 C L 36.8 C Heart Rate Heart Rate [ 68 73 73 Brachial] Respiratory 26 H 24 17 Rate Blood Pressure 110/51 L [Left Brachial artery] Blood Pressure 117/48 L 134/51 H [Right Brachial artery] O2 Saturation 94 94 96 09/09/20 09/09/20 09:35 11:19 Temperature 36.5 C Heart Rate 75 Heart Rate [ 67 Brachial] Respiratory 24 19 Rate Blood Pressure [Left Brachial artery] Blood Pressure 123/49 L [Right Brachial artery] O2 Saturation 95 Oxygen O2 Source Room air I&O (Last 24 Hrs): Intake and Output Totals x24h 09/07/20 09/08/20 09/09/20 23:59 23:59 23:59 Intake Total 740 773 460 Output Total 600 Balance 740 173 460 General: Alert, Oriented x3, Cooperative, No acute distress HEENT: Atraumatic Neck: Supple Lymphatic: no adenopathy Neuro: Alert, Non Focal, Oriented Times 3 Cardiovascular: Regular rate, Normal S1, Normal S2 Respiratory: Chest non-tender, No respiratory distress Extremities: Normal pulses - Results Results: Laboratory Results WBC 7.6 x10^3/uL (4.8-10.8) 09/09/20 04:40 RBC 2.43 10^6/uL (4.20-5.40) L 09/09/20 04:40 Hgb 7.7 g/dL (12.0-16.0) L 09/09/20 04:40 Hct 23.8 % (37.0-47.0) L 09/09/20 04:40 MCV 97.9 fL (81.0-99.0) 09/09/20 04:40 MCH 31.7 pg (27.0-31.0) H 09/09/20 04:40 MCHC 32.4 g/dL (32.0-36.0) 09/09/20 04:40 RDW 17.6 % (12.0-15.0) H 09/09/20 04:40 Plt Count 44 10^3/uL (130-450) L 09/09/20 04:40 MPV 11.0 fL (7.9-10.8) H 09/09/20 04:40 Reticulocyte % (Auto) 1.10 % (0.5-2.3) 09/08/20 05:05 Neut # (Auto) Not Reportable 09/09/20 04:40 Lymph # (Auto) Not Reportable 09/09/20 04:40 [place] # (Auto) Not Reportable 09/09/20 04:40 Eos # (Auto) Not Reportable 09/09/20 04:40 Baso # (Auto) Not Reportable 09/09/20 04:40 Absolute Nucleated RBC Not Reportable 09/09/20 04:40 Total Counted 100 09/09/20 04:40 Band Neuts % (Manual) 3 % (0-10) 09/09/20 04:40 Abnorm Lymph % (Manual) 0 % 09/09/20 04:40 Myelocytes % 1 % (-0) H 09/09/20 04:40 Nucleated RBC % Not Reportable 09/09/20 04:40 Neutrophils # (Manual) 6.8 10^3/uL (1.5-6.6) H 09/09/20 04:40 Lymphocytes # (Manual) 0.4 10^3/uL (1.5-3.5) L 09/09/20 04:40 Monocytes # (Manual) 0.3 10^3/uL (0.0-1.0) 09/09/20 04:40 Eosinophils # (Manual) 0.0 10^3/uL (0-0.7) 09/09/20 04:40 Basophils # (Manual) 0.0 10^3/uL (0-0.1) 09/09/20 04:40 Differential Comment MANUAL DIFFERENTIAL 09/09/20 04:40 WBC Morphology NORMAL APPEARANCE (NORMAL) 09/09/20 04:40 Platelet Estimate DECREASED (<130,000) (NORMAL) 09/09/20 04:40 Platelet Morphology NORMAL APPEARANCE (NORMAL) 09/09/20 04:40 RBC Morph Micro Appear 2+ ANISOC (NORMAL) 09/09/20 04:40 Absolute Retic 0.029 10^6/uL (0.020-0.110) 09/08/20 05:05 PT 12.0 secs (9.9-12.6) 09/07/20 05:40 INR 1.1 (0.8-1.2) 09/07/20 05:40 Sodium 132 mmol/L (135-145) L 09/09/20 04:40 Potassium 3.5 mmol/L (3.5-5.0) 09/09/20 04:40 Chloride 105 mmol/L (101-111) 09/09/20 04:40 Carbon Dioxide 19 mmol/L (21-32) L 09/09/20 04:40 Anion Gap 8.0 (6-13) 09/09/20 04:40 BUN 26 mg/dL (6-20) H 09/09/20 04:40 Creatinine 0.9 mg/dL (0.4-1.0) 09/09/20 04:40 Estimated GFR (MDRD) 61 (>89) L 09/09/20 04:40 Glucose 94 mg/dL (70-100) 09/09/20 04:40 Lactic Acid 1.3 mmol/L (0.5-2.2) 09/01/20 18:50 Calcium 8.0 mg/dL (8.5-10.3) L 09/09/20 04:40 Magnesium 2.0 mg/dL (1.7-2.8) 09/06/20 05:38 Iron 63 ug/dL (28-170) 09/08/20 05:05 TIBC 175 ug/dL (250-450) L 09/08/20 05:05 % Saturation 36 % (20-50) 09/08/20 05:05 Transferrin 125 mg/dL (192-382) L 09/08/20 05:05 Ferritin 1469.6 ng/mL (11.0-306.8) H 09/08/20 05:05 Total Bilirubin 0.7 mg/dL (0.2-1.0) 09/01/20 18:15 AST 28 IU/L (10-42) 09/01/20 18:15 ALT 20 IU/L (10-60) 09/01/20 18:15 Alkaline Phosphatase 96 IU/L (42-121) 09/01/20 18:15 Lactate Dehydrogenase 119 IU/L (91-225) 09/08/20 05:05 Total Protein 5.9 g/dL (6.7-8.2) L 09/01/20 18:15 Albumin 2.4 g/dL (3.2-5.5) L 09/01/20 18:15 Globulin 3.5 g/dL (2.1-4.2) 09/01/20 18:15 Albumin/Globulin Ratio 0.7 (1.0-2.2) L 09/01/20 18:15 Lipase 22 U/L (22-51) 09/01/20 18:15 Vitamin B12 > 7000 pg/mL (180-914) H 09/08/20 05:05 Urine Color YELLOW 09/01/20 21:15 Urine Clarity CLOUDY (CLEAR) 09/01/20 21:15 Urine pH 5.0 PH (5.0-7.5) 09/01/20 21:15 Ur Specific [place] 1.025 (1.002-1.030) 09/01/20 21:15 Urine Protein TRACE mg/dL (NEGATIVE) 09/01/20 21:15 Urine Glucose (UA) NEGATIVE mg/dL (NEGATIVE) 09/01/20 21:15 Urine Ketones NEGATIVE mg/dL (NEGATIVE) 09/01/20 21:15 Urine Occult Blood NEGATIVE (NEGATIVE) 09/01/20 21:15 Urine Nitrite NEGATIVE (NEGATIVE) 09/01/20 21:15 Urine Bilirubin NEGATIVE (NEGATIVE) 09/01/20 21:15 Urine Urobilinogen 0.2 (NORMAL) E.U./dL (NORMAL) 09/01/20 21:15 Ur Leukocyte Esterase TRACE (NEGATIVE) H 09/01/20 21:15 Urine RBC 6-10 /HPF (0-5) H 09/01/20 21:15 Urine WBC 11-25 /HPF (0-5) H 09/01/20 21:15 Ur Squamous Epith Cells FEW Squamous (<= Few) 09/01/20 21:15 Amorphous Sediment Marked /LPF 09/01/20 21:15 Urine Bacteria Few /HPF (None Seen) 09/01/20 21:15 Ur Microscopic Review INDICATED 09/01/20 21:15 Urine Culture Comments INDICATED 09/01/20 21:15 Nasal Adenovirus (PCR) NOT DETECTED 09/02/20 00:34 Nasal B. parapertussis DNA (PCR) NOT DETECTED 09/02/20 00:34 Nasal Coronavir 229E PCR NOT DETECTED 09/02/20 00:34 Nasal Coronavir HKU1 PCR NOT DETECTED 09/02/20 00:34 Nasal Coronavir NL63 PCR NOT DETECTED 09/02/20 00:34 Nasal Coronavir OC43 PCR NOT DETECTED 09/02/20 00:34 Nasal Enterovir/Rhinovir PCR NOT DETECTED 09/02/20 00:34 Nasal Influenza B PCR NOT DETECTED 09/02/20 00:34 Nasal Influenza A PCR NOT DETECTED 09/02/20 00:34 Nasal Parainfluen 1 PCR NOT DETECTED 09/02/20 00:34 Nasal Parainfluen 2 PCR NOT DETECTED 09/02/20 00:34 Nasal Parainfluen 3 PCR NOT DETECTED 09/02/20 00:34 Nasal Parainfluen 4 PCR NOT DETECTED 09/02/20 00:34 Nasal RSV (PCR) NOT DETECTED 09/02/20 00:34 Nasal B.pertussis DNA PCR NOT DETECTED 09/02/20 00:34 Nasal C.pneumoniae (PCR) NOT DETECTED 09/02/20 00:34 Joseluis Human Metapneumo PCR NOT DETECTED 09/02/20 00:34 Nasal M.pneumoniae (PCR) NOT DETECTED 09/02/20 00:34 Nasal SARS-CoV-2 (PCR) NOT DETECTED 09/02/20 00:34 Stl C. diff Tox B Gene POSITIVE (NEGATIVE) A* 09/01/20 21:15 Ref Lab Test Result REPORT 09/01/20 23:44 - Procedures Procedures: Procedures EXCISION OF DUODENUM, ENDO, DIAGN (08/01/20) EXCISION OF ESOPHAGOGASTRIC JUNCTION, ENDO, DIAGN (08/01/20) EXCISION OF LOWER ESOPHAGUS, ENDO, DIAGN (08/01/20) EXCISION OF RECTUM, ENDO, DIAGN (08/01/20) EXCISION OF STOMACH, PYLORUS, ENDO, DIAGN (08/01/20) TRANSFUSE NONAUT RED BLOOD CELLS IN PERIPH VEIN, PERC (08/01/20) ABX Reporting Has patient been on IV antibiotics over the past 48 hours?: Yes Current Medications - Current Medications Current Medications: Active Medications Acetaminophen (Acetaminophen 325 Mg Tablet) 650 mg PO Q4HR PRN PRN Reason: Pain 1 to 4 Last Admin: 09/05/20 10:26 Dose: 650 mg Documented by: Albuterol (Albuterol Neb 2.5 Mg/3 Ml) 2.5 mg INH RTQ4H PRN PRN Reason: Wheezing Last Admin: 09/09/20 09:33 Dose: 2.5 mg Documented by: Albuterol/Ipratropium (Ipratropium/Albuterol 3 Ml Neb) 3 ml INH RTQID PRN PRN Reason: Shortness of Air/Wheezing Last Admin: 09/08/20 07:20 Dose: 3 ml Documented by: Budesonide (Budesonide 0.5 Mg/2 Ml Neb) 0.5 mg INH RTBID [facility] Last Admin: 09/09/20 09:33 Dose: 0.5 mg Documented by: Clonazepam (Clonazepam 0.5 Mg Tablet) 0.25 mg PO BID [facility] Last Admin: 09/09/20 09:02 Dose: 0.25 mg Documented by: Ferrous Gluconate (Ferrous Gluconate 324 Mg Tablet) 324 mg PO DAILYWM [facility] Last Admin: 09/09/20 09:02 Dose: 324 mg Documented by: Guaifenesin (Guaifenesin 600 Mg Tablet) 600 mg PO BID [facility] Last Admin: 09/09/20 09:02 Dose: 600 mg Documented by: Cefepime HCl 2 gm/ Sodium (Chloride) 100 mls @ 200 mls/hr IV BID [facility] Stop: 09/11/20 12:00 Last Infusion: 09/09/20 09:47 Dose: Infused Documented by: Mineral Oil (Min Oil/Dimethicon/Coconut Oil 92 Gm Tube) 1 applic TOP PRN PRN PRN Reason: Skin Care Last Admin: 09/02/20 21:22 Dose: 1 applic Documented by: Multi-Ingredient Mouthwash/Gargle (Magic Mouthwash (Nystatin) 120 Ml Bottle) 30 ml PO Q6H [facility] Stop: 09/10/20 03:01 Last Admin: 09/09/20 09:02 Dose: 30 ml Documented by: Multi-Ingredient Ointment (Zinc Oxide 20% Oint 30 Gm Tube) 1 applic TOP PRN PRN PRN Reason: Skin Care Last Admin: 09/09/20 12:25 Dose: 1 applic Documented by: Ondansetron HCl (Ondansetron Odt 4 Mg Tablet) 4 mg TL Q6HR PRN PRN Reason: Nausea / Vomiting Ondansetron HCl (Ondansetron 4 Mg/2 Ml Vial) 4 mg IVP Q4HR PRN PRN Reason: Nausea / Vomiting Last Admin: 09/09/20 08:59 Dose: 4 mg Documented by: Pantoprazole Sodium (Pantoprazole 40 Mg Tablet) 40 mg PO DAILY [facility] Last Admin: 09/09/20 09:02 Dose: 40 mg Documented by: Prochlorperazine Edisylate (Prochlorperazine 10 Mg/2 Ml Vial) 10 mg IVP Q6HR PRN PRN Reason: Nausea / Vomiting Last Admin: 09/09/20 12:25 Dose: 10 mg Documented by: Propranolol HCl (Propranolol 40 Mg Tablet) 40 mg PO BID [facility] Last Admin: 09/09/20 09:02 Dose: 40 mg Documented by: Saccharomyces Boulardii (Saccharomyces Boulardii 250 Mg Capsule) 500 mg PO BIDWM [facility] Last Admin: 09/09/20 09:01 Dose: 500 mg Documented by: Sodium Chloride (Sodium Chloride Flush 0.9% 10 Ml Syringe) 10 ml IVP PRN PRN PRN Reason: NEEDED PER PROVIDER ORDERS Last Admin: 09/09/20 12:25 Dose: 10 ml Documented by: Sodium Chloride (Sodium Chloride Flush 0.9% 10 Ml Syringe) 10 ml IVP 0100,0900,1700 [facility] Last Admin: 09/09/20 09:03 Dose: Not Given Documented by: Vancomycin HCl (Vancomycin 125 Mg Capsule) 125 mg PO QID [facility] Last Admin: 09/09/20 09:02 Dose: 125 mg Documented by: Losartan [Cozaar] 25 mg ORAL QPM 02/09/15 Propranolol [Inderal] 40 mg PO BID 02/09/15 Triamterene/Hydrochlorothiazid [Triamterene-Hctz 75-50 mg Tab] 0.5 tab ORAL DAILY 02/09/15 clonazePAM [Clonazepam] 0.25 mg ORAL BID 02/09/15 B-Complex with Vitamin C [Super B Complex-Vitamin C] 1 each PO DAILY 05/27/20 Calcium Phos/Vit D3/Mag Oxide [Posture-D Caplet] 1 each PO DAILY 05/27/20 Cholecalciferol [Vitamin D3] 50 mcg PO DAILY 05/27/20 Cyanocobalamin (Vitamin B-12) [Vitamin B-12] 1,000 mcg PO DAILY 05/27/20 Glucosamine HCl 1,500 mg PO DAILY 05/27/20 Elysian-3S/Dha/Epa/Fish Oil [Fish Oil 1,200 mg Softgel] 1 each PO BID 05/27/20
[2020-09-10] MEDS: SODIUM CHLORIDE FLUSH 0.9% 10 ML SYRINGE IVP SCH ×2 (01:14→10:00)
[2020-09-10 05:37] LABS: BASOPHILS % (AUTO) 0.8 %; HCT - HEMATOCRIT 24.7 % (37.0-47.0); HGB - HEMOGLOBIN 7.8 g/dL (12.0-16.0); LYMPHOCYTES % (AUTO) 16.3 %; MEAN CORPUSCULAR HEMOGLOBIN 31.3 pg (27.0-31.0); MEAN CORPUSCULAR HGB CONC 31.6 g/dL (32.0-36.0); MEAN CORPUSCULAR VOLUME 99.2 fL (81.0-99.0); MEAN PLATELET VOLUME 11.7 fL (7.9-10.8); MONOCYTES % (AUTO) 6.8 %; PLT - PLATELET COUNT 41 10^3/uL (130-450); RED BLOOD COUNT 2.49 10^6/uL (4.20-5.40); RED CELL DISTRIBUTION WIDTH 17.9 % (12.0-15.0); WHITE BLOOD COUNT 6.5 x10^3/uL (4.8-10.8)
[2020-09-10 05:38] LABS: CALCIUM 8.1 mg/dL (8.5-10.3); CREATININE 0.9 mg/dL (0.4-1.0); POTASSIUM 3.4 mmol/L (3.5-5.0)
[2020-09-10 05:41] LABS: ABNORMAL LYMPHS % (MANUAL) 0 %
[2020-09-10 06:09] LABS: BAND NEUTROPHILS % (MANUAL) 6 %; DIFFERENTIAL COMMENT MANUAL DIFFERENTIAL; LYMPHOCYTES # (MANUAL) 0.8 10^3/uL (1.5-3.5); LYMPHOCYTES % (MANUAL) 13 %; MONOCYTES # (MANUAL) 0.1 10^3/uL (0.0-1.0); NEUTROPHILS # (MANUAL) 5.5 10^3/uL (1.5-6.6); PLATELET ESTIMATE, MANUAL DECREASED (<130,000) (NORMAL); RBC MORPHOLOGY (MULTIPLE) NORMAL APPEARANCE (NORMAL)
[2020-09-10] MEDS ORDERED: POTASSIUM CHLORIDE 20 MEQ TABLET PO ONE (07:31)
[2020-09-10] MEDS: BUDESONIDE 0.5 MG/2 ML NEB INH SCH (09:23)
[2020-09-10] MEDS: IPRATROPIUM/ALBUTEROL 3 ML NEB INH PRN (09:23)
[2020-09-10] MEDS: PROPRANOLOL 40 MG TABLET PO SCH (09:58)
[2020-09-10] MEDS: clonazePAM 0.5 MG TABLET PO SCH (09:59)
[2020-09-10] MEDS: VANCOMYCIN 125 MG CAPSULE PO SCH ×2 (09:59→12:35)
[2020-09-10] MEDS: guaiFENesin 600 MG TABLET PO SCH (09:59)
[2020-09-10] MEDS: SACCHAROMYCES BOULARDII 250 MG CAPSULE PO SCH (09:59)
[2020-09-10] MEDS: FERROUS GLUCONATE 324 MG TABLET PO SCH (09:59)
[2020-09-10] MEDS: PANTOPRAZOLE 40 MG TABLET PO SCH (09:59)
[2020-09-10] MEDS: CEFEPIME 2 GM in SODIUM CHLORIDE 0.9% MINIBAG 100 ML IV SCH (10:00)
--- NOTE | 2020-09-10 11:01 | Discharge Plan ---
Discharge Plan Problem Reviewed?: Yes Disposition: 06 Home Health Service Condition: Stable Prescriptions: cefUROXime axetiL [Ceftin] 500 mg PO Q12H 4 Days #16 tablet Saccharomyces Boulardii [Florastor] 500 mg PO BIDWM #40 cap Vancomycin [Vancocin] 125 mg PO QID 9 Days #36 cap Diet: Regular Activity Restrictions: Activity as Tolerated Shower Restrictions: No (fall precaution) Instruction Topics: Cefuroxime tablets, Vancomycin capsules, Pneumonia, Clostridium Difficile Infec Health Concerns: C.diff diarrhea, pneumonia, breast cancer and chemotherapy Plan of Treatment: You were found to have C.diff infection diarrhea. Your diarrhea is controlled now. Oral Vancomycin is prescribed for you to finish the treatment course. You were found to have pneumonia in the hospital. Antibiotics Ceftin is prescribed to finish the treatment course. Probiotics is prescribed for you as well. You may continue to followup with your Oncologist on next week Monday as your schedule, and recheck blood work including CBC as well. Home health PT/OT/Aids is arranged for you. Care Goals: stabilization and improvement of your medical conditions. Assessment: Discussed the care plan with you and your daughter, answered your questions, you understood Additional Instructions or Follow Up instructions: You may followup with your PCP in one to two weeks, followup with your oncologist in next week as your schedule. Should your symptoms return or worsen, you may present ER or call 911 for help. Follow-Up Care: Home Health - PT, Home Health - OT No Smoking: If you smoke, Please STOP! Call for help. Follow-up with: Gabriela Hdez DO [Primary Care Provider] -
[2020-09-10 11:09] VITALS: BP 138/56
--- NOTE | 2020-09-10 11:29 | DISCHARGE SUMMARY ---
Discharge Summary Admit Date: 09/02/20 Discharge Date: 09/10/20 Discharging Provider: Miguel Angel Marrufo Primary Care Provider: Dr. Christine Hdez Condition at Discharge: Stable Discharge Disposition: Home Health Service Discharge Facility Name: home - DIAGNOSES Discharge Diagnoses with Status of Each Condition: (1) Nausea & vomiting resolved. Patient is on chemo treatment for her breast cancer, patient has a home antiemesis meds as needed (2)profound weakness significantly improved. Patient had PT and OT evaluation and treatment in the hospital, Patient is arranged for home health PT, OT, home health Aids (3) C. difficile colitis No more diarrhea. Patient is prescribed other 9 days oral vancomycin because patient take oral antibiotics to finish his pneumonia treatment, Per up-to-date recommendation. Patient is prescribed probiotics as well. (4) Pneumonia Significantly improved, patient has 96% sats on room air, patient has no acute respiratory distress. Patient is prescribed oral antibiotics to finish the treatment course, Probiotics is prescribed for patient as well. (5) Ascites Paracentesis ordered for today was not done because there was small amount. unclear etiology but pt has History of breast cancer, patient on the chemo treatment now. (6) Bilateral pleural effusion Clinically patient Has significantly improved, patient has no acute respiratory distress. patient has 96% sats on room air. pt had moderate pleural effusion in CT of chest. we will hold procedure now. Patient may follow-up with outpatient oncologist and her PCP to monitor. (7) Acute kidney injury Resolved. (8) Dehydration resolved (9) Anxiety stable (11) Breast cancer, left breast CT chest done 09/04 showed reduction in size of breast mass. Discussed the imaging results with the patient. Patient may follow-up with her oncologist. 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 Garcia's HPI on 09/02/20 Is a 80-year-old female with history of dysphagia, esophagitis with esophageal erosions, Schatzki ring, gastritis and duodenitis who is currently undergoing treatment for breast cancer. She presented to the ED with complaint of multiple episodes of watery foul-smelling diarrhea daily. She is incontinent of stool every time she coughs or sneezes. This has been going on for the past 2 to 3 days. She has felt very weak as a result. In the ED work-up included BMP which showed a creatinine of 1.9. She also had a stool test which was positive for C. difficile. As a result she was presented for admission for further treatment. At bedside she is resting comfortably. She denies chest pain, dyspnea, abdominal pain, nausea, vomiting, fever or chills. Her white blood cell count was 9. She was recently admitted in the hospital last month July 2020 for acute blood loss anemia for which she received blood transfusion. During that stay she was treated for a urinary tract infection with antibiotics. - HOSPITAL COURSE Hospital Course: Patient was admitted for diarrhea. patient was found to have C. difficile infection. Patient was treated with oral vancomycin. Patient's diarrhea was gradually improved and finally resolved. Patient also develop pneumonia in the hospital. Patient was treated with antibiotics and probiotics. Patient also had PT and OT evaluation and treatment. Home health PT, OT and home health aide is recommended and arranged for pt. After the treatment, patient has no diarrhea, patient weakness is improved as well. Patient has no respiratory distress, she has 96% sats on room air. - ALLERGIES Allergies/Adverse Reactions: Allergies Allergy/AdvReac Type Severity Reaction Status Date / Time No Known Drug Allergies Allergy Verified 09/01/20 17:55 - MEDICATIONS Home Medications: Ambulatory Orders Medication Instructions Recorded Confirmed Losartan [Cozaar] 25 mg ORAL QPM 02/09/15 09/01/20 Propranolol [Inderal] 40 mg PO BID 02/09/15 09/01/20 Triamterene/Hydrochlorothiazid 0.5 tab ORAL DAILY 02/09/15 09/01/20 [Triamterene-Hctz 75-50 mg Tab] clonazePAM [Clonazepam] 0.25 mg ORAL BID 02/09/15 09/01/20 Lidocaine/Prilocain 2.5% Cream 5 applic TOP UD #1 gm 05/26/20 09/01/20 [Emla 2.5% Cream] OLANZapine [Zyprexa] 5 mg PO UD #12 tablet 05/26/20 09/01/20 Prochlorperazine Maleate 10 mg PO Q6HR PRN #30 tab 05/26/20 09/01/20 [Compazine] B-Complex with Vitamin C [Super B 1 each PO DAILY 05/27/20 09/01/20 Complex-Vitamin C] Calcium Phos/Vit D3/Mag Oxide 1 each PO DAILY 05/27/20 09/01/20 [Posture-D Caplet] Cholecalciferol [Vitamin D3] 50 mcg PO DAILY 05/27/20 09/01/20 Glucosamine HCl 1,500 mg PO DAILY 05/27/20 09/01/20 [place]-3S/Dha/Epa/Fish Oil [Fish 1 each PO BID 05/27/20 09/01/20 Oil 1,200 mg Softgel] Ferric Citrate [Auryxia] 210 mg PO DAILY #30 tablet 08/06/20 09/01/20 Pantoprazole [Protonix] 40 mg PO DAILY #30 tablet 08/06/20 09/01/20 Saccharomyces Boulardii [Florastor] 500 mg PO BIDWM #40 cap 09/10/20 Vancomycin [Vancocin] 125 mg PO QID 9 Days #36 cap 09/10/20 cefUROXime axetiL [Ceftin] 500 mg PO Q12H 4 Days #16 tablet 09/10/20 - PHYSICAL EXAM AT DISCHARGE General Appearance: positive: No acute distress, Alert. negative: Lethargic Eyes Bilateral: positive: Normal inspection, PERRL, No lid inflammation ENT: positive: ENT inspection nml, No signs of dehydration. negative: Purulent nasal drainage Neck: positive: Nml inspection, Trachea midline. negative: Thyromegaly, Tracheal deviation Respiratory: positive: Chest non-tender, No respiratory distress. negative: Wheezes, Rales Cardiovascular: positive: Regular rate & rhythm, No murmur. negative: Tachycardia, Bradycardia, Systolic murmur, Diastolic murmur Peripheral Pulses: positive: 2+ Abdomen: positive: Non-tender, Nml bowel sounds, No distention. negative: Tend erness Back: positive: Nml inspection Skin: positive: Color nml, Warm, Dry. negative: Cyanosis, Diaphoresis Extremities: positive: Non-tender, Full ROM, Nml appearance. negative: Calf tenderness Neurologic/Psychiatric: positive: Oriented x3, Motor nml, Sensation nml, Mood/affect nml. negative: Weakness, Sensory loss, Facial droop, Slurred/abnml speech, Depressed mood/affect - LABS Result Diagrams: 09/10/20 04:23 09/10/20 04:23 - FOLLOW UP Follow Up: You were found to have C.diff infection diarrhea. Your diarrhea is controlled now. Oral Vancomycin is prescribed for you to finish the treatment course. You were found to have pneumonia in the hospital. Antibiotics Ceftin is prescribed to finish the treatment course. Probiotics is prescribed for you as well. You may continue to followup with your Oncologist on next week Monday as your schedule, and recheck blood work including CBC as well. Home health PT/OT/Aids is arranged for you. You may followup with your PCP in one to two weeks, followup with your oncologist in next week as your schedule. Should your symptoms return or worsen, you may present ER or call 911 for help. - TIME SPENT Time Spent in Discharge (Minutes): 30
== END 2020-09-10 13:14 | disposition home health service (06) | DRG 371 ==
LOC: ED 17:30 → MS2 09-02 00:59
PROVIDERS: ADMIT Internal Medicine; ATTEND Nurse Practitioner Gerontology
DX: A04.72 Enterocolitis due to Clostridium difficile, not specified as recurrent (principal); J18.9 Pneumonia, unspecified organism; D61.810 Antineoplastic chemotherapy induced pancytopenia; N30.00 Acute cystitis without hematuria; C50.919 Malignant neoplasm of unspecified site of unspecified female breast; Z20.822 Contact with and (suspected) exposure to COVID-19; N17.9 Acute kidney failure, unspecified; R18.8 Other ascites; J90 Pleural effusion, not elsewhere classified; E87.1 Hypo-osmolality and hyponatremia; E86.0 Dehydration; F41.9 Anxiety disorder, unspecified; C50.912 Malignant neoplasm of unspecified site of left female breast; I10 Essential (primary) hypertension; G25.0 Essential tremor; R15.9 Full incontinence of feces; R53.1 Weakness; Z79.899 Other long term (current) drug therapy; Z66 Do not resuscitate; R11.2 Nausea with vomiting, unspecified; Z87.891 Personal history of nicotine dependence; Z87.440 Personal history of urinary (tract) infections
CPT/HCPCS: 36415; 71045; 71250; 76705; 80048; 80053; 81001; 82607; 82728; 83540; 83605; 83615; 83690; 83735; 84466; 85025; 85045; 85610; 87040; 87045; 87046; 87086; 87427; 87493; 87631; 92524; 92610; 94640; 96360; 96361; 97110; 97162; 97166; 97530; 99284; 99285; A6250; A9270; J1650; J7626; J8499; Q0162; 0202U; 81003; 81599

== ENCOUNTER 2020-10-13 13:00 | Outpatient (CLI) | payer OTHER ==
--- NOTE | 2020-10-13 17:26 | CONSULTATION NOTE ---
Palliative Care Consultation - Referral Referring Provider: Dr. Carlos Alberto Gross Time of Visit: [id number] Referral setting: Home Referral Reason: Breast Ca/Anxiety/Goals of Care - Information Sources Records reviewed: Previous records reviewed History/Review of Systems obtained from: Patient, Family (daughter Jennifer) Exam limitations: No limitations - History of Present Illness Brief History of Present Illness: This is a teressa 80-year-old woman who discovered a lump on her left breast, in early April. 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 Because her breast cancer showed high- grade and HER-2 positive, she was initiated on induction chemotherapy, of Taxotere/carboplatinum, Herceptin and Perjeta. She did have staging CT scans, that were negative including a bone scan negative for systemic mets. Unfortunately she had several complications along the way, she was hospitalized 08/01/2020 to 08/06/2020 for acute blood loss anemia, thought to be due to her pancytopenia, esophagitis, gastritis, UTI, which led to deconditioning and decline in functional status. She did move in with her daughter, who has been providing ongoing support. Unfortunately she had another hospitalization , had developed C. difficile colitis, pneumonia, bilateral pleural effusion, CHARLES, and persistent pancytopenia. It was decided after this hospitalization they would discontinue after 4 of 6 planned cycles. She unfortunately since has developed loose watery stool again, with recurrence of C. difficile and was put back on Vanco by her PCP. She is currently on a taper, stools are still soft but much improved 2-3 times a day. Patient presents with fairly high symptom burden of persistent fatigue, significant deconditioning and functional decline, she is working with [facility] health PT OT for strengthening, development of a proximal coccyx decub. She has had weight loss of about 25 pounds over the last several months, complains of persistent early satiety and anorexia, has had some tearfulness and depression as well as anxiety. Patient has long-term had essential tremors, has run in her family, she is currently on propranolol and clonazepam to manage. Medical/Surgical History - Past Medical History Cardiovascular: reports: Hypertension, High cholesterol, Murmur, Arrhythmia Respiratory: reports: Asthma, Pneumonia Neuro: Peripheral neuropathy, Tremors GI: reports: GERD, Ulcers, Hiatal hernia, Colon polyps, Chronic diarrhea, Other (stomach "mass" was benign) 2ND PRESSMAN: reports: Breast cancer : reports: None HEENT: reports: Chronic vision loss Psych: reports: Anxiety, Claustrophobia Musculoskeletal: reports: Osteoarthritis Derm: reports: Other (skin cancer "squamous" reports cleared with chemo) MRSA Hx?: No - Past Surgical History General: reports: Colonoscopy, EGD Ortho: reports: Hip replacement Cardiovascular: reports: Other (portacath; reports malfunctioning intermittently) Neuro: reports: Other Derm: reports: Skin cancer surgery Social History - Living Situation Living Situation: With family Support System: Patient currently living with her daughter and son-in-law, other family members are providing support Jennifer is working. Patient was living independently on her own, but currently needs assistance. She does find this distressing to be a burden on her family. Family History - Family History Family History: Mother: (father of old age at 90; but had prostate CA), Cancer (melanoma), Father: , Cancer, Sister: Alive and Well (one sister of lung CA), Family History Comment/Other: family member with colon CA/aunt with ovarian CA; 2nd prostate CA on father's side Medications/Allergies - Medications Home Medications: Ambulatory Orders Medication Instructions Recorded Confirmed Losartan [Cozaar] 25 mg ORAL QPM 02/09/15 10/14/20 Propranolol [Inderal] 40 mg PO BID MDD tremors 02/09/15 10/14/20 Triamterene/Hydrochlorothiazid 0.5 tab ORAL DAILY 02/09/15 10/14/20 [Triamterene-Hctz 75-50 mg Tab] clonazePAM [Clonazepam] 0.5 mg ORAL BID 02/09/15 10/14/20 Lidocaine/Prilocain 2.5% Cream 5 applic TOP UD #1 gm 05/26/20 10/14/20 [Emla 2.5% Cream] Prochlorperazine Maleate 10 mg PO Q6HR PRN #30 tab 05/26/20 10/14/20 [Compazine] B-Complex with Vitamin C [Super B 1 each PO DAILY 05/27/20 10/14/20 Complex-Vitamin C] Calcium Phos/Vit D3/Mag Oxide 1 each PO DAILY 05/27/20 10/14/20 [Posture-D Caplet] Cholecalciferol [Vitamin D3] 50 mcg PO DAILY 05/27/20 10/14/20 Glucosamine HCl 1,500 mg PO DAILY 05/27/20 10/14/20 Vancomycin [Vancocin] 125 mg PO BID MDD on taper 10/05/20 10/14/20 Iron,Carbonyl [Carbonyl Iron] 45 mg PO DAILY 10/14/20 10/14/20 Pantoprazole [Protonix] 40 mg PO DAILY 10/14/20 10/14/20 - Allergies Allergies/Adverse Reactions: Allergies Allergy/AdvReac Type Severity Reaction Status Date / Time No Known Drug Allergies Allergy Verified 10/12/20 14:30 Review of Systems - Constitutional Constitutional: reports: Fatigue (persistent but improving), Chills (feels "cold"), Weakness, Poor appetite, Weight loss (220 down to 195). denies: Fever - Ears, Nose & Throat Ears, Nose & Throat: reports: Dry mouth, Other (improved swallowing). denies: Mouth lesions - Cardiovascular Cardiovascular: reports: Edema (mild), Lightheadedness, Exertional dyspnea, Decr. exercise tolerance. denies: Chest pain - Respiratory Respiratory: reports: SOB with exertion. denies: Cough, SOB at rest - Gastrointestinal Gastrointestinal: reports: Poor appetite, Early satiety. denies: Abdominal pain, Diarrhea (soft 2-3 x a day; no watery stool), Nausea, Reflux/heartburn - Genitourinary Genitourinary: denies: Incontinence - Musculoskeletal Musculoskeletal: reports: Muscle aches, Stiffness, Muscle weakness, Assistive devices (uses walker for ambulation; difficulty with bed mobility working with PT/OT) - Integumentary Integumentary: reports: Dryness, Nail changes (lost a few nails), Hair changes (alopecia). denies: Lesions (cleared with chemo on hands/legs) - Neurological Neurological: reports: General weakness, Memory problems (mild) - Psychiatric Psychiatric: reports: Depression, Anxiety - Endocrine Endocrine: reports: Intolerance to cold - Hematologic/Lymphatic Hematologic/Lymph: reports: Anemia (8.3) - All Other Systems All Other Systems: reports: Reviewed and negative Physical Exam - Vital Signs Temperature: 97.2 C Pulse Rate: 64 Respiratory Rate: 18 O2 Saturation: 98 (ra @ rest) Blood Pressure: 108/64 - Physical Exam General Appearance: positive: No acute distress, Alert Eyes Bilateral: positive: Normal inspection ENT: negative: Oral lesions Neck: positive: Trachea midline Cardiovascular: positive: Regular rate & rhythm Respiratory: positive: Other (right pleural effusion persistent no BS RLL) Abdomen: positive: Soft, Nml bowel sounds, Tenderness Skin: positive: Pallor, Dryness, Pressure wound (moist gluteal fold at proximal end of coccyx; sits most of time in recliner "recliner butt" pressure note with butt cheeks together; has pressure relief cushion; using zinc paste and barrier cream) Extremities: positive: Pedal edema (trace to 1+ up to mid calf;), Other (patient with upper extremity tremors; left greater than right) Neurologic/Psychiatric: positive: Oriented x3, Mood/affect nml, Weakness, Other (tearful with recall of difficulties) Palliative Care - POLST Patient has POLST: No Pain: No pain Tiredness/Fatigue: Moderate (4-6) Drowsiness/Sedation: Mild (1-3) Nausea: None Anorexia: Moderate (4-6), Weight loss Dyspnea: Moderate (4-6) (with activity) Depression: Mild (1-3) Anxiety: Mild (1-3) Feelings of wellbeing/Perceived Quality of Life: Fair, Acceptable, Improved Sleep: Sleeps well Constipation: No Performance Status: Patient's previous baseline of activity, patient was independent, 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 She was independent in her ADLs, and gardening. Currently she has difficulty getting from sitting to standing, is ambulatory for short distances with a walker, has lower extremity weakness, also limited some by her tremors. - Palliative Care Discussion: Discussion with the daughter and patient, regarding the complexity of her turning, has had multiple complications over the last several months both with her chemo and with the C. difficile. Patient had lost her last year to cancer, is still quite tearful of this. She is feeling somewhat of a burden to her family, and is worried about the future. Currently she has had significant functional decline, is pending surgery for her breast cancer, does not know if it is mastectomy versus lumpectomy. She will be seeing Dr. Alanis on 10/21. Patient currently quite very frail, worried about being able to tolerate pending treatment plan. Patient reports she does have advanced care planning documents, daughter is not aware of these. She reports it does list Jennifer as her DPOA. We discussed in the context of her multiple hospitalizations would be good to revisit these, she will "take these out" and we will review and see if they match her current wishes. Results - Lab Results Lab results reviewed: Yes Lab and Imaging Results: Hemoglobin 8.3, creatinine 1.8, GFR 27 Impression and Recommendations - Palliative Care Impression: This is a 80-year-old woman with known stage II breast cancer, T3N0 with 2 hospitalizations secondary to her neoadjuvant treatment. She did have a decrease in her breast mass from 3.6-1.2 unable to locate at this point in time. She is awaiting follow-up with surgery for further treatment planning. She has had recurrent C. difficile, remains still quite frail and deconditioned. Palliative care to provide support for symptom management, psychosocial support, and anticipatory guidance. Recommendations/Counseling Done: 1. Stage II coccyx decub. Daughter reports is improving, patient though continues to be quite sedentary suspect this is adding to delay in healing. Counseling provided regarding offloading, patient does take daily naps, encouraged to take this in bed, reposition and continue using her pressure- relief cushion, would continue the same care at this point as is in fold unable to put dressing there with confidence would stay. 2. C. difficile. Patient remains at risk for recurrent C. difficile infection. Currently on a vancomycin taper. Counseling provided review of monitoring of GI function and able to identify signs and symptoms to further contact PCP also encouraged regarding long-term risk and weighing benefits and burdens regarding antibiotic use. 3. Generalized weakness. This is multifactorial, patient continues with persistent anemia and 8.3 hemoglobin, 2 hospitalizations with deconditioning, loss of muscle mass. Patient currently has home PT/OT, is compliant in her home exercise program. Counseling provided regarding review of hydration, nutrition, as well as progressive ambulation and building endurance. 4. Breast cancer. Patient completed 4 of her 6 neoadjuvant treatment, does remain quite overwhelmed with her last few months and sequela. Counseling provided for normalizing feelings of grief and loss, changes in body image, as well as psychosocial support in the context of her diagnosis. 5. Advanced care planning. Patient does believe she had he has ACP planning documents, counseling provided regarding need to have them on file in the context particularly around DPOA. We will review at next appointment and see if needs updating. 75 minutes with greater than 50% of this done in counseling regarding symptom management, anticipatory guidance, psychosocial support, and coordination of care.
== END 2020-10-13 13:01 | disposition home or self-care (01) ==
LOC: PC 13:00
PROVIDERS: ATTEND Nurse Practitioner Adult Health
DX: Z51.5 Encounter for palliative care (principal); C50.212 Malignant neoplasm of upper-inner quadrant of left female breast; Z17.0 Estrogen receptor positive status [ER+]; A04.71 Enterocolitis due to Clostridium difficile, recurrent; L89.152 Pressure ulcer of sacral region, stage 2; R63.0 Anorexia; F32.9 Major depressive disorder, single episode, unspecified; G25.0 Essential tremor; R53.81 Other malaise; R53.83 Other fatigue; R53.1 Weakness
CPT/HCPCS: 99345

== ENCOUNTER 2020-11-02 09:18 | Day surgery (SDC) | payer OTHER ==
--- NOTE | 2020-11-02 09:43 | ANESTHESIA ---
Pre-Anesthesia VS, & Labs - Diagnosis left breast cancer - Procedure simple mastectomy Height: 5 ft 5 in Weight (kg): 85 kg Body Mass Index: 31.1 BMI Classification: Obese - NPO >8 hours - Is Patient ?: No Home Medications and Allergies Losartan [Cozaar] 25 mg ORAL QPM 02/09/15 Propranolol [Inderal] 40 mg PO BID MDD tremors 02/09/15 Triamterene/Hydrochlorothiazid [Triamterene-Hctz 75-50 mg Tab] 0.5 tab ORAL DAILY 02/09/15 clonazePAM [Clonazepam] 0.5 mg ORAL BID 02/09/15 B-Complex with Vitamin C [Super B Complex-Vitamin C] 1 each PO DAILY 05/27/20 Calcium Phos/Vit D3/Mag Oxide [Posture-D Caplet] 1 each PO DAILY 05/27/20 Cholecalciferol [Vitamin D3] 50 mcg PO DAILY 05/27/20 Glucosamine HCl 1,500 mg PO DAILY 05/27/20 Vancomycin [Vancocin] 125 mg PO BID MDD on taper 10/05/20 Iron,Carbonyl [Carbonyl Iron] 45 mg PO DAILY 10/14/20 Pantoprazole [Protonix] 40 mg PO DAILY 10/14/20 Allergies/Adverse Reactions: Allergies Allergy/AdvReac Type Severity Reaction Status Date / Time No Known Drug Allergies Allergy Verified 10/12/20 14:30 Anes History & Medical History - Anesthetic History Anesthesia Complications: reports: No previous complications - Medical History Cardiovascular: reports: Hypertension, High cholesterol, Murmur, Arrhythmia Pulmonary: reports: Asthma, Pneumonia Gastrointestinal: reports: GERD, Ulcers, Hiatal hernia, Colon polyps, Chronic diarrhea, Other Urinary: reports: None Neuro: reports: Peripheral neuropathy, Tremors Musculoskeletal: reports: Osteoarthritis Endocrine/Autoimmune: reports: Other Blood Disorders: reports: Anemia Skin: reports: Other Smoking Status: Never smoker History of Cancer?: Yes - Surgical History General: reports: Colonoscopy, EGD Cardiothoracic: reports: Other Neurologic: reports: Other Orthopedic: reports: Hip replacement Dermatologic: reports: Skin cancer surgery Exam General: Alert Dental: WNL Mouth Opening: Greater than 4 Fingerbreadths Neck Mobility: Normal Mallampati classification: II Respiratory: Lungs clear Cardiovascular: Regular rate, Other (2/6 murmur) Plan Anesthesia Type: General Consent for Procedure(s) Verified and Reviewed: Yes Code Status: Attempt Resuscitation ASA classification: 3-Severe systemic disease Is this case an emergency?: No
[2020-11-02] MEDS ORDERED: PROPOFOL 200 MG/20 ML VIAL IVP ONE (09:46)
[2020-11-02] MEDS ORDERED: fentaNYL 100 MCG/2 ML VIAL ONE ×2 (09:46→11:11)
[2020-11-02] MEDS ORDERED: LIDOCAINE-MPF 2% 5 ML VIAL ONE (09:46)
[2020-11-02] MEDS ORDERED: LIDOCAINE 2%-EPI 1:100000 20 ML MDV ONE (09:48)
[2020-11-02] MEDS ORDERED: BUPIVACAINE 0.5% PF 10 ML VIAL ONE (09:48)
[2020-11-02] MEDS ORDERED: BUPIVACAINE 0.5% PF 10 ML VIAL IM ONE (09:50)
[2020-11-02] MEDS ORDERED: LIDOCAINE 2%-EPI 1:100000 20 ML MDV SUBQ ONE (09:51)
[2020-11-02] MEDS ORDERED: LACTATED RINGERS 1,000 ML IV ONE ×2 (10:07→11:47)
[2020-11-02] MEDS ORDERED: DEXAMETHASONE 4 MG/ML VIAL ONE (10:45)
[2020-11-02] MEDS ORDERED: ONDANSETRON 4 MG/2 ML VIAL ONE (10:45)
[2020-11-02] MEDS ORDERED: ACETAMINOPHEN 1,000 MG/100 ML 100 ML IV ONE (10:45)
--- NOTE | 2020-11-02 11:46 | OPERATIVE REPORT ---
Operative Report - General Procedure Date: 11/02/20 Planned Procedure: Left simple mastectomy Pre-Op Diagnosis: Left breast cancer s/p neoadjuvant chemotherapy Procedure Performed: Left total mastectomy Post Op Diagnosis: Left breast cancer s/p neoadjuvant chemotherapy - Procedure Note Primary Surgeon: Gris Anesthesia Provider: ZAIDA Durbin Anesthesia Technique: General LMA Pathology: Left breast marked for orientation Estimated Blood Loss (mL): 25 Drain/Tube Type: Mike drain (19 F in the inframmary pocket) Findings: Skin well vascularized Complications: None apparent - Other Other Information/Narrative: After obtaining informed consent, the patient is brought to the operating room and placed in the supine position on the operating table. Following successful induction of general endotracheal anesthesia, appropriate padding of all bony prominences, and placement of appropriate monitors, the left chest and axilla were prepped and draped in the standard surgical fashion. A timeout was held per scope protocol. All elements of the surgical safety checklist were followed before, during, and after the procedure. We began the procedure by infiltrating half percent Marcaine plain throughout the subcutaneous tissue of the breast and beneath the pectoralis major and minor muscles as well as portions of the serratus anterior. This was to done to provide a field block.An incision was fashioned elliptically. As this was not intended to be a skin sparing procedure and was done for hygiene purposes, every attempt was made to create a completely flat scar. This incision was then completed with a 10 blade scalpel. It was carried through the skin and subcutaneous tissue. Traction and countertraction were then used to divide the underlying breast tissue from the overlying dermis from the level of the incision to the clavicle superiorly medially to the sternum inferiorly to the inframammary fold and lateral to the posterior axillary line. Once a circumferential dissection had been obtained, the breast was removed in a medial to lateral fashion. All perforators were addressed with sutures or with cautery prior to division. The breast was then marked with a short stitch superior and a long stitch lateral. The wound was irrigated with warm water and aspirated free of all fluid and particulate matter. It was checked once again for hemostasis and touched up in just a couple of places with cautery. A 19 Serbian Mike drain was placed in the inframammary pocket and brought out inferior medially. It was sewn into place. The skin edges were then closed in an interrupted fashion with Vicryl suture and the Endo Close device was used to approximate the skin. The wound was cleaned and the Erlinda wound management device was then placed to the overlying skin and hooked up to suction. A good seal was obtained. All sponge, needle, and instrument counts were correct at the conclusion of the case. The patient was allowed to wake from anesthesia without difficulty and taken to the postanesthesia care unit in good condition.
[2020-11-02] MEDS ORDERED: SODIUM CHLORIDE FLUSH 0.9% 10 ML SYRINGE IVP PRN (11:50)
[2020-11-02] MEDS ORDERED: ONDANSETRON 4 MG/2 ML VIAL IVP PRN ×2 (11:50→12:08)
[2020-11-02] MEDS ORDERED: HYDROmorphone 0.5 MG/0.5 ML SYRINGE IVP PRN ×2 (11:50→12:08)
[2020-11-02] MEDS ORDERED: oxyCODONE 5 MG TABLET PO PRN (11:50)
[2020-11-02] MEDS ORDERED: fentaNYL 100 MCG/2 ML VIAL IVP PRN (12:08)
[2020-11-02] MEDS ORDERED: ATROPINE ABBOJECT 1 MG/10 ML SYRINGE IVP PRN (12:08)
[2020-11-02] MEDS ORDERED: NALOXONE 0.4 MG/ML VIAL IVP PRN (12:08)
[2020-11-02] MEDS ORDERED: METOCLOPRAMIDE 10 MG/2 ML VIAL IVP PRN (12:08)
[2020-11-02] MEDS ORDERED: MORPHINE 2 MG/ML CARPUJECT IVP PRN (12:08)
[2020-11-02] MEDS: LACTATED RINGERS 1,000 ML IV SCH ×2 (12:58→22:11)
[2020-11-02] MEDS ORDERED: LACTATED RINGERS 1,000 ML IV SCH (13:00)
--- NOTE | 2020-11-02 14:39 | ANESTHESIA POST OP EVALUATION ---
Anesthesia Post Eval - Post Anesthesia Eval Vitals: Last Vital Signs Temp 36.5 C 11/02/20 14:19 Pulse 64 11/02/20 14:19 Resp 16 11/02/20 14:19 BP 111/55 L 11/02/20 14:19 Pulse Ox 96 11/02/20 14:19 CV Function Including HR & BP: Stable Pain Control: Satisfactory Nausea & Vomiting: Negative Mental Status: Baseline Respiratory Status: Airway Patent Hydration Status: Satisfactory Anesthesia Complications: None
[2020-11-02] MEDS: SODIUM CHLORIDE FLUSH 0.9% 10 ML SYRINGE IVP SCH (17:40)
[2020-11-02] MEDS: ACETAMINOPHEN 1,000 MG/100 ML 100 ML IV SCH (17:48)
[2020-11-02] MEDS: clonazePAM 0.5 MG TABLET PO SCH (20:07)
[2020-11-02] MEDS: VANCOMYCIN 125 MG CAPSULE PO SCH (20:07)
[2020-11-02] MEDS: PROPRANOLOL 40 MG TABLET PO SCH (20:07)
[2020-11-02] MEDS ORDERED: LOSARTAN 50 MG TABLET PO SCH (21:00)
[2020-11-03] MEDS: ACETAMINOPHEN 1,000 MG/100 ML 100 ML IV SCH ×2 (00:20→05:46)
[2020-11-03] MEDS: SODIUM CHLORIDE FLUSH 0.9% 10 ML SYRINGE IVP SCH ×2 (02:12→09:31)
[2020-11-03 06:01] LABS: BASOPHILS % (AUTO) 0.2 %; HCT - HEMATOCRIT 26.4 % (37.0-47.0); HGB - HEMOGLOBIN 8.6 g/dL (12.0-16.0); LYMPHOCYTES # (AUTO) 0.9 10^3/uL (1.5-3.5); LYMPHOCYTES % (AUTO) 8.4 %; MEAN CORPUSCULAR HEMOGLOBIN 34.1 pg (27.0-31.0); MEAN CORPUSCULAR HGB CONC 32.6 g/dL (32.0-36.0); MEAN CORPUSCULAR VOLUME 104.8 fL (81.0-99.0); MEAN PLATELET VOLUME 9.4 fL (7.9-10.8); MONOCYTES # (AUTO) 0.7 10^3/uL (0.0-1.0); MONOCYTES % (AUTO) 6.4 %; NEUTROPHILS # (AUTO) 9.2 10^3/uL (1.5-6.6); PLT - PLATELET COUNT 241 10^3/uL (130-450); RED BLOOD COUNT 2.52 10^6/uL (4.20-5.40); RED CELL DISTRIBUTION WIDTH 14.9 % (12.0-15.0); WHITE BLOOD COUNT 10.9 x10^3/uL (4.8-10.8)
[2020-11-03 06:15] LABS: CALCIUM 9.3 mg/dL (8.5-10.3); CREATININE 1.6 mg/dL (0.4-1.0)
[2020-11-03] MEDS ORDERED: PANTOPRAZOLE 40 MG TABLET PO SCH (07:00)
[2020-11-03] MEDS: LACTATED RINGERS 1,000 ML IV SCH (07:55)
[2020-11-03 08:45] VITALS: BP 123/38
[2020-11-03] MEDS ORDERED: TRIAMT/HCTZ 37.5 MG/25 MG CAPSULE PO SCH (09:00)
[2020-11-03] MEDS ORDERED: ENOXAPARIN 40 MG/0.4 ML SYRINGE SUBQ SCH (09:00)
[2020-11-03] MEDS: PROPRANOLOL 40 MG TABLET PO SCH (09:30)
[2020-11-03] MEDS: VANCOMYCIN 125 MG CAPSULE PO SCH (09:30)
[2020-11-03] MEDS: clonazePAM 0.5 MG TABLET PO SCH (09:30)
[2020-11-03] MEDS ORDERED: oxyCODONE 5 MG TABLET PO PRN (10:17)
[2020-11-03] MEDS ORDERED: IBUPROFEN 600 MG TABLET PO PRN (10:17)
[2020-11-03] MEDS ORDERED: ONDANSETRON 4 MG/2 ML VIAL IVP PRN (10:17)
[2020-11-03] MEDS ORDERED: ACETAMINOPHEN 325 MG TABLET PO PRN (10:17)
--- NOTE | 2020-11-03 10:17 | PROVIDER PROGRESS NOTE ---
Subjective - General Procedure Date: 11/02/20 Post Op Days: 1 Procedure Performed: Left mastectomy - Review of Systems Wound/Incisions: positive: Dressing dry and intact Drain Type: Mike Drain Output Description: Serosanguinous General: positive: No symptoms HEENT: positive: No symptoms Pulmonary: positive: No symptoms Cardiovascular: positive: No symptoms Gastrointestinal: positive: No symptoms Genitourinary: positive: No symptoms Musculoskeletal: positive: No symptoms Skin: positive: No symptoms - Other Other Information/Narrative: Feeling well this AM. Has been up and walking in the pro with her walker. Eating well and without nausea. Objective - Patient Data Vital Signs: Vital Signs x48h Temp Pulse Resp BP Pulse Ox 11/03/20 08:44 36.7 C 66 18 123/38 L 98 11/03/20 05:33 36.5 C 62 18 130/49 L 94 Weight: Weight 11/01/20 11/02/20 11/03/20 23:59 23:59 23:59 Weight (kg) 85 kg Intake & Output: Intake and Output Totals x24h 11/01/20 11/02/20 11/03/20 23:59 23:59 23:59 Intake Total 0056.511 8567.333 Output Total 558 100 Balance 3900.733 4398.333 - Lab Results Lab Results: 11/03/20 05:15 11/03/20 05:15 Other Lab Results: Lab Results x24hrs 11/03/20 11/03/20 Range/Units 05:15 05:15 WBC 10.9 H (4.8-10.8) x10^3/uL RBC 2.52 L (4.20-5.40) 10^6/uL Hgb 8.6 L (12.0-16.0) g/dL Hct 26.4 L (37.0-47.0) % MCV 104.8 H (81.0-99.0) fL MCH 34.1 H (27.0-31.0) pg MCHC 32.6 (32.0-36.0) g/dL RDW 14.9 (12.0-15.0) % Plt Count 241 (130-450) 10^3/uL MPV 9.4 (7.9-10.8) fL Neut # (Auto) 9.2 H (1.5-6.6) 10^3/uL Lymph # (Auto) 0.9 L (1.5-3.5) 10^3/uL Owsley # (Auto) 0.7 (0.0-1.0) 10^3/uL Eos # (Auto) 0.0 (0.0-0.7) 10^3/uL Baso # (Auto) 0.0 (0.0-0.1) 10^3/uL Absolute Nucleated RBC 0.00 x10^3/uL Nucleated RBC % 0.0 /100WBC Sodium 134 L (135-145) mmol/L Potassium 4.0 (3.5-5.0) mmol/L Chloride 100 L (101-111) mmol/L Carbon Dioxide 24 (21-32) mmol/L Anion Gap 10.0 (6-13) BUN 26 H (6-20) mg/dL Creatinine 1.6 H (0.4-1.0) mg/dL Estimated GFR (MDRD) 31 L (>89) Glucose 125 H (70-100) mg/dL Calcium 9.3 (8.5-10.3) mg/dL - Current Medications Current Medications: Current Medications Generic Name Dose Route Start Last Admin Trade Name Freq PRN Reason Stop Dose Admin Clonazepam 0.5 mg 11/02/20 21:00 11/03/20 09:30 Clonazepam 0.5 Mg Tablet PO 0.5 mg BID GARETH Administration Enoxaparin Sodium 40 mg 11/03/20 09:00 11/03/20 09:31 Enoxaparin 40 Mg/0.4 Ml Syringe SUBQ 40 mg DAILY GARETH Administration Lactated Ringer's 1,000 mls @ 100 mls/hr 11/02/20 12:00 11/03/20 07:55 Lr IV 100 mls/hr .Q10H GARETH Administration Losartan Potassium 25 mg 11/02/20 21:00 11/02/20 20:07 Losartan 50 Mg Tablet PO 25 mg QPM GARETH Administration Pantoprazole Sodium 40 mg 11/03/20 07:00 11/03/20 06:18 Pantoprazole 40 Mg Tablet PO 40 mg QDAC GARETH Administration Propranolol HCl 40 mg 11/02/20 21:00 11/03/20 09:30 Propranolol 40 Mg Tablet PO 40 mg BID GARETH Administration Sodium Chloride 10 ml 11/02/20 17:00 11/03/20 09:31 Sodium Chloride Flush 0.9% 10 Ml Syringe IVP Not Given 0100,0900,1700 [facility] Triamterene/Hydrochlorothiazide 1 cap 11/03/20 09:00 11/03/20 09:30 Triamt/Hctz 37.5 Mg/25 Mg Capsule PO 1 cap DAILY [facility] Administration Vancomycin HCl 125 mg 11/02/20 21:00 11/03/20 09:30 Vancomycin 125 Mg Capsule PO 125 mg BID GARETH Administration - Physical Exam Wound/Incisions: positive: Dressing dry and intact General Appearance: positive: No acute distress Eyes Bilateral: positive: Normal inspection ENT: positive: ENT inspection nml Neck: positive: Nml inspection Respiratory: positive: Chest non-tender, No respiratory distress Cardiovascular: positive: Regular rate & rhythm Abdomen: positive: Non-tender Skin: positive: Color nml Neurologic/Psychiatric: positive: Oriented x3 ABX Reporting Has patient been on IV antibiotics over the past 48 hours?: Yes Impression/Plan - Problem List Problem List: POD #1 after right breast total mastectomy. Will discharge home this morning. Follow up with my clinic on Monday for Proveena removal. Follow up with me in 2 weeks.
[2020-11-03] MEDS ORDERED: ACETAMINOPHEN 500 MG TABLET PO SCH (12:00)
== END 2020-11-03 11:45 | disposition home or self-care (01) ==
LOC: SDS 09:18 → MS2 12:25 → SDS 11-03 11:45
PROVIDERS: ATTEND Surgery
PROC: 0HTU0ZZ Resection of Left Breast, Open Approach (ICD-10-PCS; principal; 2020-11-02 10:15)
DX: C50.912 Malignant neoplasm of unspecified site of left female breast (principal); Z17.1 Estrogen receptor negative status [ER-]; Z92.21 Personal history of antineoplastic chemotherapy; E66.9 Obesity, unspecified; Z68.31 Body mass index [BMI] 31.0-31.9, adult
CPT/HCPCS: 19303; 36415; 80048; 85025; A9270; J0131; J1650; J7120; J8499

== ENCOUNTER 2020-11-05 12:40 | Outpatient (CLI) | payer OTHER ==
--- NOTE | 2020-11-05 19:52 | CONSULTATION NOTE ---
Palliative Care Follow Up - Referral Referring Provider: Dr. Carlos Alberto Gross Time of Visit: [id number] Referral setting: Home Referral Reason: Breast CA/Anxiety/ACP - Information Sources Records reviewed: Previous records reviewed History/Review of Systems obtained from: Patient, Family (daughter Jennifer present for first part/Anyi for second) Exam limitations: Clinical condition (mild STM deficits) - History of Present Illness Update Brief HPI Update: This is a teressa 80-year-old woman who discovered a lump on her left breast in early April, and following mammogram and diagnostic ultrasound/biopsy pathology had confirmed a high-grade invasive ductal carcinoma. She was initiated on induction chemotherapy of Taxotere/carboplatinum, Herceptin, and Perjeta. Unfortunately she had several complications along the way, she was hospitalized for acute blood loss anemia esophagitis, gastritis, UTI, which led to her deconditioning and decline in functional status. She is also had a 25 pound weight loss, most likely attributed to her second hospitalization in August where she had developed C. difficile colitis, pneumonia, bilateral pleural effusion, CHARLES, and persistent pancytopenia. She had completed 4 of her 6 planned cycles, she did have a recurrence of her C. difficile and was put back on her Vanco but is on a slow taper and currently having regular soft formed stools without any abdominal complications. She is starting to feel better, she is fairly high symptom burden of persistent fatigue, she is working with home health physical therapy and Occupational Therapy and feels like she is finally making progress. She is still dependent on her walker, but now can get in and out of bed. She has long-term essential tremors for which she is currently on propranolol and clonazepam to manage. She was able to proceed to receive a left mastectomy on 11/02/2020, she still has her drain and wound VAC on. She is managing this quite well. She has some mild discomfort only needing to take some acetaminophen, and this is mostly because of the tightness of the dressing. She does have this removed on Monday, and is pending follow-up in the context of final puff and next steps for oncology treatment. She unfortunately discovered a walnut sized lump at the top of her left hip incision, is quite firm and palpation and fixed to top of scar. She saw her PCP yesterday, has had a CT scan of the pelvis ordered, she has a high anxiety particularly in the context of her most recent experience with her breast lump. Today she is feeling much better, less anxious, she is still quite tearful on and off. This has been quite overwhelming emotionally and physically. She is currently living with her daughter which has been a great support, but is anxious to return to independent living. Palliative care is familiar with patient from caring for her , had asked for further palliative care support for symptom management, psychosocial support, she had wanted to finish her advance care planning documents, and will provide anticipatory guidance until transitioned to lube attendant plan and back to previous level of functioning. Past Medical History: Hypertension, high cholesterol, murmur, arrhythmia, asthma, pneumonia, peripheral neuropathy, tremors, GERD, ulcers, or hiatal hernia, colon polyps, chronic diarrhea, stomach "mass" benign, breast cancer, chronic vision loss, anxiety, claustrophobia, osteoarthritis, skin cancer "squamous" history of colonoscopy/EGD, hip replacement, Port-A-Cath, skin cancer surgery Social History - Living Situation Living Situation: With family Support System: Patient does have her own home, but is currently living with her daughter and son-in-law. Other family members are providing support while Jennifer is working. Goals are for her to return to her home when feeling better, she has a plan for transition for her daughter Anyi to stay with her for 2 weeks when she is feeling well enough to return home. Medications/Allergies - Medications Home Medications: Ambulatory Orders Medication Instructions Recorded Confirmed Losartan [Cozaar] 25 mg ORAL QPM 02/09/15 11/05/20 Propranolol [Inderal] 40 mg PO BID MDD tremors 02/09/15 11/05/20 Triamterene/Hydrochlorothiazid 0.5 tab ORAL DAILY 02/09/15 11/05/20 [Triamterene-Hctz 75-50 mg Tab] clonazePAM [Clonazepam] 0.5 mg ORAL BID 02/09/15 11/05/20 Lidocaine/Prilocain 2.5% Cream 5 applic TOP UD #1 gm 05/26/20 11/05/20 [Emla 2.5% Cream] B-Complex with Vitamin C [Super B 1 each PO DAILY 05/27/20 11/05/20 Complex-Vitamin C] Calcium Phos/Vit D3/Mag Oxide 1 each PO DAILY 05/27/20 11/05/20 [Posture-D Caplet] Cholecalciferol [Vitamin D3] 50 mcg PO DAILY 05/27/20 11/05/20 Glucosamine HCl 1,500 mg PO DAILY 05/27/20 11/05/20 Vancomycin [Vancocin] 125 mg PO .QOD MDD on taper 10/05/20 11/02/20 Iron,Carbonyl [Carbonyl Iron] 45 mg PO DAILY 10/14/20 11/05/20 Pantoprazole [Protonix] 40 mg PO DAILY 10/14/20 11/05/20 Ondansetron Odt [Zofran Odt] 4 mg TL Q6H PRN #10 tablet 11/03/20 11/05/20 Acetaminophen [Tylenol] 650 mg PO Q4HR PRN MDD 3000 mg 11/06/20 11/06/20 - Allergies Allergies/Adverse Reactions: Allergies Allergy/AdvReac Type Severity Reaction Status Date / Time No Known Drug Allergies Allergy Verified 10/12/20 14:30 Review of Systems - Constitutional Constitutional: reports: Fatigue (continues to improve), Weakness (getting stronger; working with PT), Weight loss (220 down to 195). denies: Fever - Ears, Nose & Throat Ears, Nose & Throat: reports: Dry mouth, Other (improved swallowing). denies: Mouth lesions - Cardiovascular Cardiovascular: reports: Edema (mild), Lightheadedness, Exertional dyspnea, Decr. exercise tolerance. denies: Chest pain - Respiratory Respiratory: reports: SOB with exertion. denies: Cough, SOB at rest - Gastrointestinal Gastrointestinal: reports: Poor appetite, Early satiety. denies: Abdominal pain, Diarrhea (soft 2-3 x a day; no watery stool), Nausea, Reflux/heartburn - Musculoskeletal Musculoskeletal: reports: Muscle aches, Stiffness, Muscle weakness, Assistive devices (uses walker for ambulation; difficulty with bed mobility working with PT/OT) - Integumentary Integumentary: reports: Dryness, Nail changes (lost a few nails), Hair changes (alopecia). denies: Lesions (cleared with chemo on hands/legs) - Neurological Neurological: reports: General weakness, Memory problems (mild) - Psychiatric Psychiatric: reports: Depression, Anxiety - Endocrine Endocrine: reports: Intolerance to cold - Hematologic/Lymphatic Hematologic/Lymph: reports: Anemia (8.3) - All Other Systems All Other Systems: reports: Reviewed and negative Physical Exam - Vital Signs Temperature: 97.2 C Pulse Rate: 62 Respiratory Rate: 18 O2 Saturation: 98 (ra @ rest) Blood Pressure: 118/68 - Physical Exam General Appearance: positive: No acute distress, Alert Eyes Bilateral: positive: Normal inspection Neck: positive: Trachea midline Cardiovascular: positive: Regular rate & rhythm Respiratory: positive: No respiratory distress, Breath sounds nml Abdomen: positive: Soft, Nml bowel sounds Skin: positive: Pallor, Dryness, Pressure wound ( wound almost healed; dry peeling area no open area; ;using cavilon barrier cream) Extremities: positive: No pedal edema, Other (patient with upper extremity tremors; left greater than right) Neurologic/Psychiatric: positive: Oriented x3, Mood/affect nml, Weakness, Other (tearful at times, but improved) Palliative Care - POLST Patient has POLST: No POLST Status: Full Code Pain: Pain improved, Location (left drsg area of masectomy site), Severity (2/10) Tiredness/Fatigue: Mild (1-3) Drowsiness/Sedation: None Nausea: None Anorexia: Mild (1-3) (improved) Dyspnea: Mild (1-3) (with effort) Depression: Mild (1-3) Anxiety: Mild (1-3) Feelings of wellbeing/Perceived Quality of Life: Good, Acceptable, Improved Sleep: Sleeps well, Sleep improved Constipation: No Performance Status: Patient's functional status continues to improve, she is able to get from sit to stand, is using walker. She is very pleased she can get out of bed independently. Her endurance is still low but is working on building up. - Palliative Care Discussion: Patient is feeling quite positive, though she has anxiety about the new finding of lump on her left hip. She is quite reflective about missing the support of her , continues to grieve his loss. We did review her advance care planning documents these are still consistent with her wishes, her has passed so it does default to her daughter Jennifer is the DURABLE POWER OF COURT ADMINISTRATOR. Her healthcare directive is very sparse, provided her honoring choices and 5 wishes. Jennifer had to leave, requested they review this and discuss. Recommended we either put her further directives into a document, or pick 1 of those documents it fits with what she wants to make sure she is communicated. Her goals are to remain as independent as possible, she does not want any suffering prolonged. If she would not return to ability to take care of herself this would not be acceptable quality of life. She would not want to live in a [facility], if she were terminally ill she would not want any life supportive measures to prolong her life.Will take her current documents and get them on record at the hospital. We agreed 1 more visit to revisit her ACP documents and complete the conversation with her daughter Jennifer who is her DPOA and select further document for healthcare directive Results - Lab Results Lab results reviewed: Yes Impression and Recommendations - Palliative Care Impression: This is a 80-year-old woman with known stage II breast cancer, T3N0 with left mastectomy performed 11/02. She is recovering well from surgery, is awaiting final staging and recommendations for treatment. She shows no signs or symptoms of C. difficile at this time, her fatigue and strength are improving, she appears in good spirits today. Palliative care to provide support for symptom management, psychosocial support, and anticipatory guidance. Recommendations/Counseling Done: 1. Breast cancer. Patient's left mastectomy site dressing intact, drainage serosanguineous and decreasing in amount through drain. No signs or symptoms of infection or complications at this time. Awaiting final path results, as well as long-term implications for treatment. Patient is feeling quite positive having completed her journey thus far. 2. Left hip mass. This is adhered to top of incision, suspect is scar tissue but given cancer diagnosis is having CT scan to rule out any metastatic disease. Patient has had 25 pound weight loss, is not painful and is slightly adhered. Will await outcome of CT scan, and follow accordingly. 3. C. difficile. Patient currently on vancomycin taper, is doing well with no further recurrence signs or symptoms. Abdomen soft without tenderness and regular bowel movements. 4. Generalized weakness. This is multifactorial, patient continues with persistent anemia, and 2 hospitalizations with deconditioning and loss of muscle mass. She currently has PT/OT is compliant with home exercise program and is making progress. Her intake is improving as well as well as her hydration and nutrition. Patient would benefit transition to outpatient PT when home PT completed. 5. Advanced care planning. Patient does have ACP planning documents, DPOA does list daughter Jennifer as primary after her who has passed. Would recommend update healthcare directive to be more reflective of wishes and information shared. Agreed would revisit this at next visit. Will put current directives from 2016 into her record. Counseling provided regarding feelings of vulnerability with current situation, normalized feelings of grief and loss related to her , and introduced decisions into the future related to end-of-life to be able to communicate to her family. 50 minutes with greater than 50% of this done in counseling regarding symptom management, surgery recover, breast cancer diagnosis, counseling for support of grief and loss related to current healthcare conditions and loss of and anticipatory guidance around advanced care planning.
== END 2020-11-05 12:41 | disposition home or self-care (01) ==
LOC: PC 12:40
PROVIDERS: ATTEND Nurse Practitioner Adult Health
DX: Z51.5 Encounter for palliative care (principal); C50.912 Malignant neoplasm of unspecified site of left female breast; R63.4 Abnormal weight loss; R53.83 Other fatigue; G25.0 Essential tremor; Z90.12 Acquired absence of left breast and nipple; R22.2 Localized swelling, mass and lump, trunk; R53.1 Weakness
CPT/HCPCS: 99349

== ENCOUNTER 2020-12-21 12:26 | Outpatient (CLI) | payer OTHER ==
--- NOTE | 2020-12-21 16:36 | CONSULTATION NOTE ---
Palliative Care Follow Up - Referral Referring Provider: Dr. Carlos Alberto Gross Time of Visit: 1110- 60 minutes Referral setting: MAC Referral Reason: Anxiety/Goals of Care/Breast CA - Information Sources Records reviewed: RN notes reviewed, Previous records reviewed History/Review of Systems obtained from: Patient - History of Present Illness Update Brief HPI Update: This is a teressa 80-year-old woman who has had a complicated course with neoadjuvant treatment for her high-grade invasive ductal carcinoma. She completed 4 of her 6 planned cycles, and did proceed on to receive a left mastectomy on 11/02/2020. She is continue to improve both physically and emotionally, and is here currently to start her trastuzumab for maintenance every 3 weeks for 14 weeks. She still has some scabbing over her left masectomy scar, she has finished with home health PT/OT, strength is returning and is ambulatory. She is getting ready to transition back home, is looking forward to this. The plan is for her daughter to stay with her 2 to 3 weeks and this transition time in the evenings. Patient has not been able to schedule her right hip follow-up CT scan, ordered by her PCP. Reached out to GI to assist. She continues with a right leg drag, reports this is residual from her right hip surgery, and continues to be somewhat nervous about her unsteadiness as she is on her ankle [id number] and sometimes leg gives away. Her most difficult thing is to manage stairs. Other issues presented with was candidiasis under her left breast, continued grief reaction to her diagnosis and loss of , and generalized weakness. Past Medical History: Hypertension, high cholesterol, murmur, arrhythmia, asthma, pneumonia, p eripheral neuropathy, tremors, GERD, ulcers, hiatal hernia, colon polyps, chronic diarrhea, stomach "mass" benign, breast cancer, chronic vision loss, anxiety, claustrophobia, osteoarthritis, skin cancer "squamous" history of colonoscopy/EGD, right hip replacement, Port-A-Cath, skin cancer surgery Social History - Living Situation Living Situation: With family Support System: Patient has been staying at her daughter [place], with support from other family members. She reports she is more functional and starting to get "bored". She is looking forward to returning back to her own home, they do have a plan for her to have support for 2 to 3 weeks. Her daughter is going on vacation, and her sister will come provides assistance. Medications/Allergies - Medications Home Medications: Ambulatory Orders Medication Instructions Recorded Confirmed Losartan [Cozaar] 25 mg ORAL QPM 02/09/15 12/21/20 Propranolol [Inderal] 40 mg PO BID MDD tremors 02/09/15 12/21/20 Triamterene/Hydrochlorothiazid 0.5 tab ORAL DAILY 02/09/15 12/21/20 [Triamterene-Hctz 75-50 mg Tab] clonazePAM [Clonazepam] 0.5 mg ORAL BID 02/09/15 12/21/20 Lidocaine/Prilocain 2.5% Cream 5 applic TOP UD #1 gm 05/26/20 12/21/20 [Emla 2.5% Cream] B-Complex with Vitamin C [Super B 1 each PO DAILY 05/27/20 12/21/20 Complex-Vitamin C] Calcium Phos/Vit D3/Mag Oxide 1 each PO DAILY 05/27/20 12/21/20 [Posture-D Caplet] Cholecalciferol [Vitamin D3] 50 mcg PO DAILY 05/27/20 12/21/20 Glucosamine HCl 1,500 mg PO DAILY 05/27/20 12/21/20 Vancomycin [Vancocin] 125 mg PO .QOD MDD on taper 10/05/20 12/21/20 Iron,Carbonyl [Carbonyl Iron] 45 mg PO DAILY 10/14/20 12/21/20 Pantoprazole [Protonix] 40 mg PO DAILY 10/14/20 12/21/20 Ondansetron Odt [Zofran Odt] 4 mg TL Q6H PRN #10 tablet 11/03/20 12/21/20 Acetaminophen [Tylenol] 650 mg PO Q4HR PRN MDD 3000 mg 11/06/20 12/21/20 - Allergies Allergies/Adverse Reactions: Allergies Allergy/AdvReac Type Severity Reaction Status Date / Time No Known Drug Allergies Allergy Verified 10/12/20 14:30 Review of Systems - Constitutional Constitutional: reports: Fatigue (continues to improve), Weakness (getting stronger; does home exercise program; discontinued HH), Weight loss (220 down to 195). denies: Fever - Ears, Nose & Throat Ears, Nose & Throat: reports: Other (improved swallowing). denies: Mouth lesions - Cardiovascular Cardiovascular: reports: Exertional dyspnea, Decr. exercise tolerance. denies: Chest pain - Respiratory Respiratory: reports: SOB with exertion. denies: Cough, SOB at rest - Gastrointestinal Gastrointestinal: reports: Early satiety, Good appetite. denies: Abdominal pain, Diarrhea (soft 2-3 x a day; no watery stool), Nausea, Reflux/heartburn - Musculoskeletal Musculoskeletal: reports: Muscle aches, Stiffness, Muscle weakness, Assistive devices (uses walker for ambulation; difficulty with bed mobility working with PT/OT) - Integumentary Integumentary: reports: Dryness, Nail changes (lost a few nails; slow healing), Hair changes (alopecia-growing in). denies: Lesions (cleared with chemo on hands/legs) - Neurological Neurological: reports: General weakness, Numbness (peripheral neuropathy hands/toes), Memory problems (mild), Other (mild tremors) - Psychiatric Psychiatric: reports: Depression, Anxiety - Endocrine Endocrine: reports: Intolerance to cold - Hematologic/Lymphatic Hematologic/Lymph: reports: Anemia (improved 10.3) - All Other Systems All Other Systems: reports: Reviewed and negative Physical Exam - Physical Exam General Appearance: positive: No acute distress, Alert Eyes Bilateral: positive: Normal inspection ENT: positive: No signs of dehydration Neck: positive: Trachea midline Cardiovascular: positive: Regular rate & rhythm Respiratory: positive: No respiratory distress, Breath sounds nml Abdomen: positive: Soft, Nml bowel sounds Skin: positive: Pallor, Dryness Extremities: positive: No pedal edema, Other (patient with upper extremity tremors; left greater than right) Neurologic/Psychiatric: positive: Oriented x3, Mood/affect nml, Weakness, Other (tearful at times, but improved) Palliative Care - POLST Patient has POLST: No Pain: Pain unchanged, Location (fingers/toes; toes worse at night responds to APAP) Tiredness/Fatigue: Mild (1-3) Drowsiness/Sedation: None Nausea: None Anorexia: None Dyspnea: Mild (1-3) Depression: None Anxiety: None Feelings of wellbeing/Perceived Quality of Life: Good, Acceptable, Improved Sleep: Sleep improved Constipation: No Performance Status: Patient continues to use her walker, does not feel confident in her right leg as far as steps. She is working on this, does have home exercise program. She is able to get in and out of bed, we did discuss patient's prior level of functioning, she did use a stationary bike. She feels she is close to 90%. - Palliative Care Discussion: Discussion regarding patient's emotional response to what she has been through, particularly her distress when they kept calling it "chemotherapy", she does understand she is on immunotherapy. She is very much hoping for some improved quality and quantity of life. We had reviewed advance care planning last time we met, goal is to meet with daughter and patient in the near future to complete these documents. Counseling provided regarding ongoing grief over her loss of her , as well as changes in her own health and body image. Results - Lab Results Lab results reviewed: Yes Impression and Recommendations - Palliative Care Impression: This is a 80-year-old woman with known stage II breast cancer, T3N0 with left mastectomy performed 11/02/2020. She currently presents for ongoing maintenance therapy of trastuzumab. She is getting ready to transition back home, her strength is improving, she still has some eschar on her left mastectomy scar. She has not had further work-up on her right hip "mass". I suspect it is scar tissue, but pending CT scan given patient's risk factors. Palliative care providing support for symptom management and psychosocial support as well as anticipatory guidance Recommendations/Counseling Done: 1. Candidiasis under breasts. Nystatin powder ordered with instructions to start two times a day, until resolved. Then transition back to her Goldbond powder and moisture wick material. 2. Left mastectomy incision. Did further clean and loosen eschar, encouraged to continue with ointment and showered to soften scab to remove. Did remove about 50% of remaining. Patient is somewhat distressed with alteration in body image, counseling and psychosocial support provided. 3. Right hip mass. This is adhered To top of incision, suspect scar tissue. Unfortunately has not heard back from DI, did reach out to see if can facilitate imaging. 4. C. difficile. Patient is almost finished with her vancomycin taper, is doing well with no further recurrence signs or symptoms. Abdomen soft without tenderness and regular bowel movements. 5. Generalized weakness. This is multifactorial, counts of continue to improve, she has done well with home PT/OT. We did discuss in the context of next steps, patient does not want outpatient referral. She does have a stationary bike at home, encouraged to use when someone is around but initiate further strengthening. Patient does have home exercise program, and is been compliant per her report. 6. Advanced care planning. I have made recommendations to update her DPOA/ACP documents. Have left message to daughter for to schedule visit for counseling regarding ACP. Patient is anxious to update and make sure is reflective of her current goals. 60 minutes review of oncology/surgeon notes pathology, labs, imaging, plan of care [id number] for counseling regarding symptom management and psychosocial support and anticipatory guidance.
== END 2020-12-21 12:27 | disposition home or self-care (01) ==
LOC: PC 12:26
PROVIDERS: ATTEND Nurse Practitioner Adult Health
DX: Z51.5 Encounter for palliative care (principal); F41.9 Anxiety disorder, unspecified; F32.9 Major depressive disorder, single episode, unspecified; F43.20 Adjustment disorder, unspecified; C50.912 Malignant neoplasm of unspecified site of left female breast; Z90.12 Acquired absence of left breast and nipple; B37.2 Candidiasis of skin and nail; A04.72 Enterocolitis due to Clostridium difficile, not specified as recurrent; R26.81 Unsteadiness on feet; R53.1 Weakness; H54.7 Unspecified visual loss; F40.240 Claustrophobia; Z96.641 Presence of right artificial hip joint; Z79.899 Other long term (current) drug therapy
CPT/HCPCS: 99215

== ENCOUNTER 2020-12-26 10:07 | Outpatient (CLI) | payer OTHER ==
[2020-12-26] MEDS ORDERED: IOVERSOL 320 100 ML VIAL IVP ONE ×2 (10:30→12:00)
[2020-12-26] MEDS ORDERED: IOVERSOL 320 50 ML VIAL ONE (10:32)
[2020-12-26] MEDS ORDERED: IOVERSOL 320 50 ML VIAL PO ONE (12:01)
--- NOTE | 2020-12-26 12:18 | CT Report ---
PROCEDURE: PELVIS W INDICATIONS: BONE SOFT TISSUE SKIN nEOPLASM CONTRAST: IV CONTRAST: Optiray 320 ml: 100 PO CONTRAST: Optiray 320 ml50 TECHNIQUE: After the administration of IV and oral contrast, 5 mm thick sections acquired from the iliac crests to the symphysis. 5 mm thick coronal and sagittal reformats were acquired. For radiation dose reduc tion, the following was used: automated exposure control, adjustment of mA and/or kV according to pa tient size. COMPARISON: 05/29/2020, 07/22/2020 FINDINGS: Image quality: Excellent. Peritoneum and bowel: Contrast enhanced bowel loops demonstrate normal wall thickness and caliber. No free fluid or air. Genitourinary: Bladder wall thickness is normal. The uterus demonstrates an unremarkable appearance for age. No adnexal masses are seen. Nodes and vessels: No iliac, pelvic, or inguinal adenopathy. Stable borderline prominence of left gr oin lymph nodes can be seen. Iliac vessels demonstrate normal size and enhancement. Atherosclerotic calcification is seen. Bones: No suspicious bony lesions. Right hip arthroplasty hardware is seen. Relatively prominent de generative changes are seen. Miscellaneous: There is a moderately sized fat-containing left inguinal hernia. In this patient with this given history, scrutiny is given to the area of clinical concern involving the right posterior thigh, just below the buttocks. At this site, no masses are seen. No lipomas or a bnormal enhancement can be seen. IMPRESSION: No abnormality can be seen at the area of clinical concern within the right upper thigh posteriorly, just below the buttocks. There is stable borderline prominence of left groin lymph nodes. Incidental note is made of: Moderately sized fat-containing left inguinal hernia Right hip arthroplasty hardware Reviewed by: Carlos Vargas MD on 12/26/2020 11:16 AM TIFF Approved by: Carlos Vargas MD on 12/26/2020 11:16 AM TIFF Station ID: [id number]
== END 2020-12-26 10:08 | disposition home or self-care (01) ==
LOC: DI 10:07
PROVIDERS: ATTEND Family Medicine
DX: D49.2 Neoplasm of unspecified behavior of bone, soft tissue, and skin (principal); C50.912 Malignant neoplasm of unspecified site of left female breast; R59.0 Localized enlarged lymph nodes
CPT/HCPCS: 72193; Q9967

== ENCOUNTER 2021-01-11 14:30 | Outpatient (CLI) | payer OTHER ==
--- NOTE | 2021-01-11 20:22 | CONSULTATION NOTE ---
Palliative Care Follow Up - Referral Referring Provider: Dr. Carlos Alberto Gross Time of Visit: 1430 45 minutes Referral setting: MAC Referral Reason: Goals of Care/ACP/Breast CA - Information Sources Records reviewed: Previous records reviewed History/Review of Systems obtained from: Patient, Family (daughter Hortencia with patient today) Exam limitations: Clinical condition (mild STM deficits) - History of Present Illness Update Brief HPI Update: This is a teressa 80-year-old woman who has had a complicated course with her neoadjuvant treatment for her high-grade invasive ductal carcinoma. She completed 4 of her 6 planned cycles and did proceed to receive a left mastectomy on 11/02/2020. She continues to improve both physically and emotionally, and will be receiving her trastuzumab every 3 weeks for total of 40 team treatments, and as result of insurance will be receiving this at home. She has completed her physical therapy, has returned to her home setting, has been with her sister and doing quite well. Her surgical scar continues to improve, though still has a small amount of eschar at the edges, candidiasis under her breast is improving, and she is feeling better overall. Meeting with patient and her daughter, to complete advanced care planning, Jennifer is her DPOA and wanting to complete POLST. 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 Patient has been staying at her daughter Jennifer is through this ordeal, but now is back home. She has had a transition plan with her daughter staying and now her sister. She feels like she is doing well enough to continue on her own. Her daughter at any point time has said she can come and stay with her if she does not feel confident to be by herself. Patient has many friends, as well as other extended family and is feeling closer to her "normal" Medications/Allergies - Medications Home Medications: Ambulatory Orders Medication Instructions Recorded Confirmed Losartan [Cozaar] 25 mg ORAL QPM 11/23/15 10/25/21 Propranolol [Inderal] 40 mg PO BID MDD tremors 02/09/15 01/11/21 Triamterene/Hydrochlorothiazid 0.5 tab ORAL DAILY 02/09/15 01/11/21 [Triamterene-Hctz 75-50 mg Tab] clonazePAM [Clonazepam] 0.5 mg ORAL BID 02/09/15 01/11/21 Lidocaine/Prilocain 2.5% Cream 5 applic TOP UD #1 gm 05/26/20 01/11/21 [Emla 2.5% Cream] B-Complex with Vitamin C [Super B 1 each PO DAILY 05/27/20 01/11/21 Complex-Vitamin C] Calcium Phos/Vit D3/Mag Oxide 1 each PO DAILY 05/27/20 01/11/21 [Posture-D Caplet] Cholecalciferol [Vitamin D3] 50 mcg PO DAILY 05/27/20 01/11/21 Glucosamine HCl 1,500 mg PO DAILY 05/27/20 01/11/21 Iron,Carbonyl [Carbonyl Iron] 45 mg PO DAILY 10/14/20 01/11/21 Pantoprazole [Protonix] 40 mg PO DAILY 10/14/20 01/11/21 Ondansetron Odt [Zofran Odt] 4 mg TL Q6H PRN #10 tablet 11/03/20 01/11/21 Acetaminophen [Tylenol] 650 mg PO Q4HR PRN MDD 3000 mg 11/06/20 01/11/21 - Allergies Allergies/Adverse Reactions: Allergies Allergy/AdvReac Type Severity Reaction Status Date / Time No Known Drug Allergies Allergy Verified 10/12/20 14:30 Review of Systems - Constitutional Constitutional: reports: Fatigue (continues to improve), Weakness (getting stronger; does home exercise program;), Weight loss (196 (25 pound wt loss total)). denies: Fever - Ears, Nose & Throat Ears, Nose & Throat: reports: Hearing loss, Dry mouth - Cardiovascular Cardiovascular: reports: Edema, Lightheadedness, Exertional dyspnea, Decr. exercise tolerance - Respiratory Respiratory: reports: SOB with exertion. denies: Cough, SOB at rest - Gastrointestinal Gastrointestinal: reports: Early satiety, Good appetite. denies: Constipation - Musculoskeletal Musculoskeletal: reports: Muscle aches, Stiffness, Muscle weakness, Assistive devices (uses walker for ambulation;) - Integumentary Integumentary: reports: Dryness, Nail changes (lost a few nails; slow healing), Hair changes (alopecia-growing in). denies: Lesions (cleared with chemo on hands/legs) - Neurological Neurological: reports: General weakness, Memory problems - Psychiatric Psychiatric: reports: Depression, Anxiety - Endocrine Endocrine: reports: Intolerance to cold - Hematologic/Lymphatic Hematologic/Lymph: reports: Anemia (10.3) - All Other Systems All Other Systems: reports: Reviewed and negative Physical Exam - Vital Signs Temperature: 36.2 C Pulse Rate: 58 Respiratory Rate: 18 Blood Pressure: 147/68 - Physical Exam General Appearance: positive: No acute distress, Alert Eyes Bilateral: positive: Normal inspection ENT: positive: No signs of dehydration Neck: positive: Trachea midline Cardiovascular: positive: Regular rate & rhythm Respiratory: positive: No respiratory distress Abdomen: positive: Soft, Obese Skin: positive: Pallor, Dryness, Wound (masectomy scar with residual eschar; small amount) Extremities: positive: No pedal edema Neurologic/Psychiatric: positive: Oriented x3, Mood/affect nml Palliative Care - POLST Patient has POLST: Yes POLST Status: DNR, Selective Treatment (completed today) Pain: Pain improved, Location (right hip), Severity (0/10) Tiredness/Fatigue: Mild (1-3) Drowsiness/Sedation: None Nausea: None Anorexia: None Dyspnea: None Depression: None Anxiety: Mild (1-3) Feelings of wellbeing/Perceived Quality of Life: Good, Acceptable Sleep: Sleeps well Constipation: No Performance Status: Patient's functional status continues to improve, she is ambulating with walker for safety at times. Otherwise is able to manage her own ADLs, and IADLs. She is back in her own home, is wanting to try her stationary bike, reviewed would need to do that when someone present for safety. Patient declines outpatient therapy, but did discuss need for progressive ambulation and endurance building. - Palliative Care Discussion: Patient wanting to complete a POLST form and conversation with her daughter. Jennifer meeting today with us. We did discuss given her advanced age, and multiple health issues, if she were to have an event most likely would not return to her previous level of functioning. She though at this point would accept treatment, hospitalization, and follow-up for reversible conditions. Is very important for her not to be further dependent or have her suffering prolonged. In the context of goals she is a DN AR/DNI but selective treatments way benefits and burdens moving forward. We did discuss multiple scenarios with her and her daughter, his daughter is the DPOA. She will place this on her fridge as she will be living by herself. They are getting her a lifeline. She is expected to continue to recover, and she is looking forward to a more normalized life. Results - Lab Results Lab results reviewed: Yes Lab and Imaging Results: Patient was still residual anemia, continue to improve. Patient does have slightly elevated creatinine at 1.1. Impression and Recommendations - Palliative Care Impression: This is a 80-year-old woman with known stage II breast cancer, T3N0 with left mastectomy performed 11/02/2020. She continues with maintenance therapy of trastuzumab. She is currently at home, continue to improve, still has some eschar left on her mastectomy scar. Patient feeling more positive, is probably about 70% of baseline. Palliative care providing support for symptom management, psychosocial support as well as anticipatory guidance in the context of completing her ACP. Recommendations/Counseling Done: 1. Candidiasis under breasts. Nystatin powder was effective, is almost cleared. She will then transition back to her Goldbond powder and moisture wick material. 2. Left mastectomy incision, eschar almost resolved, encouraged to continue to use ointment and soften scab removed. 3. Right hip mass. No significant findings from CT scan, reassured normal findings, patient had right total arthroplasty there, suspect it is just scar tissue and weight loss adding to her sensitivity to swelling. Oncology will review scan as well. 4. Generalized weakness. This is multifactorial, still remains somewhat anemic but counts continue to improve. She does not want to do outpatient therapy, does have a stationary bike at home encouraged to try this before she is by herself. Patient does have a home exercise program and is compliant. 5. Depression. She does appear to be much more relaxed, is enjoying her time back at home and support from her sister. Patient continues to work through feelings of loss and grief, is feeling much more positive. 6. Advanced care planning. POLST discussion with daughter and patient, form completed with DN AR/DNI and selective treatments. Patient is still interested in life extending treatments, but does not want her suffering prolonged nor to be a burden. Palliative care has provided support through this acute phase and transition with high symptom burden, patient doing well. Will check in in a couple months, but otherwise can be discharged from palliative care if continues to do well. 45 minutes with review of chart, family conference with patient and daughter, coordination of care with oncology.
== END 2021-01-11 14:31 | disposition home or self-care (01) ==
LOC: PC 14:30
PROVIDERS: ATTEND Nurse Practitioner Adult Health
DX: Z51.5 Encounter for palliative care (principal); B37.2 Candidiasis of skin and nail; Z90.12 Acquired absence of left breast and nipple; R22.41 Localized swelling, mass and lump, right lower limb; R53.1 Weakness; F32.A Depression, unspecified; Z79.899 Other long term (current) drug therapy; Z66 Do not resuscitate
CPT/HCPCS: 99215

== ENCOUNTER 2021-01-20 10:17 | Outpatient (CLI) | payer OTHER | END 2021-01-20 10:18 | disposition home or self-care (01) | LOC: DI 10:17 | PROVIDERS: ATTEND Internal Medicine Hematology & Oncology | DX: C50.912 Malignant neoplasm of unspecified site of left female breast (principal); I35.8 Other nonrheumatic aortic valve disorders; R93.1 Abnormal findings on diagnostic imaging of heart and coronary circulation | CPT/HCPCS: 93306 ==

== ENCOUNTER 2021-08-13 11:31 | Outpatient (CLI) | payer OTHER ==
--- NOTE | 2021-08-13 13:55 | Nuclear Medicine Report ---
PROCEDURE: MUGA Cardiac Imaging INDICATIONS: HIGH RISK MEDICATION RADIOPHARMACEUTICAL: 32.6 mCi Tc-99m labeled autologous red cells IV. TECHNIQUE: After intravenous administration of autologous labeled WBC, JUNIOR views of the chest were obtained. A region of interest was drawn around the left ventricle to calculate left ventricle ejection fraction. COMPARISON: None available. FINDINGS: The heart and great vessels are of normal size and configuration. The left ventricle contracts colin lly, with left ventricle ejection fraction of 73.8%. Normal ejection fractions for this study are ab ove 55%. A drop from baseline ejection fraction of greater than 10 percentage points or to below 45% on follow-up studies may be considered significant. IMPRESSION: Normal left ventricular ejection fraction at 73.8%. Reviewed by: Torin Mays MD on 08/13/2021 1:54 PM PDT Approved by: Torin Mays MD on 08/13/2021 1:54 PM PDT Station ID: [id number]
== END 2021-08-13 11:32 | disposition home or self-care (01) ==
LOC: DI 11:31
PROVIDERS: ATTEND Physician Assistant
DX: Z79.899 Other long term (current) drug therapy (principal)
CPT/HCPCS: 78803; A9512; A9538

== ENCOUNTER 2022-09-07 11:20 | Outpatient (CLI) | payer OTHER ==
--- NOTE | 2022-09-12 09:51 | Mammography Report ---
UNILATERAL RIGHT DIGITAL SCREENING MAMMOGRAM 3D/2D: 09/07/2022 CLINICAL: Routine screening. Personal history of left breast cancer. Comparison is made to exams dated: 08/19/2021 mammogram - [facility], 05/06/2020 mammogram - [facility], 04/28/2020 mammogram - [facility], 01/12/2017 mammogram, and 016 mammogram - [facility]. The right breast is almost entirely fatty (category a/<25% glandular tissue). No significant masses, calcifications, or other findings are seen in the breast. There has been no significant interval change. IMPRESSION: NEGATIVE There is no mammographic evidence of malignancy. A 1 year screening mammogram is recommended. This exam was interpreted at Station ID: [id number]. NOTE: For mammograms, a report in lay terms will be sent to the patient. Approximately 15% of breast malignancies will not be visualized mammographically. In the management of a palpable breast mass, a negative mammogram must not discourage biopsy of a clinically suspicious lesion. Electronically Signed By: Gurdeep [email or web address]/[email or web address]:09/12/2022 09:21:15 copy to: [facility] BLOOD letter sent: No_Letter ACR BI-RADS Category 1: Negative 3341F PARENCHYMAL PATTERN: (F) - The breast(s) demonstrate(s) diffuse fatty replacement. BI-RADS CATEGORY: (1) - 1 Mammogram [id number] 1 year screening LATERALITY: (B)
== END 2022-09-07 11:21 | disposition home or self-care (01) ==
LOC: DI 11:20
DX: Z12.31 Encounter for screening mammogram for malignant neoplasm of breast (principal); Z85.3 Personal history of malignant neoplasm of breast

== ENCOUNTER 2022-09-07 11:54 | Outpatient (CLI) | payer OTHER ==
[2022-09-07 12:09] LABS: BASOPHILS % (AUTO) 0.5 %; EOSINOPHILS # (AUTO) 0.2 10^3/uL (0.0-0.7); EOSINOPHILS % (AUTO) 2.2 %; HCT - HEMATOCRIT 38.1 % (37.0-47.0); HGB - HEMOGLOBIN 12.7 g/dL (12.0-16.0); LYMPHOCYTES # (AUTO) 1.5 10^3/uL (1.5-3.5); MEAN CORPUSCULAR HEMOGLOBIN 32.6 pg (27.0-31.0); MEAN CORPUSCULAR HGB CONC 33.3 g/dL (32.0-36.0); MEAN CORPUSCULAR VOLUME 97.9 fL (81.0-99.0); MEAN PLATELET VOLUME 9.6 fL (7.9-10.8); MONOCYTES # (AUTO) 0.8 10^3/uL (0.0-1.0); MONOCYTES % (AUTO) 9.3 %; NEUTROPHILS # (AUTO) 5.6 10^3/uL (1.5-6.6); NEUTROPHILS % (AUTO) 69.3 %; PLT - PLATELET COUNT 218 10^3/uL (130-450); RED BLOOD COUNT 3.89 10^6/uL (4.20-5.40); RED CELL DISTRIBUTION WIDTH 12.4 % (12.0-15.0)
[2022-09-07 12:13] LABS: ESTIMATED AVERAGE GLUCOSE 111 mg/dL (70-100); HEMOGLOBIN A1c% 5.5 % (4.27-6.07)
[2022-09-07 12:24] LABS: ALBUMIN 3.7 g/dL (3.2-5.5); ALBUMIN/GLOBULIN RATIO 0.8 (1.0-2.2); BILIRUBIN,TOTAL 0.6 mg/dL (0.2-1.0); CALCIUM 9.3 mg/dL (8.5-10.3); CREATININE 1.1 mg/dL (0.4-1.0); POTASSIUM 4.3 mmol/L (3.5-5.0); TOTAL PROTEIN 8.1 g/dL (6.7-8.2)
[2022-09-07 12:37] LABS: THYROID STIMULATING HORMONE 4.43 uIU/mL (0.34-5.60)
== END 2022-09-07 11:55 | disposition home or self-care (01) ==
LOC: LAB 11:54
PROVIDERS: ATTEND Nurse Practitioner Family
DX: R03.0 Elevated blood-pressure reading, without diagnosis of hypertension (principal); Z86.2 Personal history of diseases of the blood and blood-forming organs and certain disorders involving the immune mechanism; E66.9 Obesity, unspecified; Z79.899 Other long term (current) drug therapy
CPT/HCPCS: 36415; 80053; 83036; 84443; 85025

== ENCOUNTER 2023-06-19 14:45 | Outpatient (CLI) | payer OTHER | END 2023-06-19 14:46 | disposition home or self-care (01) | LOC: DI 14:45 | PROVIDERS: ATTEND Nurse Practitioner Family | DX: I35.0 Nonrheumatic aortic (valve) stenosis (principal); I11.9 Hypertensive heart disease without heart failure | CPT/HCPCS: 93307 ==

== ENCOUNTER 2023-08-29 09:56 | Outpatient (CLI) | payer OTHER ==
[2023-08-29 10:18] LABS: BASOPHILS % (AUTO) 0.6 %; EOSINOPHILS # (AUTO) 0.2 10^3/uL (0.0-0.7); EOSINOPHILS % (AUTO) 2.9 %; HCT - HEMATOCRIT 38.9 % (37.0-47.0); LYMPHOCYTES # (AUTO) 1.3 10^3/uL (1.5-3.5); LYMPHOCYTES % (AUTO) 18.4 %; MEAN CORPUSCULAR HEMOGLOBIN 32.4 pg (27.0-31.0); MEAN CORPUSCULAR HGB CONC 33.4 g/dL (32.0-36.0); MEAN PLATELET VOLUME 9.8 fL (7.9-10.8); MONOCYTES # (AUTO) 0.7 10^3/uL (0.0-1.0); MONOCYTES % (AUTO) 9.1 %; NEUTROPHILS % (AUTO) 68.6 %; PLT - PLATELET COUNT 223 10^3/uL (130-450); RED BLOOD COUNT 4.01 10^6/uL (4.20-5.40); RED CELL DISTRIBUTION WIDTH 12.3 % (12.0-15.0); WHITE BLOOD COUNT 7.2 x10^3/uL (4.8-10.8)
[2023-08-29 10:34] LABS: ALBUMIN 3.9 g/dL (3.2-5.5); ALKALINE PHOSPHATASE 73 IU/L (42-121); ALT ALANINE AMINOTRANSFERASE 11 IU/L (10-60); AST ASPARTATE AMINOTRANSFERASE 17 IU/L (10-42); BILIRUBIN,TOTAL 0.6 mg/dL (0.2-1.0); BUN - BLOOD UREA NITROGEN 32 mg/dL (6-20); CARBON DIOXIDE - CO2 29 mmol/L (21-32); CHLORIDE 104 mmol/L (101-111); CHOL/HDL RATIO 4.2 (<4.4); CHOLESTEROL 172 mg/dL; CREATININE 1.1 mg/dL (0.6-1.3); GFR - MDRD 48 (>89); GLUCOSE 102 mg/dL (74-104); HDL CHOLESTEROL 41 mg/dL; LDL CHOLESTEROL,CALCULATED 111 mg/dL; LDL/HDL RATIO 2.7 (<4.4); SODIUM 137 mmol/L (135-145); TOTAL PROTEIN 7.7 g/dL (6.4-8.9); TRIGLYCERIDES 100 mg/dL (48-352); VLDL CHOLESTEROL 20 mg/dL
[2023-08-29 10:47] LABS: THYROID STIMULATING HORMONE 4.07 uIU/mL (0.34-5.60)
[2023-08-29 11:06] LABS: ESTIMATED AVERAGE GLUCOSE 111 mg/dL (70-100); HEMOGLOBIN A1c% 5.5 % (4.27-6.07)
== END 2023-08-29 09:57 | disposition home or self-care (01) ==
LOC: LAB 09:56
PROVIDERS: ATTEND Nurse Practitioner Family
DX: Z02.89 Encounter for other administrative examinations (principal); I12.9 Hypertensive chronic kidney disease with stage 1 through stage 4 chronic kidney disease, or unspecified chronic kidney disease; E66.9 Obesity, unspecified
CPT/HCPCS: 36415; 80053; 80061; 83036; 83721; 84443; 85025

== ENCOUNTER 2023-11-21 11:17 | Outpatient (CLI) | payer OTHER ==
--- NOTE | 2023-11-22 11:34 | Mammography Report ---
UNILATERAL RIGHT DIGITAL SCREENING MAMMOGRAM 3D/2D WITH LATEROMEDIAL OBLIQUE: 11/21/2023 CLINICAL: Routine screening. Personal history of left breast cancer. Comparison is made to exams dated: 09/07/2022 mammogram - [facility], 08/19/2021 mamm ogram - [facility], and 04/28/2020 mammogram - [facility]. The right breast is almost entirely fatty (category a/<25% glandular tissue). No significant masses, calcifications, or other findings are seen in the breast. There has been no significant interval change. IMPRESSION: NEGATIVE There is no mammographic evidence of malignancy. A 1 year screening mammogram is recommended. This exam was interpreted at Station ID: [id number]. NOTE: For mammograms, a report in lay terms will be sent to the patient. Approximately 15% of breast malignancies will not be visualized mammographically. In the management of a palpable breast mass, a negative mammogram must not discourage biopsy of a clinically suspicious lesion. Electronically Signed By: Tyrell Anna M.D. [facility] [email or web address]:11/21/2023 13:30:46 copy to: [facility] BLOOD letter sent: No_Letter ACR BI-RADS Category 1: Negative [id number] PARENCHYMAL PATTERN: (F) - The breast(s) demonstrate(s) diffuse fatty replacement. BI-RADS CATEGORY: (1) - 1 RECOMMENDATION: (ANNUAL) - Recommend routine annual screening mammography. [id number] 1 year screening LATERALITY: (B)
== END 2023-11-21 11:18 | disposition home or self-care (01) ==
LOC: DI 11:17
PROVIDERS: ATTEND Internal Medicine Hematology & Oncology
DX: Z12.31 Encounter for screening mammogram for malignant neoplasm of breast (principal); Z85.3 Personal history of malignant neoplasm of breast

== ENCOUNTER 2024-01-08 16:50 | Inpatient (IN) ==
--- NOTE | 2024-01-08 17:37 | ED Physician Documentation ---
History of Present Illness Stated complaint Stated Complaint: GENERAL WEAKNESS X1 WK Chief complaint Chief Complaint: General Additonal information Additional information: This is a relatively healthy 83-year-old woman who presents with her daughter with whom she lives. She has had a progressive decline over the last week with generalized weakness and today does not have the energy to walk. She did have a fever en route here. She denies chest pain, trouble breathing, cough, abdominal pain, urinary complaints, rash, sore throat. She is incontinent of urine. Her only specific complaint is soreness at the top of the gluteal crease. And chills. Meds/Allgy Home Medications Ambulatory Orders Medication Instructions Recorded Confirmed clonazepam 0.5 mg tablet 0.5 mg ORAL BID tremors 02/09/15 01/08/24 losartan 50 mg tablet 75 mg ORAL QPM 02/09/15 01/08/24 propranolol 40 mg tablet 40 mg PO BID 02/09/15 01/08/24 B-complex with vitamin C (Super B 1 ea PO DAILY 05/27/20 01/08/24 Complex-Vitamin C tablet) calcium 600 mg (as phosphate)-vit 1 ea PO DAILY 05/27/20 01/08/24 D3 500 unit-magnesium 50 mg tablet (Posture-D (with magnesium)) cholecalciferol (vitamin D3) 25 50 mcg PO DAILY 05/27/20 01/08/24 mcg (1,000 unit) tablet glucosamine HCl 1,500 mg tablet 1,500 mg PO DAILY 05/27/20 01/08/24 iron, carbonyl 45 mg tablet 65 mg PO DAILY 10/14/20 01/08/24 pantoprazole 40 mg tablet,delayed 40 mg PO DAILY 10/14/20 01/08/24 release triamterene 37.5 See Rx Instructions .Route 01/02/24 01/08/24 mg-hydrochlorothiazide 25 mg tablet .COMPLEX #90 tabs Allergies Allergies Allergy/AdvReac Type Severity Reaction Status Date / Time No Known Drug Allergies Allergy Verified 01/08/24 17:12 [facility] Social History Social History Smoking Status: Never smoker Do you dip or chew tobacco?: No Do you vape?: No Living arrangement: At home (She has her own home but moved in with her daughter when she got chemotherapy started) Living Condition: Alone and With family (sister staying currently) Relationship: Home Mobility Equipment: Walker Do you feel safe in your home environment?: Yes Suffered physical, verbal, emotional, or financial abuse?: No History of Abuse: No POLST Patient has POLST: Yes POLST Status: Full Code Exam Constitutional normal general appearance and no apparent distress Generally weak, cannot sit up unassisted. 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 Results Vitals Vitals: Vital Signs - 24 hr 01/08/24 17:03 Temperature 37.2 C Temperature Source Temporal Artery Scan Pulse Rate 74 Respiratory Rate 18 Blood Pressure 175/65 H O2 Saturation 95 O2 Source Room air Pain Intensity 10 Oxygen O2 Source Room air Labs Labs: Laboratory Tests 01/08/24 01/08/24 01/08/24 17:56 18:20 18:20 WBC 17.4 H RBC 3.69 L Hgb 11.7 L Hct 35.7 L MCV 96.7 MCH 31.7 H MCHC 32.8 RDW 12.5 Plt Count 291 MPV 9.6 Neut # (Auto) 15.4 H Lymph # (Auto) 0.6 L [place] # (Auto) 1.2 H Eos # (Auto) 0.0 Baso # (Auto) 0.0 Absolute Nucleated RBC 0.00 Nucleated RBC % 0.0 Sodium 135 Potassium 4.0 Chloride 100 L Carbon Dioxide 28 Anion Gap 7.0 BUN 29 H Creatinine 1.1 Estimated GFR (MDRD) 48 L Glucose 104 Lactic Acid 0.7 Calcium 10.2 Total Bilirubin 0.6 AST 25 ALT 24 Alkaline Phosphatase 84 Total Protein 7.5 Albumin 3.6 Globulin 3.9 Albumin/Globulin Ratio 0.9 L Urine Color YELLOW Urine Clarity HAZY Urine pH 7.0 Ur Specific Dr[place]coll 1.015 Urine Protein TRACE Urine Glucose (UA) NEGATIVE Urine Ketones NEGATIVE Urine Occult Blood SMALL H Urine Nitrite NEGATIVE Urine Bilirubin NEGATIVE Urine Urobilinogen 0.2 (NORMAL) Ur Leukocyte Esterase MODERATE H Urine RBC 6-10 H Urine WBC 11-25 H Ur Epithelial Cells FEW Renal Tubular FEW Transitional Ur Squamous Epith Cells FEW Squamous Urine Bacteria Few Urine Culture Comments INDICATED Nasal Adenovirus (PCR) Nasal B. parapertussis DNA (PCR) Nasal Coronavir 229E PCR Nasal Coronavir HKU1 PCR Nasal Coronavir NL63 PCR Nasal Coronavir OC43 PCR Nasal Enterovir/Rhinovir PCR Nasal Influenza B PCR Nasal Influenza A PCR Nasal Parainfluen 1 PCR Nasal Parainfluen 2 PCR Nasal Parainfluen 3 PCR Nasal Parainfluen 4 PCR Nasal RSV (PCR) Nasal B.pertussis DNA PCR Nasal C.pneumoniae (PCR) Joseluis Human Metapneumo PCR Nasal M.pneumoniae (PCR) Nasal SARS-CoV-2 (PCR) 01/08/24 18:21 WBC RBC Hgb Hct MCV MCH MCHC RDW Plt Count MPV Neut # (Auto) Lymph # (Auto) [place] # (Auto) Eos # (Auto) Baso # (Auto) Absolute Nucleated RBC Nucleated RBC % Sodium Potassium Chloride Carbon Dioxide Anion Gap BUN Creatinine Estimated GFR (MDRD) Glucose Lactic Acid Calcium Total Bilirubin AST ALT Alkaline Phosphatase Total Protein Albumin Globulin Albumin/Globulin Ratio Urine Color Urine Clarity Urine pH Ur Specific Dr[place]coll Urine Protein Urine Glucose (UA) Urine Ketones Urine Occult Blood Urine Nitrite Urine Bilirubin Urine Urobilinogen Ur Leukocyte Esterase Urine RBC Urine WBC Ur Epithelial Cells Ur Squamous Epith Cells Urine Bacteria Urine Culture Comments Nasal Adenovirus (PCR) NOT DETECTED Nasal B. parapertussis DNA (PCR) NOT DETECTED Nasal Coronavir 229E PCR NOT DETECTED Nasal Coronavir HKU1 PCR NOT DETECTED Nasal Coronavir NL63 PCR NOT DETECTED Nasal Coronavir OC43 PCR NOT DETECTED Nasal Enterovir/Rhinovir PCR NOT DETECTED Nasal Influenza B PCR NOT DETECTED Nasal Influenza A PCR NOT DETECTED Nasal Parainfluen 1 PCR NOT DETECTED Nasal Parainfluen 2 PCR NOT DETECTED Nasal Parainfluen 3 PCR NOT DETECTED Nasal Parainfluen 4 PCR NOT DETECTED Nasal RSV (PCR) NOT DETECTED Nasal B.pertussis DNA PCR NOT DETECTED Nasal C.pneumoniae (PCR) NOT DETECTED Joseluis Human Metapneumo PCR NOT DETECTED Nasal M.pneumoniae (PCR) NOT DETECTED Nasal SARS-CoV-2 (PCR) NOT DETECTED Rads (name of study) Single view chest x-ray showing prominent heart size and increased interstitial markings.: Relevant Findings:: Final report received and EMP independent interpretation of test PD Medical Decision Making ED course ED course: 83-year-old woman presents with worsening generalized weakness, febrile at home. Really not much to point out as far as infection on exam. She does have a white count of 17,000 with positive urinalysis. Spoke with Dr. Gonsalves for admission given mild urosepsis and generalized weakness at 7:19 PM. Discharge Plan Discharge Patient Disposition: ED Place in Observation Condition: Serious Clinical Impression: Acute UTI, Sepsis Interventions: ED Admission Assessment Last Done: 01/08/24 19:51
--- NOTE | 2024-01-08 17:53 | XRAY Report ---
PROCEDURE: XR Chest 1V INDICATIONS: fever TECHNIQUE: One view of the chest was acquired. COMPARISON: 09/09/2020. FINDINGS: Surgical changes and devices: None. Lungs and pleura: No pleural effusions or pneumothorax. Interstitial markings appear increased, seco ndary to technique. Mediastinum: Mediastinal contours appear normal. Heart size is prominent. Bones and chest wall: No suspicious bony lesions. Overlying soft tissues appear unremarkable. IMPRESSION: Heart size is prominent. Interstitial markings appear increased, however this may be secondary to yvette hnique/body habitus versus pulmonary edema or atypical infection. Recommend clinical correlation. Reviewed by: Mariano Guerrero MD on 01/08/2024 5:52 PM PDT Approved by: Mariano Guerrero MD on 01/08/2024 5:52 PM PDT Station ID: [id number]
[2024-01-08 18:06] LABS: BASOPHILS % (AUTO) 0.2 %; EOSINOPHILS % (AUTO) 0.2 %; HCT - HEMATOCRIT 35.7 % (37.0-47.0); HGB - HEMOGLOBIN 11.7 g/dL (12.0-16.0); LYMPHOCYTES # (AUTO) 0.6 10^3/uL (1.5-3.5); LYMPHOCYTES % (AUTO) 3.5 %; MEAN CORPUSCULAR HEMOGLOBIN 31.7 pg (27.0-31.0); MEAN CORPUSCULAR HGB CONC 32.8 g/dL (32.0-36.0); MEAN CORPUSCULAR VOLUME 96.7 fL (81.0-99.0); MEAN PLATELET VOLUME 9.6 fL (7.9-10.8); MONOCYTES # (AUTO) 1.2 10^3/uL (0.0-1.0); MONOCYTES % (AUTO) 6.7 %; NEUTROPHILS # (AUTO) 15.4 10^3/uL (1.5-6.6); NEUTROPHILS % (AUTO) 88.4 %; PLT - PLATELET COUNT 291 10^3/uL (130-450); RED BLOOD COUNT 3.69 10^6/uL (4.20-5.40); RED CELL DISTRIBUTION WIDTH 12.5 % (12.0-15.0); WHITE BLOOD COUNT 17.4 x10^3/uL (4.8-10.8)
[2024-01-08 18:19] LABS: ALBUMIN 3.6 g/dL (3.2-5.5); ALBUMIN/GLOBULIN RATIO 0.9 (1.0-2.2); BILIRUBIN,TOTAL 0.6 mg/dL (0.2-1.0); CALCIUM 10.2 mg/dL (8.5-10.3); CREATININE 1.1 mg/dL (0.6-1.3); TOTAL PROTEIN 7.5 g/dL (6.4-8.9)
[2024-01-08] MEDS: LIDOCAINE PATCH 4% TOP STA (18:20)
[2024-01-08] MEDS: SODIUM CHLORIDE 0.9% 1,000 ML IV STA (18:20)
[2024-01-08 18:34] LABS: BILIRUBIN,URINE NEGATIVE (NEGATIVE); GLUCOSE, URINE (UA) NEGATIVE (NEGATIVE); KETONES,URINE (UA) NEGATIVE (NEGATIVE); LEUKOCYTE ESTERASE, URINE MODERATE (NEGATIVE); NITRITE,URINE NEGATIVE (NEGATIVE); OCCULT BLOOD,URINE SMALL (NEGATIVE); PROTEIN,URINE TRACE mg/dL (NEGATIVE); UROBILINOGEN,URINE 0.2 (NORMAL) E.U./dL (NORMAL)
[2024-01-08 18:45] LABS: CLARITY,URINE HAZY (CLEAR); SQUAMOUS EPITHELIAL CELL,UR FEW Squamous (<= Few)
[2024-01-08 18:46] LABS: BACTERIA,URINE Few /HPF (None Seen)
[2024-01-08] MEDS ORDERED: SODIUM CHLORIDE FLUSH 0.9% 10 ML SYRINGE IVP PRN (19:16)
[2024-01-08] MEDS ORDERED: ONDANSETRON 4 MG/2 ML VIAL IVP PRN (19:16)
[2024-01-08 19:32] LABS: B. PARAPERTUSSIS- RESP PCR PAN NOT DETECTED; B. PERTUSSIS- RESP PCR PANEL NOT DETECTED; C. PNEUMONIAE- RESP PCR PANEL NOT DETECTED; CORONAVIRUS 229E-RESP PCR NOT DETECTED; CORONAVIRUS HKU1-RESP PCR NOT DETECTED; CORONAVIRUS NL63-RESP PCR NOT DETECTED; CORONAVIRUS OC43-RESP PCR NOT DETECTED; HUMAN METAPNEUMOVIRUS NOT DETECTED; INFLUENZA A- RESP PCR PANEL NOT DETECTED; INFLUENZA B - RESP PCR PANEL NOT DETECTED; M. PNEUMONIAE- RESP PCR PANEL NOT DETECTED; PARAINFLUENZA VIRUS 1 NOT DETECTED; PARAINFLUENZA VIRUS 2 NOT DETECTED; PARAINFLUENZA VIRUS 3 NOT DETECTED; PARAINFLUENZA VIRUS 4 NOT DETECTED; RHINOVIRUS/ENTEROVIRUS NOT DETECTED; RSV- RESP PCR PANEL NOT DETECTED; SARS-CoV-2 -RESP PCR PANEL NOT DETECTED
[2024-01-08] MEDS: cefTRIAXone 1 GM VIAL IVP STA (19:39)
--- NOTE | 2024-01-08 19:48 | HISTORY & PHYSICAL EXAMINATION ---
Chief Complaint Chief Complaint Chief Complaint: fatigue History of Present Illness Admitted From Admitted From:: home History Obtained From Records Reviewed: yes History obtained from: Ed physician, patient, daughter at bedside Exam Limitations: None History of Present Illness HPI Comment/Other: Mrs. Lopez is a pleasant 83yo, with a history of hypertension. She presented to the ED for evaluation of worsening fatigue and generalized weakness of 1 week duration. she denied any precipitating or alleviating factors. The day priory she developed nausea and had an episode of emesis. On the day of presentation she was so weak she could not support herself on her walker to get around. Upon arrival to the ED, EMS reported a fever of greater than 101.she was afebrile in the ED. Workup demonstrated UA consistent with UTI. She denied any abdominal pain or dysuria. She had leukocytosis, no lactic obtained. she met sepsis criteria. during my evaluation at bedside patient was resting in no acute distress. daughter was at bedside. Plan of care to admit for IV antibiotic was discussed with the patient. she was in agreement with admission. This visit was performed utilizing tele-health tools including phone and live video. patient and family provided consent to proceed with this admission via telemedicine platform. Review of Systems Status of ROS: 10 or more systems reviewed and unremarkable except as noted in history and below PFSH Social History Social History Smoking Status: Never smoker Do you dip or chew tobacco?: No Do you vape?: No Living arrangement: At home (She has her own home but moved in with her daughter when she got chemotherapy started) Living Condition: Alone and With family (sister staying currently) Relationship: Home Mobility Equipment: Walker Do you feel safe in your home environment?: Yes Suffered physical, verbal, emotional, or financial abuse?: No History of Abuse: No POLST Patient has POLST: Yes POLST Status: Full Code Meds/Allgy Home Medications Ambulatory Orders Medication Instructions Recorded Confirmed clonazepam 0.5 mg tablet 0.5 mg ORAL BID tremors 02/09/15 01/08/24 losartan 50 mg tablet 75 mg ORAL QPM 02/09/15 01/08/24 propranolol 40 mg tablet 40 mg PO BID 02/09/15 01/08/24 B-complex with vitamin C (Super B 1 ea PO DAILY 05/27/20 01/08/24 Complex-Vitamin C tablet) calcium 600 mg (as phosphate)-vit 1 ea PO DAILY 05/27/20 01/08/24 D3 500 unit-magnesium 50 mg tablet (Posture-D (with magnesium)) cholecalciferol (vitamin D3) 25 50 mcg PO DAILY 05/27/20 01/08/24 mcg (1,000 unit) tablet glucosamine HCl 1,500 mg tablet 1,500 mg PO DAILY 05/27/20 01/08/24 iron, carbonyl 45 mg tablet 65 mg PO DAILY 10/14/20 01/08/24 pantoprazole 40 mg tablet,delayed 40 mg PO DAILY 10/14/20 01/08/24 release triamterene 37.5 See Rx Instructions .Route 01/02/24 01/08/24 mg-hydrochlorothiazide 25 mg tablet .COMPLEX #90 tabs Allergies Allergies Allergy/AdvReac Type Severity Reaction Status Date / Time No Known Drug Allergies Allergy Verified 01/08/24 17:12 Exam Exam Physical examination as recorded was base on pateint reported information or obtained through peripheral observation. 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, no movement abnormality noted and no focal motor deficit noted Psychiatry oriented x3 Skin wound(s) noted Image sacral wound Sepsis Event Note (H) Evaluation Current Stage of Sepsis: Sepsis Possible source of Sepsis: positive Genitourinary Sepsis Criteria Sepsis Criteria: Recorded Temperature greater than 38.3C or Less than 36C and WBC count greater than 12,000 or less than 4000 Conclusion/Plan Problem List (1) Acute UTI: Plan: Reviewed UA- cultures pending,classifies as acute complicated UTI due to presense of fever and significant fatigue -continue with empiric antibiotics, monitor for vitals for toxicity or adverse interaction -monitor vitals q4h for clinical response -monitor I&Os, UOP (2) Sepsis: Plan: Criteria met due to reported fever and leukocytosis -will obtain lactic acid and trend wbc -monitor vitals with serial bp and temperature checks q4h -continue empiric antibiotics, tailor to cultures -30mg/kg deferred by ED due to hypertension (3) Sacral ulcer: Plan: reported as grade I, no evidence of active infection -wound care team orders initiated -basic care per protocol: turns to provide offloading and prevent further skin breakdown. (4) Hypertension: Plan: home medication reviewed adn will be resumed -goal BP, 140/70 for optimized management -will hold on supplemental antihypertensive medication for the next 12 hours while undergoing treatment for acute infection and sepsis. Qualifiers: Hypertension type: essential hypertension Qualified Code(s): I10 - Essential (primary) hypertension Lab Results Lab results reviewed: Yes 01/08/24 17:56 01/08/24 17:56 Diagnostic Imaging Results Diagnostic Imaging Results: positive Final report reviewed Core Measures Anticipated LOS I expect patient to be DC'd or transferred within 96 hours.: Yes DVT/VTE - Prophylaxis VTE/DVT Device ordered at admit?: Yes Telemedicine Consult Details Provider Location & Consult Time Telemedicine consultation conducted via videoconferencing?: Yes
[2024-01-08] MEDS: clonazePAM 0.5 MG TABLET PO SCH (20:51)
[2024-01-08] MEDS: LOSARTAN 50 MG TABLET PO SCH (20:51)
[2024-01-08] MEDS: ACETAMINOPHEN 325 MG TABLET PO PRN (20:51)
[2024-01-09] MEDS: SODIUM CHLORIDE FLUSH 0.9% 10 ML SYRINGE IVP SCH (00:36)
[2024-01-09] MEDS: TRIAMT/HCTZ 37.5 MG/25 MG CAPSULE PO SCH (08:54)
[2024-01-09] MEDS: PANTOPRAZOLE 40 MG TABLET PO SCH (08:54)
[2024-01-09] MEDS ORDERED: GLUCOSAMINE HCL 1500 MG PO SCH (09:00)
[2024-01-09 09:29] LABS: HCT - HEMATOCRIT 34.6 % (37.0-47.0); HGB - HEMOGLOBIN 11.2 g/dL (12.0-16.0); MEAN CORPUSCULAR HEMOGLOBIN 31.5 pg (27.0-31.0); MEAN CORPUSCULAR HGB CONC 32.4 g/dL (32.0-36.0); MEAN CORPUSCULAR VOLUME 97.5 fL (81.0-99.0); MEAN PLATELET VOLUME 9.3 fL (7.9-10.8); RED BLOOD COUNT 3.55 10^6/uL (4.20-5.40); RED CELL DISTRIBUTION WIDTH 12.5 % (12.0-15.0)
--- NOTE | 2024-01-09 12:45 | PROVIDER PROGRESS NOTE ---
Subjective Subjective Subjective: Patient was brought in yesterday after a few days of weakness at home. She denies urinary urgency, urinary frequency, dysuria, urinary incontinence. She denies any fevers, chills at this time. Her daughter was spoken with - she stated that after breast cancer, and completing three rounds of chemotherapy, she has been more weak. She does live by herself but her three children are nearby and help with activities of daily living. Current Medications Current Medications Current Medications: Current Medications Generic Name Dose Route Start Last Admin Trade Name Freq PRN Reason Stop Dose Admin Acetaminophen 650 mg 01/08/24 19:16 01/09/24 09:01 Acetaminophen 325 Mg Tablet PO 650 mg Q4HR PRN Administration Pain 1 to 4, or Fever Clonazepam 0.5 mg 01/08/24 21:00 01/09/24 08:54 Clonazepam 0.5 Mg Tablet PO 0.5 mg BID GARETH Administration Ceftriaxone Sodium 1 gm/ 100 mls @ 200 mls/hr 01/09/24 18:00 Sodium Chloride IV Q24H GARETH Losartan Potassium 75 mg 01/08/24 21:00 01/08/24 20:51 Losartan 50 Mg Tablet PO 75 mg QPM GARETH Administration Ondansetron HCl 4 mg 01/08/24 19:16 Ondansetron 4 Mg/2 Ml Vial IVP Q6HR PRN Nausea / Vomiting Pantoprazole Sodium 40 mg 01/09/24 09:00 01/09/24 08:54 Pantoprazole 40 Mg Tablet PO 40 mg DAILY GARETH Administration Sodium Chloride 10 ml 01/08/24 19:16 Sodium Chloride Flush 0.9% 10 Ml Syringe IVP PRN PRN NEEDED PER PROVIDER ORDERS Sodium Chloride 10 ml 01/09/24 01:00 01/09/24 08:55 Sodium Chloride Flush 0.9% 10 Ml Syringe IVP 10 ml [id number],[id number],1700 GARETH Administration Triamterene/Hydrochlorothiazide 1 cap 01/09/24 09:00 01/09/24 08:54 Triamt/Hctz 37.5 Mg/25 Mg Capsule PO 1 cap DAILY GARETH Administration Objective Vital Signs/Intake & Output Reviewed Vital Signs: Yes Vital Signs: Vital Signs x48h Temp Pulse Pulse Resp BP Pulse Ox 01/09/24 11:45 96.8 F L 77 18 148/62 H 95 01/09/24 08:53 98.6 F 80 172/68 H 01/09/24 08:06 100.9 F H 78 18 174/74 H 93 01/09/24 06:30 99.3 F 01/09/24 05:59 101.3 F H 80 18 119/74 94 Intake & Output: Intake & Output 01/07/24 01/08/24 01/09/24 01/10/24 05:59 05:59 05:59 05:59 Intake Total 1150 / 1150 477 / 477 Output Total 600 / 600 200 / 200 Balance 550 / 550 277 / 277 Weight (kg) 94.5 kg Objective General Appearance: positive Mild distress and Anxious Eyes Bilateral: positive Normal inspection, PERRL and EOMI ENT: positive ENT inspection nml, Pharynx nml and No signs of dehydration Neck: positive Nml inspection, No JVD and Trachea midline Respiratory: positive Chest non-tender, No respiratory distress and Breath sounds nml; negative Wheezes, Rales or Rhonchi Cardiovascular: positive Regular rate & rhythm and No murmur; negative Irregularly irregular, Extrasystoles, Tachycardia or JVD present Abdomen: positive Non-tender, No organomegaly and No distention; negative Tenderness, Rebound, Hepatomegaly, Splenomegaly or Mass Back: positive Nml inspection; negative CVA tenderness (R) or CVA tenderness (L) Skin: positive Color nml, No rash, Warm and Dry Extremities: positive Non-tender, Full ROM and Joint swelling (right knee joint swelling ) Neurologic/Psychiatric: positive Oriented x3, Motor nml and Mood/affect nml Lab Results 01/09/24 09:23 01/08/24 17:56 Other Labs: Lab Results x24hrs 01/09/24 01/08/24 01/08/24 Range/Units 09:23 18:21 18:20 WBC 12.0 H (4.8-10.8) x10^3/uL RBC 3.55 L (4.20-5.40) 10^6/uL Hgb 11.2 L (12.0-16.0) g/dL Hct 34.6 L (37.0-47.0) % MCV 97.5 (81.0-99.0) fL MCH 31.5 H (27.0-31.0) pg MCHC 32.4 (32.0-36.0) g/dL RDW 12.5 (12.0-15.0) % Plt Count 262 (130-450) 10^3/uL MPV 9.3 (7.9-10.8) fL Neut # (Auto) (1.5-6.6) 10^3/uL Lymph # (Auto) (1.5-3.5) 10^3/uL [place] # (Auto) (0.0-1.0) 10^3/uL Eos # (Auto) (0.0-0.7) 10^3/uL Baso # (Auto) (0.0-0.1) 10^3/uL Absolute Nucleated RBC x10^3/uL Nucleated RBC % /100WBC Sodium (135-145) mmol/L Potassium (3.5-4.5) mmol/L Chloride (101-111) mmol/L Carbon Dioxide (21-32) mmol/L Anion Gap (6-13) BUN (6-20) mg/dL Creatinine (0.6-1.3) mg/dL Estimated GFR (MDRD) (>89) Glucose (74-104) mg/dL Lactic Acid (0.5-2.2) mmol/L Calcium (8.5-10.3) mg/dL Total Bilirubin (0.2-1.0) mg/dL AST (10-42) IU/L ALT (10-60) IU/L Alkaline Phosphatase (42-121) IU/L Total Protein (6.4-8.9) g/dL Albumin (3.2-5.5) g/dL Globulin (2.1-4.2) g/dL Albumin/Globulin Ratio (1.0-2.2) Urine Color Urine Clarity (CLEAR) Urine pH (5.0-7.5) PH Ur Specific [place] (1.002-1.030) Urine Protein (NEGATIVE) mg/dL Urine Glucose (UA) (NEGATIVE) mg/dL Urine Ketones (NEGATIVE) mg/dL Urine Occult Blood (NEGATIVE) Urine Nitrite (NEGATIVE) Urine Bilirubin (NEGATIVE) Urine Urobilinogen (NORMAL) E.U./dL Ur Leukocyte Esterase (NEGATIVE) Urine RBC (0-5) /HPF Urine WBC (0-5) /HPF Ur Epithelial Cells FEW Transitional (<= Few) /HPF Ur Squamous Epith Cells FEW Squamous (<= Few) Urine Bacteria Few (None Seen) /HPF Urine Culture Comments INDICATED Nasal Adenovirus (PCR) NOT DETECTED Nasal B. parapertussis DNA (PCR) NOT DETECTED Nasal Coronavir 229E PCR NOT DETECTED Nasal Coronavir HKU1 PCR NOT DETECTED Nasal Coronavir NL63 PCR NOT DETECTED Nasal Coronavir OC43 PCR NOT DETECTED Nasal Enterovir/Rhinovir PCR NOT DETECTED Nasal Influenza B PCR NOT DETECTED Nasal Influenza A PCR NOT DETECTED Nasal Parainfluen 1 PCR NOT DETECTED Nasal Parainfluen 2 PCR NOT DETECTED Nasal Parainfluen 3 PCR NOT DETECTED Nasal Parainfluen 4 PCR NOT DETECTED Nasal RSV (PCR) NOT DETECTED Nasal B.pertussis DNA PCR NOT DETECTED Nasal C.pneumoniae (PCR) NOT DETECTED Joseluis Human Metapneumo PCR NOT DETECTED Nasal M.pneumoniae (PCR) NOT DETECTED Nasal SARS-CoV-2 (PCR) NOT DETECTED 01/08/24 01/08/24 Range/Units 18:20 17:56 WBC 17.4 H (4.8-10.8) x10^3/uL RBC 3.69 L (4.20-5.40) 10^6/uL Hgb 11.7 L (12.0-16.0) g/dL Hct 35.7 L (37.0-47.0) % MCV 96.7 (81.0-99.0) fL MCH 31.7 H (27.0-31.0) pg MCHC 32.8 (32.0-36.0) g/dL RDW 12.5 (12.0-15.0) % Plt Count 291 (130-450) 10^3/uL MPV 9.6 (7.9-10.8) fL Neut # (Auto) 15.4 H (1.5-6.6) 10^3/uL Lymph # (Auto) 0.6 L (1.5-3.5) 10^3/uL [place] # (Auto) 1.2 H (0.0-1.0) 10^3/uL Eos # (Auto) 0.0 (0.0-0.7) 10^3/uL Baso # (Auto) 0.0 (0.0-0.1) 10^3/uL Absolute Nucleated RBC 0.00 x10^3/uL Nucleated RBC % 0.0 /100WBC Sodium 135 (135-145) mmol/L Potassium 4.0 (3.5-4.5) mmol/L Chloride 100 L (101-111) mmol/L Carbon Dioxide 28 (21-32) mmol/L Anion Gap 7.0 (6-13) BUN 29 H (6-20) mg/dL Creatinine 1.1 (0.6-1.3) mg/dL Estimated GFR (MDRD) 48 L (>89) Glucose 104 (74-104) mg/dL Lactic Acid 0.7 (0.5-2.2) mmol/L Calcium 10.2 (8.5-10.3) mg/dL Total Bilirubin 0.6 (0.2-1.0) mg/dL AST 25 (10-42) IU/L ALT 24 (10-60) IU/L Alkaline Phosphatase 84 (42-121) IU/L Total Protein 7.5 (6.4-8.9) g/dL Albumin 3.6 (3.2-5.5) g/dL Globulin 3.9 (2.1-4.2) g/dL Albumin/Globulin Ratio 0.9 L (1.0-2.2) Urine Color YELLOW Urine Clarity HAZY (CLEAR) Urine pH 7.0 (5.0-7.5) PH Ur Specific [place] 1.015 (1.002-1.030) Urine Protein TRACE (NEGATIVE) mg/dL Urine Glucose (UA) NEGATIVE (NEGATIVE) mg/dL Urine Ketones NEGATIVE (NEGATIVE) mg/dL Urine Occult Blood SMALL H (NEGATIVE) Urine Nitrite NEGATIVE (NEGATIVE) Urine Bilirubin NEGATIVE (NEGATIVE) Urine Urobilinogen 0.2 (NORMAL) (NORMAL) E.U./dL Ur Leukocyte Esterase MODERATE H (NEGATIVE) Urine RBC 6-10 H (0-5) /HPF Urine WBC 11-25 H (0-5) /HPF Ur Epithelial Cells FEW Renal Tubular (<= Few) /HPF Ur Squamous Epith Cells (<= Few) Urine Bacteria (None Seen) /HPF Urine Culture Comments Nasal Adenovirus (PCR) Nasal B. parapertussis DNA (PCR) Nasal Coronavir 229E PCR Nasal Coronavir HKU1 PCR Nasal Coronavir NL63 PCR Nasal Coronavir OC43 PCR Nasal Enterovir/Rhinovir PCR Nasal Influenza B PCR Nasal Influenza A PCR Nasal Parainfluen 1 PCR Nasal Parainfluen 2 PCR Nasal Parainfluen 3 PCR Nasal Parainfluen 4 PCR Nasal RSV (PCR) Nasal B.pertussis DNA PCR Nasal C.pneumoniae (PCR) Joseluis Human Metapneumo PCR Nasal M.pneumoniae (PCR) Nasal SARS-CoV-2 (PCR) Diagnostic Imaging Diagnostic Imaging Results: positive Final report reviewed Diagnostic Imaging Comments: Chest x-ray shows heart size is prominent. Interstitial markings appear increased, however this may be secondary to technique/body habitus versus pulmonary edema or atypical infection. Knee x-ray shows moderate osteoarthritis and small joint effusion without osseous erosions. Sepsis Event Note (H) Evaluation Current Stage of Sepsis: Sepsis Possible source of Sepsis: positive Genitourinary Sepsis Criteria Sepsis Criteria: Recorded Temperature greater than 38.3C or Less than 36C and WBC count greater than 12,000 or less than 4000 Assessment/Plan Problem List (1) Acute UTI: Impression: Patient with fever, weakness. No urinary symptoms but low degree of suspicion for UTI. UA does show moderate bacteria. Urine culture shows Proteus species, further identification to follow. Continue Rocephin 1 g daily. Blood cultures ordered, pending. (2) Weakness: Impression: Likely exacerbated by UTI above, but does have baseline level of deconditioning. Physical therapy, occupational therapy consulted; will likely need rehab on discharge. (3) Sepsis: Impression: Likely due to UTI. Continue to monitor, treat as above. Qualifiers: Sepsis type: sepsis due to unspecified organism Sepsis acute organ dysfunction status: without acute organ dysfunction Qualified Code(s): A41.9 - Sepsis, unspecified organism (4) Leukocytosis: Impression: Likely due to above. Continues to improve with treatment. Continue to trend. Qualifiers: Leukocytosis type: unspecified Qualified Code(s): D72.829 - Elevated white blood cell count, unspecified (5) Sacral ulcer: Impression: Present on admission. Does not appear infected at this time. Continue repositioning frequently. 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 Qualifiers: Hypertension type: essential hypertension Qualified Code(s): I10 - Essential (primary) hypertension (7) Familial tremor: Impression: Continue clonazepam and propranolol.
--- NOTE | 2024-01-09 12:51 | PHARMACY PROGRESS NOTE ---
Best Possible Medication History Admit Date and Time: 01/08/241916 Processed by: Pharmacy Medications reviewed in ED?: No Medication History completed: Yes Patient Interview: Completed Secondary Source(s): Insurance records [facility] Statement: As the person ultimately responsible for medication therapy, providers are able to order a medication from an existing home medication list in [facility] via the "Reconcile Routine" prior to Confirmation of that medication by direct support professional caregiver. Such practice is discouraged except when the physician, in their clinical judgment, deems that a medical need exists for a medication without regard to previous use.
--- NOTE | 2024-01-09 12:52 | XRAY Report ---
PROCEDURE: XR Knee 3V RT INDICATIONS: swelling/evaluation for fluid/septic arthritis? TECHNIQUE: 3 views of the knee was obtained. COMPARISON: None FINDINGS: Bones: No fractures or dislocations. No suspicious bony lesions. Moderate medial compartment joint space narrowing with marginal osteophyte. No erosions. Soft tissues: Small knee joint effusion. No suspicious soft tissue calcifications or masses. IMPRESSION: Moderate osteoarthritis and small joint effusion without osseous erosions Reviewed by: Jewel Waite MD on 01/09/2024 11:50 AM AKDT Approved by: Jewel Waite MD on 01/09/2024 11:50 AM AKDT Station ID: [id number]
[2024-01-09] MEDS: PROPRANOLOL 40 MG TABLET PO PRN (17:05)
[2024-01-09] MEDS: DOCUSATE SODIUM 250 MG CAPSULE PO SCH (17:06)
[2024-01-09] MEDS: polyethylene glycoL 3350 17 GM PACKET PO SCH (17:06)
[2024-01-09] MEDS: cefTRIAXone 1 GM in SODIUM CHLORIDE 0.9% MINIBAG 100 ML IV SCH (18:09)
[2024-01-09] MEDS: NYSTATIN CREAM 15 GM TUBE TOP SCH (20:39)
[2024-01-10 05:48] LABS: HCT - HEMATOCRIT 33.5 % (37.0-47.0); HGB - HEMOGLOBIN 10.7 g/dL (12.0-16.0); MEAN CORPUSCULAR HEMOGLOBIN 31.2 pg (27.0-31.0); MEAN CORPUSCULAR HGB CONC 31.9 g/dL (32.0-36.0); MEAN CORPUSCULAR VOLUME 97.7 fL (81.0-99.0); MEAN PLATELET VOLUME 9.6 fL (7.9-10.8); RED BLOOD COUNT 3.43 10^6/uL (4.20-5.40); RED CELL DISTRIBUTION WIDTH 12.4 % (12.0-15.0); WHITE BLOOD COUNT 9.7 x10^3/uL (4.8-10.8)
[2024-01-10 06:17] LABS: CALCIUM 9.4 mg/dL (8.5-10.3); CREATININE 0.9 mg/dL (0.6-1.3); POTASSIUM 3.7 mmol/L (3.5-4.5)
[2024-01-10] MEDS ORDERED: polyethylene glycoL 3350 17 GM PACKET PO PRN (08:48)
--- NOTE | 2024-01-10 08:49 | PROVIDER PROGRESS NOTE ---
Subjective Subjective Subjective: Patient states that she feels better today. She denies any fevers, chills. She does feel some discomfort in her abdominal region. She states that she feels constipated, but she usually has 1 bowel movement a day. She has not had a bowel movement in 4 days. Current Medications Current Medications Current Medications: Current Medications Generic Name Dose Route Start Last Admin Trade Name Freq PRN Reason Stop Dose Admin Acetaminophen 650 mg 01/08/24 19:16 01/09/24 20:39 Acetaminophen 325 Mg Tablet PO 650 mg Q4HR PRN Administration Pain 1 to 4, or Fever Clonazepam 0.5 mg 01/08/24 21:00 01/10/24 08:09 Clonazepam 0.5 Mg Tablet PO 0.5 mg BID GARETH Administration Docusate Sodium 250 - 500 mg 01/09/24 16:50 01/10/24 08:09 Docusate Sodium 250 Mg Capsule PO 250 mg DAILY GARETH Administration Ceftriaxone Sodium 1 gm/ 100 mls @ 200 mls/hr 01/09/24 18:00 01/09/24 19:04 Sodium Chloride IV Infused Q24H GARETH Infusion Losartan Potassium 75 mg 01/08/24 21:00 01/09/24 20:39 Losartan 50 Mg Tablet PO 75 mg QPM GARETH Administration Nystatin 1 applic 01/09/24 21:00 01/09/24 20:39 Nystatin Cream 15 Gm Tube TOP 1 applic BID GRAETH Administration Ondansetron HCl 4 mg 01/08/24 19:16 Ondansetron 4 Mg/2 Ml Vial IVP Q6HR PRN Nausea / Vomiting Pantoprazole Sodium 40 mg 01/09/24 09:00 01/10/24 08:09 Pantoprazole 40 Mg Tablet PO 40 mg DAILY GARETH Administration Polyethylene Glycol 17 gm 01/09/24 16:50 01/10/24 08:10 Polyethylene Glycol 3350 17 Gm Packet PO 17 gm DAILY GARETH Administration Propranolol HCl 60 mg 01/09/24 15:32 01/09/24 17:05 Propranolol 40 Mg Tablet PO 60 mg BID PRN Administration tremors Sodium Chloride 10 ml 01/08/24 19:16 Sodium Chloride Flush 0.9% 10 Ml Syringe IVP PRN PRN NEEDED PER PROVIDER ORDERS Sodium Chloride 10 ml 01/09/24 01:00 01/10/24 08:11 Sodium Chloride Flush 0.9% 10 Ml Syringe IVP 10 ml 0100,0900,1700 GARETH Administration Triamterene/Hydrochlorothiazide 1 cap 01/09/24 09:00 01/10/24 08:09 Triamt/Hctz 37.5 Mg/25 Mg Capsule PO 1 cap DAILY GARETH Administration Objective Vital Signs/Intake & Output Reviewed Vital Signs: Yes Vital Signs: Vital Signs x48h Temp Pulse Pulse Resp BP Pulse Ox 01/10/24 08:03 97.9 F 69 16 162/75 H 94 01/10/24 05:54 98.1 F 67 18 157/75 H 93 Intake & Output: Intake & Output 01/08/24 01/09/24 01/10/24 01/11/24 05:59 05:59 05:59 05:59 Intake Total 1150 / 1150 1577 / 1577 Output Total 600 / 600 1401 / 1401 700 / 700 Balance 550 / 550 176 / 176 -700 / -700 Weight (kg) 94.5 kg Objective General Appearance: positive Mild distress and Anxious Eyes Bilateral: positive Normal inspection, PERRL and EOMI ENT: positive ENT inspection nml, Pharynx nml and No signs of dehydration Neck: positive Nml inspection, No JVD and Trachea midline Respiratory: positive Chest non-tender, No respiratory distress and Breath sounds nml; negative Wheezes, Rales or Rhonchi Cardiovascular: positive Regular rate & rhythm and No murmur; negative Irregularly irregular, Extrasystoles, Tachycardia or JVD present Abdomen: positive Non-tender, No organomegaly and No distention; negative Tenderness, Rebound, Hepatomegaly, Splenomegaly or Mass Back: positive Nml inspection; negative CVA tenderness (R) or CVA tenderness (L) Skin: positive Color nml, No rash, Warm and Dry Extremities: positive Non-tender, Full ROM and Joint swelling (right knee joint swelling ) Neurologic/Psychiatric: positive Oriented x3, Motor nml and Mood/affect nml Lab Results 01/10/24 05:16 01/10/24 05:16 Other Labs: Lab Results x24hrs 01/10/24 01/09/24 Range/Units 05:16 09:23 WBC 9.7 12.0 H (4.8-10.8) x10^3/uL RBC 3.43 L 3.55 L (4.20-5.40) 10^6/uL Hgb 10.7 L 11.2 L (12.0-16.0) g/dL Hct 33.5 L 34.6 L (37.0-47.0) % MCV 97.7 97.5 (81.0-99.0) fL MCH 31.2 H 31.5 H (27.0-31.0) pg MCHC 31.9 L 32.4 (32.0-36.0) g/dL RDW 12.4 12.5 (12.0-15.0) % Plt Count 287 262 (130-450) 10^3/uL MPV 9.6 9.3 (7.9-10.8) fL Sodium 135 (135-145) mmol/L Potassium 3.7 (3.5-4.5) mmol/L Chloride 102 (101-111) mmol/L Carbon Dioxide 28 (21-32) mmol/L Anion Gap 5.0 L (6-13) BUN 21 H (6-20) mg/dL Creatinine 0.9 (0.6-1.3) mg/dL Estimated GFR (MDRD) 60 L (>89) Glucose 105 H (74-104) mg/dL Calcium 9.4 (8.5-10.3) mg/dL Diagnostic Imaging Diagnostic Imaging Results: positive Final report reviewed Diagnostic Imaging Comments: Chest x-ray shows heart size is prominent. Interstitial markings appear increased, however this may be secondary to technique/body habitus versus pulmonary edema or atypical infection. Knee x-ray shows moderate osteoarthritis and small joint effusion without osseous erosions. Sepsis Event Note (H) Evaluation Current Stage of Sepsis: Sepsis Possible source of Sepsis: positive Genitourinary Sepsis Criteria Sepsis Criteria: Recorded Temperature greater than 38.3C or Less than 36C and WBC count greater than 12,000 or less than 4000 Assessment/Plan Problem List (1) Acute UTI: Impression: Patient with fever, weakness. UA does show moderate bacteria. Urine culture shows Proteus species, sensitive to Rocephin. Continue Rocephin 1 g daily. Blood cultures contaminated. (2) Weakness: Impression: Likely exacerbated by UTI above, but does have baseline level of deconditioning. Physical therapy, occupational therapy consulted; will likely need rehab on discharge. (3) Sepsis: Impression: Resolved. No longer febrile, leukocytosis improved. Likely due to UTI. Continue to monitor, treat as above. Qualifiers: Sepsis acute organ dysfunction status: without acute organ dysfunction Sepsis type: sepsis due to unspecified organism Qualified Code(s): A41.9 - Sepsis, unspecified organism (4) Leukocytosis: Impression: Resolved. Continue to trend. Qualifiers: Leukocytosis type: unspecified Qualified Code(s): D72.829 - Elevated white blood cell count, unspecified (5) Sacral ulcer: Impression: Present on admission. Does not appear infected at this time. Continue repositioning frequently. 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 Qualifiers: Hypertension type: essential hypertension Qualified Code(s): I10 - Essential (primary) hypertension (7) Familial tremor: Impression: Continue clonazepam and propranolol.
[2024-01-10] MEDS ORDERED: PANTOPRAZOLE 20 MG PO SCH (09:00)
[2024-01-11 05:50] LABS: HCT - HEMATOCRIT 34.3 % (37.0-47.0); HGB - HEMOGLOBIN 11.3 g/dL (12.0-16.0); MEAN CORPUSCULAR HEMOGLOBIN 31.7 pg (27.0-31.0); MEAN CORPUSCULAR HGB CONC 32.9 g/dL (32.0-36.0); MEAN CORPUSCULAR VOLUME 96.3 fL (81.0-99.0); MEAN PLATELET VOLUME 9.7 fL (7.9-10.8); RED BLOOD COUNT 3.56 10^6/uL (4.20-5.40); RED CELL DISTRIBUTION WIDTH 12.2 % (12.0-15.0)
[2024-01-11 06:01] LABS: CALCIUM 9.4 mg/dL (8.5-10.3); POTASSIUM 4.1 mmol/L (3.5-4.5)
--- NOTE | 2024-01-11 08:59 | PROVIDER PROGRESS NOTE ---
Subjective Subjective Subjective: Patient states that she feels better today. She denies any fevers, chills. She is agreeable to rehab, referrals sent. Current Medications Current Medications Current Medications: Current Medications Generic Name Dose Route Start Last Admin Trade Name Freq PRN Reason Stop Dose Admin Acetaminophen 650 mg 01/08/24 19:16 01/10/24 21:14 Acetaminophen 325 Mg Tablet PO 650 mg Q4HR PRN Administration Pain 1 to 4, or Fever Clonazepam 0.5 mg 01/08/24 21:00 01/10/24 21:14 Clonazepam 0.5 Mg Tablet PO 0.5 mg BID GARETH Administration Docusate Sodium 250 - 500 mg 01/09/24 16:50 01/10/24 08:09 Docusate Sodium 250 Mg Capsule PO 250 mg DAILY GARETH Administration Ceftriaxone Sodium 1 gm/ 100 mls @ 200 mls/hr 01/09/24 18:00 01/10/24 19:48 Sodium Chloride IV Infused Q24H GARETH Infusion Losartan Potassium 75 mg 01/08/24 21:00 01/10/24 21:14 Losartan 50 Mg Tablet PO 75 mg QPM GARETH Administration Nystatin 1 applic 01/09/24 21:00 01/10/24 21:15 Nystatin Cream 15 Gm Tube TOP 1 applic BID GARETH Administration Ondansetron HCl 4 mg 01/08/24 19:16 Ondansetron 4 Mg/2 Ml Vial IVP Q6HR PRN Nausea / Vomiting Pantoprazole Sodium 40 mg 01/09/24 09:00 01/10/24 08:09 Pantoprazole 40 Mg Tablet PO 40 mg DAILY GARETH Administration Polyethylene Glycol 17 gm 01/09/24 16:50 01/10/24 08:10 Polyethylene Glycol 3350 17 Gm Packet PO 17 gm DAILY GARETH Administration Polyethylene Glycol 17 gm 01/10/24 08:48 Polyethylene Glycol 3350 17 Gm Packet PO DAILY PRN Bowel Protocol Propranolol HCl 60 mg 01/09/24 15:32 01/10/24 21:14 Propranolol 40 Mg Tablet PO 60 mg BID PRN Administration tremors Senna 8.6 mg 01/10/24 08:48 Senna 8.6 Mg Tablet PO DAILY PRN Constipation Sodium Chloride 10 ml 01/08/24 19:16 Sodium Chloride Flush 0.9% 10 Ml Syringe IVP PRN PRN NEEDED PER PROVIDER ORDERS Sodium Chloride 10 ml 01/09/24 01:00 01/11/24 00:51 Sodium Chloride Flush 0.9% 10 Ml Syringe IVP 10 ml 0100,0900,1700 GARETH Administration Triamterene/Hydrochlorothiazide 1 cap 01/09/24 09:00 01/10/24 08:09 Triamt/Hctz 37.5 Mg/25 Mg Capsule PO 1 cap DAILY GARETH Administration Objective Vital Signs/Intake & Output Reviewed Vital Signs: Yes Vital Signs: Vital Signs x48h Temp Pulse Resp BP Pulse Ox 01/11/24 07:55 97.9 F 63 20 182/74 H 95 01/11/24 05:54 97.7 F 59 L 20 177/62 H 94 Intake & Output: Intake & Output 01/09/24 01/10/24 01/11/24 01/12/24 05:59 05:59 05:59 05:59 Intake Total 1150 / 1150 1577 / 1577 2050 / 2050 Output Total 600 / 600 1401 / 1401 3100 / 3100 Balance 550 / 550 176 / 176 -1049 / -1049 Weight (kg) 94.5 kg Objective General Appearance: positive Mild distress and Anxious Eyes Bilateral: positive Normal inspection, PERRL and EOMI ENT: positive ENT inspection nml, Pharynx nml and No signs of dehydration Neck: positive Nml inspection, No JVD and Trachea midline Respiratory: positive Chest non-tender, No respiratory distress and Breath sounds nml; negative Wheezes, Rales or Rhonchi Cardiovascular: positive Regular rate & rhythm and No murmur; negative Irregularly irregular, Extrasystoles, Tachycardia or JVD present Abdomen: positive Non-tender, No organomegaly and No distention; negative Tenderness, Rebound, Hepatomegaly, Splenomegaly or Mass Back: positive Nml inspection; negative CVA tenderness (R) or CVA tenderness (L) Skin: positive Color nml, No rash, Warm and Dry Extremities: positive Non-tender, Full ROM and Joint swelling (right knee joint swelling ) Neurologic/Psychiatric: positive Oriented x3, Motor nml and Mood/affect nml Lab Results 01/11/24 05:17 01/11/24 05:17 Other Labs: Lab Results x24hrs 01/11/24 Range/Units 05:17 WBC 9.0 (4.8-10.8) x10^3/uL RBC 3.56 L (4.20-5.40) 10^6/uL Hgb 11.3 L (12.0-16.0) g/dL Hct 34.3 L (37.0-47.0) % MCV 96.3 (81.0-99.0) fL MCH 31.7 H (27.0-31.0) pg MCHC 32.9 (32.0-36.0) g/dL RDW 12.2 (12.0-15.0) % Plt Count 313 (130-450) 10^3/uL MPV 9.7 (7.9-10.8) fL Sodium 135 (135-145) mmol/L Potassium 4.1 (3.5-4.5) mmol/L Chloride 100 L (101-111) mmol/L Carbon Dioxide 29 (21-32) mmol/L Anion Gap 6.0 (6-13) BUN 23 H (6-20) mg/dL Creatinine 1.0 (0.6-1.3) mg/dL Estimated GFR (MDRD) 53 L (>89) Glucose 103 (74-104) mg/dL Calcium 9.4 (8.5-10.3) mg/dL Diagnostic Imaging Diagnostic Imaging Results: positive Final report reviewed Diagnostic Imaging Comments: Chest x-ray shows heart size is prominent. Interstitial markings appear increased, however this may be secondary to technique/body habitus versus pulmonary edema or atypical infection. Knee x-ray shows moderate osteoarthritis and small joint effusion without osseous erosions. Sepsis Event Note (H) Evaluation Current Stage of Sepsis: Sepsis Possible source of Sepsis: positive Genitourinary Sepsis Criteria Sepsis Criteria: Recorded Temperature greater than 38.3C or Less than 36C and WBC count greater than 12,000 or less than 4000 Assessment/Plan Problem List (1) Acute UTI: Impression: Patient with fever, weakness. UA does show moderate bacteria. Urine culture shows Proteus species, received three doses of Rocephin 1 g. Will start Bactrim for 4 more days to complete 7 day antibiotic course. Blood cultures contaminated. (2) Weakness: Impression: Likely exacerbated by UTI above, but does have baseline level of deconditioning. Physical therapy, occupational therapy consulted; agreeable to rehab on discharge. (3) Sepsis: Impression: Resolved. No longer febrile, leukocytosis improved. Likely due to UTI. Continue to monitor, treat as above. Qualifiers: Sepsis acute organ dysfunction status: without acute organ dysfunction Sepsis type: sepsis due to unspecified organism Qualified Code(s): A41.9 - Sepsis, unspecified organism (4) Leukocytosis: Impression: Resolved. Continue to trend. Qualifiers: Leukocytosis type: unspecified Qualified Code(s): D72.829 - Elevated white blood cell count, unspecified (5) Sacral ulcer: Impression: Present on admission. Does not appear infected at this time. Continue repositioning frequently. 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 Qualifiers: Hypertension type: essential hypertension Qualified Code(s): I10 - Essential (primary) hypertension (7) Familial tremor: Impression: Continue clonazepam and propranolol.
[2024-01-11] MEDS: SENNA 8.6 MG TABLET PO PRN (09:15)
[2024-01-11] MEDS: SULFAMETH/TRIMETH DS 800/160 MG TABLET PO SCH (11:42)
[2024-01-11] MEDS: LACTULOSE 10 GM /15 ML UDC PO ONE (14:18)
[2024-01-11] MEDS: PROPRANOLOL 10 MG TABLET PO SCH (21:08)
[2024-01-12 05:48] LABS: HCT - HEMATOCRIT 37.1 % (37.0-47.0); HGB - HEMOGLOBIN 12.2 g/dL (12.0-16.0); MEAN CORPUSCULAR HEMOGLOBIN 32.1 pg (27.0-31.0); MEAN CORPUSCULAR HGB CONC 32.9 g/dL (32.0-36.0); MEAN CORPUSCULAR VOLUME 97.6 fL (81.0-99.0); MEAN PLATELET VOLUME 9.6 fL (7.9-10.8); RED BLOOD COUNT 3.8 10^6/uL (4.20-5.40); RED CELL DISTRIBUTION WIDTH 12.1 % (12.0-15.0); WHITE BLOOD COUNT 9.9 x10^3/uL (4.8-10.8)
[2024-01-12 06:10] LABS: CALCIUM 9.7 mg/dL (8.5-10.3); CREATININE 1.1 mg/dL (0.6-1.3); POTASSIUM 4.6 mmol/L (3.5-4.5)
[2024-01-12 08:04] VITALS: O2SAT 95
--- NOTE | 2024-01-12 08:07 | Discharge Summary ---
"Discharge Summary Admit Date: 01/08/24 Discharge Date: 01/12/24 Discharging Provider: Dr. Selena Sears Primary Care Provider: Dr. Jodie Hidalgo Discharge Facility [facility]: [facility] DIAGNOSES Admission Diagnoses: Acute UTI Sepsis Sacral ulcer Hypertension Discharge Diagnoses with Status of Each Condition: Acute UTIpatient afebrile, weakness improving. Urine culture did show Proteus pieces. Received 3 doses of Rocephin, 1 dose of Bactrim. Will continue Bactrim for 3 more days at rehab. Weaknessongoing. Patient going to rehab for further physical conditioning. Sepsisresolved. Leukocytosisresolved. Sacral ulcerpresent on admission. Does not appear infected at this time. Continue frequent repositioning. Hypertensioncontinue triamterene/hydrochlorothiazide, losartan. May need titration in the outpatient setting. Follow-up with primary care physician Familial tremorcontinue clonazepam and propranolol. HPI History of Present Illness: Per Dr. Gonsalves: Mrs. Lopez is a pleasant 83yo, with a history of hypertension. She presented to the ED for evaluation of worsening fatigue and generalized weakness of 1 week duration. she denied any precipitating or alleviating factors. The day priory she developed nausea and had an episode of emesis. On the day of presentation she was so weak she could not support herself on her walker to get around. Upon arrival to the ED, EMS reported a fever of greater than 101.she was afebrile in the ED. Workup demonstrated UA consistent with UTI. She denied any abdominal pain or dysuria. She had leukocytosis, no lactic obtained. she met sepsis criteria. during my evaluation at bedside patient was resting in no acute distress. daughter was at bedside. Plan of care to admit for IV antibiotic was discussed with the patient. she was in agreement with admission. This visit was performed utilizing tele-health tools including phone and live video. patient and family provided consent to proceed with this admission via telemedicine platform. CONSULTS | PROCEDURES Consultations: Physical therapy, Occupational Therapy, social work Procedures: Chest x-ray, knee x-ray HOSPITAL COURSE Hospital Course: Patient is a 83-year-old female with a history of hypertension, essential tremor who presented with worsening fatigue and generalized weakness for approximately a week. She cannot support herself on her walker, and could not get herself off the toilet. She slid down, and her daughter helped her. At that time, she called EMS. When she arrived in the emergency room, she was febrile, had a leukocytosis. UA was positive. She was treated for sepsis, as well as a UTI with IV Rocephin. Urine culture grew Proteus. She was switched to Bactrim. She will complete a 7-day course of antibiotics. During her stay here, she remained weak. Physical therapy and Occupational Therapy did see her, and recommended rehab facility. Referrals were sent out, and [facility] did accept her. Patient will be going to rehab for further conditioning. ALLERGIES Allergies Allergy/AdvReac Type Severity Reaction Status Date / Time No Known Drug Allergies Allergy Verified 01/08/24 17:12 MEDICATIONS Ambulatory Orders Medication Instructions Recorded Confirmed losartan 50 mg tablet 75 mg ORAL QPM 02/09/15 01/08/24 B-complex with vitamin C (Super B 1 ea PO DAILY 05/27/20 01/08/24 Complex-Vitamin C tablet) calcium 600 mg (as phosphate)-vit 1 ea PO DAILY 05/27/20 01/08/24 D3 500 unit-magnesium 50 mg tablet (Posture-D (with magnesium)) cholecalciferol (vitamin D3) 25 50 mcg PO DAILY 05/27/20 01/08/24 mcg (1,000 unit) tablet glucosamine HCl 1,500 mg tablet 1,500 mg PO DAILY 05/27/20 01/08/24 iron, carbonyl 45 mg tablet 65 mg PO DAILY 10/14/20 01/08/24 pantoprazole 20 mg tablet,delayed 20 mg PO DAILY 01/09/24 01/09/24 release propranolol 60 mg tablet 60 mg PO BID PRN tremors 01/09/24 01/09/24 clonazepam 0.5 mg tablet 0.25 mg (1/2 x 0.5 mg) PO BID PRN 01/12/24 tremors #30 tabs docusate sodium 250 mg capsule 250 - 500 mg (1 - 2 x 250 mg) PO 01/12/24 DAILY #30 caps nystatin 100,000 unit/gram topical 1 applic topical BID #15 grams 01/12/24 cream polyethylene glycol 3350 17 gram 17 g PO DAILY PRN Bowel Protocol 01/12/24 oral powder packet #30 ea sulfamethoxazole 800 1 tab PO BID 3 days #6 tabs 01/12/24 mg-trimethoprim 160 mg tablet triamterene 37.5 1 cap PO DAILY #30 caps 01/12/24 mg-hydrochlorothiazide 25 mg capsule PHYSICAL EXAM AT DISCHARGE General Appearance: positive No acute distress; negative Anxious Eyes Bilateral: positive Normal inspection, PERRL and EOMI ENT: positive ENT inspection nml, Pharynx nml and No signs of dehydration Neck: positive Nml inspection, Thyroid nml, No JVD and Trachea midline Respiratory: positive Chest non-tender, No respiratory distress and Breath sounds nml; negative Wheezes, Rales or Rhonchi Cardiovascular: positive Regular rate & rhythm, No murmur and No gallop; negative Tachycardia or Bradycardia Peripheral Pulses: positive 2+ Abdomen: positive Non-tender and No organomegaly Back: negative CVA tenderness (R) or CVA tenderness (L) Skin: positive Color nml, No rash, Warm and Dry Extremities: positive Non-tender, No pedal edema and Joint swelling (R knee, chronic) Neurologic/Psychiatric: positive Oriented x3, Mood/affect nml and Other (bilateral steady tremor) LABS 01/12/24 05:11 01/12/24 05:11 DIAGNOSTIC IMAGING Diagnostic Imaging Results: Final report reviewed SEPSIS Current Stage of Sepsis: Resolved Possible source of Sepsis: Genitourinary Sepsis Criteria: Recorded Temperature greater than 38.3C or Less than 36C and WBC count greater than 12,000 or less than 4000 FOLLOW UP Follow Up: Follow-up with primary care physician in the outpatient setting. TIME SPENT Time Spent in Discharge (Minutes): 30 Discharge Plan Discharge Patient Disposition: 03 DC/Xfer Condition: Stable Prescriptions: New docusate sodium 250 mg Capsule 250 - 500 mg PO DAILY Qty: 30 0RF sulfamethoxazole-trimethoprim 800-160 mg Tablet 1 tab PO BID 3 Days Qty: 6 0RF triamterene-hydrochlorothiazid 37.5-25 mg Capsule 1 cap PO DAILY Qty: 30 0RF nystatin 100,000 unit/gram Cream 1 applic topical BID Qty: 15 0RF polyethylene glycol 3350 17 gram Powder In Packet 17 g PO DAILY PRN (Reason: Bowel Protocol) Qty: 30 0RF Continued losartan 50 MG tablet 75 mg ORAL QPM B-complex with vitamin C [Super B Complex-Vitamin C] 1 EACH tablet 1 ea PO DAILY cholecalciferol (vitamin D3) 25 MCG tablet 50 mcg PO DAILY glucosamine HCl 1,500 MG tablet 1,500 mg PO DAILY Posture-D (with magnesium) 1 EACH tablet 1 ea PO DAILY iron, carbonyl 45 MG tablet 65 mg PO DAILY propranolol 60 mg tablet 60 mg PO BID PRN (Reason: tremors) pantoprazole 20 mg tablet,delayed release (DR/EC) 20 mg PO DAILY clonazepam 0.5 MG tablet 0.25 mg PO BID PRN (Reason: tremors) Qty: 30 0RF Discontinued triamterene-hydrochlorothiazid 37.5-25 mg tablet See Rx Instructions .ROUTE .COMPLEX Qty: 90 4RF Dose Instruction: Take 1 tablet by mouth once a day Rx Instructions: Take 1 tablet by mouth once a day Activity Restrictions: Activity as Tolerated Diet: Low Sodium Health Concerns: You initially came in because you were feeling weak, you had a fever, and you weren't feeling like yourself. When you got to the emergency room, you were told that you had a urinary infection. We started you on antibiotics and gave you some fluids. You defervesced, and started to feel little bit stronger. However, we agreed that some structured rehab would be good for your physical conditioning before you go home. The physical therapist and the occupational therapist worked with you, and you spoke with the social welfare research worker and we will decided on an appropriate rehab place that we are all happy with. You understand that you have to finish up your antibiotics to complete a 7-day course. We also talked about how your blood pressure ran a little bit high while you are in the hospital, and you may need adjustment of your blood pressure medications with your primary care physician in the outpatient setting. You are motivated to work on your physical strength, we hope you continue to do so at rehab. Thank you for letting us take care of you, best of luck in your recovery. Care Plan Goals: 1. Complete your antibiotic course. 2. Work on your strength and mobility. 3. Continue all your home medications. 4. Follow-up with your primary care physician for adjustment of your blood pressure medication within the next week or 2. Print Language: British Patient Instructions: Urinary Tract Infec Ch Stand Alone Forms: PCP List Follow-up Care: Jodie Gracia ARNP [Primary Care Provider] -"
--- NOTE | 2024-01-17 17:45 | PT Plan of Care ---
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 has good sitting balance; she scores at "high risk for falling" on tinettie for standing, walking. ASSESSMENT Assessment: Pt is a 83 y.o female admitted due to a UTI and general weakness that caused a near fall in the bathroom. She has scrapes on her left elbow from the near fall. She reports feeling increased weakness in the past few weeks and her daughter, Jennifer, temporarily moved in to help with home ADLs. Even though she has not recently fallen, she has changed to sponge baths and less walking in home due to fear of falling. She has 2 stairs to enter home with hand rails, a walk-in shower with a seat and grab bars, and recently started using a walker at home. Her daughter Jennifer is the main caregiver but she works multimedia manager. Pt's son recently had a CVA and is not able to help. Her other daughter visits her daily to help with ADLS as well. Her bed mobility is limited due to discomfort in the right knee and general weakness, ModAx2 with log rolling to the left and using the handrails. Pt is able to sit comfortable at edge of bed but requires ModAx2 for STS with FWW. She reported feeling like she was falling back but with cueing to stand straight she was able to stay upright. Amb 3ft to bedside chair CGAx2 with verbal cueing to prevent forward flexion. Patient is aware of her mobility needs and is open to a [facility] facility. Patient will benefit from skilled PT due to limited mobility and general weakness. When medically cleared PT recommends discharge to SNF. PATIENT/FAMILY GOALS Patient/Family Goals: To d/c home and be independent w/all activity GOALS Improve supine to sit to:: Minimal Assist Improve sit to stand to:: Minimal Assist Improve gait ability to:: CGA Advance Assistive Device to:: Front Wheeled Walker Increase distance walked to (in feet):: 10 Reduce verbal cues to:: 1 Reduce physical cues to:: 1 Improve Sitting Balance to:: Good PLAN Frequency: 1-2x/day Duration: Until goals are met DISCHARGE RECOMMENDATIONS Discharge Location: Long Term Facility Support/Services Needed: With assist DC Equipment Recommended: Front wheeled walker and Gait belt Other Discharge Equipment: hosital bed (?) Transport Needs at Discharge: Wheelchair van
== END 2024-01-12 11:30 | DRG 872 ==
LOC: MS3 16:50 → ED 16:50 → SUATTDRO 19:17 → MS3 19:53 → MS2 01-10 21:56
PROVIDERS: ADMIT Hospitalist; ATTEND Internal Medicine
DX: I10 Essential (primary) hypertension; B96.4 Proteus (mirabilis) (morganii) as the cause of diseases classified elsewhere; G25.0 Essential tremor; N39.0 Urinary tract infection, site not specified; Z85.3 Personal history of malignant neoplasm of breast; R53.1 Weakness; L98.421 Non-pressure chronic ulcer of back limited to breakdown of skin; A41.9 Sepsis, unspecified organism